=== PATIENT | female | born 1955 | race Caucasian/White ===

== ENCOUNTER 2017-11-10 03:15 | Inpatient (IN) ==
[2017-11-10] MEDS ORDERED: *HR* Dextrose 50 % in Water (Syg) 50 ML SYRINGE IVP PRN (12:26)
[2017-11-10] MEDS ORDERED: Dextrose Gel 15 GM/37.5 ML TUBE PO PRN ×2 (12:26)
[2017-11-10] MEDS ORDERED: D5% in Water 1,000 ML IVC PRN (12:26)
[2017-11-10 12:50] LABS: Hematocrit 29.9 % (35.3-44.9); Hemoglobin 10.1 g/dL (11.5-15.4); Mean Corpuscular HGB Conc 33.8 g/dL (31.6-35.5); Mean Corpuscular Hemoglobin 29.2 pg (28.0-33.3); Mean Corpuscular Volume 86.4 fL (83.0-100.0); Mean Platelet Volume 10.1 fL (9.4-12.4); Platelet Count 290 K/mcL (140-400); Red Blood Count 3.46 M/mcL (3.82-4.97); Red Cell Distribution Width 13.4 % (11.5-14.5)
[2017-11-10 12:58] LABS: INR 0.9; Prothrombin Time 10.4 Seconds (9.4-12.1)
--- NOTE | 2017-11-10 13:07 | Cardiology Consult Note ---
Date of Encounter: 11/10/17 Time of Encounter: 12:30 Assessment and Plan (1) Chest pain Current Visit: Yes Status: Acute Chest pain concerning for unstable angina. H/o multiple PCI and was not taking GDMT. Troponin negative x2 and 0.08. Mild elevation also in the setting of HTN urgency b/p 210/117. Re-peat EKG ordered, record from other facility is not available to me. Ongoing chest pain and symptoms concerning for unstable angina. LHC is recommended and discussed with patient. She agrees to proceed. R/B/A reviewed. Check TTE Qualifiers: Ischemic chest pain type: unstable angina pectoris Qualified Code(s): I20.0 - Unstable angina (2) Elevated troponin Current Visit: Yes Status: Acute (3) CAD (coronary artery disease), [place] coronary artery Current Visit: No Status: Chronic H/o CAD and multiple PCI most recent PCI 09/2016 at [facility]. Records requested. Continue asa, statin, and bb. Unfortunately she was not on DAPT after her most recent PCI. She states she was never prescribed anything. Qualifiers: [place] vs. transplanted heart: [place] heart Associated angina: without angina Qualified Code(s): I25.10 - Atherosclerotic heart disease of [place] coronary artery without angina pectoris (4) Hypertension Current Visit: No Status: Chronic B/p improved on NTG gtt. Recommend restarting zestril and increase as needed. Qualifiers: Hypertension type: essential hypertension Qualified Code(s): I10 - Essential (primary) hypertension Discussion w patient/family: The assessment and plan as outlined above was discussed with the patient and/or family members who expressed understanding and agreement. All questions were answered. Thank you for involving us in the care of your patient. Please call with any questions. History of Present Illness Consult date: 11/10/17 Requesting physician: José Ramesh Consult reason: Unstable angina, hypertensive urgency Chief complaint: Chest pain, difficulty breathing, hypoxia History of present illness: Ms. Seaman is a 62 year old female with past medical history of CAD and multiple PCI, CHF, HTN, COPD, uncontrolled DM type II, and fibromyalgia. She presented to out side hospital with the c/o worsening left sided chest discomfort, elevated b/p at 210/117, and difficulty breathing. C/o intermittent left sided chest pain over the past two months that increased to every other day over the last month and increased in severity over the last 48 hours. Her pain is described as an ache through to her back and shoulder. Pain increases with activity. Her pain also improves with IV NTG. When her NTG was turned off she reported severe chest pain. She reports having similar symptoms one year ago. At that time she underwent stress test that was found to be abnormal. Patient underwent C at [facility] and received multi-vessel PCI. She states she was not started on plavix after her PCI. She also did not follow with cardiology after her PCI. Past Med Surg Social Fam HX - Past Medical History Attestation: Yes The following information was validated with the patient. Medical history: coronary artery disease, diabetes, hypertension, thyroid disease Additional medical history: MS fibromyalgia, Psychiatric history: depression - Past Surgical History Surgical History: cholecystectomy Additional surgical history: L ankle ORIF. coronary stents x3. tubial - Social History Smoking Status: Never smoker Smokeless Tobacco Status: No Alcohol use: none Drug use: none Medications and Allergies Aspirin Enteric Coated [Aspirin EC] 81 mg PO DAILY #30 tablet. 12/23/15 [Rx] Atorvastatin Calcium [Lipitor] 80 mg PO HS 11/10/17 [History] Escitalopram [Lexapro] 20 mg PO DAILY 11/10/17 [History] Furosemide [Lasix] 40 mg PO DAILY 11/10/17 [History] Insulin NPH/REG 70/30 (HUMAN) [Humulin 70/30 Vial] 75 unit SQ BID 11/10/17 [ History] Levothyroxine [Synthroid] 75 mcg PO QAM 11/10/17 [History] Lisinopril [Zestril] 20 mg PO DAILY 11/10/17 [History] 3 Allergy/AdvReac Type Severity Reaction Status Date / Time Penicillins Allergy Anaphylaxis Verified 12/20/15 23:33 Sulfa (Sulfonamide Allergy Anaphylaxis Verified 02/06/16 14:23 Antibiotics) All Systems Review: The remainder of the systems were reviewed and are negative Physical Examination Vital Signs, Last 4 Hours Temp Pulse Resp BP Pulse Ox 11/10/17 10:20 98.1 F 85 16 135/88 93 General: Conversant, No Apparent Distress HEENT: Atraumatic, Normocephaly, Mucus Membranes Moist Neck: No JVD, Normal carotid pulses Cardiac: Reg Rate and Rhythm, Normal S1 and S2, No Murmur Lungs: Normal Breath Sounds, No Wheeze, Rales, Rhonchi Neuro: Alert and responsive, No focal deficits noted Abdomen: Soft, Non-Tender Skin: No rashes noted on visualized skin Musculoskeletal: Other (reproducible chest wall pain. ) Extremities: No Clubbing, No Cyanosis, No Edema, Normal Pulses Results 11/10/17 12:40 11/10/17 12:40 Lab Results 11/10/17 12:40 WBC 8.9 Hgb 10.1 L Hct 29.9 L Plt Count 290 - Imaging and Cardiology Echo: report reviewed Consult Discharge Plan - Plan Referrals: Saw Flores DO [Primary Care Provider] -
[2017-11-10] MEDS ORDERED: *HR* Heparin 5,000 UNIT/ML VIAL IVP ONE (13:11)
[2017-11-10] MEDS ORDERED: *HR* Heparin 5,000 UNIT/ML VIAL IVP PRN ×2 (13:11)
[2017-11-10 13:15] LABS: Troponin I 0.08 ng/mL (< 0.04)
[2017-11-10] MEDS ORDERED: Heparin 25,000 UNIT/500 ML D5W 25,000 UNIT/500 ML BAG IVC SCH (13:15)
[2017-11-10 13:16] LABS: Estimated Average Glucose 346 mg/dl; Hemoglobin A1C 13.7 %; Potassium 4.3 mEq/L (3.5-5.1)
[2017-11-10 13:19] LABS: Magnesium 1.7 mg/dL (1.6-2.6)
[2017-11-10] MEDS: Aspirin Enteric Coated 81 MG Tablet PO SCH (13:42)
[2017-11-10] MEDS: Insulin LISPRO 300 UNITS/3 ML VIAL SQ SCH ×3 (13:43→17:59)
[2017-11-10 14:00] LABS: Hematocrit 30.3 % (35.3-44.9); Hemoglobin 10.2 g/dL (11.5-15.4); Mean Corpuscular HGB Conc 33.7 g/dL (31.6-35.5); Mean Corpuscular Hemoglobin 28.8 pg (28.0-33.3); Mean Corpuscular Volume 85.6 fL (83.0-100.0); Mean Platelet Volume 10.2 fL (9.4-12.4); Platelet Count 291 K/mcL (140-400); Red Blood Count 3.54 M/mcL (3.82-4.97); Red Cell Distribution Width 13.4 % (11.5-14.5)
[2017-11-10 14:04] LABS: Heparin anti-factor XA UFH 0.05 IU/mL (0.30-0.70)
[2017-11-10 14:05] LABS: INR 0.9; Prothrombin Time 10.4 Seconds (9.4-12.1)
[2017-11-10] MEDS ORDERED: 0.9 % Sodium Chloride 1,000 ML ONE ×2 (14:24→15:08)
[2017-11-10] MEDS ORDERED: Heparin 1,000 UNITS/500 mL 500 ML ONE (14:24)
[2017-11-10] MEDS ORDERED: ISOVUE-370 200 ML INFUS..BTL IV ONE ×2 (14:24→15:31)
[2017-11-10] MEDS ORDERED: Nitroglycerin 1,000 MCG/10 ML VIAL IV ONE (14:24)
[2017-11-10] MEDS ORDERED: *HR* Heparin 10,000 UNIT/10 ML VIAL ONE (14:24)
[2017-11-10] MEDS ORDERED: *HR* FentaNYL (PF) 100 MCG/2 ML VIAL ONE (15:08)
[2017-11-10] MEDS ORDERED: *HR* Midazolam HCl 2 MG/2 ML VIAL ONE (15:08)
[2017-11-10] MEDS ORDERED: Tirofiban 12.5 MG/250ML 12.5 MG/250 ML BAG ONE (15:31)
[2017-11-10] MEDS ORDERED: *HR* Ticagrelor 90 MG TABLET ONE (16:08)
--- NOTE | 2017-11-10 16:14 | Pre-Sedation Evaluation ---
Pre-sedation evaluation - Pre-sedation checklist Date of procedure: 11/10/17 Procedure: Cath Recent Vitals: Last Vital Signs Temp 98.1 F 11/10/17 13:38 Pulse 85 11/10/17 13:38 Resp 18 11/10/17 13:38 BP 164/91 11/10/17 13:38 Pulse Ox 97 11/10/17 13:38 H&P (including ROS) documented in medical record: Yes Previous reaction to sedatives/anesthetics: No Dietary Status: NPO after Midnight Dentition: No loose teeth or bridges, full dentition ASA Classification *see protocol: CLASS II-Mild systemic disease Cardiac Registry (Cardio Only) - Functional Capacity Functional Capacity: < 4 METS - Clincal Frailty Scale Clinical Frailty Scale: Mildly Frail
[2017-11-10] MEDS ORDERED: Tirofiban 12.5 MG/250ML 12.5 MG/250 ML BAG IVC SCH (16:15)
--- NOTE | 2017-11-10 16:37 | Invasive Diagnostic Lab Proc ---
Name: Francheska Seaman Date of Study: 11/10/2017 Date: 1955 Ht: 59.1in Medical Record#: [id number] Age: 62 Wt: 189.60lb Gender: Female BSA: 1.8 Order #: [id number] BMI: 38.22 Physicians Procedure Physician: Elsa West MD Referring MD: Referring MD: Staff Name Position Time In [facility] Cassidy RN Ehs Engineer 03:09 PM Yoko Gonzalez RT (R) Scrub 03:14 PM Ruba, Yoko RT (R) Monitor 03:14 PM Indications Indication Non-Stemi Procedures Performed Procedure L HRT ARTERY/VENTRICLE ANGIO PRQ CARDIAC ANGIOPLAST 1 ART Pre-Procedure Checklist Informed consent is complete signed and on chart. H&P is on chart. ID band is on and ID verified with patient. Patient NPO for procedure The procedure was described for the patient and questions were answered. Blood Pressure: 148/84 ECG is on chart. Rhythm: NSR Plan of Care Patient will tolerate the procedure without complications. Adequate level of comfort will be maintained. Hemodynamics will remain stable Patient will recover from procedure without complications. Respiratory function will be maintained. Cardiac rhythm will remain stable. Patient temperature will be maintained. Patient and/or family have verbalized understanding of the procedure. Patient Education Chief Complaint/Reason for Test: Cardiac Cath Developmental Category: Geriatric (65+ years) Developmentally Appropriate for Age: Yes Learning Barriers: None Education Needs: Procedure Education Method: Verbal Information Taught: Cardiac Cath Educational Evaluation: Able to repeat information Intravenous Access Time IV Size Location DC'd Fluid/Drip Rate Units RN 20g 1 04/15" Patent On Arrival 0.9NaCl ml/hr Allergies PCN (penicillin) SULFA (sulfonamide) LANEY Inhibitor Morphine Penicillins Sulfa (Sulfonamide Antibiotics) Vital Signs Time BP (mmHg) HR (bpm) O2 Sat. RR (bpm) LOC 03:15 PM 166 / 95 75 93 % 10 03:19 PM 148 / 84 72 91 % 15 03:24 PM 120 / 78 66 93 % 17 03:29 PM 140 / 69 75 95 % 14 03:34 PM 136 / 70 69 96 % 14 03:39 PM 108 / 62 62 96 % 17 03:43 PM 124 / 72 69 96 % 16 03:49 PM 121 / 65 76 92 % 19 03:53 PM 138 / 84 68 95 % 20 03:59 PM 140 / 93 73 94 % 19 Procedural Medications Time Medication Dose Units Method Given By 03:15 PM Oxygen 2 L/min nasal cannula Cassidy Mendoza RN 03:16 PM Versed 1 mg Intravenous Cassidy Mendoza RN 03:16 PM Fentanyl 50 mcg Intravenous Cassidy Mendoza RN 03:19 PM Versed 1 mg Intravenous Cassidy Mendoza RN 03:19 PM Fentanyl 50 mcg Intravenous Cassidy Mendoza RN 03:21 PM Oxygen 6 L/min nasal cannula Cassidy Mendoza RN 03:23 PM Oxygen 10 L/min Oxy Mask Csasidy Mendoza RN 03:24 PM Lidocaine 2% 10 ml Subcutaneous Elsa West MD 03:33 PM Aggrastat Bolus: 42 ml Intravenous Cassidy Mendoza RN 03:33 PM Aggrastat 12.5mg/250ml 7.5 ml Intravenous Cassidy Mendoza RN 03:34 PM Heparin 4000 units Intravenous Cassidy Mendoza RN 03:45 PM Nitroglycerin 150 mcg Intracoronary Ramos West MD 03:57 PM Nitroglycerin 200 mcg Intracoronary Ramos West MD ASA Classification: CLASS II- Mild systemic disease (i.e. well-controlled diabetes, hypertension, asthma, cigarette smoking) Lyndsey Score Preprocedure Postprocedure Activity 2- Moves 4 extremities sustained head lift Activity 2- Moves 4 extremities sustained head lift Circulation 2- SBP +/= 20 points of pre-anesthetic level Circulation 2- SBP +/= 20 points of pre-anesthetic level Consciousness 2- Awake and alert oriented x 3 Consciousness 2- Awake and alert oriented x 3 O2 Saturation 2- Able to maintain O2 satruation of 92% on room air O2 Saturation 2- Able to maintain O2 satruation of 92% on room air Respiratory 2- Able to deep breathe and cough well Respiratory 2- Able to deep breathe and cough well Total Score 10 Total Score 10 Contrast Agent: Isovue Diagnostic Contrast: 171 ml Total Contrast: 171 ml Fluoro Dose: 26629 mGy Activated Clotting Time Time Seconds to Clot 03:35 PM 151 Procedure Log Time Note Enter By 03:09 PM Pt arrived to electronic lab technician 1 at 15:09 cheyanne 03:09 PM Patient charges- Angio tray pack, Navilyst 3mm J, Pulse Oximetry and ACIST tubing and transducer 03:09 PM Physician arrived 15: 03:09 PM Meet and greet completed 03:09 PM Sign in performed according to hospital policy. 03:09 PM Procedure start 15: 03:10 PM Cassidy Mendoza RN Position: Ehs Engineer Time in: 15: 03:13 PM Vitals capture started with the following parameters, Patient=Adult, Interval=5 min, Initial Pcqvuiti=376 mmHg, Deflation Rate=3 mmHg, Cuff placed on Right Arm 03:14 PM Yoko Gonzalez RT (R) Position: Scrub Time in: 15:14 ts 03:14 PM Yoko Yeh RT (R) Position: Monitor Time in: 15:14 03:15 PM HR=75 bpm, WCQU=953/95 mmhg, SpO2=93.0 %, Resp=10 B/min 03:15 PM Hair removed from procedure site in holding area using clippers. Bilateral groin prepped with Chloraprep by Tiffanie Lebron RT (R), then patient was draped. Skin intact. tsites 03:15 PM Case Delayed No tsites 03:16 PM Time: 15:15 Oxygen on at 2 L/min per nasal cannula by Cassidy Mendoza RN ites 03:16 PM Time: 15:16 Versed 1 mg Intravenous Given by Cassidy Mendoza RN tsites 03:17 PM Time: 15:16 Fentanyl 50 mcg Intravenous Given by Cassidy Mendoza RN tsites 03:17 PM Recorded ECG: HR=73 Condition=Condition 1 03:19 PM HR=72 bpm, QHME=096/84 mmhg, SpO2=91.0 %, Resp=15 B/min 03:19 PM Time: 15:19 Versed 1 mg Intravenous Given by Cassidy Mendoza RN tsites 03:19 PM Time: 15:19 Fentanyl 50 mcg Intravenous Given by Cassidy Mendoza RN tsites 03:20 PM Pressure channel 1 zeroed. 03:22 PM Time: 15:21 Oxygen on at 6 L/min per nasal cannula by Cassidy Mendoza RN tsites 03:23 PM Time: 15:23 Oxygen on at 10 L/min per Oxy Mask by Cassidy Mendoza RN tsites 03:24 PM HR=66 bpm, MFMR=985/78 mmhg, SpO2=93 %, Resp=17 B/min 03:24 PM Time out performed according to hospital policy tsites 03:24 PM Time: 15:24 10 ml Lidocaine 2% to right groin Subcutaneous Given by Elsa West MD tsites 03:24 PM Access obtained by percutaneous puncture. 4Fr 10cm Micro sheath placed in right Femoral artery. [id number] tsites 03:24 PM 4cc of contrast injected tsites 03:25 PM Sheath exchanged for a 6 Fr 11 cm Terumo [place] sheath [id number] tsites 03:25 PM 5Fr FL 4 catheter inserted over the wire DN tsites 03:25 PM 0.035 145cm Navilyst 3mmJ wire [id number] tsites 03:26 PM LCA angiography performed in multiple views. tsites 03:26 PM Recorded Pressure: Ao, HR=71, Condition=Condition 1 (Aorta) Ao 128/38/77 03:28 PM wire reinserted catheter removed tsites 03:28 PM 5Fr FR 4 catheter inserted over the wire DN tsites 03:28 PM RCA angiography performed in multiple views. tsites 03:29 PM Recorded Pressure: Ao, HR=72, Condition=Condition 1 (Aorta) Ao 16/-66/-47 03:29 PM HR=75 bpm, EOAX=772/69 mmhg, SpO2=95 %, Resp=14 B/min 03:31 PM wire reinserted catheter removed tsites 03:31 PM 5Fr Pigtail catheter inserted over the wire DN tsites 03:31 PM Catheter selectively placed in left ventricle tsites 03:31 PM Recorded Pressure: LV, HR=72, Condition=Condition 1 (Left Ventricle) LV 112/16/20 03:31 PM Bolus angiogram of left Ventricle complete: 10 ml/sec for a total of 20 mls tsites 03:33 PM Recorded Pressure: LV, Ao, HR=68, Condition=Condition 1 (Left Ventricle) LV 115/-2/18, (Aorta) Ao 104/38/73 03:33 PM wire reinserted catheter removed tsites 03:33 PM Time: 15:33 Aggrastat Bolus: 42 ml Intravenous Given by Cassidy Mendoza RN Black pump tsites 03:34 PM HR=69 bpm, EKKX=746/70 mmhg, SpO2=96.0 %, Resp=14 B/min 03:34 PM Time: 15:33 Aggrastat 12.5mg/250ml 7.5 ml Intravenous Given by Cassidy Mendoza RN Black pump tsites 03:34 PM Time: 15:34 Heparin 4000 units Intravenous Given by Cassidy Mendoza RN tsites 03:35 PM At 15:35 the ACT was 151 seconds. tsites 03:36 PM Lesion found in Mid LAD. Pre Stenosis: 100 Pre HARRY Flow: 2: Partial Flow/Perfusion (> 1 but < 3) tsites 03:36 PM PCI Status Urgent tsites 03:36 PM 6Fr XB LAD 3.5 [place] Bright-Tip guide catheter was used to cannulate the PCI vessel successfully. reused? No tsites 03:36 PM Inflation device was opened. tsites 03:37 PM .014 [employer] [place] 190cm guide wire across target lesion- successful. reused? No tsites 03:37 PM 2.0 mm x 20 mm Emerge Monorail balloon across target lesion- successful. reused? No tsites 03:38 PM Balloon inflated @ 6 edilia for 9 seconds tsites 03:39 PM HR=62 bpm, TGKY=357/62 mmhg, SpO2=96.0 %, Resp=17 B/min 03:39 PM Balloon inflated @ 9 edilia for 7 seconds tsites 03:40 PM Balloon inflated @ 9 edilia for 7 seconds tsites 03:40 PM Balloon catheter removed intact. tsites 03:41 PM 2.5 mm x 12mm NC Emerge balloon across target lesion- successful. reused? No tsites 03:41 PM Balloon inflated @ 14 edilia for 4 seconds tsites 03:42 PM Balloon inflated @ 16 edilia for 8 seconds tsites 03:43 PM Balloon inflated @ 16 edilia for 7 seconds tsites 03:43 PM Balloon inflated @ 18 edilia for 8 seconds tsites 03:43 PM HR=69 bpm, IKLQ=324/72 mmhg, SpO2=96.0 %, Resp=16 B/min 03:43 PM Balloon inflated @ 18 edilia for 4 seconds tsites 03:44 PM Balloon inflated @ 18 edilia for 9 seconds tsites 03:44 PM Recorded Pressure: Ao, HR=73, Condition=Condition 1 (Aorta) Ao 114/62/86 03:45 PM Time: 15:45 Nitroglycerin 150 mcg Intracoronary Given by Ramos West MD tsites 03:48 PM 2.0x 20 reinserted tsites 03:49 PM HR=76 bpm, VWWJ=262/65 mmhg, SpO2=92.0 %, Resp=19 B/min 03:50 PM 10 @ 20 edilia for seconds tsites 03:51 PM Balloon inflated @ 10 edilia for 16 seconds tsites 03:52 PM Balloon inflated @ 10 edilia for 18 seconds tsites 03:53 PM Balloon inflated @ 12 edilia for 20 seconds tsites 03:53 PM Cutting balloon catheter removed intact. tsites 03:53 PM 3.0 mm x 20mm NC Emerge balloon across target lesion- successful. reused? No tsites 03:53 PM HR=68 bpm, NTYR=855/84 mmhg, SpO2=95 %, Resp=20 B/min 03:54 PM Balloon inflated @ 18 edilia for 10 seconds tsites 03:55 PM Balloon inflated @ 20 edilia for 13 seconds tsites 03:56 PM Balloon inflated @ 18 edilia for 14 seconds tsites 03:57 PM Time: 15:57 Nitroglycerin 200 mcg Intracoronary Given by Ramos West MD tsites 03:59 PM HR=73 bpm, GYID=599/93 mmhg, SpO2=94.0 %, Resp=19 B/min 03:59 PM Guide wire removed intact. tsites 03:59 PM Guide catheter removed intact. tsites 04:00 PM Bolus angiogram of right Femoral complete: 2 ml/sec for a total of 4 mls tsites 04:01 PM Coronary Dominance: right tsites 04:01 PM Mid/Distal Left Anterior Descending Coronary Artery and diagonal branches with 99% stenosis. If graft is supplying this area, 0 % stenosis tsites 04:09 PM Lesion found in Mid RCA. Pre Stenosis: 40 Pre HARRY Flow: tsites 04:09 PM Lesion found in Proximal LAD. Pre Stenosis: 70 Pre HARRY Flow: 2: Partial Flow/Perfusion (> 1 but < 3) tsites 04:10 PM Lesion found in Proximal Circumflex. Pre Stenosis: 25 Pre HARRY Flow: tsites 04:10 PM Lesion found in Mid Circumflex. Pre Stenosis: 60 Pre HARRY Flow: tsites 04:10 PM Lesion found in Ramus. Pre Stenosis: 60 Pre HARRY Flow: tsites 04:10 PM Proximal Left Anterior Descending Coronary Artery with 70% stenosis. If graft is supplying this territory, 0 % stenosis. tsites 04:10 PM Circumflex, Obtuse Marginal, Left Posterior Descending, and Left Posterolateral Coronary Arteries with 60 % stenosis. If graft is supplying this area, 0 % stenosis tsites 04:11 PM Right Coronary, Right Posterior Descending Arteries with Right Posterolateral and Acute Marginal branches with 40 % stenosis. If graft is supplying this area, 0 % stenosis tsites 04:11 PM Ramus with 60% stenosis. If graft is supplying this area, 0 % stenosis tsites 04:11 PM Procedure completed at 16:11 11/10/2017 tsites 04:14 PM Sign out completed: Radiation Dose 2256.52 mGy, 82832.27 cGy/cm2 Fluoro Time: 9.8 Isovue 370 - 200ml contrast 171 ml given by Elsa West MD. Complications: NoneCardiac Rehab Consult needed: YesConfirmed administered medications: Yes tsites 04:14 PM Isovue 370 - 200ml,2 Bottle(s) used. tsites 04:14 PM Arterial sheath pulled, Angio-seal closure device used and was Successful S/N. tsites 04:14 PM Estimated Blood Loss: less than 20cc tsites 04:14 PM Post ECG NSR tsites 04:15 PM Post Blood Pressure 152/97 tsites 04:16 PM 16:16 Post Pulses Bilateral DP & PT 1+ tsites 04:16 PM Information taught Cardiac Cath, PCI, and Angioseal tsites 04:16 PM Education needs Procedure, Plan of Care, and Responsibilities of Patient in Care tsites 04:17 PM Learning barriers :None tsites 04:17 PM Education Methods Verbal tsites 04:17 PM Education evaluation Able to repeat information tsites 04:17 PM Site status No bleeding/hematoma - Rt Groin as reported by Yoko Gonzalez RT (R) at 16:17 tsites 04:17 PM Opsite applied tsites 04:18 PM Report given to jolie JUAREZ Pt taken to 2NE Room #24. 16:17 tsites 04:18 PM Plavix, Effient or Brilinta given Yes tsites 04:18 PM Delay to floor No tsites 04:18 PM Patient out of room: 16:18 tsites 04:18 PM Family placed in consult room. tsites Complications Complication None Hemodynamics Pressures Site Systolic/A Wave Diastolic/V Wave Mean AO 128 38 77 AO 16 -66 -47 LV 112 16 20 LV 115 -2 18 AO 104 38 73 AO 114 62 86 Post Procedure Information Blood Pressure: 152/97 mmHg Rhythm: NSR Post procedural instructions were given Closure Device Time Device Success/Fail 11/10/2017 4:18:00 PM Angio-Seal VIP Successful Site Checks Time Location Status Staff Sheath In? Note 04:17 PM Rt Groin No bleeding/hematoma Yoko Gonzalez RT (R) Pulses Time Site Pre-Procedure Post-Procedure Note Bilateral DP & PT 1+ Bilateral radial 2+ 2+ 4:16:00 PM Bilateral DP & PT 1+ Updated by Yoko Yeh RT (R) on 11/10/2017 4:30:16 PM Yoko Yeh RT electronically signed on 11/10/2017 4:31:46 PM with status of Final
[2017-11-10] MEDS: *HR* Ticagrelor 90 MG TABLET PO SCH (21:01)
[2017-11-10] MEDS: Insulin DETEMIR 100 UNIT/ML X5UNITS SQ SCH (21:01)
--- NOTE | 2017-11-10 23:19 | Internal Med History&Physical ---
Date of Encounter: 11/10/17 Time of Encounter: 21:00 Internal Medicine - H&P: HPI Chief complaint: Chest pain Admitted From: Home Plans for Post Hospital Care: Home History of present illness: Ms. Seaman is a 62 year old female. We got this patient from the emergency room of [facility] the morning. The patient has had long-standing history of coronary artery disease. She carries multiple coronary stents. The last time she had cardiac catheterization/stenting was at [facility] in [place], [place] in September 2016. She has not had any cardiac testing after that hospitalization. She has been suffering from "indigestion" for the last 2 days. It is a feeling of pressure located below her left clavicle, radiating to her left lateral neck and left arm. It is constant in nature but fluctuating in intensity. Last night it was associated with some difficulty breathing. She took nitroglycerin sublingually. Then, she was started on IV nitroglycerin drip in the emergency room. Her blood pressure checked by EMS at her home was 209/128. The patient continues to have IV nitroglycerin drip. Her blood pressure has normalized. Her pain is 3 points on 10 point scale. She will be evaluated by cardiology. Her medical problems include coronary artery disease, hypertension, type 2 diabetes mellitus with peripheral neuropathy, hypothyroidism and fibromyalgia. I am not sure about her diagnosis of multiple sclerosis; she is not taking any medications for that problem. She carries multiple coronary stents. She had cholecystectomy and tubal ligation in the past. Review of systems: All 14 organ systems were reviewed by me with the patient. Positive and pertinent negative findings are listed above. The rest of organ systems is negative. Past Med Surg Social Fam HX - Past Medical History Medical history: coronary artery disease, diabetes, hypertension, thyroid disease Additional medical history: MS fibromyalgia, Psychiatric history: depression - Past Surgical History Surgical History: cholecystectomy Additional surgical history: L ankle ORIF. coronary stents x3. tubial - Social History Smoking Status: Never smoker Smokeless Tobacco Status: No Alcohol use: none Drug use: none Internal Medicine - H&P: Meds Atorvastatin Calcium [Lipitor] 80 mg PO HS 11/10/17 [History] Escitalopram [Lexapro] 20 mg PO DAILY 11/10/17 [History] Furosemide [Lasix] 40 mg PO DAILY 11/10/17 [History] Insulin NPH/REG 70/30 (HUMAN) [Humulin 70/30 Vial] 75 unit SQ BID 11/10/17 [ History] Levothyroxine [Synthroid] 75 mcg PO QAM 11/10/17 [History] Lisinopril [Zestril] 20 mg PO DAILY 11/10/17 [History] Naproxen Sodium [Aleve] 220 mg PO Q8-12H PRN 11/10/17 [History] 3 Allergy/AdvReac Type Severity Reaction Status Date / Time Penicillins Allergy Anaphylaxis Verified 11/10/17 13:56 Sulfa (Sulfonamide Allergy Anaphylaxis Verified 11/10/17 13:56 Antibiotics) All Systems PM: A 10-system review of systems was performed and is negative for pertinent findings except as documented above in the HPI. - Constitutional Vitals: Temp Pulse Resp BP Pulse Ox 98.1 F 84 20 159/83 96 11/10/17 21:00 11/10/17 21:00 11/10/17 21:00 11/10/17 21:00 11/10/17 21:00 General appearance: Present: A&O X 3, no acute distress, answers questions appropriately - Other Additional findings: Skin: Free of rash and discoloration. Eyes: Sclera is white. There is no discharge from eyes. ENMT: Oral/pharyngeal mucosa is normal in appearance. There is no discharge from nose or ears. Respiratory: Normal breath sounds with no crackles and wheezes bilaterally. CV: Heart is regular with no gallop or murmur. GI: Abdomen is flat and soft with no palpable mass or visceromegaly. : There is no tenderness in patient's flanks bilaterally. Neuro exam: He has good strength in upper and lower extremities. He has normal eye movements. Psychiatric: He has normal affect. His thought process is appropriate to the situation. Internal Med - H&P Results - Labs CBC & Chem 7: 11/10/17 13:39 11/10/17 12:40 Labs: Short CBC 11/10/17 11/10/17 Range/Units 12:40 13:39 WBC 8.9 9.5 (4.3-11.1) K/mcL Hgb 10.1 L 10.2 L (11.5-15.4) g/dL Hct 29.9 L 30.3 L (35.3-44.9) % Plt Count 290 291 (140-400) K/mcL BMP 11/10/17 12:40 Sodium 137 Potassium 4.3 Chloride 106 Carbon Dioxide 22 L BUN 29 H Creatinine 1.28 H Glucose 344 H Calcium 9.0 Cardiac Enzymes 11/10/17 Range/Units 12:40 Troponin I 0.08 H* (< 0.04) ng/mL - Assessment and plan (1) Unstable angina Current Visit: Yes Status: Acute Assessment and plan: She likely suffers from unstable angina. Will continue IV nitroglycerin drip. We will start her on IV heparin drip. She will be on low-dose Lopressor, Zocor and enteric-coated aspirin. We will consult cardiology. Will get a BMP, magnesium and troponin stat. The patient had CK-MB checked in the emergency room before transferring her to our hospital. It was normal. They did EKG. It showed normal sinus rhythm. (2) Type 2 diabetes mellitus Current Visit: Yes Status: Acute Assessment and plan: We will keep her on diabetic diet. She will be on Levemir and when necessary Humalog. Qualifiers: Diabetes mellitus extermination supervisor insulin use: with extermination supervisor use Diabetes mellitus complication detail: with nephropathy Qualified Code(s): E11.21 - Type 2 diabetes mellitus with diabetic nephropathy; Z79.4 - terminal system operator (current) use of insulin (3) Type 2 diabetes mellitus Current Visit: Yes Status: Acute Assessment and plan: As above. Qualifiers: Diabetes mellitus extermination supervisor insulin use: with extermination supervisor use Diabetes mellitus complication detail: with polyneuropathy Qualified Code(s): E11.42 - Type 2 diabetes mellitus with diabetic polyneuropathy; Z79.4 - correction ( current) use of insulin (4) Hypertensive renal disease with renal failure Current Visit: Yes Status: Acute Assessment and plan: We will keep her lisinopril on hold, as we expect her to have cardiac catheterization. We will keep her on twice a day Lopressor. She continues IV nitroglycerin drip. - Time Spent With Patient Total time spent is greater than 50% in coordination of care (as documented) at patient's floor/unit and/or counseling patient: Greater than 35 minutes (40 minute)
[2017-11-11 00:14] LABS: Bilirubin,Urine Negative (Negative); Blood,Urine Negative (Negative); Clarity,Urine Clear (Clear); Color,Urine Yellow (Yellow); Glucose,Urine (UA) 500 mg/dL (Normal); Ketones,Urine Negative (Negative); Leukocyte Esterase,Urine Negative (Negative); Nitrite,Urine Negative (Negative); Protein,Urine 30 mg/dL (Neg-Trace); Specific Gravity,Urine > 1.030 (1.010-1.025); Urobilinogen,Urine Normal (Normal)
[2017-11-11 00:17] LABS: Bacteria,Urine None Seen per hpf (None-Few); Hyaline Casts,Urine None Seen per lpf (None-Few); RBC,Urine 0-3 per hpf (0-3); Squamous Epithelial Cell,Urine Many per lpf (None-Few); WBC,Urine 0-3 per hpf (0-3)
[2017-11-11] MEDS ORDERED: Furosemide 40 MG/4 ML VIAL IVP ONE (02:13)
[2017-11-11 04:16] LABS: Chol/HDL Ratio 4.6 (0-4.9)
[2017-11-11] MEDS ORDERED: Aspirin 81 MG TAB.CHEW PO SCH (09:00)
--- NOTE | 2017-11-11 10:09 | Cardiology Progress Note ---
Date of Encounter: 11/11/17 Time of Encounter: 09:00 Assessment and Plan (1) Unstable angina Current Visit: Yes Status: Acute Chest pain concerning for unstable angina. H/o multiple PCI and was not taking GDMT. Troponin negative x2 and 0.08. Mild elevation also in the setting of HTN urgency b/p 210/117. EKG showed SR with T wave inversion in the V leads that was increased from prior EKG. No ST changes. Ongoing chest pain and symptoms concerning for unstable angina. [facility] Completed and she received PTCA to the proximal and mid LAD reviewed. Moderate non-obstructive disease remaining. EF 55%. TTE pending. No complications from right femoral access site. Importance of DAPT with asa and brilinta uninterrupted for minimum of one year discussed and she voiced understanding. Continue BB. Change statin to high intensity statin for CAD. Activity restrictions reviewed as stated above.Cardiac rehab ordered. (2) Elevated troponin Current Visit: Yes Status: Acute See above. (3) CAD (coronary artery disease), three [place] coronary artery Current Visit: No Status: Ruled-out H/o CAD and multiple PCI most recent PCI 09/2016 at [place] [facility]. S/p PTCA to the LAD yesterday. . Continue asa, statin, and bb. Qualifiers: [place] vs. transplanted heart: three affiliated heart Associated angina: without angina Qualified Code(s): I25.10 - Atherosclerotic heart disease of [place] coronary artery without angina pectoris (4) Hypertension Current Visit: No Status: Chronic B/p improved. Qualifiers: Hypertension type: essential hypertension Qualified Code(s): I10 - Essential (primary) hypertension (5) CHF (congestive heart failure) Current Visit: Yes Status: Acute Acute on chronic diastolic CHF. CXR showed pulmonary edema. EF 55% on C. TTE pending. Will repeat lasix. She continues to have SOB and abdominal bloating. Low sodium diet reviewed. Daily weights. Qualifiers: Heart failure type: diastolic Heart failure chronicity: acute on chronic Qualified Code(s): I50.33 - Acute on chronic diastolic (congestive) heart failure Discussion w patient/family: The assessment and plan as outlined above was discussed with the patient and/or family members who expressed understanding and agreement. All questions were answered. Thank you for involving us in the care of your patient. Please call with any questions. Subjective Principal diagnosis: Unstable angina Interval history: Ms. Seaman continues to have intermittent SOB. Reports one brief episode of chest pain yesterday evening. Objective Vital Signs, Last 4 Hours Temp Pulse Resp BP Pulse Ox 11/11/17 06:46 98.2 F 79 16 117/69 99 General: Conversant, No Apparent Distress HEENT: Atraumatic, Normocephaly, Mucus Membranes Moist Neck: No JVD, Normal carotid pulses Cardiac: Reg Rate and Rhythm, Normal S1 and S2, No Murmur Lungs: Normal Breath Sounds, No Wheeze, Rales, Rhonchi Neuro: Alert and responsive, No focal deficits noted Abdomen: Soft, Non-Tender Skin: No rashes noted on visualized skin Musculoskeletal: Other (Reproducible chest wall tenderness and abdominal tenderness) Extremities: No Clubbing, No Cyanosis, No Edema, Normal Pulses Results 11/10/17 13:39 11/10/17 12:40 Lab Results 11/10/17 11/10/17 11/10/17 12:40 12:40 12:40 WBC 8.9 Hgb 10.1 L Hct 29.9 L Plt Count 290 INR 0.9 Sodium Potassium Chloride Carbon Dioxide BUN Creatinine Glucose Calcium Magnesium 1.7 Troponin I 0.08 H* 11/10/17 11/10/17 11/10/17 12:40 13:39 13:39 WBC 9.5 Hgb 10.2 L Hct 30.3 L Plt Count 291 INR 0.9 Sodium 137 Potassium 4.3 Chloride 106 Carbon Dioxide 22 L BUN 29 H Creatinine 1.28 H Glucose 344 H Calcium 9.0 Magnesium Troponin I - Imaging and Cardiology Echo: report reviewed Cardiac cath: report reviewed - EKG Interpretation EKG results cardiology: personally reviewed - VTE Documentation of Mechanical Device: Intermittent pneumatic compression device Consult Discharge Plan - Plan Referrals: Saw Flores DO [Primary Care Provider] -
[2017-11-11] MEDS: Isosorbide MONOnitrate (24 HR) 30 MG TAB.ER.24H PO SCH (10:20)
[2017-11-11] MEDS: Aspirin Enteric Coated 81 MG Tablet PO SCH (10:20)
[2017-11-11] MEDS: *HR* Ticagrelor 90 MG TABLET PO SCH ×2 (10:21→20:15)
[2017-11-11] MEDS: Insulin LISPRO 300 UNITS/3 ML VIAL SQ SCH ×6 (10:21→16:48)
[2017-11-11] MEDS: Furosemide 20 MG/2 ML VIAL IVP SCH ×2 (10:21→16:47)
--- NOTE | 2017-11-11 17:13 | Internal Med Progress Note ---
<Becky Mckinley - Last Filed: 11/11/17 18:15> Hospitalist Progress Note - Encounter Date of Encounter: 11/11/17 Time of Encounter: 10:30 - Subjective Interval History: Today, she states that she tolerated the LH cath well and had no issues overnight. She states that shortness of breath has been improving and denies chest pain, palpitations, dizziness, nausea, vomiting, fever, chills, abdominal pain, diarrhea, constipation, dysuria or frequency. She had a bowel movement today and has a good appetite. All questions and concerns were addressed at bedside. - Exam Vitals: Temp Pulse Resp BP Pulse Ox 98.2 F 70 15 101/59 98 11/11/17 15:00 11/11/17 15:00 11/11/17 15:00 11/11/17 15:00 11/11/17 15:00 Exam: General: AAOx3, in mild distress, on nasal cannula 3L/min. HEENT: EOMI, PERRL, no scleral icterus, mucus membranes moist, no cervical lymphadenopathy, trachea midline Cardio: RRR, no murmurs, rubs or gallops. Normal S1, S2, no carotid bruits Pulmonary: clear to auscultation bilaterally, no wheezes, rales or rhonchi. No accessory muscle use. Abdomen: soft, non tender, non distended, normal bowel sounds, no rebound, guarding or rigidity. Intact bandage on right groin, no drainage, erythema or edema. Extremities: No peripheral edema, radial and dorsal pedis pulses symmetrical and 2+. no calf tenderness. Neuro: CN 2-12 grossly intact, no focal deficits. Psych: pleasant, answers questions appropriately, normal mood and affect. - Assessment and Plan (2) Unstable angina Current Visit: Yes Status: Acute Assessment and Plan: Status post LH cath with angioplasty in proximal and mid LAD. History of CAD and multiple PCI and not takng antiplatlet therapy since last PCI in 2016. Chest pain resolved, shortness of breath improving. Continue metoprolol, nitroglycerin po, atorvastatin, aspirin, heparin, brilinta Cardiac diet referred to cardiac rehabilitation. (3) CAD (coronary artery disease), [place] coronary artery Current Visit: No Status: Chronic Assessment and Plan: History of CAD with multiple PCI and stents Was not taking antiplatelet therapy since last LH cath in 2016 See above for plan (4) Heart failure Current Visit: No Status: Chronic Assessment and Plan: ECHO on 11/10/17: LVEF 50%, mild left ventricular diastolic dysfunction, mild aortic and tricuspid regurgitation, mild-moderate mitral regurgitation. CXR on 11/11/17 showed pulmonary edema Shortness of breath improving after restarting home dose of lasix. Will continue home dose lasix Attempt to wean off supplemental O2 3L/min (5) Hypertension Current Visit: No Status: Chronic Assessment and Plan: Currently stable On home dose of lasix, metoprolol and nitroglycerin PO. (6) Type 2 diabetes mellitus Current Visit: Yes Status: Acute Assessment and Plan: Stable on cardiac diet continue levemir and humalog if necessary - Time Spent with Patient Total time spent is greater than 50% in coordination of care (as documented) at patient's floor/unit and/or counseling patient: Internal Medicine: Result - Labs CBC & Chem 7: 11/10/17 13:39 11/10/17 12:40 Labs: Urine 11/11/17 Range/Units 00:00 Urine Color Yellow (Yellow) Urine Clarity Clear (Clear) Urine pH 6.0 (5.0-8.0) pH Units Ur Specific [place] > 1.030 H (1.010-1.025) Urine Protein 30 H (Neg-Trace) mg/dL Urine Glucose (UA) 500 H (Normal) mg/dL - ABG Interpretation ABG results: PT/INR, D-dimer PT 10.4 Seconds (9.4-12.1) 11/10/17 13:39 - Impressions Impressions Echocardiogram 11/10/17 16:11 Impressions: LVEF 50%. Not all LV wall segments were optimally visualized. Mild left ventricular diastolic dysfunction. Normal right ventricular structure and function. Mild aortic regurgitation. Mild-moderate mitral regurgitation. Mild tricuspid regurgitation. No pulmonary hypertension by TR gradient, 28 mmHg. IVC is not well visualized. Left Ventricular Wall Motion: Rest Echo Findings The apex, apical septal and apical lateral zaragoza were not visualized. All other wall segments showed normal motion. Findings: Study Quality * Technically adequate exam. ECG Findings * Normal sinus rhythm. Left Ventricle * LVEF 50%. * Normal LV chamber size, wall thickness and function. * Mild left ventricular diastolic dysfunction. Right Ventricle * Normal right ventricular structure and function. Left Atrium * Mildly dilated left atrium. Right Atrium * Normal right atrial size. Aortic Valve * Mild aortic regurgitation. * Aortic valve not well visualized. * No aortic stenosis. Mitral Valve * Normal mitral valve structure. * No mitral stenosis. * Mild-moderate mitral regurgitation. Tricuspid Valve * Tricuspid valve not well visualized. * Mild tricuspid regurgitation. Pulmonic Valve * Pulmonic valve is not well visualized. * No pulmonic stenosis. * No pulmonic regurgitation. Pulmonary Artery * Pulmonary artery not well visualized. Aorta * Normally sized aortic root. Pericardium * There is no pericardial effusion present. Interatrial Septum * Interatrial septum not well evaluated. IVC * The IVC is not well evaluated. Chest X-Ray 11/11/17 00:28 IMPRESSION: Findings compatible with pulmonary edema. D/ / Hair Elliott MD / Hair Elliott MD Interpreting Provider: Hair Elliott MD - VTE Documentation of Mechanical Device: Intermittent pneumatic compression device Consult Discharge Plan - Plan Referrals: Saw Flores DO [Primary Care Provider] - <Verona Gurrola - Last Filed: 11/12/17 18:49> Hospitalist Progress Note - Encounter Date of Encounter: 11/12/17 - Exam Vitals: Temp Pulse Resp BP Pulse Ox 98.0 F 87 15 102/58 93 11/12/17 11:00 11/12/17 11:00 11/12/17 11:00 11/12/17 11:00 11/12/17 11:00 - Summary of Assessment and Plan Summary of Assessment and Plan: I examined this patient and my medical decision-making was reviewed with the Resident Physician. I agree with the documented findings, disposition and treatment plan as described except to the extent set forth below. - Time Spent with Patient Total time spent is greater than 50% in coordination of care (as documented) at patient's floor/unit and/or counseling patient: Internal Medicine: Result - Labs CBC & Chem 7: 11/10/17 13:39 11/12/17 10:40 Labs: BMP 11/12/17 10:40 Sodium 132 L Potassium 4.4 Chloride 100 Carbon Dioxide 24 BUN 37 H Creatinine 1.72 H Glucose 558 H* Calcium 8.6 - ABG Interpretation ABG results: PT/INR, D-dimer PT 10.4 Seconds (9.4-12.1) 11/10/17 13:39 - Impressions Impressions Pulmonary Perfusion Imaging 11/12/17 14:38 IMPRESSION: Low probability for pulmonary embolus. D/ / Marito Bo MD / Marito Bo MD Interpreting Provider: Marito Bo MD Chest X-Ray 11/12/17 14:49 IMPRESSION: Improving interstitial pulmonary edema and mild pulmonary vascular congestion over the past 24 hours. No evident pneumonia. D/ / Simone Casarez MD / Simone Casarez MD Interpreting Provider: Simone Casarez MD <Becky Mckinley - Last Filed: 11/11/17 18:15> (3) CAD (coronary artery disease), [place] coronary artery Qualifiers: [place] vs. transplanted heart: [place] heart Associated angina: without angina Qualified Code(s): I25.10 - Atherosclerotic heart disease of [place] coronary artery without angina pectoris (4) Heart failure Qualifiers: Heart failure type: diastolic Heart failure chronicity: chronic Qualified Code(s): I50.32 - Chronic diastolic (congestive) heart failure (5) Hypertension Qualifiers: Hypertension type: essential hypertension Qualified Code(s): I10 - Essential (primary) hypertension (6) Type 2 diabetes mellitus Qualifiers: Diabetes mellitus senior living insulin use: with keno terminal operator use Diabetes mellitus complication detail: with polyneuropathy
[2017-11-11] MEDS: *HR* Heparin 5,000 UNIT/ML VIAL SQ SCH (18:52)
[2017-11-11] MEDS: Acetaminophen 325 MG TABLET PO PRN (20:15)
[2017-11-11] MEDS: Insulin DETEMIR 100 UNIT/ML X5UNITS SQ SCH (22:11)
--- NOTE | 2017-11-12 02:13 | Electrocardiograph Report ---
[address] [place] [address] Test Date: 2017-11-11 Pat Name: Francheska Seaman Department: 111 Room: 2NE24 Gender: F Eclectic Doctor: [facility] : 1955 Requested By: Driss Pereira Order Number: [id number] Reading MD: Debbie Baeza Measurements Intervals [place] Rate: 82 P: 47 DC: 167 QRS: 32 QRSD: 81 T: 148 QT: 378 QTc: 416 Interpretive Statements SINUS RHYTHM LOW QRS VOLTAGE IN PRECORDIAL LEADS ANTEROSEPTAL MYOCARDIAL INFARCTION, OF INDETERMINATE AGE Electronically Signed On 11-11-2017 16:06:18 EDT by Debbie Baeza
--- NOTE | 2017-11-12 02:21 | Electrocardiograph Report ---
[address] [place] [address] Test Date: 2017-11-10 Pat Name: Francheska Seaman Department: 111 Room: 2NE24 Gender: Platform Material Handling Supervisor: : 1955 Requested By: José Ramesh Order Number: [id number] Reading MD: Debbie Baeza Measurements Intervals [place] Rate: 72 P: 41 [place]: 171 QRS: 10 QRSD: 89 T: 141 QT: 437 QTc: 460 Interpretive Statements SINUS RHYTHM WITH SINUS ARRHYTHMIA LOW QRS VOLTAGE IN EXTREMITY LEADS MODERATE T-WAVE ABNORMALITY, CONSIDER ANTEROLATERAL ISCHEMIA Electronically Signed On 11-11-2017 16:21:44 EDT by Debbie Baeza
[2017-11-12] MEDS: *HR* Heparin 5,000 UNIT/ML VIAL SQ SCH ×2 (05:16→16:59)
[2017-11-12] MEDS: Furosemide 20 MG/2 ML VIAL IVP SCH (09:41)
[2017-11-12] MEDS: Aspirin Enteric Coated 81 MG Tablet PO SCH (09:42)
[2017-11-12] MEDS: Insulin LISPRO 300 UNITS/3 ML VIAL SQ SCH ×6 (09:42→21:24)
[2017-11-12] MEDS: Isosorbide MONOnitrate (24 HR) 30 MG TAB.ER.24H PO SCH (09:42)
[2017-11-12] MEDS: *HR* Ticagrelor 90 MG TABLET PO SCH ×2 (09:42→20:37)
[2017-11-12] MEDS ORDERED: Isosorbide MONOnitrate (24 HR) 60 MG TAB.ER.24H PO SCH (10:30)
--- NOTE | 2017-11-12 10:31 | Cardiology Progress Note ---
Date of Encounter: 11/12/17 Time of Encounter: 10:28 Assessment and Plan (1) Unstable angina Current Visit: Yes Status: Acute Chest pain concerning for unstable angina. H/o multiple PCI and was not taking GDMT. Troponin negative x2 and 0.08. Mild elevation also in the setting of HTN urgency b/p 210/117. EKG showed SR with T wave inversion in the V leads that was increased from prior EKG. No ST changes. Ongoing chest pain and symptoms concerning for unstable angina. LHC Completed and she received PTCA to the proximal and mid LAD reviewed. Moderate non-obstructive disease remaining. EF 55%. TTE completed shows low normal EF. LVEF 50%. Not all LV wall segments were optimally visualized. Mild left ventricular diastolic dysfunction. Normal right ventricular structure and function. Mild aortic regurgitation. Mild-moderate mitral regurgitation. Mild tricuspid regurgitation. No pulmonary hypertension by TR gradient, 28 mmHg. IVC is not well visualized. Imdur added for moderate disease and continued chest pain. WIll increase imdur today. Patient also has reproducible chest pain that was unchanged from PCI. Reports having fibromyalgia and chronic pain. Re-peat EKG unchanged. Dr. Yeager reviewed [facility] films. No indication to re-peat LHC. Continue to titrate medical therapy and trial tordol. Check BMP. No complications from right femoral access site. Importance of DAPT with asa and brilinta uninterrupted for minimum of one year discussed and she voiced understanding. Continue BB. Change statin to high intensity statin for CAD. Activity restrictions reviewed as stated above.Cardiac rehab ordered. (2) Elevated troponin Current Visit: Yes Status: Acute See above. (3) CAD (coronary artery disease), [place] coronary artery Current Visit: No Status: Chronic H/o CAD and multiple PCI most recent PCI 09/2016 at [facility]. S/p PTCA to the LAD yesterday. . Continue asa, statin, brilinta, and bb. Qualifiers: [place] vs. transplanted heart: [place] heart Associated angina: without angina Qualified Code(s): I25.10 - Atherosclerotic heart disease of [place] coronary artery without angina pectoris (4) Hypertension Current Visit: No Status: Chronic B/p improved. Qualifiers: Hypertension type: essential hypertension Qualified Code(s): I10 - Essential (primary) hypertension (5) CHF (congestive heart failure) Current Visit: Yes Status: Acute Acute on chronic diastolic CHF. CXR showed pulmonary edema. EF 55% on LHC. TTE shows EF low normal at 50%. On IV lasix. Net negative 3065 ml. No significant fluid overload seen on exam. Change to low dose oral lasix. Low sodium diet reviewed. Daily weights. Qualifiers: Heart failure type: diastolic Heart failure chronicity: acute on chronic Qualified Code(s): I50.33 - Acute on chronic diastolic (congestive) heart failure Discussion w patient/family: The assessment and plan as outlined above was discussed with the patient and/or family members who expressed understanding and agreement. All questions were answered. Thank you for involving us in the care of your patient. Please call with any questions. Subjective Principal diagnosis: Unstable angina Interval history: Ms. Seaman continues to have intermittent chest pain. Chest pain is reproducible. Objective Vital Signs, Last 4 Hours Temp Pulse BP Pulse Ox 11/12/17 07:42 98.0 F 67 132/62 88 General: Conversant, No Apparent Distress HEENT: Atraumatic, Normocephaly, Mucus Membranes Moist Neck: No JVD, Normal carotid pulses Cardiac: Reg Rate and Rhythm, Normal S1 and S2, No Murmur Lungs: Normal Breath Sounds, No Wheeze, Rales, Rhonchi Neuro: Alert and responsive, No focal deficits noted Abdomen: Soft, Non-Tender Skin: No rashes noted on visualized skin Musculoskeletal: Other (Chest wall very tender to palpation) Extremities: No Clubbing, No Cyanosis, No Edema, Normal Pulses Results 11/10/17 13:39 11/10/17 12:40 - Imaging and Cardiology Echo: report reviewed - EKG Interpretation EKG results cardiology: personally reviewed - VTE Documentation of Mechanical Device: Intermittent pneumatic compression device Consult Discharge Plan - Plan Referrals: Saw Flores DO [Primary Care Provider] -
[2017-11-12] MEDS ORDERED: Furosemide 20 MG TABLET PO SCH (10:45)
[2017-11-12 11:24] LABS: Calcium 8.6 mg/dL (8.6-10.3); Potassium 4.4 mEq/L (3.5-5.1)
[2017-11-12] MEDS ORDERED: Isosorbide MONOnitrate (24 HR) 30 MG TAB.ER.24H PO ONE (11:32)
[2017-11-12] MEDS ORDERED: Insulin Human Regular 10 UNIT in 0.9 % Sodium Chloride 10 ML IV ONE ×2 (11:38→21:46)
[2017-11-12] MEDS ORDERED: traMADol 50 MG TABLET PO ONE (11:46)
[2017-11-12] MEDS ORDERED: Ketorolac 30 MG/ML VIAL IVP ONE (11:46)
[2017-11-12] MEDS ORDERED: Isovue-370 500 ML INFUS..BTL IV ONE (14:15)
--- NOTE | 2017-11-12 15:38 | Internal Med Progress Note ---
<Becky Mckinley - Last Filed: 11/12/17 16:54> Hospitalist Progress Note - Encounter Date of Encounter: 11/12/17 Time of Encounter: 10:30 - Subjective Interval History: Today, she was weaned off of 2L/min O2 nasal cannula earlier this morning and she is complaining that shortness of breath has been worsening since this morning. She stated that the shortness of breath was relieved after the LH cath for a while but has steadily increased since then. She also complains of a fluttering sensation in left chest, and reproducible pain on left sided chest wall, ribs 6-10 that wraps around towards her scapula. She states that the chest pain is on the chest wall and described as aching sensation. She admits to headache as well, which is behind both eyes and is band like sensation. She denies increase in intensity or difference in headache from usual. She denies change in vision, dizziness, abdominal pain, frequency or dysuria. - Exam Vitals: Temp Pulse Resp BP Pulse Ox 98.0 F 67 16 132/62 88 11/12/17 07:42 11/12/17 07:42 11/12/17 03:17 11/12/17 07:42 11/12/17 07:42 Exam: General: Resting comfortably, in no acute distress, AAOx3, pleasant HEENT: Normocephalic, atraumatic, EOMI, PERRL, mucus membranes moist. Neck soft , supple, trachea midline, no cervical lymphadenopathy. Cardio: RRR, no murmurs, rubs or gallops. Normal S1, S2. No carotid bruits. Tenderness to palpation on left chest wall that extends to scapula. Pulmonary: Clear to auscultation bilaterally, no wheezes, rales or rhonchi. No accessory respiratory muscle use. Abdomen: Soft, non tender, non distended, normal bowel sounds, no guarding, rebound or rigidity. No CVA or suprapubic tenderness. Extremities: Radial and dorsal pedis pulses 2+ and symmetrical, normal capillary refill, no clubbing. No peripheral edema or calf tenderness. Bandage from cath dry, intact, no edema, erythema or discharge Neuro: CN 2-12 intact, no focal deficits. Psych: Normal mood and affect, answers questions appropriately - Assessment and Plan (1) Increasing shortness of breath Current Visit: Yes Status: Acute Assessment and Plan: Shortness of breath increasing since this morning, reproducible left chest wall tenderness. Was weaned off of supplemental O2 2L/min this morning and it is available at bedside. One SpO2 measurement of 88%, during bedside encounter was saturating on room air around 96-98%. Concerning for possible PE vs angina. Cardio increased dose of imdur and pain has decreased somewhat. Ordered VQ scan to rule out PE- awaiting results. (2) Unstable angina Current Visit: Yes Status: Acute Assessment and Plan: Status post C day 2. She is complaining of reproducible chest wall tenderness on left side. Tenderness is reproducible to palpation. Cardio increased dose of Imdur to better control chest pain. Continue metoprolol, atorvastatin, aspirin, heparin SQ, brilinta. Cardiac diet. referred to cardiac rehabilitation. (3) CAD (coronary artery disease), [place] coronary artery Current Visit: No Status: Chronic Assessment and Plan: History of CAD with multiple PCI and stents. Was not taking antiplatelet therapy since last LH cath in 2016. Continue aspirin, statin, beta natasha. (4) Heart failure Current Visit: No Status: Chronic Assessment and Plan: ECHO on 11/10/17: LVEF 50%, mild left ventricular diastolic dysfunction, mild aortic and tricuspid regurgitation, mild-moderate mitral regurgitation. CXR on 11/11/17 showed pulmonary edema Shortness of breath worsening despite Lasix therapy. Will continue home dose Lasix. (5) Hypertension Current Visit: No Status: Chronic Assessment and Plan: Stable, continue home meds. (6) Type 2 diabetes mellitus Current Visit: Yes Status: Acute Assessment and Plan: Chronically uncontrolled, HgA1C 13.7 on diabetic diet. Increased Insulin protocol sliding scale Continue to monitor glucose DVT Prophylaxis: SQ heparin - Time Spent with Patient Total time spent is greater than 50% in coordination of care (as documented) at patient's floor/unit and/or counseling patient: Internal Medicine: Result - Labs CBC & Chem 7: 11/10/17 13:39 11/12/17 10:40 Labs: BMP 11/12/17 10:40 Sodium 132 L Potassium 4.4 Chloride 100 Carbon Dioxide 24 BUN 37 H Creatinine 1.72 H Glucose 558 H* Calcium 8.6 - ABG Interpretation ABG results: PT/INR, D-dimer PT 10.4 Seconds (9.4-12.1) 11/10/17 13:39 - VTE Documentation of Mechanical Device: Intermittent pneumatic compression device Consult Discharge Plan - Plan Referrals: Saw Flores DO [Primary Care Provider] - <Verona Gurrola - Last Filed: 11/12/17 18:50> Hospitalist Progress Note - Encounter Date of Encounter: 11/12/17 - Exam Vitals: Temp Pulse Resp BP Pulse Ox 98.0 F 87 15 102/58 93 11/12/17 11:00 11/12/17 11:00 11/12/17 11:00 11/12/17 11:00 11/12/17 11:00 - Summary of Assessment and Plan Summary of Assessment and Plan: I examined this patient and my medical decision-making was reviewed with the Resident Physician. I agree with the documented findings, disposition and treatment plan as described except to the extent set forth below. - Time Spent with Patient Total time spent is greater than 50% in coordination of care (as documented) at patient's floor/unit and/or counseling patient: Internal Medicine: Result - Labs CBC & Chem 7: 11/10/17 13:39 11/12/17 10:40 Labs: BMP 11/12/17 10:40 Sodium 132 L Potassium 4.4 Chloride 100 Carbon Dioxide 24 BUN 37 H Creatinine 1.72 H Glucose 558 H* Calcium 8.6 - ABG Interpretation ABG results: PT/INR, D-dimer PT 10.4 Seconds (9.4-12.1) 11/10/17 13:39 - Impressions Impressions Pulmonary Perfusion Imaging 11/12/17 14:38 IMPRESSION: Low probability for pulmonary embolus. D/ / Marito Bo MD / Marito Bo MD Interpreting Provider: Marito Bo MD Chest X-Ray 11/12/17 14:49 IMPRESSION: Improving interstitial pulmonary edema and mild pulmonary vascular congestion over the past 24 hours. No evident pneumonia. D/ / Simone Casarez MD / Simone Casarez MD Interpreting Provider: Simone Casraez MD <Becky Mckinley - Last Filed: 11/12/17 16:54> (3) CAD (coronary artery disease), [place] coronary artery Qualifiers: [place] vs. transplanted heart: [place] heart Associated angina: without angina Qualified Code(s): I25.10 - Atherosclerotic heart disease of [place] coronary artery without angina pectoris (4) Heart failure Qualifiers: Heart failure type: diastolic Heart failure chronicity: chronic Qualified Code(s): I50.32 - Chronic diastolic (congestive) heart failure (5) Hypertension Qualifiers: Hypertension type: essential hypertension Qualified Code(s): I10 - Essential (primary) hypertension (6) Type 2 diabetes mellitus Qualifiers: Diabetes mellitus adjunct faculty for medical terminology insulin use: with adjunct faculty for medical terminology use Diabetes mellitus complication detail: with polyneuropathy
[2017-11-12] MEDS: Acetaminophen 325 MG TABLET PO PRN (16:58)
[2017-11-12] MEDS ORDERED: Ketorolac 30 MG/ML VIAL IVP PRN (17:06)
[2017-11-12] MEDS ORDERED: Insulin DETEMIR 100 UNIT/ML X5UNITS SQ SCH (21:00)
[2017-11-13 02:15] LABS: Calcium 8.4 mg/dL (8.6-10.3); Potassium 4.7 mEq/L (3.5-5.1)
[2017-11-13 02:16] LABS: Basophils % 0.3 %; Eosinophils # 0.2 K/mcL (0.0-0.6); Eosinophils % 1.8 %; Hematocrit 26.1 % (35.3-44.9); Immature Granulocytes % 1.3 % (0-4); Lymphocytes # 2.8 K/mcL (0.6-4.6); Lymphocytes % 31.7 %; Mean Platelet Volume 10.4 fL (9.4-12.4); Monocytes # 0.9 K/mcL (0.0-1.3); Monocytes % 10.8 %; Neutrophils # 4.7 K/mcL (1.6-8.9); Platelet Count 323 K/mcL (140-400); Red Blood Count 3.07 M/mcL (3.82-4.97); Red Cell Distribution Width 13.4 % (11.5-14.5); Segmented Neutrophils % 54.1 %
[2017-11-13 02:19] LABS: Hemoglobin 8.6 g/dL (11.5-15.4)
[2017-11-13] MEDS: *HR* Heparin 5,000 UNIT/ML VIAL SQ SCH ×2 (05:55→16:37)
[2017-11-13] MEDS: Aspirin Enteric Coated 81 MG Tablet PO SCH (08:22)
[2017-11-13] MEDS: *HR* Ticagrelor 90 MG TABLET PO SCH ×2 (08:22→22:38)
[2017-11-13] MEDS: Isosorbide MONOnitrate (24 HR) 60 MG TAB.ER.24H PO SCH (08:22)
[2017-11-13] MEDS: Insulin LISPRO 300 UNITS/3 ML VIAL SQ SCH ×4 (08:28→22:38)
[2017-11-13] MEDS: Insulin NPH/REG 70/30 100 UNIT/ML (x5UNIT) SQ SCH ×2 (08:34→16:38)
[2017-11-13] MEDS ORDERED: Furosemide 20 MG TABLET PO SCH (09:00)
--- NOTE | 2017-11-13 12:12 | Cardiology Progress Note ---
Date of Encounter: 11/13/17 Time of Encounter: 12:05 Assessment and Plan (1) Unstable angina Current Visit: Yes Status: Acute Chest pain concerning for unstable angina on admission. H/o multiple PCI and was not taking GDMT. Troponin negative x2 and 0.08. Mild elevation also in the setting of HTN urgency b/p 210/117. EKG showed SR with T wave inversion in the V leads that was increased from prior EKG. No ST changes. Ongoing chest pain and symptoms concerning for unstable angina so LHC recommended. LHC Completed and she received PTCA to the proximal and mid LAD . Moderate non- obstructive disease remaining. EF 55%. TTE completed shows low normal EF. LVEF 50%. Not all LV wall segments were optimally visualized. Mild left ventricular diastolic dysfunction. Normal right ventricular structure and function. Mild aortic regurgitation. Mild-moderate mitral regurgitation. Mild tricuspid regurgitation. No pulmonary hypertension by TR gradient, 28 mmHg. IVC is not well visualized. Imdur added for moderate disease and continued chest pain. Chest pain improved. Patient reports chronic pain with fibromyalgia. Pain is reproducible, likely muscle skeletal. Dyspnea likely due to pulmonary edema, improving per CXR. VQ scan was negative. LHC was reviewed with set up mechanic automatic line. No indication for repeat LHC. Continue medical management. No complications from right femoral access site. Importance of DAPT with asa and brilinta uninterrupted for minimum of one year discussed and she voiced understanding. Continue BB. Change statin to high intensity statin for CAD. Activity restrictions reviewed as stated above.Cardiac rehab ordered. She has baseline CKD. Creatinine noted to be above baseline. Hold nephrotoxins. Consider nephrology consult if it continues to worsen. Out-pt follow-up will be made. Please call with questions. (2) Elevated troponin Current Visit: Yes Status: Acute See above. (3) CAD (coronary artery disease), [place] coronary artery Current Visit: No Status: Chronic H/o CAD and multiple PCI most recent PCI 09/2016 at [facility]. S/p PTCA to the LAD. Continue asa, statin, brilinta, and bb. Importance of medication compliance reviewed. Qualifiers: [place] vs. transplanted heart: [place] heart Associated angina: without angina Qualified Code(s): I25.10 - Atherosclerotic heart disease of [place] coronary artery without angina pectoris (4) Hypertension Current Visit: No Status: Chronic B/p improved. Qualifiers: Hypertension type: essential hypertension Qualified Code(s): I10 - Essential (primary) hypertension (5) CHF (congestive heart failure) Current Visit: Yes Status: Acute Acute on chronic diastolic CHF. CXR showed pulmonary edema. EF 55% on LHC. TTE shows EF low normal at 50%. On IV lasix. Net negative 3065 ml. No significant fluid overload seen on exam. Change to low dose oral lasix. Low sodium diet reviewed. Daily weights. Qualifiers: Heart failure type: diastolic Heart failure chronicity: acute on chronic Qualified Code(s): I50.33 - Acute on chronic diastolic (congestive) heart failure Discussion w patient/family: The assessment and plan as outlined above was discussed with the patient and/or family members who expressed understanding and agreement. All questions were answered. Thank you for involving us in the care of your patient. Please call with any questions. Subjective Principal diagnosis: Unstable angina Interval history: Ms. Seaman states that chest pain has improved. She states she is still sore to touch. Continues to have dyspnea but improving. CXR showed improved mild pulmonary edema. Objective General: Conversant, No Apparent Distress HEENT: Atraumatic, Normocephaly, Mucus Membranes Moist Neck: No JVD, Normal carotid pulses Cardiac: Reg Rate and Rhythm, Normal S1 and S2, No Murmur Lungs: Normal Breath Sounds, No Wheeze, Rales, Rhonchi Neuro: Alert and responsive, No focal deficits noted Abdomen: Soft, Non-Tender Skin: No rashes noted on visualized skin Musculoskeletal: No Chest Wall Tenderness Extremities: No Clubbing, No Cyanosis, No Edema, Normal Pulses Results 11/13/17 01:22 11/13/17 01:22 Lab Results 11/13/17 11/13/17 01:22 01:22 WBC 8.7 Hgb 8.6 L D Hct 26.1 L Plt Count 323 Sodium 132 L Potassium 4.7 Chloride 102 Carbon Dioxide 20 L BUN 53 H Creatinine 2.17 H Glucose 324 H Calcium 8.4 L - Imaging and Cardiology Echo: report reviewed - EKG Interpretation EKG results cardiology: personally reviewed - VTE Documentation of Mechanical Device: Intermittent pneumatic compression device Consult Discharge Plan - Plan Referrals: Saw Flores, [Primary Care Provider] -
[2017-11-13] MEDS ORDERED: Insulin Human Regular 10 UNIT in 0.9 % Sodium Chloride 10 ML IV ONE (13:03)
[2017-11-13] MEDS: Acetaminophen 325 MG TABLET PO PRN (13:50)
--- NOTE | 2017-11-13 14:53 | Internal Med Progress Note ---
Hospitalist Progress Note - Encounter Date of Encounter: 11/13/17 Time of Encounter: 14:51 - Exam Vitals: Temp Pulse Resp BP Pulse Ox 97.7 F 74 16 145/95 95 11/13/17 07:32 11/13/17 07:32 11/13/17 07:32 11/13/17 07:32 11/13/17 07:32 Exam: Gen: NAD CVS: RRR Lungs: CTAB Ext: no edema - Assessment and Plan (1) Unstable angina Current Visit: Yes Status: Acute Assessment and Plan: known history of CAD with stents. Non-compliant with home medications. Troponin on admission negative and then increased to 0.08. EKG showed T wave inversions with no ST changes LHC was done during this admission with moderate non-obstructive disease. Echo showed EF 50%. Imdur has been added for cheset pain. This improved but she does complain of headache. - Continue aspirin, Brilinta, statin - Imdur, titrated. Patient is complaining of ongoing headache. Must avoid NSAIDs because of SANAZ. (2) Acute on chronic renal failure Current Visit: Yes Status: Acute Assessment and Plan: Possibly due to contrast, Toradol, hypertensive urgency on admission. BP now under control DC NSAIDs Continue supportive care Hold Lasix Recheck BMP in AM. If function worsens, will consult Nephrology. (3) Elevated troponin Current Visit: Yes Status: Acute (4) Type 2 diabetes mellitus Current Visit: Yes Status: Acute Assessment and Plan: Resume home NPH Insulin sliding scale Diabetic/Cardiac diet At home glucose is 300-400s, occasionally hypoglycemic (5) CAD (coronary artery disease), [place] coronary artery Current Visit: No Status: Chronic (6) Heart failure Current Visit: No Status: Chronic (7) Hypertension Current Visit: No Status: Chronic Assessment and Plan: EMS checked BP and was 209/128 at home. During this admission it is controlled. Continue current medications. - Time Spent with Patient Total time spent is greater than 50% in coordination of care (as documented) at patient's floor/unit and/or counseling patient: Internal Medicine: Result - Labs CBC & Chem 7: 11/13/17 01:22 11/13/17 01:22 Labs: Short CBC 11/13/17 Range/Units 01:22 WBC 8.7 (4.3-11.1) K/mcL Hgb 8.6 L D (11.5-15.4) g/dL Hct 26.1 L (35.3-44.9) % Plt Count 323 (140-400) K/mcL Neutrophils # 4.7 (1.6-8.9) K/mcL BMP 11/13/17 01:22 Sodium 132 L Potassium 4.7 Chloride 102 Carbon Dioxide 20 L BUN 53 H Creatinine 2.17 H Glucose 324 H Calcium 8.4 L - ABG Interpretation ABG results: PT/INR, D-dimer PT 10.4 Seconds (9.4-12.1) 11/10/17 13:39 - Impressions Impressions Pulmonary Perfusion Imaging 11/12/17 14:38 IMPRESSION: Low probability for pulmonary embolus. D/ / Marito Bo MD / Marito Bo MD Interpreting Provider: Marito Bo MD Chest X-Ray 11/12/17 14:49 IMPRESSION: Improving interstitial pulmonary edema and mild pulmonary vascular congestion over the past 24 hours. No evident pneumonia. D/ / Simone Casarez MD / Simone Casarez MD Interpreting Provider: Simone Casarez MD - VTE Documentation of Mechanical Device: Intermittent pneumatic compression device Consult Discharge Plan - Plan Referrals: Saw Flores, DO [Primary Care Provider] - (2) Acute on chronic renal failure Qualifiers: Chronic kidney disease stage: stage 3 (moderate) (4) Type 2 diabetes mellitus Qualifiers: Diabetes mellitus nursing home insulin use: with meterman use Diabetes mellitus complication detail: with nephropathy Qualified Code(s): E11.21 - Type 2 diabetes mellitus with diabetic nephropathy; Z79.4 - USP (current) use of insulin (5) CAD (coronary artery disease), [place] coronary artery Qualifiers: [place] vs. transplanted heart: [place] heart Associated angina: without angina Qualified Code(s): I25.10 - Atherosclerotic heart disease of [place] coronary artery without angina pectoris (6) Heart failure Qualifiers: Heart failure type: diastolic Heart failure chronicity: chronic Qualified Code(s): I50.32 - Chronic diastolic (congestive) heart failure (7) Hypertension Qualifiers: Hypertension type: essential hypertension Qualified Code(s): I10 - Essential (primary) hypertension
[2017-11-13] MEDS: Benzonatate 100 MG CAPSULE PO PRN (22:37)
[2017-11-14 04:03] LABS: Basophils % 0.4 %; Eosinophils # 0.2 K/mcL (0.0-0.6); Eosinophils % 1.9 %; Hematocrit 27.1 % (35.3-44.9); Hemoglobin 8.8 g/dL (11.5-15.4); Immature Granulocytes % 1.3 % (0-4); Lymphocytes # 2.7 K/mcL (0.6-4.6); Lymphocytes % 27.8 %; Mean Corpuscular HGB Conc 32.5 g/dL (31.6-35.5); Mean Corpuscular Hemoglobin 28.6 pg (28.0-33.3); Mean Platelet Volume 10.1 fL (9.4-12.4); Monocytes # 0.9 K/mcL (0.0-1.3); Monocytes % 9.6 %; Neutrophils # 5.7 K/mcL (1.6-8.9); Platelet Count 349 K/mcL (140-400); Red Blood Count 3.08 M/mcL (3.82-4.97); Red Cell Distribution Width 13.7 % (11.5-14.5)
[2017-11-14 04:19] LABS: Calcium 8.7 mg/dL (8.6-10.3); Potassium 4.9 mEq/L (3.5-5.1)
[2017-11-14] MEDS: Benzonatate 100 MG CAPSULE PO PRN ×2 (06:31→22:28)
[2017-11-14] MEDS: *HR* Heparin 5,000 UNIT/ML VIAL SQ SCH ×2 (06:31→17:22)
[2017-11-14] MEDS: Insulin LISPRO 300 UNITS/3 ML VIAL SQ SCH ×4 (08:14→22:29)
[2017-11-14] MEDS: Aspirin Enteric Coated 81 MG Tablet PO SCH (08:27)
[2017-11-14] MEDS: Insulin NPH/REG 70/30 100 UNIT/ML (x5UNIT) SQ SCH ×2 (08:27→17:22)
[2017-11-14] MEDS: *HR* Ticagrelor 90 MG TABLET PO SCH ×2 (08:27→22:29)
[2017-11-14] MEDS: Isosorbide MONOnitrate (24 HR) 60 MG TAB.ER.24H PO SCH (08:27)
[2017-11-14] MEDS ORDERED: Furosemide 40 MG/4 ML VIAL IVP ONE (12:48)
--- NOTE | 2017-11-14 12:53 | Internal Med Progress Note ---
Hospitalist Progress Note - Encounter Date of Encounter: 11/14/17 Time of Encounter: 12:51 - Subjective Interval History: Patient complains of SOB today. Renal function improved. Lasix had to be held yesterday. - Exam Vitals: Temp Pulse Resp BP Pulse Ox 97.6 F 72 16 110/62 95 11/14/17 08:00 11/14/17 08:00 11/14/17 08:00 11/14/17 08:00 11/14/17 08:00 - Assessment and Plan (1) Unstable angina Current Visit: Yes Status: Acute Assessment and Plan: known history of CAD with stents. Non-compliant with home medications. Troponin on admission negative and then increased to 0.08. EKG showed T wave inversions with no ST changes LHC was done during this admission with moderate non-obstructive disease. Echo showed EF 50%. Imdur has been added for cheset pain. - Continue aspirin, Brilinta, statin - Imdur, titrated. (2) Heart failure Current Visit: No Status: Chronic Assessment and Plan: Diastolic HF. She is developing signs of fluid overload after Lasix held for SANAZ. Will need to give Lasix IV 40 mg today and closely monitor respiratory status and renal function. (3) Acute on chronic renal failure Current Visit: Yes Status: Acute Assessment and Plan: Possibly due to contrast, Toradol, hypertensive urgency on admission. BP now under control DC NSAIDs Continue supportive care Recheck BMP in AM. If function worsens, will consult Nephrology. Lasix held on 11/13 due to renal failure, now patient appears fluid overloaded. Renal function improved, cr was 2.17 now is 1.73. Since she is complaining of shortness of breath, will give a dose of 40 mg IV Lasix and closely monitor. (4) Elevated troponin Current Visit: Yes Status: Acute (5) Type 2 diabetes mellitus Current Visit: Yes Status: Acute Assessment and Plan: Resume home NPH Insulin sliding scale Diabetic/Cardiac diet At home glucose is 300-400s, occasionally hypoglycemic (6) CAD (coronary artery disease), [place] coronary artery Current Visit: No Status: Chronic (7) Hypertension Current Visit: No Status: Chronic Assessment and Plan: EMS checked BP and was 209/128 at home. During this admission it is controlled. Continue current medications. - Time Spent with Patient Total time spent is greater than 50% in coordination of care (as documented) at patient's floor/unit and/or counseling patient: Internal Medicine: Result - Labs CBC & Chem 7: 11/14/17 03:34 11/14/17 03:34 Labs: Short CBC 11/14/17 Range/Units 03:34 WBC 9.6 (4.3-11.1) K/mcL Hgb 8.8 L (11.5-15.4) g/dL Hct 27.1 L (35.3-44.9) % Plt Count 349 (140-400) K/mcL Neutrophils # 5.7 (1.6-8.9) K/mcL BMP 11/14/17 03:34 Sodium 137 Potassium 4.9 Chloride 108 H Carbon Dioxide 22 L BUN 63 H Creatinine 1.73 H Glucose 88 Calcium 8.7 - ABG Interpretation ABG results: PT/INR, D-dimer PT 10.4 Seconds (9.4-12.1) 11/10/17 13:39 - VTE Documentation of Mechanical Device: Intermittent pneumatic compression device Consult Discharge Plan - Plan Referrals: Saw Flores, DO [Primary Care Provider] - (2) Heart failure Qualifiers: Heart failure type: diastolic Heart failure chronicity: chronic Qualified Code(s): I50.32 - Chronic diastolic (congestive) heart failure (3) Acute on chronic renal failure Qualifiers: Chronic kidney disease stage: stage 3 (moderate) (5) Type 2 diabetes mellitus Qualifiers: Diabetes mellitus half-way insulin use: with moth exterminator use Diabetes mellitus complication detail: with nephropathy Qualified Code(s): E11.21 - Type 2 diabetes mellitus with diabetic nephropathy; Z79.4 - exterminator termite (current) use of insulin (6) CAD (coronary artery disease), [place] coronary artery Qualifiers: [place] vs. transplanted heart: [place] heart Associated angina: without angina Qualified Code(s): I25.10 - Atherosclerotic heart disease of [place] coronary artery without angina pectoris (7) Hypertension Qualifiers: Hypertension type: essential hypertension Qualified Code(s): I10 - Essential (primary) hypertension
[2017-11-15 05:52] LABS: Calcium 9.1 mg/dL (8.6-10.3); Potassium 4.8 mEq/L (3.5-5.1)
[2017-11-15] MEDS: *HR* Heparin 5,000 UNIT/ML VIAL SQ SCH ×2 (06:40→17:14)
[2017-11-15] MEDS: Benzonatate 100 MG CAPSULE PO PRN (06:40)
[2017-11-15] MEDS: *HR* Ticagrelor 90 MG TABLET PO SCH ×2 (09:07→22:03)
[2017-11-15] MEDS: Aspirin Enteric Coated 81 MG Tablet PO SCH (09:07)
[2017-11-15] MEDS: Isosorbide MONOnitrate (24 HR) 60 MG TAB.ER.24H PO SCH (09:07)
[2017-11-15] MEDS: Insulin LISPRO 300 UNITS/3 ML VIAL SQ SCH ×4 (09:08→22:03)
[2017-11-15] MEDS: Insulin NPH/REG 70/30 100 UNIT/ML (x5UNIT) SQ SCH ×2 (09:12→17:57)
--- NOTE | 2017-11-15 10:37 | Event Note ---
Date of Encounter: 11/15/17 Time of Encounter: 09:30 I examined this patient and my medical decision-making was reviewed with the Resident Physician. I agree with the documented findings, disposition and treatment plan as described with any changes as documented below. Patient continues to have significant shortness of breath with minimal exertion. She responded well to Lasix yesterday. Denies persistent chest pain but she occasionally gets chest pressure. No fever or chills reported overnight. No dysuria. No abdominal pain nausea or vomiting. General appearance: Present: cooperative, A&O X 3, in mild distress , answers questions appropriately - Neck Neck exam general surgery: Present: supple, trachea midline. Absent: lymphadenopathy - Respiratory Respiratory exam: Present: Bilateral crackles. Absent: accessory muscle use, rales, rhonchi - Cardiovascular Cardiovascular exam: Present: RRR, +S1, +S2. Absent: diastolic murmur, gallop, rubs, systolic murmur - GI/Abdominal GI/Abdominal exam: Present: normal bowel sounds, soft, no peritoneal signs. Absent: distended, tenderness - Extremities Exam Extremities exam: Present: Bilateral Pedal edema, warm, radial pulses palpable and symmetrical. Absent: calf tenderness, cyanotic, - Neurological Exam Neurological exam: Present: alert, oriented X3, no focal deficits. Absent: facial droop, speech deficit Acute on chronic diastolic congestive heart failure: Place patient on IV Lasix scheduled. Monitor input and output. Chest x-ray done yesterday showed interstitial edema. Renal function is improving. We will continue to monitor. Moderate risk for complications. Unstable angina: Status post left heart catheterization with PTCA without any stent placement. On aspirin and Brillinta. Acute kidney injury on chronic kidney disease stage III: Improving renal function. We will continue to monitor closely as patient is receiving IV Lasix. Diabetes mellitus type 2: Blood sugars remain elevated. We will increase insulin regimen. Diabetic diet. Essential hypertension: Blood pressure is well controlled
[2017-11-15] MEDS: Furosemide 40 MG/4 ML VIAL IVP SCH (13:24)
--- NOTE | 2017-11-15 17:43 | Internal Med Progress Note ---
<JavadcoleBecky - Last Filed: 11/15/17 18:00> Hospitalist Progress Note - Encounter Date of Encounter: 11/15/17 Time of Encounter: 10:00 - Subjective Interval History: Today, hospital day 5, Ms. Seaman states that the shortness is not improved. The cough has somewhat improved and continues to be productive of thin white mucus. The reproducible to palpation chest wall pain is still present and unchanged. It is present symmetrically and occurs in the left and right ribs 7- 10, and is described as dull and aching. She states that the headaches are still present and unchanged, described as pressure behind bilateral eyes and band like across the forehead. The tylenol has helped decrease intensity of headache. She denies nausea, vomiting, fever, chills, abdominal pain, diarrhea, constipation, frequency, dysuria, or calf pain. She admits to peripheral neuropathy pain which is unchanged from baseline. - Exam Vitals: Temp Pulse Resp BP Pulse Ox 98.0 F 68 17 118/52 97 11/15/17 07:49 11/15/17 07:49 11/15/17 07:49 11/15/17 07:49 11/15/17 07:49 Exam: General: Resting comfortably, in mild acute distress, AAOx3, pleasant HEENT: Normocephalic, atraumatic, EOMI, PERRL, mucus membranes moist. Neck soft , supple, trachea midline, no cervical lymphadenopathy. Cardio: RRR, no murmurs, rubs or gallops. Normal S1, S2. No carotid bruits. Pulmonary: No wheezes, rales or rhonchi. No accessory respiratory muscle use. Chest wall tenderness to palpation bilaterally along ribs 7-10. Abdomen: Soft, non tender, non distended, normal bowel sounds, no guarding, rebound or rigidity. No CVA or suprapubic tenderness. Extremities: Radial and dorsal pedis pulses 2+ and symmetrical, normal capillary refill, no clubbing. No peripheral edema or calf tenderness. Neuro: CN 2-12 intact, no focal deficits. Psych: Normal mood and affect, answers questions appropriately - Assessment and Plan (1) Unstable angina Current Visit: Yes Status: Acute Assessment and Plan: LHC with angioplasty and no stent, status post day 5. History of CAD with multiple LHC and stents. Was not on dual antiplatelet therapy since last stent in summer 2016. Troponin on admission negative and then increased to 0.08. EKG showed T wave inversions with no ST changes continue current dose of imdur continue aspirin, brilinta and atorvastatin. discussed importance of dual antiplatelet therapy (2) CAD (coronary artery disease), [place] coronary artery Current Visit: No Status: Chronic Assessment and Plan: History of CAD, see above for plan (3) Heart failure Current Visit: No Status: Chronic Assessment and Plan: Diastolic heart failure. Continues to have shortness of breath Output of -130 today. Continue IV lasix 40 mg to resolve pulmonary edema. (4) Acute on chronic renal failure Current Visit: Yes Status: Acute Assessment and Plan: Most likely secondary to contrast during LHC, toradol and HTN urgency on admission. History of chronic renal failure, stage 3 Creatinine has decreased, was 1.73 yesterday, is now 1.60 continue to follow kidney function (5) Hypertension Current Visit: No Status: Chronic Assessment and Plan: Chronic, improving Was 209/128 on admission. Is now controlled at 118/52. Continue to control on home meds, have restarted home med of lisinopril at 10 mg qd. (6) Type 2 diabetes mellitus Current Visit: Yes Status: Acute Assessment and Plan: Increased NPH to 80 mg BID for better glycemic control continue insulin sliding scale high dose diabetic diet continue to monitor glucose DVT Prophylaxis: SQ heparin - Time Spent with Patient Total time spent is greater than 50% in coordination of care (as documented) at patient's floor/unit and/or counseling patient: Greater than 35 minutes Plan of Care Discussed with: patient Internal Medicine: Result - Labs CBC & Chem 7: 11/14/17 03:34 11/15/17 04:16 Labs: BMP 11/15/17 04:16 Sodium 135 L Potassium 4.8 Chloride 104 Carbon Dioxide 22 L BUN 62 H Creatinine 1.60 H Glucose 281 H Calcium 9.1 - ABG Interpretation ABG results: PT/INR, D-dimer PT 10.4 Seconds (9.4-12.1) 11/10/17 13:39 - Impressions Impressions Chest X-Ray 11/14/17 12:55 IMPRESSION: Increased interstitial markings with increased perihilar markings. Findings may be seen in setting of pulmonary interstitial edema. D/ /14/2017 17:58:52 Jorge A Garber MD / fabio Interpreting Provider: Jorge A Garber MD - VTE Documentation of Mechanical Device: Intermittent pneumatic compression device Consult Discharge Plan - Plan Referrals: Елена Engel WAREHOUSE HELPER [Advanced Practice Nurse] - 11/23/17 10:45 am <Penelope Connolly - Last Filed: 11/15/17 18:59> Hospitalist Progress Note - Encounter Date of Encounter: 11/15/17 Time of Encounter: 09:30 - Exam Vitals: Temp Pulse Resp BP Pulse Ox 98.0 F 68 17 118/52 97 11/15/17 07:49 11/15/17 07:49 11/15/17 07:49 11/15/17 07:49 11/15/17 07:49 - Assessment and Plan (1) Heart failure Current Visit: No Status: Chronic (2) CAD (coronary artery disease), [place] coronary artery Current Visit: No Status: Chronic (3) Hypertension Current Visit: No Status: Chronic (4) Elevated troponin Current Visit: Yes Status: Acute (5) Unstable angina Current Visit: Yes Status: Acute (6) Type 2 diabetes mellitus Current Visit: Yes Status: Acute (7) Acute on chronic renal failure Current Visit: Yes Status: Acute - Time Spent with Patient Total time spent is greater than 50% in coordination of care (as documented) at patient's floor/unit and/or counseling patient: Internal Medicine: Result - Labs CBC & Chem 7: 11/14/17 03:34 11/15/17 04:16 Labs: BMP 11/15/17 04:16 Sodium 135 L Potassium 4.8 Chloride 104 Carbon Dioxide 22 L BUN 62 H Creatinine 1.60 H Glucose 281 H Calcium 9.1 - ABG Interpretation ABG results: PT/INR, D-dimer PT 10.4 Seconds (9.4-12.1) 11/10/17 13:39 - Impressions Impressions Chest X-Ray 11/14/17 12:55 IMPRESSION: Increased interstitial markings with increased perihilar markings. Findings may be seen in setting of pulmonary interstitial edema. D/ 11/14/2017 17:58:52 Jorge A Garber MD / fabio Interpreting Provider: Jorge A Garber MD - Attending Attestation I examined this patient and my medical decision-making was reviewed with the Resident Physician. I agree with the documented findings, disposition and treatment plan as described with any changes as documented below. Patient continues to have significant shortness of breath with minimal exertion. She responded well to Lasix yesterday. Denies persistent chest pain but she occasionally gets chest pressure. No fever or chills reported overnight. No dysuria. No abdominal pain nausea or vomiting. General appearance: Present: cooperative, A&O X 3, in mild distress , answers questions appropriately - Neck Neck exam general surgery: Present: supple, trachea midline. Absent: lymphadenopathy - Respiratory Respiratory exam: Present: Bilateral crackles. Absent: accessory muscle use, rales, rhonchi - Cardiovascular Cardiovascular exam: Present: RRR, +S1, +S2. Absent: diastolic murmur, gallop, rubs, systolic murmur - GI/Abdominal GI/Abdominal exam: Present: normal bowel sounds, soft, no peritoneal signs. Absent: distended, tenderness - Extremities Exam Extremities exam: Present: Bilateral Pedal edema, warm, radial pulses palpable and symmetrical. Absent: calf tenderness, cyanotic, - Neurological Exam Neurological exam: Present: alert, oriented X3, no focal deficits. Absent: facial droop, speech deficit Acute on chronic diastolic congestive heart failure: Place patient on IV Lasix scheduled. Monitor input and output. Chest x-ray done yesterday showed interstitial edema. Renal function is improving. We will continue to monitor. Moderate risk for complications. Unstable angina: Status post left heart catheterization with PTCA without any stent placement. On aspirin and Brillinta. Acute kidney injury on chronic kidney disease stage III: Improving renal function. We will continue to monitor closely as patient is receiving IV Lasix. Diabetes mellitus type 2: Blood sugars remain elevated. We will increase insulin regimen. Diabetic diet. Essential hypertension: Blood pressure is well controlled <Becky Mckinley - Last Filed: 11/15/17 18:00> (2) CAD (coronary artery disease), [place] coronary artery Qualifiers: [place] vs. transplanted heart: [place] heart Associated angina: without angina Qualified Code(s): I25.10 - Atherosclerotic heart disease of [place] coronary artery without angina pectoris (3) Heart failure Qualifiers: Heart failure type: diastolic Heart failure chronicity: chronic Qualified Code(s): I50.32 - Chronic diastolic (congestive) heart failure (4) Acute on chronic renal failure Qualifiers: Chronic kidney disease stage: stage 3 (moderate) (5) Hypertension Qualifiers: Hypertension type: essential hypertension Qualified Code(s): I10 - Essential (primary) hypertension (6) Type 2 diabetes mellitus Qualifiers: Diabetes mellitus half-way insulin use: with rodent exterminator use Diabetes mellitus complication detail: with polyneuropathy <Penelope Connolly - Last Filed: 11/15/17 18:59> (1) Heart failure Qualifiers: Heart failure type: diastolic Heart failure chronicity: chronic Qualified Code(s): I50.32 - Chronic diastolic (congestive) heart failure (2) CAD (coronary artery disease), [place] coronary artery Qualifiers: [place] vs. transplanted heart: [place] heart Associated angina: without angina Qualified Code(s): I25.10 - Atherosclerotic heart disease of [place] coronary artery without angina pectoris (3) Hypertension Qualifiers: Hypertension type: essential hypertension Qualified Code(s): I10 - Essential (primary) hypertension (6) Type 2 diabetes mellitus Qualifiers: Diabetes mellitus half-way insulin use: with half-way use Diabetes mellitus complication detail: with nephropathy Qualified Code(s): E11.21 - Type 2 diabetes mellitus with diabetic nephropathy; Z79.4 - nursing home (current) use of insulin (7) Acute on chronic renal failure Qualifiers: Chronic kidney disease stage: stage 3 (moderate)
[2017-11-16 05:06] LABS: Calcium 9.6 mg/dL (8.6-10.3); Potassium 4.6 mEq/L (3.5-5.1)
[2017-11-16] MEDS: *HR* Heparin 5,000 UNIT/ML VIAL SQ SCH ×2 (07:13→17:40)
[2017-11-16] MEDS: *HR* Ticagrelor 90 MG TABLET PO SCH ×2 (09:03→22:47)
[2017-11-16] MEDS: Isosorbide MONOnitrate (24 HR) 60 MG TAB.ER.24H PO SCH (09:03)
[2017-11-16] MEDS: Aspirin Enteric Coated 81 MG Tablet PO SCH (09:04)
[2017-11-16] MEDS: Insulin LISPRO 300 UNITS/3 ML VIAL SQ SCH ×4 (09:05→22:48)
[2017-11-16] MEDS: Furosemide 40 MG/4 ML VIAL IVP SCH (09:06)
[2017-11-16] MEDS: Insulin NPH/REG 70/30 100 UNIT/ML (x5UNIT) SQ SCH ×2 (09:07→17:47)
[2017-11-16] MEDS ORDERED: Isosorbide MONOnitrate (24 HR) 30 MG TAB.ER.24H PO ONE (16:00)
--- NOTE | 2017-11-16 16:07 | Cardiology Progress Note ---
Date of Encounter: 11/16/17 Time of Encounter: 16:03 Assessment and Plan (1) Unstable angina Current Visit: Yes Status: Acute Chest pain concerning for unstable angina on admission. H/o multiple PCI and was not taking GDMT. Troponin negative x2 and 0.08. Mild elevation also in the setting of HTN urgency b/p 210/117. EKG showed SR with T wave inversion in the V leads that was increased from prior EKG. No ST changes. LHC Completed 11/10/17 and she received PTCA to the proximal and mid LAD . Moderate non-obstructive disease remaining. EF 55%. TTE completed shows low normal EF. LVEF 50%. Not all LV wall segments were optimally visualized. Mild left ventricular diastolic dysfunction. Normal right ventricular structure and function. Mild aortic regurgitation. Mild-moderate mitral regurgitation. Mild tricuspid regurgitation. No pulmonary hypertension by TR gradient, 28 mmHg. IVC is not well visualized. Imdur added for moderate disease and continued chest pain 11/11/17. Chest pain improved but she continues to have a constant band like pressure around her upper abdomen associated with her abdominal bloating. She continues to have bloating despite diuresis. LHC was reviewed with hook and eye machine operator for continued chest pain on 11/12/17 . No indication for repeat LHC seen. Continue medical management was recommended. Will re-evaluate if symptoms continue despite optimal medical therapy. Kidney function is at baseline. Re-peat CXR showed pulmonary interstitial edema. Will repeat lasix today. Appears to have some continued fluid overload and that may be reflected in her kidney function. May need nephrology consult if kidney function declines. Abdominal discomfort is reproducible. Consider other causes. Discussed with Dr. Baeza we will order KUB. Add prilosec. Increase imdur to 90 mg daily. Trial SL NTG. Re-peat EKG ordered. (2) CHF (congestive heart failure) Current Visit: Yes Status: Acute Acute on chronic diastolic CHF. CXR showed pulmonary edema. EF 55% on LHC. TTE shows EF low normal at 50%. Net negative 3605 ml for stay. No significant change in out-put from last review. Lasix interrupted due to kidney function decline. Continues to describe continued fluid overload with bloating in abdomen and dyspnea Low sodium diet reviewed. 1.5 ml fluid restriction. Daily weights. Give IV lasix 40 mg now. Continue to monitor kidney function. Qualifiers: Heart failure type: diastolic Heart failure chronicity: acute on chronic Qualified Code(s): I50.33 - Acute on chronic diastolic (congestive) heart failure (3) Elevated troponin Current Visit: Yes Status: Acute See above only one troponin drawn prior to LHC and found to be elevated at 0.08 in the setting of HTN urgency and CKD. (4) CAD (coronary artery disease), [place] coronary artery Current Visit: No Status: Chronic H/o CAD and multiple PCI. S/p PTCA to the LAD 11/10/17. 70% stenosis in the Proximal LAD s/p PTCA. 100% stenosis in the Mid LAD s/p PTCA to 25% . There was a 25% stenosis in the Proximal Circumflex, 60% stenosis in the Mid Circumflex, 60% stenosis in the Ramus. 40% stenosis in the Mid RCA. Continue asa, statin, brilinta, and bb. Importance of medication compliance reviewed including DAPT uninterrupted for minimum of one year. Qualifiers: [place] vs. transplanted heart: [place] heart Associated angina: without angina Qualified Code(s): I25.10 - Atherosclerotic heart disease of [place] coronary artery without angina pectoris (5) Hypertension Current Visit: No Status: Chronic B/p improved. Qualifiers: Hypertension type: essential hypertension Qualified Code(s): I10 - Essential (primary) hypertension Discussion w patient/family: The assessment and plan as outlined above was discussed with the patient and/or family members who expressed understanding and agreement. All questions were answered. Thank you for involving us in the care of your patient. Please call with any questions. Subjective Principal diagnosis: Unstable angina Interval history: Cardiology consulted for continued symptoms. On admission she c/o midsternal burning going to her left chest and dyspnea on exertion. SHe underwent LHC for unstable angina and received PCI to her LAD with PTCA x 2. Moderate CAd remaining. Her chest pain resolved. Intermittently she has noticed a bandlike pressure around her abdomen. Today the pressure is constant and intermittent palpitations.. C/o abdominal bloating. She also reports significant dyspnea on exertion. Objective Vital Signs, Last 4 Hours Temp Pulse Resp BP Pulse Ox 11/16/17 15:44 98.1 F 84 16 111/56 96 General: Conversant, No Apparent Distress HEENT: Atraumatic, Normocephaly, Mucus Membranes Moist Neck: No JVD, Normal carotid pulses Cardiac: Reg Rate and Rhythm, Normal S1 and S2, No Murmur Lungs: Normal Breath Sounds, No Wheeze, Rales, Rhonchi Neuro: Alert and responsive, No focal deficits noted Abdomen: Soft, Non-Tender Skin: No rashes noted on visualized skin Musculoskeletal: No Chest Wall Tenderness Extremities: No Clubbing, No Cyanosis, No Edema, Normal Pulses Results 11/14/17 03:34 11/16/17 04:16 Lab Results 11/16/17 04:16 Sodium 139 Potassium 4.6 Chloride 106 Carbon Dioxide 24 BUN 64 H Creatinine 1.72 H Glucose 75 Calcium 9.6 - Imaging and Cardiology Echo: report reviewed Cardiac cath: report reviewed - EKG Interpretation EKG results cardiology: personally reviewed - VTE Documentation of Mechanical Device: Intermittent pneumatic compression device Consult Discharge Plan - Plan Referrals: Елена Engel CNP [Advanced Practice Nurse] - 11/23/17 10:45 am
[2017-11-16] MEDS: Nitroglycerin 0.4 MG TAB.SUBL SL PRN ×3 (16:31→16:42)
[2017-11-16] MEDS ORDERED: Furosemide 40 MG/4 ML VIAL IVP ONE (16:39)
[2017-11-16] MEDS ORDERED: Furosemide 20 MG/2 ML VIAL IVP ONE (17:00)
--- NOTE | 2017-11-16 17:37 | Internal Med Progress Note ---
<JavadcoleBecky - Last Filed: 11/16/17 17:55> Hospitalist Progress Note - Encounter Date of Encounter: 11/16/17 Time of Encounter: 09:00 - Subjective Interval History: Today, hospital day 6, Ms. Seaman states that the shortness of breath has improved, but is still present and worsen with exertion. She is unable to take a deep breath due to pain and tightness in chest wall. The chest tightness and palpitations continue unchanged. She states that her headache is still present and unchanged from previously. She admits to cold intolerance and diffuse abdominal pain that she relates to her fibromyalgia, she admits to chronic diarrhea. She denies nausea, vomiting, fever, weakness, dysuria. - Exam Vitals: Temp Pulse Resp BP Pulse Ox 98.1 F 84 16 111/56 96 11/16/17 15:44 11/16/17 15:44 11/16/17 15:44 11/16/17 15:44 11/16/17 15:44 Exam: General: Resting comfortably, in no acute distress, AAOx3, pleasant HEENT: Normocephalic, atraumatic, EOMI, PERRL, mucus membranes moist. Neck soft , supple, trachea midline, no cervical lymphadenopathy. Cardio: RRR, no murmurs, rubs or gallops. Normal S1, S2. No carotid bruits. Chest wall tenderness to palpation bilaterally, that wraps around to her back. All ribs and sternum involved. Pulmonary: No wheezes, rales or rhonchi. No accessory respiratory muscle use. Abdomen: Soft, tenderness to palpation on left lower quadrant, mildly distended , normal bowel sounds, no guarding, rebound or rigidity. No CVA or suprapubic tenderness. Extremities: Radial and dorsal pedis pulses 2+ and symmetrical, normal capillary refill, no clubbing. No peripheral edema or calf tenderness. Neuro: CN 2-12 intact, no focal deficits. Psych: Normal mood and affect, answers questions appropriately - Assessment and Plan (1) Unstable angina Current Visit: Yes Status: Acute Assessment and Plan: Continues to have shortness of breath and atypical chest pain. The chest pain is reproducible to palpation. She also describes "fluttering and thumping" sensation left sided, that she states is similar to her chest pain when she presented with NSTEMI. Cardio consulted, recommend continued medical management with no indication for repeat LHC at this time. Considering stress test. Increased Imdur to 90 mg. (2) Increasing shortness of breath Current Visit: Yes Status: Acute Assessment and Plan: Shortness of breath still present despite medical management Has scheduled biopsy outpatient for atypical cells on pelvic exam, as well as chronic diarrhea. Will order CT abdomen/pelvis without contrast to explore other causes of shortness of breath. (3) CAD (coronary artery disease), [place] coronary artery Current Visit: No Status: Chronic Assessment and Plan: Hx of CAD with multiple LHC and stents. See above for plan (4) Heart failure Current Visit: No Status: Chronic Assessment and Plan: Continued shortness of breath Continue IV lasix for fluid overload. Monitor kidney function as acute on chronic kidney disease (5) Acute on chronic renal failure Current Visit: Yes Status: Acute Assessment and Plan: Secondary to contrast during LHC, toradol and HTN urgency on admission Continue to monitor renal function Today, GFR 30, Cr 1.72, BUN 64. GFR and creatinine at baseline, BUN has increased above baseline. Lasix was restarted due to fluid overload (6) Hypertension Current Visit: No Status: Chronic Assessment and Plan: Currently controlled, continue home meds. (7) Type 2 diabetes mellitus Current Visit: Yes Status: Acute - Time Spent with Patient Total time spent is greater than 50% in coordination of care (as documented) at patient's floor/unit and/or counseling patient: Internal Medicine: Result - Labs CBC & Chem 7: 11/14/17 03:34 11/16/17 04:16 Labs: BMP 11/16/17 04:16 Sodium 139 Potassium 4.6 Chloride 106 Carbon Dioxide 24 BUN 64 H Creatinine 1.72 H Glucose 75 Calcium 9.6 - ABG Interpretation ABG results: PT/INR, D-dimer PT 10.4 Seconds (9.4-12.1) 11/10/17 13:39 - VTE Documentation of Mechanical Device: Intermittent pneumatic compression device Consult Discharge Plan - Plan Referrals: Елена Engel, JACK [Advanced Practice Nurse] - 11/23/17 10:45 am <Marcello Juarez - Last Filed: 11/16/17 18:37> Hospitalist Progress Note - Encounter Date of Encounter: 11/16/17 - Exam Vitals: Temp Pulse Resp BP Pulse Ox 98.1 F 84 16 111/56 96 11/16/17 15:44 11/16/17 15:44 11/16/17 15:44 11/16/17 15:44 11/16/17 15:44 - Assessment and Plan (1) Heart failure Current Visit: No Status: Chronic (2) CAD (coronary artery disease), [place] coronary artery Current Visit: No Status: Chronic (3) Hypertension Current Visit: No Status: Chronic (4) Elevated troponin Current Visit: Yes Status: Resolved (5) Unstable angina Current Visit: Yes Status: Resolved (6) Type 2 diabetes mellitus Current Visit: Yes Status: Acute (7) Acute on chronic renal failure Current Visit: Yes Status: Suspected - Time Spent with Patient Total time spent is greater than 50% in coordination of care (as documented) at patient's floor/unit and/or counseling patient: Plan of Care Discussed with: family Internal Medicine: Result - Labs CBC & Chem 7: 11/14/17 03:34 11/16/17 04:16 Labs: BMP 11/16/17 04:16 Sodium 139 Potassium 4.6 Chloride 106 Carbon Dioxide 24 BUN 64 H Creatinine 1.72 H Glucose 75 Calcium 9.6 - ABG Interpretation ABG results: PT/INR, D-dimer PT 10.4 Seconds (9.4-12.1) 11/10/17 13:39 - Attending Attestation I examined this patient and my medical decision-making was reviewed with the Resident Physician on 11/16/17. I agree with the documented findings, disposition and treatment plan as described except to the extent set forth below. Ms Seaman is currently admitted for acute unstable angina, SANAZ and exac CHF. She remains moderate to high risk due to potential for worsening clinical status. Ms Seaman is still having a lot of dyspnea. Worse with exertion. Has some discomfort in chest and palpitations. No GI issues. No cough. Exam Alert Comfortable at rest Mucus membranes dry Heart reg with no murmur Lungs clear at this time Abd soft No edema I/P 1. Acute exac CHF 2. USA Check CT abd per cardiology. Will add CT chest to evaluate pulmonary status as well. Further diagnoses and plan as above. <ElíasBecky L - Last Filed: 11/16/17 17:55> (3) CAD (coronary artery disease), [place] coronary artery Qualifiers: [place] vs. transplanted heart: [place] heart Associated angina: without angina Qualified Code(s): I25.10 - Atherosclerotic heart disease of [place] coronary artery without angina pectoris (4) Heart failure Qualifiers: Heart failure type: diastolic Heart failure chronicity: chronic Qualified Code(s): I50.32 - Chronic diastolic (congestive) heart failure (5) Acute on chronic renal failure Qualifiers: Chronic kidney disease stage: stage 3 (moderate) (6) Hypertension Qualifiers: Hypertension type: essential hypertension Qualified Code(s): I10 - Essential (primary) hypertension (7) Type 2 diabetes mellitus Qualifiers: Diabetes mellitus termite helper insulin use: with termite helper use Diabetes mellitus complication detail: with polyneuropathy <Marcello Juraez - Last Filed: 11/16/17 18:37> (1) Heart failure Qualifiers: Heart failure type: diastolic Heart failure chronicity: acute on chronic Qualified Code(s): I50.33 - Acute on chronic diastolic (congestive) heart failure (2) CAD (coronary artery disease), [place] coronary artery Qualifiers: [place] vs. transplanted heart: [place] heart Associated angina: without angina Qualified Code(s): I25.10 - Atherosclerotic heart disease of [place] coronary artery without angina pectoris (3) Hypertension Qualifiers: Hypertension type: essential hypertension Qualified Code(s): I10 - Essential (primary) hypertension (6) Type 2 diabetes mellitus Qualifiers: Diabetes mellitus senior care insulin use: with senior care use Diabetes mellitus complication status: with kidney complications Diabetes mellitus complication detail: with nephropathy Qualified Code(s): E11.21 - Type 2 diabetes mellitus with diabetic nephropathy; Z79.4 - residential (current) use of insulin (7) Acute on chronic renal failure Qualifiers: Acute renal failure type: with acute tubular necrosis Chronic kidney disease stage: stage 3 (moderate) Qualified Code(s): N17.0 - Acute kidney failure with tubular necrosis; N18.3 - Chronic kidney disease, stage 3 (moderate)
[2017-11-16] MEDS: Benzonatate 100 MG CAPSULE PO PRN (22:47)
[2017-11-17] MEDS: *HR* Heparin 5,000 UNIT/ML VIAL SQ SCH ×2 (06:46→16:38)
[2017-11-17] MEDS: Aspirin Enteric Coated 81 MG Tablet PO SCH (08:28)
[2017-11-17] MEDS: *HR* Ticagrelor 90 MG TABLET PO SCH (08:28)
[2017-11-17] MEDS: Insulin LISPRO 300 UNITS/3 ML VIAL SQ SCH ×4 (08:29→22:17)
[2017-11-17] MEDS: Isosorbide MONOnitrate (24 HR) 30 MG TAB.ER.24H PO SCH (08:29)
[2017-11-17] MEDS: Insulin NPH/REG 70/30 100 UNIT/ML (x5UNIT) SQ SCH ×2 (08:32→17:52)
[2017-11-17 09:34] LABS: Basophils # 0.1 K/mcL (0.0-0.2); Basophils % 0.6 %; Eosinophils # 0.2 K/mcL (0.0-0.6); Hematocrit 28.7 % (35.3-44.9); Hemoglobin 9.2 g/dL (11.5-15.4); Immature Granulocytes % 2.4 % (0-4); Lymphocytes # 3.1 K/mcL (0.6-4.6); Lymphocytes % 27.2 %; Mean Corpuscular HGB Conc 32.1 g/dL (31.6-35.5); Mean Corpuscular Hemoglobin 27.9 pg (28.0-33.3); Mean Platelet Volume 10.1 fL (9.4-12.4); Monocytes # 0.9 K/mcL (0.0-1.3); Monocytes % 8.1 %; Neutrophils # 6.8 K/mcL (1.6-8.9); Platelet Count 423 K/mcL (140-400); Red Cell Distribution Width 14.1 % (11.5-14.5); Segmented Neutrophils % 59.7 %
[2017-11-17 09:52] LABS: Calcium 8.9 mg/dL (8.6-10.3); Potassium 4.6 mEq/L (3.5-5.1)
--- NOTE | 2017-11-17 10:05 | Cardiology Progress Note ---
Date of Encounter: 11/17/17 Time of Encounter: 09:30 Assessment and Plan (1) Unstable angina Current Visit: Yes Status: Resolved Chest pain concerning for unstable angina on admission. H/o multiple PCI and was not taking GDMT. Troponin negative x2 (OSH) and 0.08. Mild elevation also in the setting of HTN urgency b/p 210/117. EKG showed SR with T wave inversion in the V leads that was increased from prior EKG. No ST changes. LHC Completed 11/10/17 and she received PTCA to the proximal and mid LAD . Moderate non-obstructive disease remaining. EF 55%. TTE completed shows low normal EF. LVEF 50%. Not all LV wall segments were optimally visualized. Mild left ventricular diastolic dysfunction. Normal right ventricular structure and function. Mild aortic regurgitation. Mild-moderate mitral regurgitation. Mild tricuspid regurgitation. No pulmonary hypertension by TR gradient, 28 mmHg. IVC is not well visualized. Imdur added for continued chest pain 11/11/17. Imdur increased yesterday. C/o multiple atypical symptoms. C/o band like pressure around her upper abdomen associated with her abdominal bloating and diarrhea ongoing over past two months. C/o dyspnea despite diuresis. No distress noted. Kidney function is at baseline. Re-peat CXR showed pulmonary interstitial edema. CT chest showed no acute finding. CT abdomen shows no acute finding. Reports history of IBS with no treatment. Re-peat EKG reviewed and shows no change from previous EKG. LHC was reviewed again by interventionalist. Re-peat LHC is not recommended. Symptoms appear to be chronic. We will change brilinta to plavix with 300 mg plavix load for first dose. Brilinta can cause dyspnea. Out-pt f/u in 2 weeks. Cardiology will sign off. Thank you for allowing us to participate in her care. (2) CHF (congestive heart failure) Current Visit: Yes Status: Acute Acute on chronic diastolic CHF. Initial CXR showed pulmonary edema. EF 55% on LHC. TTE shows EF low normal at 50%. Mild diastolic dysfunction. No pulmonary HTN. CT chest completed yesterday showed no acute finding. Hold lasix due to SCr increase. Consider low dose oral lasix at discharge. Low sodium diet reviewed. Daily weights. Qualifiers: Heart failure type: diastolic Heart failure chronicity: acute on chronic Qualified Code(s): I50.33 - Acute on chronic diastolic (congestive) heart failure (3) Elevated troponin Current Visit: Yes Status: Resolved Mild troponin elevation in the setting of HTN urgency and CKD. Demand ischemia. (4) CAD (coronary artery disease), [place] coronary artery Current Visit: No Status: Chronic H/o CAD and multiple PCI. S/p PTCA to the LAD 11/10/17. 70% stenosis in the Proximal LAD s/p PTCA. 100% stenosis in the Mid LAD s/p PTCA to 25% . There was a 25% stenosis in the Proximal Circumflex, 60% stenosis in the Mid Circumflex, 60% stenosis in the Ramus. 40% stenosis in the Mid RCA. Continue asa, statin, plavix, and bb. Importance of medication compliance reviewed including DAPT uninterrupted for minimum of one year. Qualifiers: [place] vs. transplanted heart: [place] heart Associated angina: without angina Qualified Code(s): I25.10 - Atherosclerotic heart disease of [place] coronary artery without angina pectoris (5) Hypertension Current Visit: No Status: Chronic B/p improved. Qualifiers: Hypertension type: essential hypertension Qualified Code(s): I10 - Essential (primary) hypertension Discussion w patient/family: The assessment and plan as outlined above was discussed with the patient and/or family members who expressed understanding and agreement. All questions were answered. Thank you for involving us in the care of your patient. Please call with any questions. Subjective Principal diagnosis: Unstable angina Interval history: Patient sleeping soundly laying flat on my exam. No distress noted. Objective Vital Signs, Last 4 Hours Pulse Resp BP Pulse Ox 11/17/17 07:18 72 17 105/45 96 Results 11/17/17 09:03 11/17/17 09:03 Lab Results 11/17/17 11/17/17 09:03 09:03 WBC 11.4 H Hgb 9.2 L Hct 28.7 L Plt Count 423 H Sodium 131 L Potassium 4.6 Chloride 100 Carbon Dioxide 21 L BUN 77 H Creatinine 1.93 H Glucose 231 H Calcium 8.9 - Imaging and Cardiology Echo: report reviewed Cardiac cath: report reviewed - EKG Interpretation EKG results cardiology: personally reviewed - VTE Documentation of Mechanical Device: Intermittent pneumatic compression device Consult Discharge Plan - Plan Instructions: Heart Failure (DC), Chest Pain (DC), Diabetes Mellitus Type 2 in Adults (DC), Chronic Hypertension (DC) Referrals: Елена Engel CNP [Advanced Practice Nurse] - 11/23/17 10:45 am
--- NOTE | 2017-11-17 14:22 | Internal Med Progress Note ---
Hospitalist Progress Note - Encounter Date of Encounter: 11/17/17 Time of Encounter: 11:00 - Subjective Interval History: Ms Seaman is currently admitted for NSTEMI and persistent dyspnea. She remains moderate to high risk due to potential for worsening clinical status. Ms Seaman is still dyspneic with movement. No fever or chills. CTs of chest, abd and pelvis are non acute. Had some discomfort last night but none now. No GI issues at this time. Discussed with cardiology and Brlinta changed to Plavix to see if it is causing her current symptoms. - Exam Vitals: Temp Pulse Resp BP Pulse Ox 98.2 F 72 17 105/45 96 11/17/17 04:00 11/17/17 07:18 11/17/17 07:18 11/17/17 07:18 11/17/17 07:18 Exam: General: Alert and oriented. Resting comfortably in bed at this time. Skin: Normal color, no rash, no lesions. Head: NC, atraumatic EENT: EOM, pupils equal, round and reactive. Cardiovascular: Normal S1 & S2, no rubs, murmurs or gallops. No JVD. Pulse regular. Lungs: Normal breath sounds, no wheezes or crackles. Good inspiratory effort Abdomen: Soft, non-tender, no rigidity. Normal bowel sounds Extremities: No deformity, no edema or tenderness, no joint swelling or clubbing. Neurological: Normal cognition and motor skills. No focal deficit noted. Pulses: Carotid and radial pulses normal +2. - Assessment and Plan (1) Other forms of dyspnea Current Visit: Yes Status: Acute Assessment and Plan: Possibly related to Brlinta. Changed to Plavix. Reassess tomorrow. (2) Heart failure Current Visit: No Status: Resolved Assessment and Plan: Appears to be euvolemic at this time. CT of chest did not show signs of volume overload. (3) CAD (coronary artery disease), [place] coronary artery Current Visit: No Status: Chronic Assessment and Plan: S/P PTCA. Brlinta to be changed to Plavix to see if causing dyspnea. (4) Hypertension Current Visit: No Status: Chronic Assessment and Plan: Controlled at this time on current regimen. (5) Unstable angina Current Visit: Yes Status: Resolved (6) Type 2 diabetes mellitus Current Visit: Yes Status: Acute Assessment and Plan: Better controlled on current regimen. Continue insulin and coverage as currently ordered. (7) Acute on chronic renal failure Current Visit: Yes Status: Suspected Assessment and Plan: Possibly due to contrast, Toradol, hypertensive urgency on admission. BP now under control Continue supportive care Recheck BMP in AM. If function worsens, will consult Nephrology. Currently euvolemic. - Time Spent with Patient Total time spent is greater than 50% in coordination of care (as documented) at patient's floor/unit and/or counseling patient: Internal Medicine: Result - Labs CBC & Chem 7: 11/17/17 09:03 11/17/17 09:03 Labs: Short CBC 11/17/17 Range/Units 09:03 WBC 11.4 H (4.3-11.1) K/mcL Hgb 9.2 L (11.5-15.4) g/dL Hct 28.7 L (35.3-44.9) % Plt Count 423 H (140-400) K/mcL Neutrophils # 6.8 (1.6-8.9) K/mcL BMP 11/17/17 09:03 Sodium 131 L Potassium 4.6 Chloride 100 Carbon Dioxide 21 L BUN 77 H Creatinine 1.93 H Glucose 231 H Calcium 8.9 - ABG Interpretation ABG results: PT/INR, D-dimer PT 10.4 Seconds (9.4-12.1) 11/10/17 13:39 - Impressions Impressions Abdomen/Pelvis CT 11/16/17 20:00 IMPRESSION: No acute findings in the chest, abdomen or pelvis. Pancolonic diverticulosis. D/ / Stone Evans MD / Stone Evans MD Interpreting Provider: Stone Evans MD Chest CT 11/16/17 20:00 IMPRESSION: No acute findings in the chest, abdomen or pelvis. Pancolonic diverticulosis. D/ / Stone Evans MD / Stone Evans MD Interpreting Provider: Stone Evans MD - VTE Documentation of Mechanical Device: Intermittent pneumatic compression device Consult Discharge Plan - Plan Instructions: Heart Failure (DC), Chest Pain (DC), Diabetes Mellitus Type 2 in Adults (DC), Chronic Hypertension (DC) Referrals: Елена Engel CNP [Advanced Practice Nurse] - 11/23/17 10:45 am (2) Heart failure Qualifiers: Heart failure type: diastolic Heart failure chronicity: acute on chronic Qualified Code(s): I50.33 - Acute on chronic diastolic (congestive) heart failure (3) CAD (coronary artery disease), [place] coronary artery Qualifiers: [place] vs. transplanted heart: [place] heart Associated angina: without angina Qualified Code(s): I25.10 - Atherosclerotic heart disease of [place] coronary artery without angina pectoris (4) Hypertension Qualifiers: Hypertension type: essential hypertension Qualified Code(s): I10 - Essential (primary) hypertension (6) Type 2 diabetes mellitus Qualifiers: Diabetes mellitus penitentiary insulin use: with long term care social worker use Diabetes mellitus complication status: with kidney complications Diabetes mellitus complication detail: with nephropathy Qualified Code(s): E11.21 - Type 2 diabetes mellitus with diabetic nephropathy; Z79.4 - snf (current) use of insulin (7) Acute on chronic renal failure Qualifiers: Acute renal failure type: with acute tubular necrosis Chronic kidney disease stage: stage 3 (moderate) Qualified Code(s): N17.0 - Acute kidney failure with tubular necrosis; N18.3 - Chronic kidney disease, stage 3 (moderate)
--- NOTE | 2017-11-17 16:57 | Electrocardiograph Report ---
[address] [place], [place] [address] Test Date: 2017-11-16 Pat Name: Francheska Seaman Department: 111 Room: 2NE24 Gender: F Private Client Advisor: : [id number] Requested By: Driss Pereira Order Number: [id number] Reading MD: Armando Khan Measurements Intervals [place] Rate: 66 P: 45 MA: 172 QRS: 23 QRSD: 86 T: 121 QT: 441 QTc: 455 Interpretive Statements SINUS RHYTHM WITH MARKED SINUS ARRHYTHMIA LOW QRS VOLTAGE IN EXTREMITY LEADS MODERATE T-WAVE ABNORMALITY, CONSIDER ANTEROLATERAL ISCHEMIA Electronically Signed On 11-17-2017 16:56:17 EDT by Armando Khan
[2017-11-18 04:22] LABS: Hematocrit 28.3 % (35.3-44.9); Mean Corpuscular HGB Conc 31.8 g/dL (31.6-35.5); Mean Corpuscular Hemoglobin 28.2 pg (28.0-33.3); Mean Corpuscular Volume 88.7 fL (83.0-100.0); Mean Platelet Volume 10.1 fL (9.4-12.4); Platelet Count 407 K/mcL (140-400); Red Blood Count 3.19 M/mcL (3.82-4.97)
[2017-11-18 04:38] LABS: Calcium 8.4 mg/dL (8.6-10.3); Potassium 4.8 mEq/L (3.5-5.1)
[2017-11-18] MEDS: *HR* Heparin 5,000 UNIT/ML VIAL SQ SCH ×2 (06:09→18:33)
[2017-11-18] MEDS: Isosorbide MONOnitrate (24 HR) 30 MG TAB.ER.24H PO SCH (08:06)
[2017-11-18] MEDS: Insulin LISPRO 300 UNITS/3 ML VIAL SQ SCH ×2 (08:07→11:59)
[2017-11-18] MEDS: Aspirin Enteric Coated 81 MG Tablet PO SCH (08:07)
[2017-11-18] MEDS: Insulin NPH/REG 70/30 100 UNIT/ML (x5UNIT) SQ SCH (08:17)
[2017-11-18] MEDS ORDERED: 0.9 % Sodium Chloride 500 ML IVC PRN (14:52)
[2017-11-18] MEDS ORDERED: 0.9 % Sodium Chloride 500 ML IVC ONE (15:24)
--- NOTE | 2017-11-18 17:23 | Internal Med Progress Note ---
<ElíasBecky Guillermo - Last Filed: 11/18/17 17:42> Hospitalist Progress Note - Encounter Date of Encounter: 11/18/17 Time of Encounter: 10:30 - Subjective Interval History: Today, hospital day 8, Ms. Seaman states that the headache has resolved after switching from Brilinta to Plavix. She also states that shortness of breath has improved and that chest wall pain is also improving. She states that shortness of breath while improved, is still present on exertion. She denies any palpitations, abdominal pain, fever, chills, nausea or vomiting. She does state that she has woken up the past few nights due to hypoglycemia. - Exam Vitals: Temp Pulse Resp BP Pulse Ox 98.6 F 71 19 104/56 95 11/18/17 15:30 11/18/17 15:30 11/18/17 15:30 11/18/17 15:30 11/18/17 15:30 Exam: General: Resting comfortably, in no acute distress, AAOx3, pleasant. HEENT: Normocephalic, atraumatic, EOMI, PERRL, mucus membranes moist. Neck soft , supple, trachea midline, no cervical lymphadenopathy. Cardio: RRR, no murmurs, rubs or gallops. Normal S1, S2. No carotid bruits, Tenderness to palpation present on bilateral anterior chest wall.. Pulmonary: No wheezes, rales or rhonchi. No accessory respiratory muscle use. Abdomen: Tenderness to palpation in LLQ, soft, mildly distended, normal bowel sounds, no guarding, rebound or rigidity. No CVA or suprapubic tenderness. Extremities: Radial and dorsal pedis pulses 2+ and symmetrical, normal capillary refill, no clubbing. No peripheral edema or calf tenderness. Neuro: CN 2-12 intact, no focal deficits. Psych: Normal mood and affect, answers questions appropriately - Assessment and Plan (1) Type 2 diabetes mellitus Current Visit: Yes Status: Acute Assessment and Plan: Hyperglycemia better controlled, however hypoglycemic episodes have awakened her from sleep for past 2 nights Discontinued sliding scale Changed dose of NPH 30/70 to 80 in morning and 70 at night. Diabetic diet (2) Unstable angina Current Visit: Yes Status: Resolved Assessment and Plan: Improvement in shortness of breath, palpitations and chest wall tenderness to palpation after stopping brilinta and starting plavix instead. Continue aspirin, statin, imdur and plavix. (3) CAD (coronary artery disease), [place] coronary artery Current Visit: No Status: Chronic Assessment and Plan: Hx of CAD with multiple LHC and stents. See above for plan (4) Acute on chronic renal failure Current Visit: Yes Status: Suspected Assessment and Plan: Secondary to contrast during LHC, toradol, HTN urgency Renal function today shows Cr 2.18, GFR 23, BUN 86 Given 500 mL IV normal saline Will continue to monitor (5) Other forms of dyspnea Current Visit: Yes Status: Acute Assessment and Plan: Improving after changing brilinta to plavix Continue supplemental 02 as needed. (6) Hypertension Current Visit: No Status: Chronic Assessment and Plan: controlled, continue home medications (7) CHF (congestive heart failure) Current Visit: Yes Status: Acute Assessment and Plan: Stable, no fluid overload on exam DVT Prophylaxis: SQ heparin - Time Spent with Patient Total time spent is greater than 50% in coordination of care (as documented) at patient's floor/unit and/or counseling patient: Internal Medicine: Result - Labs CBC & Chem 7: 11/18/17 03:48 11/18/17 03:48 Labs: Short CBC 11/18/17 Range/Units 03:48 WBC 11.7 H (4.3-11.1) K/mcL Hgb 9.0 L (11.5-15.4) g/dL Hct 28.3 L (35.3-44.9) % Plt Count 407 H (140-400) K/mcL BMP 11/18/17 03:48 Sodium 135 L Potassium 4.8 Chloride 103 Carbon Dioxide 22 L BUN 86 H Creatinine 2.18 H Glucose 164 H Calcium 8.4 L - ABG Interpretation ABG results: PT/INR, D-dimer PT 10.4 Seconds (9.4-12.1) 11/10/17 13:39 - VTE Documentation of Mechanical Device: Intermittent pneumatic compression device Consult Discharge Plan - Plan Instructions: Heart Failure (DC), Chest Pain (DC), Diabetes Mellitus Type 2 in Adults (DC), Chronic Hypertension (DC) Referrals: Елена Engel CNP [Advanced Practice Nurse] - 11/23/17 10:45 am <Marcello Juarez - Last Filed: 11/18/17 18:12> Hospitalist Progress Note - Encounter Date of Encounter: 11/18/17 - Exam Vitals: Temp Pulse Resp BP Pulse Ox 98.6 F 71 19 104/56 95 11/18/17 15:30 11/18/17 15:30 11/18/17 15:30 11/18/17 15:30 11/18/17 15:30 - Assessment and Plan (1) Hypoglycemia Current Visit: Yes Status: Acute (2) Acute on chronic renal failure Current Visit: Yes Status: Suspected (3) Other forms of dyspnea Current Visit: Yes Status: Acute (4) CAD (coronary artery disease), [place] coronary artery Current Visit: No Status: Chronic (5) Hypertension Current Visit: No Status: Chronic (6) Unstable angina Current Visit: Yes Status: Resolved (7) Type 2 diabetes mellitus Current Visit: Yes Status: Chronic - Time Spent with Patient Total time spent is greater than 50% in coordination of care (as documented) at patient's floor/unit and/or counseling patient: Internal Medicine: Result - Labs CBC & Chem 7: 11/18/17 03:48 11/18/17 03:48 Labs: Short CBC 11/18/17 Range/Units 03:48 WBC 11.7 H (4.3-11.1) K/mcL Hgb 9.0 L (11.5-15.4) g/dL Hct 28.3 L (35.3-44.9) % Plt Count 407 H (140-400) K/mcL BMP 11/18/17 03:48 Sodium 135 L Potassium 4.8 Chloride 103 Carbon Dioxide 22 L BUN 86 H Creatinine 2.18 H Glucose 164 H Calcium 8.4 L - ABG Interpretation ABG results: PT/INR, D-dimer PT 10.4 Seconds (9.4-12.1) 11/10/17 13:39 - Attending Attestation I examined this patient and my medical decision-making was reviewed with the Resident Physician on 11/18/17. I agree with the documented findings, disposition and treatment plan as described except to the extent set forth below. Ms Seaman is currently admitted for acute [facility] s/p LHC. She remains moderate to high risk due to potential for worsening clinical status. Ms Seaman is less dyspneic with change to Plavix. Her blood sugar has been dropping in the middle of the night. Her creatinine is worse today as well. No fever or chills. No headache today. Exam alert Comfortable Mucus membranes dry Heart reg No wheeze or rales today Abd soft No edema I/P 1. Dyspnea improved 2. SANAZ - most likely ATN from diuretic 3. hypoglycemia - decrease evening insulin Will keep her tonight due to the SANAZ and hypoglycemia. Hopefully will improve and she can be discharged tomorrow. Further diagnoses and plan as above. <Becky Mckinley - Last Filed: 11/18/17 17:42> (1) Type 2 diabetes mellitus Qualifiers: Diabetes mellitus long term acute care registered nurse insulin use: with residential use Diabetes mellitus complication detail: with polyneuropathy (3) CAD (coronary artery disease), [place] coronary artery Qualifiers: [place] vs. transplanted heart: [place] heart Associated angina: without angina Qualified Code(s): I25.10 - Atherosclerotic heart disease of [place] coronary artery without angina pectoris (4) Acute on chronic renal failure Qualifiers: Acute renal failure type: with acute tubular necrosis Chronic kidney disease stage: stage 3 (moderate) Qualified Code(s): N17.0 - Acute kidney failure with tubular necrosis; N18.3 - Chronic kidney disease, stage 3 (moderate) (6) Hypertension Qualifiers: Hypertension type: essential hypertension Qualified Code(s): I10 - Essential (primary) hypertension (7) CHF (congestive heart failure) Qualifiers: Heart failure type: diastolic Heart failure chronicity: acute on chronic Qualified Code(s): I50.33 - Acute on chronic diastolic (congestive) heart failure <Marcello Juarez - Last Filed: 11/18/17 18:12> (2) Acute on chronic renal failure Qualifiers: Acute renal failure type: with acute tubular necrosis Chronic kidney disease stage: stage 3 (moderate) Qualified Code(s): N17.0 - Acute kidney failure with tubular necrosis; N18.3 - Chronic kidney disease, stage 3 (moderate) (4) CAD (coronary artery disease), [place] coronary artery Qualifiers: [place] vs. transplanted heart: [place] heart Associated angina: without angina Qualified Code(s): I25.10 - Atherosclerotic heart disease of [place] coronary artery without angina pectoris (5) Hypertension Qualifiers: Hypertension type: essential hypertension Qualified Code(s): I10 - Essential (primary) hypertension (7) Type 2 diabetes mellitus Qualifiers: Diabetes mellitus long term acute care registered nurse insulin use: with residential use Diabetes mellitus complication status: with kidney complications Diabetes mellitus complication detail: with nephropathy Qualified Code(s): E11.21 - Type 2 diabetes mellitus with diabetic nephropathy; Z79.4 - residential (current) use of insulin
[2017-11-18] MEDS ORDERED: Insulin NPH/REG 70/30 100 UNIT/ML (x5UNIT) SQ SCH ×2 (18:14→21:00)
[2017-11-19 05:01] LABS: Basophils # 0.1 K/mcL (0.0-0.2); Basophils % 0.5 %; Eosinophils # 0.2 K/mcL (0.0-0.6); Eosinophils % 1.9 %; Hematocrit 28.7 % (35.3-44.9); Hemoglobin 9.2 g/dL (11.5-15.4); Immature Granulocytes % 2.5 % (0-4); Lymphocytes % 28.3 %; Mean Corpuscular HGB Conc 32.1 g/dL (31.6-35.5); Mean Corpuscular Hemoglobin 28.9 pg (28.0-33.3); Mean Corpuscular Volume 90.3 fL (83.0-100.0); Mean Platelet Volume 10.3 fL (9.4-12.4); Monocytes # 0.9 K/mcL (0.0-1.3); Monocytes % 8.7 %; Neutrophils # 6.1 K/mcL (1.6-8.9); Platelet Count 427 K/mcL (140-400); Red Blood Count 3.18 M/mcL (3.82-4.97); Red Cell Distribution Width 13.8 % (11.5-14.5); Segmented Neutrophils % 58.1 %
[2017-11-19 05:18] LABS: Calcium 8.5 mg/dL (8.6-10.3); Potassium 4.6 mEq/L (3.5-5.1)
[2017-11-19] MEDS: *HR* Heparin 5,000 UNIT/ML VIAL SQ SCH (06:25)
[2017-11-19] MEDS ORDERED: Insulin NPH/REG 70/30 100 UNIT/ML (x5UNIT) SQ SCH (09:00)
[2017-11-19] MEDS: Aspirin Enteric Coated 81 MG Tablet PO SCH (09:46)
[2017-11-19] MEDS: Isosorbide MONOnitrate (24 HR) 30 MG TAB.ER.24H PO SCH (09:46)
[2017-11-19 12:01] VITALS: BP 97/60
--- NOTE | 2017-11-19 14:06 | Discharge Summary ---
- NOTES TO OUTPATIENT PROVIDER Notes to Outpatient Provider: Pt admitted with unstable angina. She had LHC with PTCA. Her sugars fluctated and insulin adjusted. She had issues with dyspnea and thought to have CHF. Brlinta changed to Plavix with improvement. Orders not resulted at time of discharge: Pending orders 11/10/17 13:31 CL Cardiac Catheterization [CL] Routine 11/10/17 16:11 ECG 12 lead ECG [ECG] Stat Date of Encounter: 11/19/17 Time of Encounter: 14:00 - Discharge Diagnosis (1) Hypoglycemia Priority: Secondary Status: Resolved (2) Acute on chronic renal failure Priority: Secondary Status: Resolved Qualifiers: Acute renal failure type: with acute tubular necrosis Chronic kidney disease stage: stage 3 (moderate) Qualified Code(s): N17.0 - Acute kidney failure with tubular necrosis; N18.3 - Chronic kidney disease, stage 3 (moderate ) (3) Other forms of dyspnea Priority: Secondary Status: Resolved (4) CAD (coronary artery disease), [place] coronary artery Priority: Secondary Status: Chronic Qualifiers: [place] vs. transplanted heart: [place] heart Associated angina: without angina Qualified Code(s): I25.10 - Atherosclerotic heart disease of [place] coronary artery without angina pectoris (5) Hypertension Priority: Secondary Status: Chronic Qualifiers: Hypertension type: essential hypertension Qualified Code(s): I10 - Essential (primary) hypertension (6) Unstable angina Priority: Primary Status: Resolved (7) Type 2 diabetes mellitus Priority: Secondary Status: Chronic Qualifiers: Diabetes mellitus receivable manager insulin use: with receivable manager use Diabetes mellitus complication status: with kidney complications Diabetes mellitus complication detail: with nephropathy Qualified Code(s): E11.21 - Type 2 diabetes mellitus with diabetic nephropathy; Z79.4 - [place] (current) use of insulin Hospital course: Ms. Seaman is a 62 year old female with hx of CAD and DM presented to ED with substernal chest discomfort. Initial troponin elevated and she was subsequently admitted. Ms Seaman was admitted to [facility] [place]. She was seen by cardiology and had LHC and PTCA. She was placed on Brlinta. She developed significant dyspnea post cath and was treated for CHF. Despite this she remained dyspneic. Brlinta changed to Plavix with improvement. Her blood sugars fluctuated and her insulin was adjusted. Today she is afebrile. She is ready for discharge home. Discharge discussed with: patient, family - Time Spent with Patient Total time spent providing and/or coordinating discharge services: - Discharge Medications Prescriptions: Clopidogrel [Plavix] 75 mg PO DAILY #30 tablet Insulin ASPART [Novolog Flexpen] See Protocol SQ ACHS #20 insuln.pen Isosorbide MONOnitrate (24 HR) [Imdur] 90 mg PO DAILY #90 tab.er.24h Metoprolol [Lopressor] 25 mg PO BID #60 tablet Home Medications: Atorvastatin Calcium [Lipitor] 80 mg PO HS 11/10/17 [History] Escitalopram [Lexapro] 20 mg PO DAILY 11/10/17 [History] Furosemide [Lasix] 40 mg PO DAILY 11/10/17 [History] Levothyroxine [Synthroid] 75 mcg PO QAM 11/10/17 [History] Acetaminophen [Tylenol] 1,000 mg PO Q6HR PRN tablet 11/19/17 [Rx] Aspirin Enteric Coated [Aspirin EC] 81 mg PO DAILY tablet. 11/19/17 [Rx] Clopidogrel [Plavix] 75 mg PO DAILY #30 tablet 11/19/17 [Rx] Insulin ASPART [Novolog Flexpen] See Protocol SQ ACHS #20 insuln.pen 11/19/17 [ Rx] Insulin NPH/REG 70/30 (HUMAN) [Humulin 70/30 Vial] 65 unit SQ PMHY [id number] 01/27 [Rx] Insulin NPH/REG 70/30 (HUMAN) [Humulin 70/30 Vial] 80 unit SQ QAM [id number] 11/19 [Rx] Isosorbide MONOnitrate (24 HR) [Imdur] 90 mg PO DAILY #90 tab.er.24h 11/19/17 [ Rx] Lisinopril [Zestril] 10 mg PO DAILY tablet 11/19/17 [Rx] Metoprolol [Lopressor] 25 mg PO BID #60 tablet 11/19/17 [Rx] Allergies/Adverse Reactions: 3 Allergy/AdvReac Type Severity Reaction Status Date / Time Penicillins Allergy Anaphylaxis Verified 11/10/17 13:56 Sulfa (Sulfonamide Allergy Anaphylaxis Verified 11/10/17 13:56 Antibiotics) Date of admission: 11/10/17 11:58 Primary care physician: Saw Flores DO Consults: 11/10/17 12:15 Consult to Cardiology [CONS] Routine Comment: Consulting Provider: Olga Jon Reason for Consult: UNSTABLE ANGINA Time Notified: 12:05 Call Completed: Yes 11/10/17 16:11 Consult to Cardiac Rehabilitation-Phase1 [CONS] Routine Comment: Reason for Consult: AMI Call Completed: Yes Consult to Nurse Navigator [CONS] Routine Comment: 11/16/17 14:48 Consult to Cardiology [CONS] Routine Comment: Consulting Provider: Olga Jon Reason for Consult: Continuing chest pain, shortness of breath and palpitations. status post [facility] with angioplasty day 6. Call Completed: Yes 11/18/17 10:54 Consult to Occupational Therapy [CONS] Routine Comment: Evaluate, develop and implement POC Reason for Consult: possible home health need. has had broken hip x 1 year which has never been repaired Does patient have active BEDREST order?: No Is patient medically & hemodynamically stable?: Yes Discharging clinician: Marcello Juarez Anticipated date of discharge: 11/19/17 - Constitutional Vitals: Temp Pulse Resp BP Pulse Ox 97.8 F 56 15 97/60 95 11/19/17 11:55 11/19/17 11:55 11/19/17 11:55 11/19/17 11:55 11/19/17 11:55 General appearance: Present: A&O X 3, answers questions appropriately - Head Head exam: Present: normocephalic - Eye Eye exam: Present: EOMI, conjuntiva pink - ENT ENT exam: Present: mucous membranes moist - Respiratory Respiratory exam: Present: CTAB. Absent: rales, rhonchi, wheezes - Cardiovascular Cardiovascular exam: Present: RRR. Absent: tachycardia - GI/Abdominal GI/Abdominal exam: Present: soft. Absent: tenderness - Extremities Exam Extremities exam: Present: warm. Absent: tenderness - Neurological Exam Neurological exam: Present: alert, oriented X3 - Skin Skin exam: Present: dry, warm - Patient Status Disposition: Home Health Service Condition: Good Functional capacity at discharge: independent ambulation Overall status at discharge: patient is progressing back to baseline - Discharge Instructions Instructions: Clopidogrel (By mouth), Heart Failure (DC), Chest Pain (DC), Diabetes Mellitus Type 2 in Adults (DC), Chronic Hypertension (DC) Follow Up With: Елена Engel COMPOSITION TILE LAYER [Advanced Practice Nurse] - 11/23/17 10:45 am - Diet and Activity Activity: increase activity as tolerated Diet: advance to your usual diet - VTE Documentation of Mechanical Device: Intermittent pneumatic compression device
== END 2017-11-19 14:34 | disposition home health service (06) | DRG 250 ==
LOC: 2NENU → SUATTDRO 11:58
PROVIDERS: ADMIT Internal Medicine; ATTEND Internal Medicine

== ENCOUNTER 2017-12-21 23:10 | Observation (INO) ==
[2017-12-22] MEDS ORDERED: Naloxone 0.4 MG/ML INJ IVP PRN (03:53)
[2017-12-22] MEDS ORDERED: D5% in Water 1,000 ML IVC PRN (03:58)
[2017-12-22] MEDS ORDERED: *HR* Dextrose 50 % in Water (Syg) 50 ML SYRINGE IVP PRN (03:58)
[2017-12-22] MEDS ORDERED: Dextrose Gel 15 GM/37.5 ML TUBE PO PRN ×2 (03:58)
--- NOTE | 2017-12-22 05:41 | Internal Med History&Physical ---
Date of Encounter: 12/22/17 Time of Encounter: 03:40 Internal Medicine - H&P: HPI Chief complaint: Chest pain, shortness of breath Admitted From: Hospital to Hospital Transfer Plans for Post Hospital Care: Home History of present illness: Ms. Seaman is a 62 year old female Patient presented to the [place] ER for shortness of breath with chest pain. She states that she woke up around 3am the day before going to the ER and could not catch her breath. This is similar to how her previous episodes of chest pain presented in the past. She has also had a cough for the last several days as well. She feels like there is a belt around her chest. She was recently discharged from the hospital on 12/16/17 after having a C with PCI to [facility]. She states that after being discharged she still had the shortness of breath, with pain worse with deep inspiration and cough. She has a known history of CHF as well. In the ER at [place] her potassium was elevated at 6.4, blood sugar was 334. Troponin was <0.03. BNP was 288, elevated from previous. Chest x-ray was stable compared to previous. She was transferred to [place] for further management of her hyperkalemia, chest pain and glucose. Upon my assessment patient denies chest pain, shortness of breath. She states that she had some nausea but that has resolved. No diarrhea or constipation. Past Med Surg Social Fam HX - Past Medical History Medical history: coronary artery disease, diabetes, hyperlipidemia, hypertension , renal disease, thyroid disease Additional medical history: MS fibromyalgia,. Numerous heart caths, total of 6 stents by 12/13/2017 Psychiatric history: depression - Past Surgical History Surgical History: angioplasty/stent, cholecystectomy Additional surgical history: L ankle ORIF. coronary stents x6. tubial - Social History Smoking Status: Never smoker Smokeless Tobacco Status: No Alcohol use: none Drug use: none Internal Medicine - H&P: Meds Atorvastatin Calcium [Lipitor] 80 mg PO HS 11/10/17 [History] Escitalopram [Lexapro] 20 mg PO DAILY 11/10/17 [History] Furosemide [Lasix] 40 mg PO DAILY 11/10/17 [History] Levothyroxine [Synthroid] 75 mcg PO QAM 11/10/17 [History] Acetaminophen [Tylenol] 1,000 mg PO Q6HR PRN tablet 11/19/17 [Rx] Clopidogrel [Plavix] 75 mg PO DAILY #30 tablet 11/19/17 [Rx] Gabapentin [Neurontin] 300 mg PO TID 12/14/17 [History] Insulin Aspart Prot/Insuln Asp [Novolog Mix 70-30 Flexpen Syrn] 70 unit SQ BID 12/14/17 [History] Nitroglycerin [Nitrostat] 0.4 mg SL DAILY PRN 12/14/17 [History] Aspirin 81 mg PO DAILY #30 tab.chew 12/16/17 [Rx] Lisinopril-HCTZ 10-12.5 [Prinzide 10-12.5] 1 each PO DAILY #30 tablet 12/16/17 [ Rx] Metoprolol [Lopressor] 50 mg PO BID #60 tablet 12/16/17 [Rx] Ranolazine [Ranexa] 500 mg PO BID #60 tab.er.12h 12/16/17 [Rx] 3 Allergy/AdvReac Type Severity Reaction Status Date / Time Penicillins Allergy Anaphylaxis Verified 12/21/17 23:53 Sulfa (Sulfonamide Allergy Anaphylaxis Verified 12/21/17 23:53 Antibiotics) All Systems PM: A 10-system review of systems was performed and is negative for pertinent findings except as documented above in the HPI. - Constitutional Vitals: Temp Pulse Resp BP Pulse Ox 99.0 F 70 17 119/61 98 12/22/17 01:05 12/22/17 01:05 12/22/17 01:05 12/22/17 01:05 12/22/17 01:24 General appearance: Present: cooperative, A&O X 3, pleasant, no acute distress, answers questions appropriately Exam: as above - Head Head exam: Present: normal inspection - Eye Eye exam: Present: EOMI, normal appearance - Respiratory Respiratory exam: Present: rales. Absent: chest wall tenderness, decreased breath sounds Additional comments: Slight crackles on the right, worse than left - Cardiovascular Cardiovascular exam: Present: RRR. Absent: diastolic murmur, systolic murmur - GI/Abdominal GI/Abdominal exam: Present: normal bowel sounds, soft. Absent: tenderness - Extremities Exam Extremities exam: Present: warm, radial pulses palpable and symmetrical. Absent : calf tenderness, pedal edema, tenderness - Neurological Exam Neurological exam: Present: no focal deficits, strengths equal and symetr throughout. Absent: motor sensory deficit, facial droop, speech deficit - Skin Skin exam: Present: dry, normal color, warm Internal Med - H&P Results - Labs CBC & Chem 7: 12/22/17 05:29 12/22/17 05:29 - Assessment and plan (1) Chest pain Current Visit: No Status: Acute Assessment and plan: Improved from previous, Troponins negative thus far Continue to trend troponins. Cardiac monitoring. Qualifiers: Ischemic chest pain type: unstable angina pectoris Qualified Code(s): I20.0 - Unstable angina (2) Shortness of breath Current Visit: Yes Status: Acute Assessment and plan: Lung exam showed some crackles on the right, worse than left. No wheeze. Patient takes furosemide at home, but has a slight SANAZ on lab work, baseline GFR is around 31. Continue to monitor Recheck labs in the AM Lasix in AM if kidney function ok, monitor renal function closely. Strict I&Os Daily weights (3) Hyperkalemia Current Visit: No Status: Acute Assessment and plan: 6.4 at [place]. Kayexalate, insulin, albuterol and sodium bicarb given. No EKG changes. Recheck labs in the morning. (4) CKD stage 3 secondary to diabetes Current Visit: No Status: Chronic Assessment and plan: Slightly worsened renal function. Repeat labs in AM Monitor fluid intake and output (5) Heart failure Current Visit: No Status: Resolved Assessment and plan: History of diastolic heart failure, EF 50%, recent heart cath last week. Continue to monitor. Lasix 40mg at home Continue home dose if kidneys allow. Qualifiers: Heart failure type: diastolic Heart failure chronicity: acute on chronic Qualified Code(s): I50.33 - Acute on chronic diastolic (congestive) heart failure (6) Diabetes mellitus Current Visit: No Status: Acute Assessment and plan: Takes 70-30 flexpen at home, no mealtime insulin NPO for now Basal insulin BID Sliding scale insulin Q6H Check sugars Q6H. Qualifiers: Diabetes mellitus type: type 2 Diabetes mellitus jail insulin use: with equipment operator intermodal yard use Diabetes mellitus complication status: with neurologic complications Diabetes mellitus complication detail: with unspecified neuropathy Qualified Code(s): E11.40 - Type 2 diabetes mellitus with diabetic neuropathy, unspecified; Z79.4 - [facility] (current) use of insulin - Time Spent With Patient Total time spent is greater than 50% in coordination of care (as documented) at patient's floor/unit and/or counseling patient: Greater than 35 minutes
[2017-12-22] MEDS: Insulin LISPRO 300 UNITS/3 ML VIAL SQ SCH ×4 (05:46→20:54)
[2017-12-22 06:01] LABS: Hematocrit 28.7 % (35.3-44.9); Hemoglobin 9.3 g/dL (11.5-15.4); Mean Corpuscular HGB Conc 32.4 g/dL (31.6-35.5); Mean Corpuscular Hemoglobin 28.7 pg (28.0-33.3); Mean Corpuscular Volume 88.6 fL (83.0-100.0); Platelet Count 347 K/mcL (140-400); Red Blood Count 3.24 M/mcL (3.82-4.97); Red Cell Distribution Width 13.4 % (11.5-14.5)
[2017-12-22 06:18] LABS: Potassium 5.1 mEq/L (3.5-5.1)
[2017-12-22] MEDS ORDERED: Nitroglycerin 0.4 MG TAB.SUBL SL PRN (08:28)
[2017-12-22] MEDS: Ranolazine 500 MG TAB.ER.12H PO SCH ×2 (09:08→20:53)
[2017-12-22] MEDS: Gabapentin 300 MG CAPSULE PO SCH ×3 (09:08→20:53)
[2017-12-22] MEDS: Aspirin 81 MG TAB.CHEW PO SCH (09:08)
[2017-12-22] MEDS: Furosemide 40 MG TABLET PO SCH (09:08)
[2017-12-22] MEDS ORDERED: *HR* HYDROcodone/Acet 5/325 mg TABLET PO PRN (09:29)
[2017-12-22] MEDS: Insulin DETEMIR 100 UNIT/ML X5UNITS SQ SCH ×2 (09:37→20:53)
--- NOTE | 2017-12-22 14:17 | Cardiology Consult Note ---
Date of Encounter: 12/22/17 Time of Encounter: 14:44 Assessment and Plan (1) Atypical chest pain Current Visit: Yes Status: Resolved Patient with hx of CAD with recent stent to the Ramus Intermedius. Symptoms of chest pain reproducible on palpation consistent with musculoskeletal etiology. Recommend analgesia. Troponin negative [address]-T changes on the EKG argue against acute coronary syndrome at this time. No evidence of pericarditis on EKG. Continue aspirin, plavix, statin, metoprolol, lisinopril, Ranexa for CAD. Control hypertension and diabetes. (2) Chronic diastolic heart failure Current Visit: Yes Status: Acute Patients with known history of chronic diastolic heart failure with shortness of breath and dry cough. Chest x-ray shows possible interstitial edema. Recommend intravenous Lasix 40 mg once and evaluate fluid status as well as renal function afterwards. Of note, VQ scan of the lungs negative for PE. (3) Chronic kidney disease (CKD) Current Visit: Yes Status: Acute Baseline Cr of 1.5-1.8. Cautious use of diuretics. Recommend nephrology f/up Qualifiers: Chronic kidney disease stage: stage 3 (moderate) Qualified Code(s): N18.3 - Chronic kidney disease, stage 3 (moderate) Discussion w patient/family: The assessment and plan as outlined above was discussed with the patient and/or family members who expressed understanding and agreement. All questions were answered. Thank you for involving us in the care of your patient. Please call with any questions. History of Present Illness Consult date: 12/22/17 Requesting physician: Verona Gurrola Consult reason: Chest pain History of present illness: Ms. Seaman is a 62 year old female with history of coronary artery disease, diabetes hypertension, hyperlipidemia chronic kidney disease, obesity who presented to the emergency room on account of pleuritic chest pain located on the left side was seen by deep inspiration as well as movement. There is associated cough over the past 2 days productive of scanty whitish and slightly frothy sputum. No hemoptysis. She denies orthopnea, PND. However she reports shortness of breath when she talks for a while. She denies fever or malaise or palpitations. She is on Lasix 40 mg daily at home and she reports adherence. She had coronary angiogram on 12/14/17 where she was found to have a 70% stenosis in the Ramus which was stented with a drug eluting stent. Additionally she had non-obstructive lesions as follows: a 40% stenosis in the Distal LMCA; a 30% stenosis in the Proximal LAD and a 50% instent restenosis in the Mid LAD ; 30% stenosis in the Proximal Circumflex and 50% stenosis in the Mid Circumflex. Of note she had received an angiogramon 11/10/17 and she received with PTCA of the proximal and mid LAD. Optimal medical therapy of patient's disease and aggressive risk factor modification was prescribed, patient was also offered cardiac rehab. Her most recent echo was on 11/10/17 which showed LVEF 50% with mild left ventricular diastolic dysfunction. Normal right ventricular structure and function. Mild aortic regurgitation. Mild-moderate mitral regurgitation. Mild tricuspid regurgitation. Past Med Surg Social Fam HX - Past Medical History Medical history: coronary artery disease, diabetes, hyperlipidemia, hypertension , renal disease, thyroid disease Additional medical history: MS fibromyalgia,. Numerous heart caths, total of 6 stents by 12/13/2017 Psychiatric history: depression - Past Surgical History Surgical History: angioplasty/stent, cholecystectomy Additional surgical history: L ankle ORIF. coronary stents x6. tubial - Social History Smoking Status: Never smoker Smokeless Tobacco Status: No Alcohol use: none Drug use: none Medications and Allergies Atorvastatin Calcium [Lipitor] 80 mg PO HS 11/10/17 [History] Escitalopram [Lexapro] 20 mg PO DAILY 11/10/17 [History] Furosemide [Lasix] 40 mg PO DAILY 11/10/17 [History] Levothyroxine [Synthroid] 75 mcg PO QAM 11/10/17 [History] Acetaminophen [Tylenol] 1,000 mg PO Q6HR PRN tablet 11/19/17 [Rx] Clopidogrel [Plavix] 75 mg PO DAILY #30 tablet 11/19/17 [Rx] Gabapentin [Neurontin] 300 mg PO TID 12/14/17 [History] Insulin Aspart Prot/Insuln Asp [Novolog Mix 70-30 Flexpen Syrn] 70 unit SQ BID 12/14/17 [History] Nitroglycerin [Nitrostat] 0.4 mg SL DAILY PRN 12/14/17 [History] Aspirin 81 mg PO DAILY #30 tab.chew 12/16/17 [Rx] Lisinopril-HCTZ 10-12.5 [Prinzide 10-12.5] 1 each PO DAILY #30 tablet 12/16/17 [ Rx] Metoprolol [Lopressor] 50 mg PO BID #60 tablet 12/16/17 [Rx] Ranolazine [Ranexa] 500 mg PO BID #60 tab.er.12h 12/16/17 [Rx] 3 Allergy/AdvReac Type Severity Reaction Status Date / Time Penicillins Allergy Anaphylaxis Verified 12/21/17 23:53 Sulfa (Sulfonamide Allergy Anaphylaxis Verified 12/21/17 23:53 Antibiotics) All Systems Review: The remainder of the systems were reviewed and are negative - Constitutional Constitutional: no anorexia, no chills, no fever(s), no malaise - EENT Eyes: no blurred vision Nose, mouth and throat: no bleeding gums, no epistaxis, no odynophagia - Cardiovascular Cardiovascular: as per HPI, no diaphoresis, no leg edema, no palpitations, no paroxysmal nocturnal dyspnea - Respiratory Respiratory: cough, no hemoptysis, no wheezing - Gastrointestinal Gastrointestinal: no abdominal pain, no constipation, no diarrhea - Genitourinary Genitourinary: dysuria - Musculoskeletal Musculoskeletal: no abnormal gait - Integumentary Integumentary: no unusual bruising - Neurological Neurological: no abnormal speech, no loss of vision - Psychiatric Psychiatric: no anxiety - Hematological/Lymphatic Hematologic/Lymphatic: no easy bleeding Physical Examination General: Conversant HEENT: Atraumatic Neck: No JVD Cardiac: Reg Rate and Rhythm, Normal S1 and S2 Lungs: No Wheeze, Rales, Rhonchi, Other (Diminished breath sounds bilaterally; minimal rales ) Neuro: Alert and responsive, No focal deficits noted Abdomen: Soft Musculoskeletal: Other (Reproducible chest pain on the L side) Extremities: No Edema Results 12/22/17 05:29 12/22/17 05:29 Lab Results 12/22/17 12/22/17 12/22/17 05:29 05:29 05:29 WBC 8.6 Hgb 9.3 L Hct 28.7 L Plt Count 347 Sodium 137 Potassium 5.1 Chloride 109 H Carbon Dioxide 22 L BUN 56 H Creatinine 1.66 H Glucose 195 H Calcium 9.0 Troponin I < 0.03 12/22/17 11:54 WBC Hgb Hct Plt Count Sodium Potassium Chloride Carbon Dioxide BUN Creatinine Glucose Calcium Troponin I < 0.03 Consult Discharge Plan - Plan Referrals: Saw Flores, [Primary Care Provider] -
[2017-12-22] MEDS ORDERED: Furosemide 40 MG/4 ML VIAL IVP ONE (15:33)
--- NOTE | 2017-12-22 16:05 | Internal Med Progress Note ---
<Sarthak Duran - Last Filed: 12/22/17 16:49> Hospitalist Progress Note - Encounter Date of Encounter: 12/22/17 Time of Encounter: 16:04 - Subjective Interval History: Patient seen and examined this morning, no acute events overnight Her hyperkalemia has resolved, she does still complain of chest pain She denies shortness of breath, abdominal pain, nausea, vomiting, lightheadedness - Exam Vitals: Temp Pulse Resp BP Pulse Ox 98.1 F 73 16 108/58 93 12/22/17 07:54 12/22/17 07:54 12/22/17 07:54 12/22/17 07:54 12/22/17 07:54 Exam: Patient in no acute distress, alert and oriented 3 Heart in regular rate and rhythm without murmur or gallop Lungs exhibited sparse lower lobe rales, no wheeze or rhonchi Abdomen soft and nontender and obese, bowel sounds normal Bilateral lower extremities are nonedematous Skin warm and dry - Assessment and Plan (1) Chest pain Current Visit: Yes Status: Acute Assessment and Plan: Patient presented with an was admitted for chest pain Patient had catheterization with PCI on 12/26/17 Troponins cycled were negative EKG showed no acute process VQ scan showed no acute process Differentials include angina, costochondritis, heart failure exacerbation Plan Cardiology consult, rule out angina Creatinine at baseline, home dose of Lasix 40 mg by mouth daily started We will continue to monitor and defer to cardiology recommendation (2) Heart failure Current Visit: Yes Status: Chronic Assessment and Plan: Patient is history of heart failure with preserved ejection fraction, EF 50% at last echo, within last 6 months Patient is receiving home dose of Lasix 40 mg by mouth daily Plan (3) Diabetes mellitus Current Visit: Yes Status: Acute Assessment and Plan: Patient had elevated glucose at admission, glucose stable now Home medications held, sliding scale insulin protocol initiated We will continue to monitor (4) Hyperkalemia Current Visit: Yes Status: Resolved Assessment and Plan: Patient was hyperkalemic on admission at 6.4 Kayexalate, insulin, albuterol and sodium bicarb given. No EKG changes Potassium within normal limits now at 5.1 We will continue to monitor (5) CKD stage 3 secondary to diabetes Current Visit: Yes Status: Chronic Assessment and Plan: Patient with history of chronic kidney disease Creatinine was elevated at admission however is down to 1.6 now which appears to be her baseline based on previous admissions We will continue to avoid nephrotoxins and renally dose medications and monitor renal function (6) Shortness of breath Current Visit: Yes Status: Resolved Assessment and Plan: Shortness of breath resolved, patient decided chest pain May have been due to heart failure exacerbation We will continue to monitor DVT Prophylaxis: Plavix 75mg by mouth daily - Time Spent with Patient Total time spent is greater than 50% in coordination of care (as documented) at patient's floor/unit and/or counseling patient: Internal Medicine: Result - Labs CBC & Chem 7: 12/22/17 05:29 12/22/17 05:29 Labs: Short CBC 12/22/17 Range/Units 05:29 WBC 8.6 (4.3-11.1) K/mcL Hgb 9.3 L (11.5-15.4) g/dL Hct 28.7 L (35.3-44.9) % Plt Count 347 (140-400) K/mcL BMP 12/22/17 05:29 Sodium 137 Potassium 5.1 Chloride 109 H Carbon Dioxide 22 L BUN 56 H Creatinine 1.66 H Glucose 195 H Calcium 9.0 Cardiac Enzymes 12/22/17 12/22/17 Range/Units 05:29 11:54 Troponin I < 0.03 < 0.03 (< 0.04) ng/mL - Impressions Impressions Pulmonary Perfusion Imaging 12/22/17 10:47 IMPRESSION: Low probability for pulmonary embolus. D/ / Jason Hawk MD / Jason Hawk MD Interpreting Provider: Jason Hawk MD Consult Discharge Plan - Plan Referrals: Saw Flores DO [Primary Care Provider] - <Verona Gurrola - Last Filed: 12/22/17 17:43> Hospitalist Progress Note - Encounter Date of Encounter: 12/22/17 - Exam Vitals: Temp Pulse Resp BP Pulse Ox 98.9 F 69 17 118/56 94 12/22/17 16:09 12/22/17 16:12/22/17 16:09 12/22/17 16:09 12/22/17 16:09 - Assessment and Plan (1) Hyperkalemia Current Visit: Yes Status: Resolved (2) CKD stage 3 secondary to diabetes Current Visit: Yes Status: Chronic (3) Heart failure Current Visit: Yes Status: Chronic (4) Diabetes mellitus Current Visit: Yes Status: Acute (5) Chest pain Current Visit: Yes Status: Acute (6) Shortness of breath Current Visit: Yes Status: Resolved - Time Spent with Patient Total time spent is greater than 50% in coordination of care (as documented) at patient's floor/unit and/or counseling patient: Internal Medicine: Result - Labs CBC & Chem 7: 12/22/17 05:29 12/22/17 05:29 Labs: Short CBC 12/22/17 Range/Units 05:29 WBC 8.6 (4.3-11.1) K/mcL Hgb 9.3 L (11.5-15.4) g/dL Hct 28.7 L (35.3-44.9) % Plt Count 347 (140-400) K/mcL BMP 12/22/17 05:29 Sodium 137 Potassium 5.1 Chloride 109 H Carbon Dioxide 22 L BUN 56 H Creatinine 1.66 H Glucose 195 H Calcium 9.0 Cardiac Enzymes 12/22/17 12/22/17 Range/Units 05:29 11:54 Troponin I < 0.03 < 0.03 (< 0.04) ng/mL - Impressions Impressions Pulmonary Perfusion Imaging 12/22/17 10:47 IMPRESSION: Low probability for pulmonary embolus. D/ / Jason Hawk MD / Jason Hawk MD Interpreting Provider: Jason Hawk MD - Attending Attestation I examined this patient and my medical decision-making was reviewed with the Resident Physician. I agree with the documented findings, disposition and treatment plan as described except to the extent set forth below. Patient having some pleuritic chest pain, some pain with cough, and abdominal fullness. On physical exam there are course breath sounds and reproducible chest pain. A V/Q scan was ordered to rule out PE. Continue Cycle troponin. Cardiology consulted given patient recent history. Suspect costochondritis is high on differentials. Possibly lower respiratory tract infection, and she may benefit from emperic treatment as she is having worsening cough with pleuritic pain. <Sarthak Duran - Last Filed: 12/22/17 16:49> (1) Chest pain Qualifiers: Chest pain type: unspecified Qualified Code(s): R07.9 - Chest pain, unspecified (2) Heart failure Qualifiers: Heart failure type: diastolic Heart failure chronicity: acute on chronic Qualified Code(s): I50.33 - Acute on chronic diastolic (congestive) heart failure (3) Diabetes mellitus Qualifiers: Diabetes mellitus type: type 2 Diabetes mellitus fci insulin use: with fci use Diabetes mellitus complication status: with neurologic complications Diabetes mellitus complication detail: with unspecified neuropathy Qualified Code(s): E11.40 - Type 2 diabetes mellitus with diabetic neuropathy, unspecified; Z79.4 - correction (current) use of insulin <Verona Gurrola - Last Filed: 12/22/17 17:43> (3) Heart failure Qualifiers: Heart failure type: diastolic Heart failure chronicity: acute on chronic Qualified Code(s): I50.33 - Acute on chronic diastolic (congestive) heart failure (4) Diabetes mellitus Qualifiers: Diabetes mellitus type: type 2 Diabetes mellitus terminal computer operator insulin use: with terminal computer operator use Diabetes mellitus complication status: with neurologic complications Diabetes mellitus complication detail: with unspecified neuropathy Qualified Code(s): E11.40 - Type 2 diabetes mellitus with diabetic neuropathy, unspecified; Z79.4 - terminal computer operator (current) use of insulin (5) Chest pain Qualifiers: Chest pain type: unspecified Qualified Code(s): R07.9 - Chest pain, unspecified
[2017-12-22] MEDS: Doxycycline 100 MG CAPSULE PO SCH (20:53)
[2017-12-23 04:21] LABS: Basophils % 0.3 %; Eosinophils # 0.2 K/mcL (0.0-0.6); Hematocrit 30.3 % (35.3-44.9); Hemoglobin 9.9 g/dL (11.5-15.4); Immature Granulocytes % 0.5 % (0-4); Lymphocytes # 1.9 K/mcL (0.6-4.6); Mean Corpuscular HGB Conc 32.7 g/dL (31.6-35.5); Mean Corpuscular Hemoglobin 27.9 pg (28.0-33.3); Mean Corpuscular Volume 85.4 fL (83.0-100.0); Mean Platelet Volume 9.7 fL (9.4-12.4); Monocytes # 0.8 K/mcL (0.0-1.3); Neutrophils # 5.9 K/mcL (1.6-8.9); Platelet Count 351 K/mcL (140-400); Red Blood Count 3.55 M/mcL (3.82-4.97); Red Cell Distribution Width 13.2 % (11.5-14.5); Segmented Neutrophils % 67.2 %
[2017-12-23 04:37] LABS: Calcium 9.2 mg/dL (8.6-10.3); Potassium 5.2 mEq/L (3.5-5.1)
[2017-12-23] MEDS: Gabapentin 300 MG CAPSULE PO SCH ×3 (09:42→21:36)
[2017-12-23] MEDS: Aspirin 81 MG TAB.CHEW PO SCH (09:42)
[2017-12-23] MEDS: Ranolazine 500 MG TAB.ER.12H PO SCH ×2 (09:42→21:36)
[2017-12-23] MEDS: Doxycycline 100 MG CAPSULE PO SCH ×2 (09:42→21:36)
[2017-12-23] MEDS: Furosemide 40 MG TABLET PO SCH (09:42)
--- NOTE | 2017-12-23 10:00 | Internal Med Progress Note ---
<Sarthak Duran - Last Filed: 12/23/17 14:20> Hospitalist Progress Note - Encounter Date of Encounter: 12/23/17 Time of Encounter: 09:54 - Subjective Interval History: Patient seen and examined this morning, no acute events overnight Patient complains of rib pain when breathing and coughing She denies shortness of breath, abdominal pain, nausea, vomiting, lightheadedness - Exam Vitals: Temp Pulse Resp BP Pulse Ox 99.0 F 71 18 116/65 93 12/23/17 07:19 12/23/17 07:19 12/23/17 07:19 12/23/17 07:19 12/23/17 07:19 Exam: Patient in no acute distress, alert and oriented 3 Heart in regular rate and rhythm without murmur or gallop Bilateral third and fourth ribs tender to palpation Lungs exhibited sparse lower lobe rales, no wheeze or rhonchi Abdomen soft and nontender and obese, bowel sounds normal Bilateral lower extremities are nonedematous Skin warm and dry - Assessment and Plan (1) Chest pain Current Visit: Yes Status: Acute Assessment and Plan: Patient presented with and was admitted for chest pain Patient had catheterization with PCI on 12/26/17 Troponins cycled were negative EKG showed no acute process VQ scan showed no acute process Differentials include angina, costochondritis, lower respiratory infection, heart failure exacerbation Patient had reproducible rib pain on exam, costochondritis or somatic dysfunction more likely Plan Cardiology consult, rule out angina Rib pain reduced after osteopathic manipulation We will continue to monitor and defer to cardiology recommendation (2) Heart failure Current Visit: Yes Status: Chronic Assessment and Plan: Patient is history of heart failure with preserved ejection fraction, EF 50% at last echo, within last 6 months Patient is receiving home dose of Lasix 40 mg by mouth daily Plan Continue lasix for fluid retention Strict Is and Os (3) Diabetes mellitus Current Visit: Yes Status: Acute Assessment and Plan: Patient had elevated glucose at admission, glucose stable now Home Novolog 70 units BID re-initiated, sliding scale maintained We will continue to monitor (4) Hyperkalemia Current Visit: Yes Status: Resolved Assessment and Plan: Patient was hyperkalemic on admission at 6.4 Kayexalate, insulin, albuterol and sodium bicarb given. No EKG changes Potassium increased again, we will hold lisinopril We will continue to monitor (5) CKD stage 3 secondary to diabetes Current Visit: Yes Status: Chronic Assessment and Plan: Patient with history of chronic kidney disease Creatinine elevated to 1.8 which still appears to be around baseline We will continue to avoid nephrotoxins and renally dose medications and monitor renal function (6) Shortness of breath Current Visit: Yes Status: Acute Assessment and Plan: Patient with continued cough Suspicion for lower respiratory tract infection 5-7 day course of Doxycycline initiated, currently day 2 Patient does not meet sepsis criteria We will continue to monitor DVT Prophylaxis: Plavix 75mg by mouth daily - Time Spent with Patient Total time spent is greater than 50% in coordination of care (as documented) at patient's floor/unit and/or counseling patient: Internal Medicine: Result - Labs CBC & Chem 7: 12/23/17 03:56 12/23/17 03:56 Labs: Short CBC 12/23/17 Range/Units 03:56 WBC 8.8 (4.3-11.1) K/mcL Hgb 9.9 L (11.5-15.4) g/dL Hct 30.3 L (35.3-44.9) % Plt Count 351 (140-400) K/mcL Neutrophils # 5.9 (1.6-8.9) K/mcL BMP 12/23/17 03:56 Sodium 133 L Potassium 5.2 H Chloride 102 Carbon Dioxide 23 BUN 50 H Creatinine 1.80 H Glucose 322 H Calcium 9.2 Cardiac Enzymes 12/22/17 Range/Units 11:54 Troponin I < 0.03 (< 0.04) ng/mL - Impressions Impressions Pulmonary Perfusion Imaging 12/22/17 10:47 IMPRESSION: Low probability for pulmonary embolus. D/ / Jason Hawk MD / Jason Hawk MD Interpreting Provider: Jason Hawk MD Consult Discharge Plan - Plan Referrals: Saw Flores DO [Primary Care Provider] - <Verona Gurrola - Last Filed: 12/23/17 17:29> Hospitalist Progress Note - Encounter Date of Encounter: 12/23/17 - Exam Vitals: Temp Pulse Resp BP Pulse Ox 98.4 F 66 15 110/70 94 12/23/17 17:18 12/23/17 17:18 12/23/17 17:18 12/23/17 17:18 12/23/17 17:18 - Assessment and Plan (1) Hyperkalemia Current Visit: Yes Status: Resolved (2) CKD stage 3 secondary to diabetes Current Visit: Yes Status: Chronic (3) Heart failure Current Visit: Yes Status: Chronic (4) Diabetes mellitus Current Visit: Yes Status: Acute (5) Chest pain Current Visit: Yes Status: Acute (6) Shortness of breath Current Visit: Yes Status: Acute - Time Spent with Patient Total time spent is greater than 50% in coordination of care (as documented) at patient's floor/unit and/or counseling patient: Internal Medicine: Result - Labs CBC & Chem 7: 12/23/17 03:56 12/23/17 03:56 Labs: Short CBC 12/23/17 Range/Units 03:56 WBC 8.8 (4.3-11.1) K/mcL Hgb 9.9 L (11.5-15.4) g/dL Hct 30.3 L (35.3-44.9) % Plt Count 351 (140-400) K/mcL Neutrophils # 5.9 (1.6-8.9) K/mcL BMP 12/23/17 03:56 Sodium 133 L Potassium 5.2 H Chloride 102 Carbon Dioxide 23 BUN 50 H Creatinine 1.80 H Glucose 322 H Calcium 9.2 - Attending Attestation I examined this patient and my medical decision-making was reviewed with the Resident Physician. I agree with the documented findings, disposition and treatment plan as described except to the extent set forth below. Chest pain improving. Negative cardiac workup. V/Q is low probability for PE. Still having cough and respiratory infection type symptoms. Continue doxycycline and diuresis as needed. Repeat electrolytes and if continues to do well, likely discharge early tomorrow. <Sarthak Duran - Last Filed: 12/23/17 14:20> (1) Chest pain Qualifiers: Chest pain type: unspecified Qualified Code(s): R07.9 - Chest pain, unspecified (2) Heart failure Qualifiers: Heart failure type: diastolic Heart failure chronicity: acute on chronic Qualified Code(s): I50.33 - Acute on chronic diastolic (congestive) heart failure (3) Diabetes mellitus Qualifiers: Diabetes mellitus type: type 2 Diabetes mellitus long-term insulin use: with superintendent container terminal use Diabetes mellitus complication status: with neurologic complications Diabetes mellitus complication detail: with unspecified neuropathy Qualified Code(s): E11.40 - Type 2 diabetes mellitus with diabetic neuropathy, unspecified; Z79.4 - halfway (current) use of insulin <Vernoa Gurrola - Last Filed: 12/23/17 17:29> (3) Heart failure Qualifiers: Heart failure type: diastolic Heart failure chronicity: acute on chronic Qualified Code(s): I50.33 - Acute on chronic diastolic (congestive) heart failure (4) Diabetes mellitus Qualifiers: Diabetes mellitus type: type 2 Diabetes mellitus superintendent container terminal insulin use: with long-term use Diabetes mellitus complication status: with neurologic complications Diabetes mellitus complication detail: with unspecified neuropathy Qualified Code(s): E11.40 - Type 2 diabetes mellitus with diabetic neuropathy, unspecified; Z79.4 - intermediate frame tender (current) use of insulin (5) Chest pain Qualifiers: Chest pain type: unspecified Qualified Code(s): R07.9 - Chest pain, unspecified
[2017-12-23] MEDS: Insulin LISPRO 300 UNITS/3 ML VIAL SQ SCH ×4 (10:15→22:04)
[2017-12-23] MEDS: Insulin DETEMIR 100 UNIT/ML X5UNITS SQ SCH (10:22)
[2017-12-23] MEDS: Insulin NPH/REG 70/30 100 UNIT/ML (x5UNIT) SQ SCH (17:09)
[2017-12-24 05:43] LABS: Basophils % 0.4 %; Eosinophils # 0.2 K/mcL (0.0-0.6); Eosinophils % 2.1 %; Hematocrit 32.8 % (35.3-44.9); Hemoglobin 10.8 g/dL (11.5-15.4); Immature Granulocytes % 0.6 % (0-4); Lymphocytes # 2.6 K/mcL (0.6-4.6); Lymphocytes % 25.6 %; Mean Corpuscular HGB Conc 32.9 g/dL (31.6-35.5); Mean Corpuscular Hemoglobin 28.6 pg (28.0-33.3); Mean Corpuscular Volume 86.8 fL (83.0-100.0); Mean Platelet Volume 9.9 fL (9.4-12.4); Monocytes % 9.4 %; Neutrophils # 6.3 K/mcL (1.6-8.9); Platelet Count 395 K/mcL (140-400); Red Blood Count 3.78 M/mcL (3.82-4.97); Red Cell Distribution Width 13.2 % (11.5-14.5); Segmented Neutrophils % 61.9 %
[2017-12-24 05:50] LABS: Calcium 9.4 mg/dL (8.6-10.3); Potassium 4.5 mEq/L (3.5-5.1)
[2017-12-24] MEDS: Insulin NPH/REG 70/30 100 UNIT/ML (x5UNIT) SQ SCH (08:54)
[2017-12-24] MEDS: Doxycycline 100 MG CAPSULE PO SCH (08:54)
[2017-12-24] MEDS: Ranolazine 500 MG TAB.ER.12H PO SCH (08:54)
[2017-12-24] MEDS: Aspirin 81 MG TAB.CHEW PO SCH (08:54)
[2017-12-24] MEDS: Insulin LISPRO 300 UNITS/3 ML VIAL SQ SCH ×2 (08:54→11:54)
[2017-12-24] MEDS: Gabapentin 300 MG CAPSULE PO SCH (08:54)
[2017-12-24] MEDS: Furosemide 40 MG TABLET PO SCH (08:54)
[2017-12-24 10:33] VITALS: BP 103/56
--- NOTE | 2017-12-24 10:42 | Discharge Summary ---
<Sarthak Duran Jenny - Last Filed: 12/24/17 13:51> - NOTES TO OUTPATIENT PROVIDER Notes to Outpatient Provider: Patient was admitted for chest pain and hyperglycemia and hyperkalemia. Chest pain workup was negative, hyperglycemia and hyperkalemia were corrected. Patient likely with lower respiratory tract infection. Stable for discharge with 2 days doxycycline. We will hold lisinopril/hctz at discharge secondary to hyperkalemia, which can be continued at discretion of PCP. We will order repeat BMP in 3 days. Patient was requesting Osteopathic Manipulative Therapy. Date of Encounter: 12/24/17 Time of Encounter: 10:26 - Discharge Diagnosis (1) Chest pain Priority: Primary Status: Resolved Assessment and Plan: Patient presented with and was admitted for chest pain Patient had catheterization with PCI on 12/26/17 Troponins cycled were negative EKG showed no acute process VQ scan showed no acute process Differentials include angina, costochondritis, lower respiratory infection, heart failure exacerbation Patient had reproducible rib pain on exam, costochondritis or somatic dysfunction more likely Plan Cardiology consulted, cardiac workup negative Rib pain reduced after osteopathic manipulation Patient no longer having chest pain, stable for discharge and outpatient workup Qualifiers: Chest pain type: unspecified Qualified Code(s): R07.9 - Chest pain, unspecified (2) Heart failure Priority: Secondary Status: Chronic Assessment and Plan: Patient has history of heart failure with preserved ejection fraction, EF 50% at last echo, within last 6 months Patient is receiving home dose of Lasix 40 mg by mouth daily Plan Continue Lasix for fluid retention at discharge Qualifiers: Heart failure type: diastolic Heart failure chronicity: acute on chronic Qualified Code(s): I50.33 - Acute on chronic diastolic (congestive) heart failure (3) Diabetes mellitus Priority: Secondary Status: Chronic Assessment and Plan: Patient had elevated glucose at admission, glucose stable now Home Novolog 70 units BID re-initiated, sliding scale maintained Discharge on home medications Qualifiers: Diabetes mellitus type: type 2 Diabetes mellitus buttermaker insulin use: with [facility] use Diabetes mellitus complication status: with neurologic complications Diabetes mellitus complication detail: with unspecified neuropathy Qualified Code(s): E11.40 - Type 2 diabetes mellitus with diabetic neuropathy, unspecified; Z79.4 - prison (current) use of insulin (4) Hyperkalemia Priority: Secondary Status: Resolved Assessment and Plan: Patient was hyperkalemic on admission at 6.4 Kayexalate, insulin, albuterol and sodium bicarb given. No EKG changes Potassium increased again, lisinopril was held, hyperkalemia corrected We will discharge without lisinopril, repeat BMP in 3 days, lisinopril can be continued at discretion of PCP (5) CKD stage 3 secondary to diabetes Priority: Secondary Status: Chronic Assessment and Plan: Patient with history of chronic kidney disease Creatinine elevated to 1.9 which appears to be slightly higher than baseline We will discharge in stable condition with repeat BMP in 3 days (6) Shortness of breath Priority: Secondary Status: Resolved Assessment and Plan: Patient with continued cough Suspicion for lower respiratory tract infection 5 day course of Doxycycline initiated, currently day 3 Patient does not meet sepsis criteria Discharge with 2 more days doxycycline Hospital course: Ms. Seaman is a 62 year old female who presented to the [facility] for shortness of breath with chest pain. She stated that she woke up around 3am the day before going to the ER and could not catch her breath. This is similar to how her previous episodes of chest pain presented in the past. She also had a cough for the previous several days as well. She feels like there is a belt around her chest. She was recently discharged from the hospital on 12/16/17 after having a C with PCI to [facility]. She stated that after being discharged she still had the shortness of breath, with pain worse with deep inspiration and cough. She has a known history of CHF as well. In the ER at [facility] her potassium was elevated at 6.4, blood sugar was 334. Troponin was <0.03. BNP was 288, elevated from previous. Chest x-ray was stable compared to previous. She was transferred to [place] for further management of her hyperkalemia, chest pain and glucose. Troponins cycled were negative, EKG showed no acute process, VQ scan showed no acute process. Cardiology was consulted and recommended medical management. Shortness of breath was attributed to heart failure or costochondritis. Rib somatic dysfunction was alleviated with osteopathic manipulation. Patient diuresed with lasix, lung function improved. Patient developed lower respiratory infection symptoms, subtle infiltrates on CXR. Treated with Doxycycline. Patient will be discharged in stable condition with 2 additional days Doxycycline. Discharge discussed with: patient - Time Spent with Patient Total time spent providing and/or coordinating discharge services: - Discharge Medications Prescriptions: Doxycycline 100 mg PO BID 2 Days #4 capsule GuaiFENesin ER [Mucinex] 600 mg PO BID 30 Days #60 tbbp.12hr Home Medications: Atorvastatin Calcium [Lipitor] 80 mg PO HS 11/10/17 [History] Escitalopram [Lexapro] 20 mg PO DAILY 11/10/17 [History] Furosemide [Lasix] 40 mg PO DAILY 11/10/17 [History] Levothyroxine [Synthroid] 75 mcg PO QAM 11/10/17 [History] Acetaminophen [Tylenol] 1,000 mg PO Q6HR PRN tablet 11/19/17 [Rx] Clopidogrel [Plavix] 75 mg PO DAILY #30 tablet 11/19/17 [Rx] Gabapentin [Neurontin] 300 mg PO TID 12/14/17 [History] Insulin Aspart Prot/Insuln Asp [Novolog Mix 70-30 Flexpen Syrn] 70 unit SQ BID 12/14/17 [History] Nitroglycerin [Nitrostat] 0.4 mg SL DAILY PRN 12/14/17 [History] Aspirin 81 mg PO DAILY #30 tab.chew 12/16/17 [Rx] Metoprolol [Lopressor] 50 mg PO BID #60 tablet 12/16/17 [Rx] Ranolazine [Ranexa] 500 mg PO BID #60 tab.er.12h 12/16/17 [Rx] Doxycycline 100 mg PO BID 2 Days #4 capsule 12/24/17 [Rx] GuaiFENesin ER [Mucinex] 600 mg PO BID 30 Days #60 tbbp.12hr 12/24/17 [Rx] Allergies/Adverse Reactions: 3 Allergy/AdvReac Type Severity Reaction Status Date / Time Penicillins Allergy Anaphylaxis Verified 12/21/17 23:53 Sulfa (Sulfonamide Allergy Anaphylaxis Verified 12/21/17 23:53 Antibiotics) Date of admission: 12/22/17 00:26 Primary care physician: Saw Flores DO Consults: 12/22/17 13:17 Consult to Cardiology [CONS] Routine Comment: Consulting Provider: Cardiology Danay Reason for Consult: exertional chest pain and shortness of breath in the setting of recent PCI Call Completed: Yes Discharging clinician: Sarthak C Duran - Constitutional Vitals: Temp Pulse Resp BP Pulse Ox 98.2 F 70 16 112/66 92 12/24/17 07:04 12/24/17 07:04 12/24/17 07:04 12/24/17 07:04 12/24/17 07:04 General appearance: Present: cooperative, A&O X 3, pleasant, no acute distress, answers questions appropriately Exam: Patient in no acute distress, alert and oriented 3 Heart in regular rate and rhythm without murmur or gallop Bilateral third and fourth ribs tender to palpation Lungs exhibited sparse lower lobe rales, no wheeze or rhonchi Abdomen soft and nontender and obese, bowel sounds normal Bilateral lower extremities are nonedematous Skin warm and dry - Patient Status Disposition: Home, Self-Care Condition: Good Functional capacity at discharge: independent ambulation Overall status at discharge: patient is progressing back to baseline - Discharge Instructions Follow Up With: Saw Flores DO [Primary Care Provider] - 01/05/18 10:00 am - Diet and Activity Activity: increase activity as tolerated Diet: diabetic diet, low salt diet <Ghanem,Miguelito Rheem - Last Filed: 12/24/17 14:23> Date of Encounter: 12/24/17 - Discharge Diagnosis (1) Hyperkalemia Status: Resolved (2) CKD stage 3 secondary to diabetes Status: Chronic (3) Heart failure Status: Chronic Qualifiers: Heart failure type: diastolic Heart failure chronicity: acute on chronic Qualified Code(s): I50.33 - Acute on chronic diastolic (congestive) heart failure (4) Diabetes mellitus Status: Chronic Qualifiers: Diabetes mellitus type: type 2 Diabetes mellitus buttermaker insulin use: with buttermaker use Diabetes mellitus complication status: with neurologic complications Diabetes mellitus complication detail: with unspecified neuropathy Qualified Code(s): E11.40 - Type 2 diabetes mellitus with diabetic neuropathy, unspecified; Z79.4 - long term (current) use of insulin (5) Chest pain Status: Resolved Qualifiers: Chest pain type: unspecified Qualified Code(s): R07.9 - Chest pain, unspecified (6) Shortness of breath Status: Resolved Hospital course: Ms. Seaman is a 62 year old female - Time Spent with Patient Total time spent providing and/or coordinating discharge services: Date of admission: 12/22/17 00:26 Primary care physician: Saw Flores DO Consults: 12/22/17 13:17 Consult to Cardiology [CONS] Routine Comment: Consulting Provider: Cardiology Danay Reason for Consult: exertional chest pain and shortness of breath in the setting of recent PCI Call Completed: Yes - Constitutional Vitals: Temp Pulse Resp BP Pulse Ox 98.3 F 75 18 103/56 92 12/24/17 10:12/24/17 10:12/24/17 10:12/24/17 10:12/24/17 10:26 - Attending Attestation I examined this patient and my medical decision-making was reviewed with the Resident Physician. I agree with the documented findings, disposition and treatment plan as described except to the extent set forth below. She presented with chest pain. Has known history of CAD with recent LHC with stent placed. She had Cardiology evaluated and this was less likely cardiac in nature. Troponin were negative. A V/Q scan done ruled out pulmonary embolism. Pain was reproducible, likely musculoskeletal. She has respiratory tract infection as well, likely cause of symptoms with slight fluid overload. She had increased potassium and decreased sodium that corrected after holding Zestoretic for one day. Her BP was normal/lower limit. She will be discharged with doxycycline, and holding Zestoretic until PCP follow-up .
--- NOTE | 2017-12-25 09:07 | Electrocardiograph Report ---
[place] [id number] Test Date: 2017-12-23 Pat Name: Francheska Seaman Department: 109 Room: 2A23 Gender: F Business Office Director: KAEL : 1955 Requested By: [id number] Order Number: [id number] Reading MD: Armando Khan Measurements Intervals [place] Rate: 73 P: 43 IA: 184 QRS: 25 QRSD: 101 T: 110 QT: 398 QTc: 423 Interpretive Statements SINUS RHYTHM WITH SINUS ARRHYTHMIA LOW QRS VOLTAGE IN EXTREMITY LEADS NONSPECIFIC ST-T CHANGES Electronically Signed On 12-25-2017 9:06:05 EDT by Armando Khan
== END 2017-12-24 13:33 | disposition home or self-care (01) ==
LOC: 2ANU → SUATTDRO 12-22 00:26
PROVIDERS: ADMIT Family Medicine; ATTEND Student in an Organized Health Care Education/Training Program

== ENCOUNTER 2018-03-18 20:29 | Inpatient (IN) ==
[2018-03-18] MEDS: Heparin 25,000 UNIT/500 ML D5W 25,000 UNIT/500 ML BAG IVC SCH (23:20)
[2018-03-18] MEDS ORDERED: *HR* Dextrose 50 % in Water (Syg) 50 ML SYRINGE IVP PRN (23:24)
[2018-03-18] MEDS ORDERED: Insulin Regular, Human 100 UNIT/ML IV PRN (23:24)
[2018-03-18] MEDS ORDERED: Insulin Human Regular 100 UNIT in 0.9 % Sodium Chloride 100 ML IVC SCH (23:30)
[2018-03-18] MEDS ORDERED: *HR* Morphine 2 MG/ML SYRINGE IVP PRN (23:31)
[2018-03-19] MEDS ORDERED: 0.9 % Sodium Chloride 500 ML ONE (00:08)
--- NOTE | 2018-03-19 00:08 | Internal Med History&Physical ---
Date of Encounter: 03/19/18 Time of Encounter: 23:54 Internal Medicine - H&P: HPI Chief complaint: Chest Pain/Hyperglycemia Plans for Post Hospital Care: Transfer Inp Rehab Fac History of present illness: Ms. Seaman is a 62 year old female with past medical history of hypertension, fibromyalgia, hypothyroidism, multiple sclerosis, diabetes, hyperlipidemia, CKD, and CAD s/p PCI (12/14/17) who initially presented to [facility] complaining of chest pain. Patient states that around 5 PM this afternoon she started having left- sided chest pain while in the car. She states that she took 2 and acid at the time. Shortly thereafter as she was walking into [facility] her chest pain returned associated with nausea and shortness of breath. Her chest pain she stated was left-sided about 10 out of 10 in intensity, which she described as being stabbed by a emma into her chest and through to her back. She notes her left arm also went numb. She had one episode of nonbloody non-bilious emesis. Chest pain persisted until after arriving at the hospital at which time she was placed on a nitro drip. Denies any other aggravating factors. Patient reports that she has been having intermittent chest pain since November. Also endorses that this episode of chest pain was similar to previous episode for which she was hospitalized. She has had 2 cardiac stents placed last of which was in December of this year. Patient has been out of her Lexapro and lisinopril for the past 3 weeks because she is in the process of changing from one PCP to another as well as insurance companies. On arrival patient at [facility] was found to be hypertensive with a blood pressure of 191/123; tachycardia at 113 saturating at 97% on room air. Laboratory workup was notable for a blood glucose level of 672 and troponin of 0.06. EKG performed at [facility] shows nonspecific changes compared with previous EKG. Patient was given a loading dose of aspirin and started on a heparin and nitro drip. Past Med Surg Social Fam HX - Past Medical History Medical history: coronary artery disease, diabetes, hyperlipidemia, hypertension, renal disease, thyroid disease Additional medical history: MS fibromyalgia,. Numerous heart caths, total of 6 stents by 12/13/2017 Psychiatric history: depression - Past Surgical History Surgical History: angioplasty/stent, cholecystectomy Additional surgical history: L ankle ORIF. coronary stents x6. tubial - Social History Smoking Status: Never smoker Smokeless Tobacco Status: No Alcohol use: none Drug use: none Internal Medicine - H&P: Meds Atorvastatin Calcium [Lipitor] 80 mg PO HS 11/10/17 [History] Escitalopram [Lexapro] 20 mg PO DAILY 11/10/17 [History] Furosemide [Lasix] 40 mg PO DAILY 11/10/17 [History] Levothyroxine [Synthroid] 75 mcg PO QAM 11/10/17 [History] Acetaminophen [Tylenol] 1,000 mg PO Q6HR PRN tablet 11/19/17 [Rx] Insulin Aspart Prot/Insuln Asp [Novolog Mix 70-30 Flexpen Syrn] 70 unit SQ BID 12/14/17 [History] Nitroglycerin [Nitrostat] 0.4 mg SL DAILY PRN 12/14/17 [History] Clopidogrel [Plavix] 75 mg PO DAILY 03/19/18 [History] Lisinopril/Hydrochlorothiazide [Zestoretic 10-12.5 mg Tablet] 1 tab PO DAILY 03/19/18 [History] Allergy/AdvReac Type Severity Reaction Status Date / Time Penicillins Allergy Anaphylaxis Verified 03/19/18 14:04 Sulfa (Sulfonamide Allergy Anaphylaxis Verified 03/19/18 14:04 Antibiotics) All Systems PM: A 10-system review of systems was performed and is negative for pertinent findings except as documented above in the HPI. - Constitutional Constitutional: no chills, no fever(s), no night sweats - EENT Eyes: no change in vision, no discharge, no pain, no photophobia Ears: no ear discharge, no ear pain, no tinnitus Nose, mouth and throat: no dysphagia, no nasal discharge, no neck pain, no sore throat - Cardiovascular Cardiovascular ROS IM: no chest pain, no diaphoresis, no dyspnea, no lighthead edness, no palpitations, no syncope - Respiratory Respiratory: no cough, no dyspnea, no wheezing, no excessive phlegm production - Gastrointestinal Gastrointestinal: no abdominal pain, no diarrhea, no hematemesis, no hemat ochezia, no melena, no nausea, no vomiting - Genitourinary Genitourinary: no change in urinary stream, no dysuria, no flank pain, no hematuria - Musculoskeletal Musculoskeletal ROS IM: no numbness, no tingling - Integumentary Integumentary IM: no rash, no unusual bruising - Neurological Neurological ROS: no confusion, no convulsions, no focal weakness, no numbness, no tingling, no tremor(s) - Hematologic/Lymphatic Hematologic/Lymphatic: no easy bruising - Constitutional Vitals: Temp Pulse Resp BP Pulse Ox 98.6 F 94 14 119/69 97 03/18/18 23:25 03/18/18 23:25 03/18/18 23:25 03/18/18 23:25 03/18/18 23:25 Exam: General: Alert and oriented Skin:Normal color, no rash, no lesions. HEENT:EOM, pupils equal, round and reactive. Cardiovascular:Normal S1 & S2, no rubs, murmurs or gallops. No JVD. Pulse regular. Lungs:Normal breath sounds, no wheezes or crackles. Abdomen:Soft, non-tender, no rigidity. Extremities:No deformity, no edema or tenderness, no joint swelling or clubbing. Neurological:Normal cognition and motor skills. Pulses:Carotid and radial pulses normal +2. Rest of the physical exam is non contributory Internal Med - H&P Results - Labs CBC & Chem 7: 03/19/18 08:17 03/19/18 06:04 - Assessment and plan (1) Chest pain Current Visit: No Status: Resolved Assessment and plan: Patient is a 62-year-old female with a history of coronary artery disease status post PCI 2 presents with atypical left-sided stabbing chest pain associated with nausea/vomiting/shortness of breath and numbness and tingling in her left arm. Initial troponin of 0.06. Patient transferred to [place] from [facility] due to concern for NSTEMI. Repeat troponin after arrival to [facility] was 0.32. No significant EKG changes noted. Patient arrived on heparin and nitro drip for chest pain. Currently chest pain as a 3 out of 10. [facility] (12/14/17) There is severe two vessel coronary artery disease. Patient had successful Drug-Eluting Stent placement in the [place]. -We will continue patient on telemetry -Trend troponin -Continue patient on heparin and nitro drip -Cardiology consult in the morning Qualifiers: Chest pain type: unspecified Qualified Code(s): R07.9 - Chest pain, unspecified (2) Hyperglycemia without ketosis Current Visit: Yes Status: Acute Assessment and plan: Patient reported to have a blood sugar of 672 at [place] the absence of ketosis. Patient states that shes taking her insulin. Suspect stress induced though dietary noncompliance may be a factor. Patient treated with insulin coverage. Upon arrival here repeat Accu-Chek showed a blood glucose of 375. Patient mentating at baseline. Patient appears euvolemic. Started on insulin drip. -We will continue with insulin drip with Accu-Checks every hour and overlap with long-acting insulin once blood glucose less than 200. (3) Hypertension Current Visit: No Status: Chronic Assessment and plan: Blood pressure currently stable now on nitro drip. We will titrate maintain normotensive blood pressure and chest pain-free. Qualifiers: Hypertension type: essential hypertension Qualified Code(s): I10 - Essential (primary) hypertension (4) Lactic acid acidosis Current Visit: Yes Status: Acute Assessment and plan: Elevated lactic acid of 3.3. Possibly secondary to dehydration. Patient received fluids at [place]. -We will repeat lactic acid. (5) CHF (congestive heart failure) Current Visit: No Status: Acute Assessment and plan: No evidence of acute exacerbation. Resume medical management after evaluation by cardiology. Qualifiers: Heart failure type: diastolic Heart failure chronicity: acute on chronic Qualified Code(s): I50.33 - Acute on chronic diastolic (congestive) heart failure (6) Chronic kidney disease (CKD) Current Visit: No Status: Acute Assessment and plan: Patient appears near baseline. We will monitor kidney function. Qualifiers: Chronic kidney disease stage: stage 3 (moderate) Qualified Code(s): N18.3 - Chronic kidney disease, stage 3 (moderate) (7) Type 2 diabetes mellitus Current Visit: No Status: Acute Assessment and plan: Resume sliding scale insulin with blood glucose checks once hyperglycemia and etiology of chest pain resolved. Qualifiers: Diabetes mellitus intermediate card tender insulin use: unspecified intermediate card tender insulin use status Diabetes mellitus complication detail: with nephropathy Qualified Code(s): E11.21 - Type 2 diabetes mellitus with diabetic nephropathy - Time Spent With Patient Total time spent is greater than 50% in coordination of care (as documented) at patient's floor/unit and/or counseling patient:
[2018-03-19 00:21] LABS: Basophils % 0.4 %; Eosinophils # 0.1 K/mcL (0.0-0.6); Eosinophils % 1.2 %; Hematocrit 31.9 % (35.3-44.9); Hemoglobin 10.5 g/dL (11.5-15.4); Immature Granulocytes % 0.6 % (0-4); Lymphocytes # 2.5 K/mcL (0.6-4.6); Lymphocytes % 24.1 %; Mean Corpuscular HGB Conc 32.9 g/dL (31.6-35.5); Mean Corpuscular Hemoglobin 28.3 pg (28.0-33.3); Mean Platelet Volume 10.3 fL (9.4-12.4); Monocytes # 0.6 K/mcL (0.0-1.3); Monocytes % 5.6 %; Neutrophils # 7.1 K/mcL (1.6-8.9); Platelet Count 370 K/mcL (140-400); Red Blood Count 3.71 M/mcL (3.82-4.97); Red Cell Distribution Width 13.4 % (11.5-14.5); Segmented Neutrophils % 68.1 %
[2018-03-19 00:26] LABS: Heparin anti-factor XA UFH 0.78 IU/mL (0.30-0.70)
[2018-03-19 00:27] LABS: INR 0.9; Prothrombin Time 10.1 Seconds (9.4-12.1)
[2018-03-19 00:38] LABS: Magnesium 2.2 mg/dL (1.6-2.6); Phosphorous 3.5 mg/dL (2.7-4.5)
[2018-03-19 00:39] LABS: Albumin 3.9 g/dL (3.5-5.7); Albumin/Globulin Ratio 1.3 (1.1-2.2); Bilirubin,Total 0.3 mg/dL (0.3-1.0); Potassium 4.6 mEq/L (3.5-5.1); Total Protein 6.9 g/dL (6.4-8.9)
[2018-03-19] MEDS ORDERED: *HR* Heparin 5,000 UNIT/ML VIAL IVP PRN ×3 (00:46→01:45)
[2018-03-19] MEDS ORDERED: Naloxone 0.4 MG/ML INJ IVP PRN (01:01)
[2018-03-19] MEDS ORDERED: Insulin DETEMIR 100 UNIT/ML X5UNITS SQ ONE (03:29)
[2018-03-19 06:44] LABS: Albumin 3.5 g/dL (3.5-5.7); Albumin/Globulin Ratio 1.2 (1.1-2.2); Bilirubin,Total 0.3 mg/dL (0.3-1.0); Calcium 9.7 mg/dL (8.6-10.3); Globulin 2.9 g/dL (2.4-3.5); Potassium 4.6 mEq/L (3.5-5.1); Total Protein 6.4 g/dL (6.4-8.9); Troponin I 0.47 ng/mL (< 0.04)
[2018-03-19 07:47] LABS: Estimated Average Glucose 315 mg/dl; Hemoglobin A1C 12.6 %
[2018-03-19] MEDS: Furosemide 20 MG TABLET PO SCH (08:28)
[2018-03-19] MEDS: Insulin LISPRO 300 UNITS/3 ML VIAL SQ SCH ×4 (08:28→20:13)
[2018-03-19] MEDS: Gabapentin 300 MG CAPSULE PO SCH ×3 (08:28→22:00)
[2018-03-19 08:46] LABS: Basophils % 0.4 %; Eosinophils # 0.2 K/mcL (0.0-0.6); Eosinophils % 2.1 %; Hematocrit 31.5 % (35.3-44.9); Immature Granulocytes % 0.8 % (0-4); Lymphocytes # 3.1 K/mcL (0.6-4.6); Lymphocytes % 32.6 %; Mean Corpuscular HGB Conc 31.7 g/dL (31.6-35.5); Mean Corpuscular Hemoglobin 27.6 pg (28.0-33.3); Mean Platelet Volume 10.3 fL (9.4-12.4); Monocytes # 0.8 K/mcL (0.0-1.3); Monocytes % 8.4 %; Neutrophils # 5.3 K/mcL (1.6-8.9); Platelet Count 353 K/mcL (140-400); Red Blood Count 3.62 M/mcL (3.82-4.97); Red Cell Distribution Width 13.5 % (11.5-14.5); Segmented Neutrophils % 55.7 %
[2018-03-19] MEDS: Heparin 25,000 UNIT/500 ML D5W 25,000 UNIT/500 ML BAG IVC SCH (11:25)
--- NOTE | 2018-03-19 12:33 | Cardiology Consult Note ---
Addendum entered and electronically signed by Armando Khan DO 03/19/18 13:58: I have personally performed a face to face evaluation on this patient. I have reviewed and agree with the care plan. History and Exam by me shows: History of CAD, prior PTCA, PCI as described below. Given symptoms and elevated troponin, agree with recommendations below. Continue ACS therapy for now. Further recommendations to follow. Thanks, Armando Khan DO, [facility] Original Note: Date of Encounter: 03/19/18 Time of Encounter: 12:30 Assessment and Plan (1) NSTEMI (non-ST elevated myocardial infarction) Current Visit: Yes Status: Acute Troponin 0.06 at [facility], 0.32, 0.47 at [facility]. Presented with chest pain radiating to left arm/neck/jaw. BP at [facility] 191/123. Pain relieved with nitro gtt. Nitro gtt turned off this AM. Remains CP free. No ECG available for review. Order ECG. Known CAD hx--[facility] 11/2017 with PTCA to prox and mid LAD. [facility] 12/2017 severe 2 vessel CAD s/p JULEE to Ramus. Moderate disease remaining. Pt reports pain similar to prior anginal equivalent. Has ran out of some meds, but reports compliance with DAPT (ASA and Plavix). Continu heparin gtt. Continue ASA, Statin, Plavix, BB. Obtain TTE. TTE 11/2017 EF 50%. Discussed LH. R/B/A discussed. Anticipate [facility] Wednesday. Will discuss and review with Dr. Khan. (2) CAD (coronary artery disease), [place] coronary artery Current Visit: Yes Status: Chronic Known CAD s/p PCI. ASA, Plavix, Statin, BB. Qualifiers: [place] vs. transplanted heart: [place] heart Associated angina: without angina Qualified Code(s): I25.10 - Atherosclerotic heart disease of [place] coronary artery without angina pectoris Discussion w patient/family: The assessment and plan as outlined above was discussed with the patient and/or family members who expressed understanding and agreement. All questions were answered. Thank you for involving us in the care of your patient. Please call with any questions. I will discuss and review with Dr. Khan and make changes as necessary. History of Present Illness Consult date: 03/19/18 Consult reason: NSTEMI Chief complaint: chest pain History of present illness: Ms. Seaman is a 62 year old female with PMH of CAD s/p PCI (most recent 12/2017), diabetes, HTN, HLD, CKD, obesity who presented to [facility] complaining of chest pain that started at 5 PM yesterday while walking into [employer], associated with nausea/vomiting and shortness of breath. CP described as left-sided with radiation to left arm/neck/jaw. Pain persisted until after arriving at the hospital and was started on a nitro drip. Reports intermittent chest pain since November. Reports similar to previous anginal equivalent. Reports compliance with ASA and Plavix. On arrival patient at [facility] was found to be hypertensive with a blood pressure of 191/123; troponin of 0.06. Troponins at [facility] 0.32, 0.47. Cardiology consulted for further recs. Pt currently chest pain free. Prior CV testing: [facility] 12/14/17 Severe 2 vessel CAD--JULEE to Ramus FFR 0.61, FFR mLCx 0.98. 40% stenosis in the Distal LMCA; 30% stenosis in the Proximal LAD and 50% instent restenosis in the Mid LAD; 30% stenosis in the Proximal Circumflex and 50% stenosis in the Mid Circumflex. [facility] 11/10/17 PTCA of the proximal and mid LAD. TTE 11/10/17 LVEF 50%, mild LVDD. Normal right ventricular structure and function. Mild AR. Mild-moderate MR. Mild TR. Past Med Surg Social Fam HX - Past Medical History Medical history: coronary artery disease, diabetes, hyperlipidemia, hypertension, renal disease, thyroid disease Additional medical history: fibromyalgia,. Numerous heart caths, total of 6 stents by 12/13/2017 Psychiatric history: depression - Past Surgical History Surgical History: angioplasty/stent, cholecystectomy Additional surgical history: L ankle ORIF. coronary stents x6. tubial - Social History Smoking Status: Never smoker Smokeless Tobacco Status: No Alcohol use: none Drug use: none Medications and Allergies Atorvastatin Calcium [Lipitor] 80 mg PO HS 11/10/17 [History] Escitalopram [Lexapro] 20 mg PO DAILY 11/10/17 [History] Furosemide [Lasix] 40 mg PO DAILY 11/10/17 [History] Levothyroxine [Synthroid] 75 mcg PO QAM 11/10/17 [History] Acetaminophen [Tylenol] 1,000 mg PO Q6HR PRN tablet 11/19/17 [Rx] Gabapentin [Neurontin] 300 mg PO TID 12/14/17 [History] Insulin Aspart Prot/Insuln Asp [Novolog Mix 70-30 Flexpen Syrn] 70 unit SQ BID 12/14/17 [History] Nitroglycerin [Nitrostat] 0.4 mg SL DAILY PRN 12/14/17 [History] GuaiFENesin ER [Mucinex] 600 mg PO BID 30 Days #60 tbbp.12hr 12/24/17 [Rx] Clopidogrel [Plavix] 75 mg PO DAILY 03/19/18 [History] Allergy/AdvReac Type Severity Reaction Status Date / Time Penicillins Allergy Anaphylaxis Verified 12/21/17 23:53 Sulfa (Sulfonamide Allergy Anaphylaxis Verified 12/21/17 23:53 Antibiotics) All Systems Review: The remainder of the systems were reviewed and are negative - Cardiovascular Cardiovascular: as per HPI, chest pain at rest, chest pain with exertion, dyspnea at rest, dyspnea on exertion, radiating jaw, neck or arm pain - Respiratory Respiratory: dyspnea - Gastrointestinal Gastrointestinal: nausea Physical Examination Vital Signs, Last 4 Hours Temp Pulse Resp BP Pulse Ox 03/19/18 11:48 97.9 F 79 16 107/53 95 Vital Signs Temp Pulse Resp BP Pulse Ox 03/19/18 11:48 97.9 F 79 16 107/53 95 03/19/18 08:00 78 03/19/18 07:08 97.7 F 85 16 100/67 96 03/19/18 03:03 98.0 F 91 18 100/69 97 03/19/18 03:00 93 100/69 03/19/18 02:00 98 78/52 03/19/18 01:30 99 94/64 03/19/18 01:15 97 114/61 03/19/18 01:00 99 110/63 03/19/18 00:45 100 95/64 03/19/18 00:30 100 109/69 03/19/18 00:15 98 98/66 03/19/18 00:00 101 84/55 Intake and Output 03/18/18 03/19/18 03/19/18 23:59 07:59 15:59 Intake Total 66.6 / 66.6 Output Total 600 / 600 Balance -533.4 / -533.4 Intake: IV Fluids 66.6 / 66.6 Heparin 25,000 UNIT/500 ML D5W 40 / 40 25,000 unit In 500 ml @ 10.5 UNIT/KG/HR 19.278 mls/hr IVC . Q24H MICHAEL Rx#:[id number] HumuLIN R 100 UNIT In 0.9 % 26.6 / 26.6 Sodium Chloride 100 ML @ 0.1 UNIT/KG/HR 9.27 mls/hr IVC CONT MICHAEL Rx#:[id number] Oral 0 / 0 Output: Urine 600 / 600 Other: Weight 91.8 kg 89.9 kg Blood Glucose* 418 151 249 Patient Weight 03/19/18 23:59 Weight 89.9 kg General: Conversant, No Apparent Distress HEENT: Atraumatic, Normocephaly, Mucus Membranes Moist Neck: No JVD, Normal carotid pulses Cardiac: Reg Rate and Rhythm, Normal S1 and S2, No Murmur Lungs: Normal Breath Sounds, No Wheeze, Rales, Rhonchi Neuro: Alert and responsive, No focal deficits noted Abdomen: Soft, Non-Tender Skin: No rashes noted on visualized skin Musculoskeletal: No Chest Wall Tenderness Extremities: No Clubbing, No Cyanosis, No Edema, Normal Pulses Results 03/19/18 08:17 03/19/18 06:04 Lab Results 03/19/18 03/19/18 03/19/18 00:03 00:03 00:03 WBC 10.4 Hgb 10.5 L Hct 31.9 L Plt Count 370 INR Sodium 133 L Potassium 4.6 Chloride 101 Carbon Dioxide 21 L BUN 57 H Creatinine 1.77 H Glucose 375 H Calcium 10.0 Magnesium 2.2 Total Bilirubin 0.3 AST 17 ALT 16 Alkaline Phosphatase 96 Troponin I B-Natriuretic Peptide 03/19/18 03/19/18 03/19/18 00:03 00:03 06:04 WBC Hgb Hct Plt Count INR 0.9 Sodium 142 D Potassium 4.6 Chloride 109 H Carbon Dioxide 22 L BUN 56 H Creatinine 1.65 H Glucose 120 H Calcium 9.7 Magnesium Total Bilirubin 0.3 AST 17 ALT 15 Alkaline Phosphatase 79 Troponin I 0.32 H* 0.47 H* B-Natriuretic Peptide 03/19/18 03/19/18 08:17 08:17 WBC 9.4 Hgb 10.0 L Hct 31.5 L Plt Count 353 INR Sodium Potassium Chloride Carbon Dioxide BUN Creatinine Glucose Calcium Magnesium Total Bilirubin AST ALT Alkaline Phosphatase Troponin I B-Natriuretic Peptide 215 H Short CBC 03/19/18 03/19/18 Range/Units 08:17 00:03 WBC 9.4 10.4 (4.3-11.1) K/mcL Hgb 10.0 L 10.5 L (11.5-15.4) g/dL Hct 31.5 L 31.9 L (35.3-44.9) % Plt Count 353 370 (140-400) K/mcL Neutrophils # 5.3 7.1 (1.6-8.9) K/mcL BMP 03/19/18 03/19/18 Range/Units 06:04 00:03 Sodium 142 D 133 L (136-145) mEq/L Potassium 4.6 4.6 (3.5-5.1) mEq/L Chloride 109 H 101 (98-107) mEq/L Carbon Dioxide 22 L 21 L (23-29) mEq/L BUN 56 H 57 H (8-23) mg/dL Creatinine 1.65 H 1.77 H (0.60-1.20) mg/dL Glucose 120 H 375 H (70-105) mg/dL Calcium 9.7 10.0 (8.6-10.3) mg/dL Cardiac Enzymes 03/19/18 03/19/18 Range/Units 06:04 00:03 Troponin I 0.47 H* 0.32 H* (< 0.04) ng/mL Liver Function 03/19/18 03/19/18 Range/Units 06:04 00:03 Total Bilirubin 0.3 0.3 (0.3-1.0) mg/dL AST 17 17 (13-39) Units/L ALT 15 16 (7-52) Units/L Alkaline Phosphatase 79 96 (34-104) Units/L Albumin 3.5 3.9 (3.5-5.7) g/dL Active Medications Acetaminophen (Tylenol) 1,000 mg PO Q6HR PRN PRN Reason: Headache Stop: 09/18/18 00:54 Last Admin: 03/19/18 08:51 Dose: 1,000 mg Atorvastatin Calcium (Lipitor) 80 mg PO HS MICHAEL Stop: 09/18/18 21:01 Clopidogrel Bisulfate (Plavix) 75 mg PO DAILY MICHAEL Stop: 09/18/18 09:01 Last Admin: 03/19/18 08:27 Dose: 75 mg Dextrose/Water (Dextrose 50% (Syg)) 25 ml IVP Q15MIN PRN PRN Reason: Hypoglycemia Stop: 09/17/18 23:25 Escitalopram Oxalate (Lexapro) 20 mg PO DAILY MICHAEL Stop: 09/18/18 01:01 Last Admin: 03/19/18 08:28 Dose: 20 mg Furosemide (Lasix) 40 mg PO DAILY MICHAEL Stop: 09/18/18 09:01 Last Admin: 03/19/18 08:28 Dose: 40 mg Gabapentin (Neurontin) 300 mg PO TID [facility] Stop: 09/18/18 09:01 Last Admin: 03/19/18 08:28 Dose: 300 mg Guaifenesin (Mucinex) 600 mg PO BID [facility] Stop: 09/18/18 09:01 Last Admin: 03/19/18 08:27 Dose: 600 mg Heparin Sodium (Porcine) (Heparin) 4,000 unit 70 unit/kg (6400 unit) IVP Q6HR PRN PRN Reason: SEE COMMENTS Stop: 09/18/18 00:47 Heparin Sodium (Porcine) (Heparin) 2,000 unit 35 unit/kg (3200 unit) IVP Q6H PRN PRN Reason: SEE COMMENTS Stop: 09/18/18 00:47 Heparin Sodium/Dextrose (Heparin 25,000 Unit/500 Ml D5w) 25,000 unit in 500 mls @ 19.278 mls/hr IVC .Q24H [facility]; Protocol Stop: 09/18/18 01:01 Last Admin: 03/19/18 11:25 Dose: 9.26 unit/kg/hr, 17 mls/hr Insulin Human Lispro (Humalog) 0 units SQ HS [facility]; Protocol Stop: 09/18/18 21:01 Insulin Human Lispro (Humalog) 0 units SQ TIDAC [facility]; Protocol Stop: 09/18/18 07:31 Last Admin: 03/19/18 11:59 Dose: 6 units Levothyroxine Sodium (Synthroid) 75 mcg PO 0630 [facility] Stop: 09/18/18 06:31 Last Admin: 12/08/18 06:04 Dose: Not Given Morphine Sulfate (Morphine Sulfate) 2 mg IVP Q3H PRN; Protocol PRN Reason: Chest Pain Stop: 09/17/18 23:32 Last Admin: 03/19/18 00:58 Dose: 2 mg Naloxone HCl (Narcan) 0.4 mg IVP Q2MIN PRN PRN Reason: SEE COMMENTS Stop: 09/18/18 01:02 - Imaging and Cardiology Echo: report reviewed Cardiac cath: report reviewed - EKG Interpretation EKG results cardiology: other (12 hr tele AVG HR 85, SR, no significant pauses or arrhythmias.) Consult Discharge Plan - Plan Referrals: NONE,PCP [Primary Care Provider] -
[2018-03-19] MEDS: Aspirin 81 MG TAB.CHEW PO SCH (15:24)
[2018-03-19] MEDS ORDERED: D5% in Water 1,000 ML IVC PRN (20:23)
[2018-03-19] MEDS ORDERED: Dextrose Gel 15 GM/37.5 ML TUBE PO PRN ×2 (20:23)
[2018-03-19] MEDS ORDERED: *HR* Dextrose 50 % in Water (Syg) 50 ML SYRINGE IVP PRN (20:23)
[2018-03-19] MEDS: Insulin DETEMIR 100 UNIT/ML X5UNITS SQ SCH (22:00)
[2018-03-20] MEDS: Menthol 9.1 MG LOZENGE PO PRN ×2 (00:31→07:38)
[2018-03-20 00:35] LABS: Basophils % 0.4 %; Eosinophils # 0.2 K/mcL (0.0-0.6); Eosinophils % 3.1 %; Immature Granulocytes % 0.6 % (0-4); Lymphocytes # 2.3 K/mcL (0.6-4.6); Lymphocytes % 28.8 %; Mean Corpuscular HGB Conc 32.3 g/dL (31.6-35.5); Mean Corpuscular Hemoglobin 28.1 pg (28.0-33.3); Mean Corpuscular Volume 87.1 fL (83.0-100.0); Mean Platelet Volume 10.1 fL (9.4-12.4); Monocytes # 0.7 K/mcL (0.0-1.3); Neutrophils # 4.5 K/mcL (1.6-8.9); Platelet Count 325 K/mcL (140-400); Red Blood Count 3.56 M/mcL (3.82-4.97); Red Cell Distribution Width 13.5 % (11.5-14.5); Segmented Neutrophils % 58.1 %
[2018-03-20] MEDS: *HR* Heparin 5,000 UNIT/ML VIAL IVP PRN ×2 (00:45→13:59)
[2018-03-20 01:05] LABS: Calcium 8.7 mg/dL (8.6-10.3); Potassium 4.6 mEq/L (3.5-5.1)
[2018-03-20] MEDS: Furosemide 20 MG TABLET PO SCH (07:36)
[2018-03-20] MEDS: Aspirin 81 MG TAB.CHEW PO SCH (07:37)
[2018-03-20] MEDS: Gabapentin 300 MG CAPSULE PO SCH ×3 (07:37→20:35)
[2018-03-20] MEDS: Insulin LISPRO 300 UNITS/3 ML VIAL SQ SCH ×4 (07:48→20:36)
[2018-03-20] MEDS: Nitroglycerin 0.4 MG TAB.SUBL SL PRN ×4 (08:38→22:02)
--- NOTE | 2018-03-20 08:44 | Cardiology Progress Note ---
Addendum entered and electronically signed by Armando Khan DO 03/20/18 10:54: I have personally performed a face to face evaluation on this patient. I have reviewed and agree with the care plan. History and Exam by me shows: Patient reports a few brief episodes of chest discomfort overnight. She was given sublingual nitroglycerin this morning, which helped her symptoms. Otherwise, mild troponin elevation is decreasing. Given significant history of CAD, mild troponin elevation, and ongoing chest discomfort, cardiac catheterization was recommended. We discussed the risks, benefits, and alternatives to the procedure. She is agreeable to proceed. We will plan for tomorrow. Thanks, Armando Khan DO, [facility] Addendum entered and electronically signed by Alvaro Ferrari CNP 03/20/18 08:48: Stage 3 CKD. Creatinine 1.69 today--in baseline range. Original Note: Date of Encounter: 03/20/18 Time of Encounter: 08:42 Assessment and Plan (1) NSTEMI (non-ST elevated myocardial infarction) Current Visit: Yes Status: Acute Troponin 0.06 at [facility], 0.32, 0.47, 0.42 at [facility]--now downtrending. Presented with chest pain radiating to left arm/neck/jaw. BP at [facility] 191/123. Recurrence of chest pain last night relieved with tylenol and CP that started 1 hour ago, 5/10 worse with inspiration. Discussed with RN to give tylenol and SL nitro. Obtain ECG. Known CAD hx--[facility] 11/2017 with PTCA to prox and mid LAD. [facility] 12/2017 severe 2 vessel CAD s/p JULEE to Ramus. Moderate disease remaining. Pt reports pain similar to prior anginal equivalent. Has ran out of some meds, but reports compliance with DAPT (ASA and Plavix). Continu heparin gtt. Continue ASA, Statin, Plavix, BB. Obtain TTE. TTE 11/2017 EF 50%. Discussed LH. R/B/A discussed. Plan for [facility] tomorrow. NPO after midnight. (2) CAD (coronary artery disease), [place] coronary artery Current Visit: Yes Status: Chronic Known CAD s/p PCI. ASA, Plavix, Statin, BB. Qualifiers: [place] vs. transplanted heart: [place] heart Associated angina: without angina Qualified Code(s): I25.10 - Atherosclerotic heart disease of [place] coronary artery without angina pectoris Discussion w patient/family: The assessment and plan as outlined above was discussed with the patient and/or family members who expressed understanding and agreement. All questions were answered. Thank you for involving us in the care of your patient. Please call with any questions. I will discuss and review with Dr. Khan and make changes as necessary. Subjective Principal diagnosis: NSTEMI Interval history: Pt reports episode of chest pain overnight relieved with tylenol and chest pain that started approximately 1 hour ago, currently rated 5/10, worse with in spiration. Objective Vital Signs, Last 4 Hours Temp Pulse Resp BP Pulse Ox 03/20/18 07:39 98.2 F 68 18 106/55 95 Vital Signs Temp Pulse Resp BP Pulse Ox 03/20/18 07:39 98.2 F 68 18 106/55 95 03/20/18 03:42 97.8 F 75 18 112/59 98 03/20/18 00:33 98.3 F 82 18 104/69 95 03/19/18 19:13 98.2 F 71 18 93/58 96 03/19/18 16:21 98.1 F 87 18 129/69 96 03/19/18 11:48 97.9 F 79 16 107/53 95 Intake and Output 03/19/18 03/20/18 03/20/18 23:59 07:59 15:59 Intake Total 91.1 / 91.1 92.8 / 92.8 Output Total 750 / 750 Balance -658.9 / -658.9 92.8 / 92.8 Intake: IV Fluids 91.1 / 91.1 92.8 / 92.8 Heparin 25,000 UNIT/500 ML D5W 91.1 / 91.1 92.8 / 92.8 25,000 unit In 500 ml @ 10.5 UNIT/KG/HR 19.278 mls/hr IVC . Q24H MICHAEL Rx#:[id number] Oral 0 / 0 Output: Urine 750 / 750 Other: Stool Size Large Stool Consistency loose Stool Color Brown # Bowel Movements 1 Weight 89.2 kg Blood Glucose* 381 278 Patient Weight 03/20/18 23:59 Weight 89.2 kg General: Conversant, No Apparent Distress HEENT: Atraumatic, Normocephaly, Mucus Membranes Moist Neck: No JVD, Normal carotid pulses Cardiac: Reg Rate and Rhythm Lungs: Normal Breath Sounds, No Wheeze, Rales, Rhonchi Neuro: Alert and responsive, No focal deficits noted Abdomen: Soft, Non-Tender Skin: No rashes noted on visualized skin Musculoskeletal: No Chest Wall Tenderness Extremities: No Clubbing, No Cyanosis, No Edema, Normal Pulses Results 03/20/18 00:09 03/20/18 00:09 Lab Results 03/19/18 03/19/18 03/19/18 08:17 08:17 11:50 WBC 9.4 Hgb 10.0 L Hct 31.5 L Plt Count 353 Sodium Potassium Chloride Carbon Dioxide BUN Creatinine Glucose Calcium Troponin I 0.42 H* B-Natriuretic Peptide 215 H 03/20/18 03/20/18 00:09 00:09 WBC 7.8 Hgb 10.0 L Hct 31.0 L Plt Count 325 Sodium 133 L D Potassium 4.6 Chloride 103 Carbon Dioxide 22 L BUN 60 H Creatinine 1.69 H Glucose 278 H Calcium 8.7 Troponin I B-Natriuretic Peptide - EKG Interpretation EKG results cardiology: other (12 hr tele AVG HR 74, SR) Consult Discharge Plan - Plan Referrals: NONE,PCP [Primary Care Provider] -
[2018-03-20] MEDS ORDERED: Insulin Human Regular 10 UNIT in 0.9 % Sodium Chloride 10 ML IV ONE ×2 (14:31→21:13)
[2018-03-20] MEDS ORDERED: Insulin LISPRO 300 UNITS/3 ML VIAL SQ ONE (16:14)
[2018-03-20] MEDS: Heparin 25,000 UNIT/500 ML D5W 25,000 UNIT/500 ML BAG IVC SCH (19:38)
[2018-03-20] MEDS: Insulin DETEMIR 100 UNIT/ML X5UNITS SQ SCH (20:36)
--- NOTE | 2018-03-20 22:09 | Internal Med Progress Note ---
Hospitalist Progress Note - Encounter Date of Encounter: 03/20/18 Time of Encounter: 19:00 - Subjective Interval History: SUBJECTIVE: The patient has some chest pain last night and today morning. I checked her in the afternoon; she is pain-free. Denies difficulty breathing, coughing and wheezing. Denies abdominal pain, nausea and vomiting. She has normal urination. OBJECTIVE: Skin: Free of rash and discoloration. ENMT: Oral/pharyngeal mucosa is normal in appearance. Eyes: Sclera is white. There is no discharge from eyes. Respiratory: Normal breath sounds; no crackles or wheezes. CV: Heart is regular; no gallop or murmur. GI: Abdomen is soft and not tender. There is no palpable mass or visceromegaly. Neuro: There is no focal deficits. ADDITIONAL DATA: Her telemetry shows normal sinus rhythm. She has elevated troponins. Hemoglobin is 10.0 with normal WBC/platelet count. She has normal electrolytes. Creatinine is 1.69 with a GFR at 37. Those two numbers are basically baseline for her. She has elevated fingersticks for glucosesomewhere between three hundred and four hundred. She does not have ketosis. ASSESSMENT AND PLAN: NSTEMI. See notes from cardiology. The patient is scheduled for cardiac capitalization tomorrow. Continue IV heparin with Lopressor, Lipitor, aspirin and Plavix. She is on Lasix. She developed a little bit of diastolic dysfunction due to cardiac ischemia. Hyperglycemia due to type 2 diabetes mellitus. I decided to give her 2 doses of IV regular insulin. She gets Levemir and when necessary Humalog. The patient has developed CKD stage III (low 30s) due to long-standing type 2 diabetes mellitus and hypertension. Her hypertension is under controlon Lopressor. - Exam Vitals: Temp Pulse Resp BP Pulse Ox 98.4 F 87 18 139/61 96 03/20/18 18:56 03/20/18 18:56 03/20/18 18:56 03/20/18 18:56 03/20/18 18:56 Exam: xx - Assessment and Plan (1) NSTEMI (non-ST elevated myocardial infarction) Current Visit: Yes Status: Acute (2) Hyperglycemia due to type 2 diabetes mellitus Current Visit: Yes Status: Acute (3) Type 2 diabetes mellitus Current Visit: No Status: Acute (4) Hypertensive renal disease with renal failure Current Visit: Yes Status: Chronic (5) CKD (chronic kidney disease) stage 3, GFR 30-59 ml/min Current Visit: Yes Status: Chronic - Time Spent with Patient Total time spent is greater than 50% in coordination of care (as documented) at patient's floor/unit and/or counseling patient: 25 - 35 minutes Plan of Care Discussed with: patient Internal Medicine: Result - Labs CBC & Chem 7: 03/20/18 00:09 03/20/18 00:09 Labs: Short CBC 03/20/18 Range/Units 00:09 WBC 7.8 (4.3-11.1) K/mcL Hgb 10.0 L (11.5-15.4) g/dL Hct 31.0 L (35.3-44.9) % Plt Count 325 (140-400) K/mcL Neutrophils # 4.5 (1.6-8.9) K/mcL BMP 03/20/18 00:09 Sodium 133 L D Potassium 4.6 Chloride 103 Carbon Dioxide 22 L BUN 60 H Creatinine 1.69 H Glucose 278 H Calcium 8.7 - ABG Interpretation ABG results: PT/INR, D-dimer PT 10.1 Seconds (9.4-12.1) 03/19/18 00:03 Consult Discharge Plan - Plan Referrals: NONE,PCP [Primary Care Provider] - (2) Hyperglycemia due to type 2 diabetes mellitus Qualifiers: Diabetes mellitus termination clerk insulin use: unspecified longterm insulin use status Qualified Code(s): E11.65 - Type 2 diabetes mellitus with hyperglycemia (3) Type 2 diabetes mellitus Qualifiers: Diabetes mellitus termination clerk insulin use: unspecified longterm insulin use status Diabetes mellitus complication detail: with nephropathy Qualified Code(s): E11.21 - Type 2 diabetes mellitus with diabetic nephropathy
[2018-03-21] MEDS: Nitroglycerin 0.4 MG TAB.SUBL SL PRN ×3 (03:46→23:32)
[2018-03-21] MEDS: Aspirin 81 MG TAB.CHEW PO SCH (07:39)
[2018-03-21] MEDS: Furosemide 20 MG TABLET PO SCH (07:39)
[2018-03-21] MEDS: Gabapentin 300 MG CAPSULE PO SCH ×3 (07:39→20:59)
[2018-03-21] MEDS: Insulin LISPRO 300 UNITS/3 ML VIAL SQ SCH ×4 (07:52→20:59)
[2018-03-21] MEDS ORDERED: 0.9 % Sodium Chloride 1,000 ML ONE ×2 (08:02→09:00)
--- NOTE | 2018-03-21 08:26 | Pre-Sedation Evaluation ---
Pre-sedation evaluation - Pre-sedation checklist Date of procedure: 03/21/18 Procedure: heart cath Recent Vitals: Last Vital Signs Temp 98.4 F 03/21/18 07:00 Pulse 84 03/21/18 07:00 Resp 17 03/21/18 07:00 BP 109/67 03/21/18 07:00 Pulse Ox 98 03/21/18 07:00 H&P (including ROS) documented in medical record: Yes Previous reaction to sedatives/anesthetics: No Dietary Status: NPO after Midnight Dentition: No loose teeth or bridges ASA Classification *see protocol: CLASS II-Mild systemic disease Cardiac Registry (Cardio Only) - Functional Capacity Functional Capacity: >=4 METS with symptoms
[2018-03-21] MEDS ORDERED: *HR* FentaNYL (PF) 100 MCG/2 ML VIAL ONE (08:27)
[2018-03-21] MEDS ORDERED: *HR* Midazolam HCl 2 MG/2 ML VIAL ONE (08:27)
[2018-03-21 08:36] LABS: Basophils # 0.1 K/mcL (0.0-0.2); Basophils % 0.6 %; Eosinophils # 0.3 K/mcL (0.0-0.6); Eosinophils % 2.7 %; Hematocrit 31.1 % (35.3-44.9); Hemoglobin 10.3 g/dL (11.5-15.4); Immature Granulocytes % 1.8 % (0-4); Lymphocytes # 3.2 K/mcL (0.6-4.6); Lymphocytes % 33.2 %; Mean Corpuscular HGB Conc 33.1 g/dL (31.6-35.5); Mean Corpuscular Hemoglobin 28.1 pg (28.0-33.3); Mean Corpuscular Volume 84.7 fL (83.0-100.0); Mean Platelet Volume 10.4 fL (9.4-12.4); Monocytes # 0.7 K/mcL (0.0-1.3); Monocytes % 6.9 %; Neutrophils # 5.4 K/mcL (1.6-8.9); Platelet Count 341 K/mcL (140-400); Red Blood Count 3.67 M/mcL (3.82-4.97); Red Cell Distribution Width 13.2 % (11.5-14.5); Segmented Neutrophils % 54.8 %
[2018-03-21 08:44] LABS: Calcium 8.8 mg/dL (8.6-10.3); Potassium 4.8 mEq/L (3.5-5.1)
[2018-03-21] MEDS ORDERED: Heparin 1,000 UNITS/500 mL 500 ML ONE (09:00)
[2018-03-21] MEDS ORDERED: *HR* Heparin 10,000 UNIT/10 ML VIAL ONE (09:01)
[2018-03-21] MEDS ORDERED: Nitroglycerin 1,000 MCG/10 ML VIAL IV ONE (09:01)
[2018-03-21] MEDS ORDERED: ISOVUE-370 200 ML INFUS..BTL ONE (09:01)
--- NOTE | 2018-03-21 09:08 | Invasive Diagnostic Lab Proc ---
Name: Francheska Seaman Date of Study: 03/21/2018 Date: 1955 Ht: 61.0in Medical Record#: [id number] Age: 62 Wt: 198.42lb Gender: Female BSA: 1.88 Order #: [id number] BMI: 37.51 Physicians Procedure Physician: Elsa West MD Referring MD: Referring MD: Staff Name Position Time In Sites, Yoko RT (R) Monitor 08:25 AM Eric Gonzalez RT (R) Scrub 08:25 AM Dat Mendez FX ARTIST 08:25 AM Magen Nieves RN Radio Time Buyer 08:25 AM Indications Indication Non-Stemi Procedures Performed Procedure L HRT ARTERY/VENTRICLE ANGIO Pre-Procedure Checklist Informed consent is complete signed and on chart. H&P is on chart. ID band is on and ID verified with patient. Patient NPO for procedure The procedure was described for the patient and questions were answered. Blood Pressure: 146/64 ECG is on chart. Rhythm: NSR Plan of Care Patient will tolerate the procedure without complications. Adequate level of comfort will be maintained. Hemodynamics will remain stable Patient will recover from procedure without complications. Respiratory function will be maintained. Cardiac rhythm will remain stable. Patient temperature will be maintained. Patient and/or family have verbalized understanding of the procedure. Patient Education Intravenous Access Time IV Size Location DC'd Fluid/Drip Rate Units RN 07:55 AM 20g 1 1/4" Patent On Arrival Rt Hand 0.9NaCl 50 ml/hr Magen Nieves RN Allergies PCN (penicillin) SULFA (sulfonamide) LANEY Inhibitor Morphine Penicillins Sulfa (Sulfonamide Antibiotics) Vital Signs Time BP (mmHg) HR (bpm) O2 Sat. RR (bpm) LOC 07:56 AM 146 / 64 76 94 % 18 5 = Fully awake and oriented or at pre-proc level 08:26 AM / % 5 = Fully awake and oriented or at pre-proc level 08:29 AM 152 / 88 66 99 % 22 08:34 AM 116 / 77 66 95 % 16 08:39 AM 125 / 74 67 100 % 17 08:44 AM 107 / 70 68 96 % 14 08:50 AM 125 / 73 64 99 % 15 Procedural Medications Time Medication Dose Units Method Given By 08:26 AM Oxygen 2 L/min nasal cannula Magen Nieves RN 08:31 AM Versed 1 mg Intravenous Magen Nieves RN 08:31 AM Fentanyl 50 mcg Intravenous Magen Nieves RN 08:40 AM Lidocaine 2% 10 ml Subcutaneous Elsa West MD 08:42 AM Nitroglycerin 100 mcg Intraarterial Ramos West MD ASA Classification: CLASS II- Mild systemic disease (i.e. well-controlled diabetes, hypertension, asthma, cigarette smoking) Lyndsey Score Preprocedure Postprocedure Activity 2- Moves 4 extremities sustained head lift Activity 2- Moves 4 extremities sustained head lift Circulation 2- SBP +/= 20 points of pre-anesthetic level Circulation 2- SBP +/= 20 points of pre-anesthetic level Consciousness 2- Awake and alert oriented x 3 Consciousness 2- Awake and alert oriented x 3 O2 Saturation 2- Able to maintain O2 satruation of 92% on room air O2 Saturation 2- Able to maintain O2 satruation of 92% on room air Respiratory 2- Able to deep breathe and cough well Respiratory 2- Able to deep breathe and cough well Total Score 10 Total Score 10 Contrast Agent: Isovue Diagnostic Contrast: 29 ml Total Contrast: 29 ml Fluoro Dose: 4997 mGy Procedure Log Time Note Enter By 07:59 AM CathStat 08:25 AM Pt arrived to yard laborer 2 at 08:25 tsites 08:25 AM Yoko Yeh RT (R) Position: Monitor Time in: 08:25 tsites 08:25 AM Eric Gonzalez RT (R) Position: Scrub Time in: 08:25 tsites 08:25 AM Dat Mendez FX ARTIST Position: Time in: 08:25 tsites 08:25 AM Magen Nieves RN Position: Radio Time Buyer Time in: 08:25 tsites 08:25 AM Patient charges- Angio tray pack, Navilyst 3mm J, Pulse Oximetry and ACIST tubing and transducer tsites 08:25 AM Physician arrived 08:25 tsites 08:25 AM Que and mark completed tsites 08:25 AM Sign in performed according to hospital policy. Informed consent was obtained. tsites 08:25 AM Procedure start 08:25 tsites 08:25 AM Case Delayed No tsites 08:25 AM Hair removed from procedure site in holding area using clippers. Bilateral groin prepped with Chloraprep by Yoko Yeh (R), then patient was draped. Skin intact. tsites 08: AM Time: 08: Oxygen on at 2 L/min per nasal cannula by Magen Nieves RN [facility] 08: AM Time: 08: Patient comfortable and pain free: Yes tsites 08: AM Time: 08:LOC: 5 = Fully awake and oriented or at pre-proc level tsites 08: AM Clinical Presentation: Non-STEMI tsites 08:27 AM Recorded ECG: HR=72 Condition=Condition 1 08:29 AM Vitals capture started with the following parameters, Patient=Adult, Interval=5 min, Initial Vopmtbzq=027 mmHg, Deflation Rate=5 mmHg, Cuff placed on Right Arm 08:29 AM HR=66 bpm, IDKW=474/88 mmhg, SpO2=99.0 %, Resp=22 B/min 08:30 AM Recorded ECG: HR=66 Condition=Condition 1 08:31 AM Time: 08:31 Versed 1 mg Intravenous Given by Magen Nieves RN [facility] 08:31 AM Time: 08:31 Fentanyl 50 mcg Intravenous Given by Magen Nieves RN [facility] 08:34 AM HR=66 bpm, XQWD=987/77 mmhg, SpO2=95.0 %, Resp=16 B/min 08:39 AM HR=67 bpm, OPBK=509/74 mmhg, TzN0=279.0 %, Resp=17 B/min 08:40 AM Time: 08:40 10 ml Lidocaine 2% to 10 Subcutaneous Given by Elsa West MD tsites 08:40 AM Micro-Introducer Kit utilized for sheath placement tsites 08:41 AM Access obtained by percutaneous puncture. 4Fr 10cm Micro kit sheath placed in right Femoral artery. [id number] tsites 08:41 AM 3 cc of contrast injected tsites 08:41 AM Sheath exchanged for a 6 Fr 11 cm [place] sheath [id number] tsites 08:42 AM 5Fr FL 4 catheter inserted over the wire [facility] tsites 08:42 AM 0.035 145cm Navilyst 3mmJ wire [id number] tsites 08:42 AM LCA angiography performed in multiple views. tsites 08:42 AM Time: 08:42 Nitroglycerin 100 mcg Intraarterial Given by Ramos West MD tsites 08:43 AM Recorded Pressure: Ao, HR=69, Condition=Condition 1 (Aorta) Ao 90/55/71 08:43 AM wire reinserted catheter removed tsites 08:44 AM 5Fr FR 4 catheter inserted over the wire DN tsites 08:44 AM HR=68 bpm, WKLG=579/70 mmhg, SpO2=96.0 %, Resp=14 B/min 08:45 AM Cardiothoracic surgeon consulted by physician tsites 08:45 AM RCA angiography performed in multiple views. tsites 08:46 AM Recorded Pressure: Ao, HR=66, Condition=Condition 1 (Aorta) Ao 90/60/75 08:46 AM wire reinserted catheter removed tsites 08:46 AM 5Fr Pigtail catheter inserted over the wire DN tsites 08:47 AM Mara Rees informed of consult tsites 08:47 AM Catheter crossed the aortic valve and was selectively placed in the left ventricle. Pressures recorded on pullback for left heart catheterization. tsites 08:47 AM Recorded Pressure: LV, HR=63, Condition=Condition 1 (Left Ventricle) LV 110/6/11 08:48 AM Recorded Pressure: LV, Ao, HR=63, Condition=Condition 1 (Left Ventricle) LV 112/15/16, (Aorta) Ao 105/60/81 08:48 AM Coronary Dominance: right tsites 08:49 AM ACT drawn tsites 08:49 AM Catheter removed tsites 08:50 AM Procedure completed at 08:49 03/21/2018 tsites 08:50 AM HR=64 bpm, UVBH=793/73 mmhg, SpO2=99.0 %, Resp=15 B/min 08:50 AM Sign out completed: Radiation Dose 484 mGy, 4997 cGy/cm2 Fluoro Time: 2.2 Isovue 370 - 200ml contrast 29 ml given by Elsa West MD. Complications: None. The patient was discharged out of the laborer plumbing in stable condition. Cardiac Rehab Consult needed: YesConfirmed administered medications: Yes tsites 08:50 AM Isovue 370 - 200ml,1 Bottle(s) used. tsites 08:50 AM Sheath left in place to be pulled on floor/holding areaV+Pad tsites 08:50 AM Estimated Blood Loss: minimal tsites 08:52 AM Post ECG NSR tsites 08:52 AM Post Blood Pressure 125/73 tsites 08:52 AM 08:52 Post Pulses Bilateral DP & PT 2+ tsites 08:52 AM Information taught Cardiac Cath tsites 08:53 AM Education needs Procedure, Plan of Care, and Responsibilities of Patient in Care tsites 08:53 AM Learning barriers :None tsites 08:53 AM Education Methods Verbal tsites 08:53 AM Education evaluation Able to repeat information tsites 08:53 AM Site status No bleeding/hematoma - Rt Groin as reported by Eric Gonzalez RT (R) at 08:53 tsites 08:53 AM Opsite applied tsites 08:53 AM Patient out of room: 08:53 tsites 08:53 AM no family at this time tsites 08:55 AM Report given to sabi JUAREZ Pt taken to Room #14. 08:54 tsites 08:55 AM Lesion found in Mid LAD. Pre Stenosis: 99 Pre HARRY Flow: tsites 08:55 AM Lesion found in 1st Marginal. Pre Stenosis: 65 Pre HARRY Flow: tsites 08:56 AM Lesion found in Right PDA. Pre Stenosis: 80 Pre HARRY Flow: tsites 08:56 AM Lesion found in Ramus. Pre Stenosis: 50 Pre HARRY Flow: tsites 08:56 AM Mid/Distal Left Anterior Descending Coronary Artery and diagonal branches with 99% stenosis. If graft is supplying this area, 0 % stenosis tsites 08:56 AM Circumflex, Obtuse Marginal, Left Posterior Descending, and Left Posterolateral Coronary Arteries with 65 % stenosis. If graft is supplying this area, 0 % stenosis tsites 08:56 AM Right Coronary, Right Posterior Descending Arteries with Right Posterolateral and Acute Marginal branches with 80 % stenosis. If graft is supplying this area, 0 % stenosis tsites 08:56 AM Ramus with 50% stenosis. If graft is supplying this area, 0 % stenosis tsites Complications Complication None Hemodynamics Pressures Site Systolic/A Wave Diastolic/V Wave Mean AO 90 55 71 AO 90 60 75 LV 110 6 11 LV 112 15 16 AO 105 60 81 Post Procedure Information Blood Pressure: 125/73 mmHg Rhythm: NSR Post procedural instructions were given Surgery consult for CABG Closure Device Time Device Success/Fail 03/21/2018 8:56:00 AM Manual Compression Site Checks Time Location Status Staff Sheath In? Note 08:53 AM Rt Groin No bleeding/hematoma Eric Gonzalez RT (R) Pulses Time Site Pre-Procedure Post-Procedure Note 03/21/2018 7:55:00 AM Bilateral DP & PT 2+ 03/21/2018 7:55:00 AM Bilateral radial 2+ 8:52:00 AM Bilateral DP & PT 2+ Updated by Yoko Yeh RT (R) on 03/21/2018 9:00:28 AM Yoko Yeh RT electronically signed on 03/21/2018 9:01:04 AM with status of Final
[2018-03-21] MEDS ORDERED: *HR* Atropine Sulfate 1 MG/10 ML SYRINGE ONE (09:16)
--- NOTE | 2018-03-21 15:12 | Cardiothoracic Consult Note ---
Date of Encounter: 03/21/18 Time of Encounter: 15:02 Assessment and Plan (1) NSTEMI (non-ST elevated myocardial infarction) Current Visit: Yes Status: Acute The patient is a 62-year-old type II diabetic, hypertensive, moderately obese lady with known CAD and CKD, Stage IIIB. She was admitted to [facility] on March 18, 2018 with severe unrelenting substernal chest pain, shortness of breath, and dyspnea on exertion. She was found to have elevated troponin I levels and was diagnosed with an acute NSTEMI. She was admitted for further cardiac workup, given her presenting symptoms, cardiac risk profile, and previous history of coronary stents. She underwent cardiac catheterization today was found to have severe 3 vessel CAD and an LVEF 60% (by transthoracic echocardiogram). She has been recommended for CABG. She has been on Plavix long-term because of her stents; however, I believe that the 99% mid LAD lesion necessitates early operation rather than waiting 5-7 days for the antiplatelet effect to dissipate. The STS risk calculator reveals an operative mortality risk 6.8%, renal failure risk 13.06%, stroke risk 2.45%, deep sternal wound infection risk 0.92%, and reoperation risk 4.11%. I concur with this recommendation. The patient understands the procedure, benefits, alternatives, and risks as outlined above. The patient will undergo CABG in the morning. The assessment and plan as outlined above was discussed with the patient and/or family members who expressed understanding and agreement. All questions were answered. - History of Present Illness Consult date: 03/21/18 Requesting physician: Elsa West Consult reason: CABG evaluation Chief complaint: NSTEMI History of present illness: Ms. Seaman is a 62 year old type II diabetic, hypertensive, moderately obese lady with known CAD and CKD, Stage IIIB. Her cardiac history dates back to 2002 at which time she underwent PCI with stent placement. She had recurrent anginal symptoms and underwent stent placement in 2005 and 2008. She did well until November, when she redeveloped nonradiating, exertional substernal chest pain and shortness of breath. She underwent cardiac catheterization with LAD PTCA on November 10, 2017. She rapidly redeveloped anginal symptoms and underwent repeat cardiac catheterization on 12/14/2017. This time she underwent stent placement in the mid ramus intermediate branch. Since that time the patient has had nonradiating substernal chest pain, shortness of breath, and dyspnea on exertion. While shopping on Monday, March 19, 2018, she developed severe unrelenting substernal chest pain and shortness of breath. She was evaluated at [facility] emergency department and found to have elevated troponin I levels consistent with an acute NSTEMI. She was admitted for further cardiac workup. She underwent a transthoracic echocardiogram which revealed an LVEF 65- 70% with normal left ventricular chamber size, wall thickness, and function. Mild aortic regurgitation and mild mitral regurgitation were noted. Subsequent cardiac catheterization performed this morning revealed severe 3 vessel CAD. In particular, the patient has a 99% mid LAD lesion, a 60-70% proximal OM1 lesion, a 50% in-stent ramus intermediate branch restenosis, and a diffusely diseased PDA with multiple 80% lesions. She has been recommended for CABG. Past Med Surg Social Fam HX - Past Medical History Medical history: coronary artery disease, diabetes, hyperlipidemia, hypertension, myocardial infarction, renal disease, thyroid disease, other (Fibromyalgia, diabetic neuropathy and lower extremities) Psychiatric history: depression - Past Surgical History Surgical History: angioplasty/stent, cholecystectomy, orthopedic, other (Left ankle ligament repair), other (Tubal ligation) Additional surgical history: L ankle ORIF. coronary stents x6. tubial - Social History Smoking Status: Never smoker Smokeless Tobacco Status: No Alcohol use: none Drug use: none Occupational status: retired Current living situation: Home - Independent Activity Level: Independent ambulation Recent Out of Country Travel Within the Last 8 Weeks: No Exposure or Possible Exposure to Illness During Travel: No Medications and Allergies Atorvastatin Calcium [Lipitor] 80 mg PO HS 11/10/17 [History] Escitalopram [Lexapro] 20 mg PO DAILY 11/10/17 [History] Furosemide [Lasix] 40 mg PO DAILY 11/10/17 [History] Levothyroxine [Synthroid] 75 mcg PO QAM 11/10/17 [History] Acetaminophen [Tylenol] 1,000 mg PO Q6HR PRN tablet 11/19/17 [Rx] Insulin Aspart Prot/Insuln Asp [Novolog Mix 70-30 Flexpen Syrn] 70 unit SQ BID 12/14/17 [History] Nitroglycerin [Nitrostat] 0.4 mg SL DAILY PRN 12/14/17 [History] Clopidogrel [Plavix] 75 mg PO DAILY 03/19/18 [History] Lisinopril/Hydrochlorothiazide [Zestoretic 10-12.5 mg Tablet] 1 tab PO DAILY 03/19/18 [History] Allergy/AdvReac Type Severity Reaction Status Date / Time Penicillins Allergy Anaphylaxis Verified 03/19/18 14:04 Sulfa (Sulfonamide Allergy Anaphylaxis Verified 03/19/18 14:04 Antibiotics) All Systems Review: The remainder of the systems were reviewed and are negative Physical Examination Vital Signs, Last 4 Hours Temp Pulse Resp BP Pulse Ox 03/21/18 13:00 98.6 F 62 17 111/63 96 03/21/18 11:30 98.4 F 67 17 119/77 96 03/21/18 11:15 98.6 F 76 18 112/69 96 General: Conversant, No Apparent Distress HEENT: Atraumatic, Normocephaly, Trachea midline Neck: No JVD, Normal carotid pulses Cardiac: Reg Rate and Rhythm, Normal S1 and S2, No Murmur Lungs: Normal Breath Sounds, No Wheeze, Rales, Rhonchi Neuro: Alert and responsive, No focal deficits noted, Motor nerves intact, Sensory nerves intact Vascular: Normal capillary refill Abdomen: Soft, Non-tender, Other (Moderately obese) Skin: No rashes noted on visualized skin Extremities: No Clubbing, No Cyanosis, No Edema, Normal Pulses Results 03/21/18 08:12 03/21/18 08:12 Lab Results, Last 24 hours 03/21/18 03/21/18 08:12 08:12 WBC 9.8 Hgb 10.3 L Hct 31.1 L Plt Count 341 Sodium 135 L Potassium 4.8 Chloride 105 Carbon Dioxide 20 L BUN 53 H Creatinine 1.58 H Glucose 294 H Calcium 8.8 - Imaging Chest Xray: image reviewed (Normal cardiac size. Left basilar atelectasis.) Consult Discharge Plan - Plan Referrals: Saw Flores DO [Non-Partnered Physician] - (left message with office to call me back on 03-21-18 @ [phone]/faxed over request on 03-21-18 @ [phone] Patient is possibly having open heart surgery ) Elsa West [Partnered Physician] - (office will call patient at home with follow up appointment)
[2018-03-21] MEDS ORDERED: Clindamycin 900 MG/50 ML 900 MG/50 ML IV.SOLN IVPB ONE (15:21)
[2018-03-21] MEDS: Heparin 25,000 UNIT/500 ML D5W 25,000 UNIT/500 ML BAG IVC SCH (19:12)
[2018-03-21] MEDS: Chlorhexidine Rinse 15 ML MOUTHWASH MM SCH (20:58)
[2018-03-21] MEDS: Insulin DETEMIR 100 UNIT/ML X5UNITS SQ SCH (20:59)
[2018-03-21] MEDS: Menthol 9.1 MG LOZENGE PO PRN (23:40)
--- NOTE | 2018-03-22 00:28 | Internal Med Progress Note ---
Hospitalist Progress Note - Encounter Date of Encounter: 03/21/18 Time of Encounter: 19:00 - Subjective Interval History: SUBJECTIVE: I saw this patient after cardiac catheterization. She does have three-vessel coronary artery disease. She could benefit from CABG surgery. She has not had any chest pain since returning from cardiac [place] hospitalization. Denies abdominal pain, nausea and vomiting. OBJECTIVE: Skin: Free of rash and discoloration. ENMT: Oral/pharyngeal mucosa is normal in appearance. Eyes: Sclera is white. There is no discharge from eyes. Respiratory: Normal breath sounds; no crackles or wheezes. CV: Heart is regular; no gallop or murmur. GI: Abdomen is soft and not tender. There is no palpable mass or visceromegaly. Neuro: There is no focal deficits. ADDITIONAL DATA: Her telemetry shows normal sinus rhythm. The patient does have elevated glucose fingersticks. ASSESSMENT AND PLAN: NSTEMI. Severe coronary artery disease (three-vessel disease). Cardiothoracic surgery was consulted. To continue IV heparin with Lopressor, Lipitor, aspirin and Plavix. She is on Lasix. She developed a little bit of diastolic dysfunction due to cardiac ischemia. Hyperglycemia due to type 2 diabetes mellitus. Uncontrolled. I am going to increase clear his urine Levemir. The patient has developed CKD stage III (low 30s) due to long-standing type 2 diabetes mellitus and hypertension. She is on Lopressorfor blood pressure control. - Exam Vitals: Temp Pulse Resp BP Pulse Ox 98.8 F 78 20 127/77 95 03/21/18 23:43 03/21/18 23:43 03/21/18 23:43 03/21/18 23:43 03/21/18 23:43 Exam: xx - Assessment and Plan (1) NSTEMI (non-ST elevated myocardial infarction) Current Visit: Yes Status: Acute (2) Hyperglycemia due to type 2 diabetes mellitus Current Visit: Yes Status: Acute (3) Type 2 diabetes mellitus Current Visit: No Status: Acute (4) Hypertensive renal disease with renal failure Current Visit: Yes Status: Chronic (5) CKD (chronic kidney disease) stage 3, GFR 30-59 ml/min Current Visit: Yes Status: Chronic - Time Spent with Patient Total time spent is greater than 50% in coordination of care (as documented) at patient's floor/unit and/or counseling patient: Internal Medicine: Result - Labs CBC & Chem 7: 03/21/18 08:12 03/21/18 08:12 Labs: Short CBC 03/21/18 Range/Units 08:12 WBC 9.8 (4.3-11.1) K/mcL Hgb 10.3 L (11.5-15.4) g/dL Hct 31.1 L (35.3-44.9) % Plt Count 341 (140-400) K/mcL Neutrophils # 5.4 (1.6-8.9) K/mcL BMP 03/21/18 08:12 Sodium 135 L Potassium 4.8 Chloride 105 Carbon Dioxide 20 L BUN 53 H Creatinine 1.58 H Glucose 294 H Calcium 8.8 - ABG Interpretation ABG results: PT/INR, D-dimer PT 10.1 Seconds (9.4-12.1) 03/19/18 00:03 - Impressions Impressions Echocardiogram 03/20/18 12:49 Impressions: LVEF 65-70%. Normal LV chamber size, wall thickness and function. Normal right ventricular structure and function. Mild aortic regurgitation. Mild mitral regurgitation. No pulmonary hypertension. Left Ventricular Wall Motion: Rest Echo Findings All wall segments showed normal motion. Findings: Study Quality * Technically adequate exam. ECG Findings * Sinus bradycardia. Left Ventricle * LVEF 65-70%. * Normal LV chamber size, wall thickness and function. * Normal left ventricular diastolic function. Right Ventricle * Normal right ventricular structure and function. Left Atrium * Normal left atrial size. Right Atrium * Normal right atrial size. Interatrial Septum * Interatrial septum not well evaluated. * No evidence of PFO by color Doppler. Aortic Valve * Trileaflet aortic valve. * No aortic stenosis. * No aortic regurgitation. * Mild aortic regurgitation. Mitral Valve * Normal mitral valve structure. * No mitral stenosis. * Mild mitral regurgitation. Tricuspid Valve * Normal tricuspid valve structure. * No tricuspid stenosis. * Trace tricuspid regurgitation. * Estimated RVSP is 21 mmHg. * Estimated RA pressure is 3 mmHg. * No pulmonary hypertension. Pulmonic Valve * Pulmonic valve is not well visualized. * No pulmonic stenosis. * No pulmonic regurgitation. Aorta * Normally sized aortic root. Pericardium * The pericardium appears normal. IVC * Normal IVC dimensions and inspiratory collapse. Consult Discharge Plan - Plan Referrals: Saw Flores, DO [Non-Partnered Physician] - (left message with office to call me back on 03-21-18 @ [phone]/faxed over request on 03-21-18 @ [phone] Patient is possibly having open heart surgery ) Elsa West [Partnered Physician] - (office will call patient at home with follow up appointment) (2) Hyperglycemia due to type 2 diabetes mellitus Qualifiers: Diabetes mellitus long-term insulin use: unspecified adjunct faculty for medical terminology insulin use status Qualified Code(s): E11.65 - Type 2 diabetes mellitus with hyperglycemia (3) Type 2 diabetes mellitus Qualifiers: Diabetes mellitus adjunct faculty for medical terminology insulin use: unspecified long-term insulin use status Diabetes mellitus complication detail: with nephropathy Qualified Code(s): E11.21 - Type 2 diabetes mellitus with diabetic nephropathy
[2018-03-22] MEDS ORDERED: Insulin LISPRO 300 UNITS/3 ML VIAL SQ SCH ×2 (00:30)
[2018-03-22 01:07] LABS: Calcium 8.7 mg/dL (8.6-10.3); Potassium 5.4 mEq/L (3.5-5.1)
[2018-03-22] MEDS: Insulin LISPRO 300 UNITS/3 ML VIAL SQ SCH ×3 (01:47→06:10)
[2018-03-22] MEDS: *HR* Heparin 5,000 UNIT/ML VIAL IVP PRN (01:51)
[2018-03-22] MEDS: Aspirin 81 MG TAB.CHEW PO SCH (06:08)
[2018-03-22] MEDS: Chlorhexidine Rinse 15 ML MOUTHWASH MM SCH ×2 (06:08→20:42)
[2018-03-22] MEDS ORDERED: Nitroglycerin 25 MG/250 ML INFUS..BTL IVC ONE (07:01)
[2018-03-22] MEDS ORDERED: *HR* FentaNYL (PF) 1,000 MCG/20 ML VIAL ONE (07:05)
[2018-03-22] MEDS ORDERED: *HR* PHENYLEPHRINE 1,000 MCG/10 ML SYRINGE IVP ONE ×3 (07:05→11:22)
[2018-03-22] MEDS ORDERED: *HR* Rocuronium Bromide 50 MG/5 ML VIAL ONE ×2 (07:05→09:28)
[2018-03-22] MEDS ORDERED: Dexamethasone 4 MG/ML VIAL ONE (07:05)
[2018-03-22] MEDS ORDERED: *HR* Propofol 200 MG/20 ML VIAL IVP ONE (07:05)
[2018-03-22] MEDS ORDERED: *HR* Midazolam HCl 5 MG/5 ML VIAL IVP ONE (07:05)
[2018-03-22] MEDS ORDERED: Lidocaine 2% Syringe 100 MG/5 ML ONE (07:07)
[2018-03-22] MEDS ORDERED: Tranexamic Acid 1,000 MG/10 ML VIAL ONE (07:07)
[2018-03-22] MEDS ORDERED: *HR* Magnesium Sulfate 1 GM/2 ML VIAL ONE (07:11)
[2018-03-22] MEDS ORDERED: Famotidine 20 MG/2 ML VIAL ONE (07:11)
[2018-03-22] MEDS ORDERED: *HR* EPINEPHrine 1 MG/ML AMPUL ONE (07:18)
--- NOTE | 2018-03-22 07:34 | Anesthesia Evaluation PreOp ---
Date of Encounter: 03/22/18 Time of Encounter: 07:31 - Past History Planned Operation: CABG Cardiac History: OK, HTN, Hyperlipidemia, Cardiac Stent (stents multiple and has continued on dual antiplatelet therapy) Pulmonary History: Denies Any Significant HX CASING PULLER History: Other (diabetic neuropathy lower extremities) Other Medical History: Renal (CKD), Diabetes Type II, GERD, Other (obesity BMI 3 6, fibromyalgia) Anesthesia History: No Prior Anesthetic Complications, Past Anesthesia (doyle, left ankle, tubal) : No Alcohol Use: none Drug use: none Medications and Allergies RX: Atorvastatin Calcium [Lipitor] 80 mg PO HS 11/10/17 [History] RX: Escitalopram [Lexapro] 20 mg PO DAILY 11/10/17 [History] RX: Furosemide [Lasix] 40 mg PO DAILY 11/10/17 [History] RX: Levothyroxine [Synthroid] 75 mcg PO QAM 11/10/17 [History] RX: Acetaminophen [Tylenol] 1,000 mg PO Q6HR PRN tablet 11/19/17 [Rx] RX: Insulin Aspart Prot/Insuln Asp [Novolog Mix 70-30 Flexpen Syrn] 70 unit SQ BID 12/14/17 [History] RX: Nitroglycerin [Nitrostat] 0.4 mg SL DAILY PRN 12/14/17 [History] Clopidogrel [Plavix] 75 mg PO DAILY 03/19/18 [History] Lisinopril/Hydrochlorothiazide [Zestoretic 10-12.5 mg Tablet] 1 tab PO DAILY 03/19/18 [History] Allergy/AdvReac Type Severity Reaction Status Date / Time Penicillins Allergy Anaphylaxis Verified 03/19/18 14:04 Sulfa (Sulfonamide Allergy Anaphylaxis Verified 03/19/18 14:04 Antibiotics) - Meds/Allergy Pre-op Review Medications Reviewed: Yes Allergies Reviewed: Yes Beta Blockers on Current Med List: Yes (metoprolol) If Beta Blockers taken, Date/Time (Last Dose taken): 0600 Anesthesia Results - Labs 03/21/18 08:12 03/22/18 00:17 Laboratory Tests 03/19/18 03/19/18 03/22/18 00:03 00:03 00:17 PT 10.1 INR 0.9 Heparin Anti-Xa, Unfract 0.28 L Hemoglobin A1c 12.6 H - Imaging EKG: report reviewed Additional studies: LEFT HEART CATH 03/2018 Indications: Non-Stemi Impressions: There is severe three vessel coronary artery disease. Severe restenosis of the mid LAD stents placed in 2017at an outside hospital, PTCA 4 months ago but now with severe restenosis PCI of the RAMUS with moderate restenosis Recommendations: Optimal medical therapy of patient's disease. Aggressive risk factor modification. Suggest patient have Elective coronary artery bypass surgery. Coronary Dominance: right Lesion Findings/Interventions * Left Main Coronary Artery The LMCA is angiographically free of disease. * Left Anterior Descending There is a 99% stenosis in the Mid LAD. * Circumflex There is a 65% stenosis in the 1st Marginal. * Ramus There is a 50% in stent restenosis in the Ramus. * Right Coronary Artery The Right PDA has diffuse disease. There is a 80% stenosis in the Right PDA. Impressions: LVEF 65-70%. Normal LV chamber size, wall thickness and function. Normal right ventricular structure and function. Mild aortic regurgitation. Mild mitral regurgitation. No pulmonary hypertension. Left Ventricular Wall Motion: Rest Echo Findings All wall segments showed normal motion. Findings: Study Quality * Technically adequate exam. ECG Findings * Sinus bradycardia. Left Ventricle * LVEF 65-70%. * Normal LV chamber size, wall thickness and function. * Normal left ventricular diastolic function. Right Ventricle * Normal right ventricular structure and function. Left Atrium * Normal left atrial size. Right Atrium * Normal right atrial size. Interatrial Septum * Interatrial septum not well evaluated. * No evidence of PFO by color Doppler. Aortic Valve * Trileaflet aortic valve. * No aortic stenosis. * No aortic regurgitation. * Mild aortic regurgitation. Mitral Valve * Normal mitral valve structure. * No mitral stenosis. * Mild mitral regurgitation. Tricuspid Valve * Normal tricuspid valve structure. * No tricuspid stenosis. * Trace tricuspid regurgitation. * Estimated RVSP is 21 mmHg. * Estimated RA pressure is 3 mmHg. * No pulmonary hypertension. Pulmonic Valve * Pulmonic valve is not well visualized. * No pulmonic stenosis. * No pulmonic regurgitation. Aorta * Normally sized aortic root. Pericardium * The pericardium appears normal. IVC * Normal IVC dimensions and inspiratory collapse. Anesthesia Exam Vital Signs/O2 Sat/Glucose, Most Recent Temp Pulse Resp BP Pulse Ox 98.3 F 79 16 126/63 94 03/22/18 04:08 03/22/18 04:08 03/22/18 04:08 03/22/18 04:08 03/22/18 04:08 Blood Glucose* 169 NPO (# of Hours): > 8 hr - HEENT Pupil (Motor): Pupils equal Mallampati: III Teeth: Poor dentition Oral Opening: Greater than 3 - CASING PULLER LOC: Oriented CASING PULLER Motor: Normal RUE, Normal LUE, Normal RLE, Normal LLE, Normal Face CASING PULLER Sensory: Normal: RUE, LUE, RLE, LLE, Face - Cardiac Rhythm: Regular Murmur: None - Pulmonary Breath Sounds: bilateral Clear Respiratory Effort: Symmetrical Anesthesia Assess/Plan ASA Score: 4 Level of consciousness: Cooperative, Oriented Anesthetic Plan: General Monitoring Plan: Standard Monitors, A-Line, PAC, SWAPNA Recovery Plan: ICU
[2018-03-22] MEDS ORDERED: Heparin 1,000 UNITS/500 mL IV.SOLN IVC ONE (07:53)
[2018-03-22] MEDS ORDERED: Sodium Bicarbonate 50 MEQ/50 ML VIAL IVC ONE (07:53)
[2018-03-22] MEDS ORDERED: *HR* Heparin 10,000 UNIT/10 ML VIAL IV ONE (07:53)
[2018-03-22] MEDS ORDERED: *HR* Phenylephrine 10 MG/ML VIAL IVC ONE (07:53)
[2018-03-22] MEDS ORDERED: Lidocaine 2% Syringe 100 MG/5 ML IV ONE (07:53)
[2018-03-22] MEDS ORDERED: Tranexamic Acid 1,000 MG/10 ML VIAL IVPB ONE (07:53)
[2018-03-22] MEDS ORDERED: *HR* Magnesium Sulfate 2 GM/50 ML PIGGYBACK IVPB ONE (07:53)
[2018-03-22] MEDS ORDERED: Albumin Human 25% 25 GM/100 ML IV.SOLN IV ONE (07:53)
[2018-03-22] MEDS ORDERED: Mannitol 25% vial 12.5 GM/50 ML VIAL IVP ONE (07:53)
[2018-03-22] MEDS ORDERED: Clindamycin 900 MG/50 ML 900 MG/50 ML IV.SOLN IVPB ONE ×2 (07:55→09:30)
[2018-03-22] MEDS ORDERED: Dextrose 50 % in Water (Vial) 30 ML, Sodium Bicarbonate 20 MEQ, Potassium Chloride 15 M... TH ONE (08:15)
[2018-03-22] MEDS ORDERED: Norepinephrine 4 MG in D5% in Water 250 ML IVC PRN (08:15)
[2018-03-22] MEDS ORDERED: Dextrose 50 % in Water (Vial) 30 ML, Sodium Bicarbonate 20 MEQ, Lidocaine 1% 5 ML, Insu... TH ONE ×3 (08:15)
[2018-03-22] MEDS ORDERED: Insulin Human Regular 100 UNIT in 0.9 % Sodium Chloride 100 ML IV PRN (08:15)
[2018-03-22] MEDS ORDERED: Heparin 15,000 UNIT in 0.9 % Sodium Chloride 500 ML IV ONE (08:15)
[2018-03-22 08:28] LABS: ABG Base Excess -6 mEq/L (-2 to 3); ABG Chloride 109 mEq/L (98-107); ABG Glucose 93 mg/dL (60-95); ABG HCO3 23 mEq/L (21-27); ABG Ionized Calcium 1.34 mmol/L (1.15-1.35); ABG Oxygen Saturation 99 % (95-98); ABG PCO2 60 mmHg (35-45); ABG PH 7.19 pH Units (7.32-7.45); ABG PO2 192 mmHg (85-104); ABG TCO2 25 mEq/L (20-26)
[2018-03-22] MEDS ORDERED: WATER IVPB ONE (08:55)
[2018-03-22] MEDS ORDERED: CLINDAMYCIN IVPB ONE (08:55)
[2018-03-22] MEDS ORDERED: D5 IVPB ONE (08:55)
--- NOTE | 2018-03-22 09:36 | Anesthesia Procedures ---
Date of Encounter: 03/22/18 Time of Encounter: 08:10 Procedures: Anesthesia - Arterial Line Consent obtained: written consent Time out performed: Yes Sedation: Versed (mg): 3 Sedation: Fentanyl (mcg): 50 Local Anesthetic: Lidocaine 1% Size (Gauge): 20 Length (inches): 1 3/4 Technique Used: sterile prep, direct puncture technique Post-Procedure: line taped into place, dry sterile dressing placed Patient tolerated procedure: well, no complications Complications: none Site: Radial L - Central Line Placement Right IJ Consent obtained: written consent Time out performed: Yes Patient placed on monitor/pulse ox: Yes prep: mask, gown, gloves Central line prep: Chlorhexidine scrub Ultrasound used for placement: Yes Technique: Seldinger Lumen Inserted: single Size / Length: 9 Fr / 10 cm Post procedure: sutured in place, good blood return, all ports aspirated, flushed, capped, sterile dressing applied Patient tolerated procedure: well, no complications Complications: none Vitals: see anesthesia sheet Comments: PAC inserted with pressure waveform analysis. Secured at 44 cm
[2018-03-22 10:16] LABS: ABG Base Excess -5 mEq/L (-2 to 3); ABG Chloride 111 mEq/L (98-107); ABG Glucose 128 mg/dL (60-95); ABG HCO3 20 mEq/L (21-27); ABG Ionized Calcium 1.23 mmol/L (1.15-1.35); ABG Oxygen Saturation 100 % (95-98); ABG PCO2 37 mmHg (35-45); ABG PH 7.34 pH Units (7.32-7.45); ABG PO2 334 mmHg (85-104); ABG TCO2 21 mEq/L (20-26)
[2018-03-22] MEDS ORDERED: Albumin Human 5% 50.0 GM/1,000 ML VIAL ONE (10:34)
[2018-03-22 10:40] LABS: ABG Base Excess -1 mEq/L (-2 to 3); ABG Chloride 104 mEq/L (98-107); ABG Glucose 204 mg/dL (60-95); ABG HCO3 23 mEq/L (21-27); ABG Ionized Calcium 1.01 mmol/L (1.15-1.35); ABG PCO2 33 mmHg (35-45); ABG PH 7.46 pH Units (7.32-7.45); ABG PO2 > 630 mmHg (85-104); ABG TCO2 24 mEq/L (20-26)
[2018-03-22 11:00] LABS: ABG Base Excess -1 mEq/L (-2 to 3); ABG Chloride 105 mEq/L (98-107); ABG Glucose 185 mg/dL (60-95); ABG HCO3 24 mEq/L (21-27); ABG Ionized Calcium 1.08 mmol/L (1.15-1.35); ABG Oxygen Saturation 100 % (95-98); ABG PCO2 42 mmHg (35-45); ABG PH 7.37 pH Units (7.32-7.45); ABG PO2 253 mmHg (85-104); ABG TCO2 26 mEq/L (20-26)
[2018-03-22] MEDS ORDERED: Protamine Sulfate 250 MG/25 ML VIAL IVP ONE (11:16)
[2018-03-22 11:22] LABS: ABG Base Excess -2 mEq/L (-2 to 3); ABG Chloride 104 mEq/L (98-107); ABG Glucose 174 mg/dL (60-95); ABG HCO3 24 mEq/L (21-27); ABG Ionized Calcium 1.08 mmol/L (1.15-1.35); ABG Oxygen Saturation 100 % (95-98); ABG PCO2 45 mmHg (35-45); ABG PH 7.33 pH Units (7.32-7.45); ABG PO2 287 mmHg (85-104); ABG TCO2 25 mEq/L (20-26)
[2018-03-22 11:46] LABS: ABG Base Excess -6 mEq/L (-2 to 3); ABG Chloride 108 mEq/L (98-107); ABG Glucose 166 mg/dL (60-95); ABG HCO3 20 mEq/L (21-27); ABG Ionized Calcium 1.27 mmol/L (1.15-1.35); ABG Oxygen Saturation 100 % (95-98); ABG PCO2 41 mmHg (35-45); ABG PH 7.31 pH Units (7.32-7.45); ABG PO2 213 mmHg (85-104); ABG TCO2 22 mEq/L (20-26)
[2018-03-22] MEDS ORDERED: *HR* FentaNYL (PF) 250 MCG/5 ML VIAL ONE (11:52)
[2018-03-22 11:54] LABS: ABG Base Excess -6 mEq/L (-2 to 3); ABG Chloride 109 mEq/L (98-107); ABG Glucose 168 mg/dL (60-95); ABG HCO3 20 mEq/L (21-27); ABG Ionized Calcium 1.26 mmol/L (1.15-1.35); ABG Oxygen Saturation 100 % (95-98); ABG PCO2 41 mmHg (35-45); ABG PO2 210 mmHg (85-104); ABG TCO2 21 mEq/L (20-26)
[2018-03-22] MEDS ORDERED: Potassium Chloride 40 MEQ/200 ML BAG IVPB PRN (12:29)
[2018-03-22] MEDS ORDERED: *HR* Dextrose 50 % in Water (Syg) 50 ML SYRINGE IVP PRN (12:29)
[2018-03-22] MEDS ORDERED: Insulin Regular, Human 100 UNIT/ML IV PRN (12:29)
--- NOTE | 2018-03-22 12:29 | Operative Note ---
Date of procedure: 03/22/18 Pre-op diagnosis: NSTEMI Post-op diagnosis: same Procedure: 1. CABG 3 (PICHARDO to LAD, gradual SVG to RI then OM1). 2. Endoscopic vein harvesting, greater saphenous vein from right lower extremity. Implants: None. Complications: None. Anesthesia: GETA Surgeon: Goran Hollis Was there an delinquent tax collector assistant present: Yes Research Quality Assurance Analyst: Julio Chau Estimated blood loss (cc): 500 Specimen: None. Condition: stable Disposition: ICU Procedure in Detail: INDICATIONS FOR OPERATION: The patient is a 62 year old type II diabetic, hypertensive, moderately obese lady with known CAD and CKD, Stage IIIB. Her cardiac history dates back to 2002 at which time she underwent PCI with stent placement. She had recurrent anginal symptoms and underwent stent placement in 2005 and 2008. She did well until November, when she redeveloped nonradiating, exertional substernal chest pain and shortness of breath. She underwent cardiac catheterization with LAD PTCA on November 10, 2017. She rapidly redeveloped anginal symptoms and underwent repeat cardiac catheterization on 12/14/2017. This time she underwent stent placement in the mid ramus intermediate branch. Since that time the patient has had nonradiating substernal chest pain, shortness of breath, and dyspnea on exertion. While shopping on Monday, March 19, 2018, she developed severe unrelenting substernal chest pain and shortness of breath. She was evaluated at [facility] emergency department and found to have elevated troponin I levels consistent with an acute NSTEMI. She was admitted for further cardiac workup. She underwent a transthoracic echocardiogram which revealed an LVEF 65- 70% with normal left ventricular chamber size, wall thickness, and function. Mild aortic regurgitation and mild mitral regurgitation were noted. Subsequent cardiac catheterization performed this morning revealed severe 3 vessel CAD. In particular, the patient has a 99% mid LAD lesion, a 60-70% proximal OM1 lesion, a 50% in-stent ramus intermediate branch restenosis, and a diffusely diseased PDA with multiple 80% lesions. She has been recommended for CABG. FINDINGS AT OPERATION: The aorta was of normal caliber without calcification. The coronary arteries measure approximately 1.5-2 mm in diameter and had mild distal disease. The greater saphenous vein was harvested endoscopically from the right lower extremity from the knee to the mid thigh. The total bypass time was 60 minutes, cross-clamp time 30 minutes, intentional hypothermia of 34.4 degrees centigrade. DESCRIPTION OF OPERATION: After obtaining informed operative consent from the patient, she was taken to the operating room where a satisfactory general endotracheal anesthetic was induced. Appropriate monitoring lines were placed, and the patient's chest, abdomen, and lower extremities were prepped and draped in a sterile fashion. The greater saphenous vein was harvested endoscopically from the right lower extremity from the knee to the mid-thigh. The vein was removed, distended, and found to be of good quality. The subcutaneous tissue and skin edges were reapproximated running Vicryl sutures. Simultaneously a standard median sternotomy incision was made and the sternum divided. The PICHARDO was taken down from its bed and side branches divided between hemoclips. The sternum was and the pericardium opened and reflected laterally. The patient was prepared for cannulation by placing pursestring sutures the distal ascending aorta, mid-ascending aorta, and right atrial appendage. The patient was heparinized and when the ACT was greater than 200 seconds, the distal ascending aorta was cannulated and a dual stage venous cannula was placed through the right atrial appendage and into the inferior vena cava. A stab-in antegrade metabolic and is placed in the mid-ascending aorta. The patient was laced on bypass and the temperature allowed to drift to 34.4 degrees centigrade. The distal targets were identified and the aorta was crossclamped. The patient received 700 mL of cold antegrade crystalloid cardioplegia through the aortic root and the patient's heart obtained rapid diastolic arrest. The OM1 branch was opened the [place] blade and the vein was anastomosed in end-to-side fashion using running 7-0 Prolene suture. The anastomosis found to be hemostatic. The ramus intermediate (RI) branch was opened be blade and the vein was opened longitudinal fashion so the [id number] anastomosis could be completed using running 7-0 Prolene suture. The anastomosis found to be hemostatic and the patient received a final dose of cold antegrade crystalloid cardioplegia through the aortic root. The LAD was opened distal to the mid LAD stent with a [place] blade. The PICHARDO was anastomosed in an end-to-side fashion using running 7-0 Prolene suture. The anastomosis was found to be hemostatic and the mammary pedicle was tacked to the epicardium using interrupted 5-0 silk suture. Rewarming was begun during this anastomosis. The aortic cross-clamp was released and the heart distended. The vein was measured and cut at appropriate length. A partial occluding clamp was placed across the mid ascending aorta and the antegrade cardioplegia cannula was removed. The aortotomy site was enlarged with a 4 mm punch and the vein was anastomosed in an end-to-side fashion to the aorta using a running 7-0 Prolene suture. The vein graft was occluded with bulldog clamps and de-aired with a 25- gauge needle prior to removing the partial occluding clamp. The proximal and distal anastomoses were found to be hemostatic and the proximal anastomoss was marked with radiopaque loop. Two right ventricular temporary epicardial pacing lesion placed, and 3 chest tubes were placed, 2 in the mediastinum and one into the left pleural space. During rewarming the patient's heart regained normal sinus rhythm spontaneously. When the patient's systemic temperature reached 36 degrees centigrade, she was ventilated and received volume. She was weaned from bypass required no inotropic support. A single pack of platelets was given since she had been on Plavix long-term for her coronary stents. Protamine was administered and the aortic and venous cannulae were removed. The pursestring sutures were secured. The venous cannulation site was reinforced with a running 4-0 Prolene suture. The pericardium was loosely approximated over the aorta; however, could not be reapproximated over the right ventricle due to excessive tension. The sternum was reapproximated using doubled wires and the pectoralis major fascia, rectus abdominis fascia, subcutaneous tissue, and skin edges were reapproximated using running Vicryl suture. A negative pressure sterile dressing was applied to the sternotomy incision. The patient was transferred to the ICU in satisfactory postoperative condition. There were no intraoperative occasions, and instrument, needle, and sponge count were correct at end of operation. - Open Heart Detail BENIGNO (Internal Mammary Artery) Usage: Yes Cardiopulmonary Bypass Time (mins): 60 Aortic Cross Clamp Time (mins): 39 Intentional Hypothermia Temperature (C.): 34.4
[2018-03-22] MEDS ORDERED: Acetaminophen 650 MG RECTAL SUPP RC PRN (12:33)
[2018-03-22] MEDS ORDERED: Ondansetron 4 MG/2 ML VIAL IVP PRN (12:33)
[2018-03-22] MEDS: Norepinephrine 4 MG in D5% in Water 250 ML IVC SCH (12:35)
[2018-03-22] MEDS ORDERED: Calcium Chloride 1,000 MG in 0.9 % Sodium Chloride 100 ML IVPB PRN (12:36)
[2018-03-22] MEDS: Insulin Human Regular 100 UNIT in 0.9 % Sodium Chloride 100 ML IVC SCH (13:00)
[2018-03-22 13:01] LABS: Basophils # 0.1 K/mcL (0.0-0.2); Basophils % 0.5 %; Eosinophils # 0.2 K/mcL (0.0-0.6); Eosinophils % 0.8 %; Hematocrit 31.6 % (35.3-44.9); Hemoglobin 10.4 g/dL (11.5-15.4); Lymphocytes # 1.9 K/mcL (0.6-4.6); Lymphocytes % 9.3 %; Mean Corpuscular HGB Conc 32.9 g/dL (31.6-35.5); Mean Corpuscular Hemoglobin 28.8 pg (28.0-33.3); Mean Corpuscular Volume 87.5 fL (83.0-100.0); Mean Platelet Volume 9.8 fL (9.4-12.4); Monocytes # 1.1 K/mcL (0.0-1.3); Monocytes % 5.5 %; Nucleated Red Blood Cells 0.1 /100 WBC (0); Platelet Count 210 K/mcL (140-400); Red Blood Count 3.61 M/mcL (3.82-4.97); Red Cell Distribution Width 13.8 % (11.5-14.5); Segmented Neutrophils % 79.9 %
[2018-03-22 13:08] LABS: INR 1.1; Prothrombin Time 11.9 Seconds (9.4-12.1)
[2018-03-22 13:11] LABS: Activated Partial Thrombo Time 30.8 Seconds (26.0-36.0)
[2018-03-22 13:18] LABS: ABG Base Excess -5 mEq/L (-2 to 3); ABG HCO3 22 mEq/L (21-27); ABG Oxygen Saturation 95 % (95-98); ABG PCO2 48 mmHg (35-45); ABG PH 7.27 pH Units (7.32-7.45); ABG PO2 85 mmHg (85-104); ABG TCO2 23 mEq/L (20-26); Blood Gas PEEP 5 cm H2O; Blood Gas Respiration Rate 12; Blood Gas VT 460 cc
[2018-03-22 13:24] LABS: Calcium 8.3 mg/dL (8.6-10.3); Magnesium 3.2 mg/dL (1.6-2.6); Potassium 4.7 mEq/L (3.5-5.1)
--- NOTE | 2018-03-22 13:55 | Anesthesia Evaluation Post Op ---
Date of Encounter: 03/22/18 Time of Encounter: 13:53 - Vital Signs Vital Signs: Vital Signs/O2 Sat/Glucose, Most Recent Temp Pulse Resp BP Pulse Ox 98.3 F 79 12 126/63 98 03/22/18 04:08 03/22/18 04:08 03/22/18 12:55 03/22/18 04:08 03/22/18 12:55 Blood Glucose* 169 - Lungs Lungs: Clear Ascult./Percussion - Airway Airway: Intubated - Cardiovascular Baseline Rhythm - Mental Status Mental Status: Sedated - Pain Pain Scale used: Unable to assess - Nausea Vomiting Nausea Vomiting: Unable to assess - Hydration Hydration: NPO Anes Supervising Prov Stmt: patient remains in ICU intubated and sedated. vital signs stable.
[2018-03-22] MEDS: 0.9 % Sodium Chloride 1,000 ML IVC SCH (14:05)
[2018-03-22] MEDS: Nitroglycerin 25 MG/250 ML INFUS..BTL IVC SCH ×2 (14:06→20:39)
[2018-03-22] MEDS: Pantoprazole 40 MG VIAL IVP SCH (14:09)
[2018-03-22] MEDS: *HR* FentaNYL (PF) 100 MCG/2 ML VIAL IVP PRN ×2 (14:49→21:21)
[2018-03-22] MEDS: Gabapentin 300 MG CAPSULE PO SCH ×3 (14:56→20:39)
[2018-03-22] MEDS: Insulin DETEMIR 100 UNIT/ML X5UNITS SQ SCH (15:14)
[2018-03-22 16:22] LABS: ABG Base Excess -4 mEq/L (-2 to 3); ABG HCO3 23 mEq/L (21-27); ABG Oxygen Saturation 99 % (95-98); ABG PCO2 46 mmHg (35-45); ABG PO2 151 mmHg (85-104); ABG TCO2 24 mEq/L (20-26)
[2018-03-22] MEDS: *HR* OxyCODONE/APAP 5/325 TABLET PO PRN (16:27)
[2018-03-22] MEDS: Clindamycin 900 MG/50 ML 900 MG/50 ML IV.SOLN IVPB SCH ×2 (16:48→23:54)
[2018-03-22] MEDS: Metoclopramide 10 MG/2 ML VIAL IVP SCH ×2 (16:48→23:55)
--- NOTE | 2018-03-22 17:28 | Internal Med Progress Note ---
Hospitalist Progress Note - Encounter Date of Encounter: 03/22/18 Time of Encounter: 17:24 - Subjective Interval History: Ms. Seaman is a 62 year old female with past medical history of hypertension, fibromyalgia, hypothyroidism, multiple sclerosis, diabetes, hyperlipidemia, CKD, and CAD s/p PCI (12/14/17) who initially presented to [facility] complaining of chest pain. On arrival patient at [facility] was found to be hypertensive with a blood pressure of 191/123; tachycardia at 113 saturating at 97% on room air. Laboratory workup was notable for a blood glucose level of 672 and troponin of 0.06. EKG performed at [facility] shows nonspecific changes compared with previous EKG. Patient was given a loading dose of aspirin and started on a heparin and nitro drip. Patient was admitted for non-STEMI, had C on 03/21 showed have severe 3 vessel CAD and an LVEF 60% (by transthoracic echocardiogram). CTS sosa consulted for CABG. She went for CABG today, did well. patient was seen post-op in ICU, she is alert and able to follow up commands, ready to extubation. VS is stable. - Exam Vitals: Temp Pulse Resp BP Pulse Ox 98.3 F 79 12 126/63 97 03/22/18 04:08 03/22/18 04:08 03/22/18 15:54 03/22/18 04:08 03/22/18 15:54 Exam: CONSTITUTIONAL: patient appears as an age appropriate female in no acute distress. EYES Clear sclerae, bilateral pupils are equal, reactive to light. EMOI. RESPIRATORY: No accessory muscle use, bilateral clear to auscultation, no wheezing, no crackles/rales. CARDIOVASCULAR: Regular heart rate, normal S1 and S2, no murmurs GASTROINTESTINAL: bowel sounds present, soft, no tenderness. MUSCULOSKELETAL: Joints in normal range of motion, no clubbing, no edema, no cyanosis. Bilateral peripheral pulses 2+. NEUROLOGIC: CN II to XII are grossly intact, no focal neurological deficit. DVT Prophylaxis: SCDs - Summary of Assessment and Plan Summary of Assessment and Plan: MS. Seaman is a 62 year old female with past medical history of hypertension, fibromyalgia, hypothyroidism, multiple sclerosis, diabetes, hyperlipidemia, CKD, and CAD s/p PCI (12/14/17) who initially presented to [facility] complaining of chest pain. On arrival patient at [facility] was found to be hypertensive with a blood pressure of 191/123; tachycardia at 113 saturating at 97% on room air. Laboratory workup was notable for a blood glucose level of 672 and troponin of 0.06. EKG performed at [facility] shows nonspecific changes compared with previous EKG. Patient was given a loading dose of aspirin and started on a heparin and nitro drip. Patient was admitted for non-STEMI, had C on 03/21 showed have severe 3 vessel CAD and an LVEF 60% (by transthoracic echocardiogram). CTS waas consulted for C ABG. She went for CABG today, did well. patient was seen post-op in ICU, she is alert and able to follow up commands, ready to extubation. VS is stable. (1) NSTEMI (non-ST elevated myocardial infarction) Current Visit: Yes Status: Acute Troponin 0.06 at [facility], 0.32, 0.47, 0.42 at [facility]--now downtrending. Had LHC on 03/21 showed 3-vessel disease, CTS was consulted, had CABG done today (2) CAD (coronary artery disease), telida coronary artery Current Visit: Yes Status: Chronic Known CAD s/p PCI. ASA, Plavix, Statin, BB. Known CAD hx--[facility] 11/2017 with PTCA to prox and mid LAD. [facility] 12/2017 severe 2 vessel CAD s/p JULEE to Ramus. Moderate disease remaining. (3) Hypertension Current Visit: No Status: Chronic Assessment and plan: Qualifiers: Hypertension type: essential hypertension Qualified Code(s): I10 - Essential (primary) hypertension (4) Lactic acid acidosis Current Visit: Yes Status: Acute (5) chronic systolic CHF (congestive heart failure), EF improved Current Visit: No Status: Acute Assessment and plan: No evidence of acute exacerbation. Resume medical management after evaluation by cardiology. Qualifiers: Heart failure type: diastolic Heart failure chronicity: acute on chronic Qualified Code(s): I50.33 - Acute on chronic diastolic (congestive) heart failure (6) Chronic kidney disease (CKD stage III) Current Visit: No Status: Acute Assessment and plan: Patient appears near baseline. We will monitor kidney function. Qualifiers: Chronic kidney disease stage: stage 3 (moderate) Qualified Code(s): N18.3 - Chronic kidney disease, stage 3 (moderate) (7) Type 2 diabetes mellitus with prison insulin use, diabetic neuropathy Current Visit: No Status: Acute Assessment and plan: Resume sliding scale insulin with blood glucose checks once hyperglycemia and etiology of chest pain resolved. Qualifiers: Diabetes mellitus prison insulin use: unspecified intermediate card tender insulin use status Diabetes mellitus complication detail: with nephropathy Qualified Code(s): E11.21 - Type 2 diabetes - Time Spent with Patient Total time spent is greater than 50% in coordination of care (as documented) at patient's floor/unit and/or counseling patient: 25 - 35 minutes Internal Medicine: Result - Labs CBC & Chem 7: 03/22/18 12:55 03/22/18 12:55 Labs: Short CBC 03/22/18 Range/Units 12:55 WBC 20.0 H D (4.3-11.1) K/mcL Hgb 10.4 L (11.5-15.4) g/dL Hct 31.6 L (35.3-44.9) % Plt Count 210 (140-400) K/mcL Neutrophils # 16.0 H (1.6-8.9) K/mcL BMP 03/22/18 03/22/18 00:17 12:55 Sodium 131 L 136 Potassium 5.4 H 4.7 Chloride 103 106 Carbon Dioxide 19 L 23 BUN 54 H 41 H Creatinine 1.70 H 1.35 H Glucose 439 H 187 H Calcium 8.7 8.3 L - ABG Interpretation ABG results: ABG ABG pH 7.30 pH Units (7.32-7.45) L 03/22/18 16:05 ABG pCO2 46 mmHg (35-45) H 03/22/18 16:05 ABG pO2 151 mmHg (85-104) H D 03/22/18 16:05 ABG O2 Saturation 99 % (95-98) H 03/22/18 16:05 PT/INR, D-dimer PT 11.9 Seconds (9.4-12.1) 03/22/18 12:55 - Impressions Impressions Chest X-Ray 03/22/18 12:30 IMPRESSION: Endotracheal tube tip less than a cm above the janelle. Consider retraction by 1-2 cm. Chest tubes in place with no pneumothorax. Small left effusion and bilateral airspace disease which likely represents atelectasis. The findings were sent to the Radiology Results Communication Center at 1:13 pm on 03/22/2018to be communicated to a licensed caregiver. D/ / Larry Antunez MD / Larry Antunez MD Interpreting Provider: Larry Antunez MD - VTE Documentation of Mechanical Device: Graduated compression elastic hosiery Consult Discharge Plan - Plan Referrals: Saw Flores, [Non-Partnered Physician] - (left message with office to call me back on 03-21-18 @ [phone]/faxed over request on 03-21-18 @ [phone] Patient is possibly having open heart surgery ) Elsa West [Partnered Physician] - (office will call patient at home with follow up appointment)
[2018-03-22] MEDS: Heparin 25,000 UNIT/500 ML D5W 25,000 UNIT/500 ML BAG IVC SCH (19:30)
[2018-03-22] MEDS: niCARdipine 40 MG/200 ML MLS IVC SCH ×2 (19:34→20:38)
[2018-03-22 20:26] LABS: ABG Base Excess -3 mEq/L (-2 to 3); ABG HCO3 23 mEq/L (21-27); ABG Oxygen Saturation 97 % (95-98); ABG PCO2 39 mmHg (35-45); ABG PH 7.37 pH Units (7.32-7.45); ABG PO2 92 mmHg (85-104); ABG TCO2 24 mEq/L (20-26); Blood Gas Modality PRVC; Blood Gas PEEP 5 cm H2O; Blood Gas Respiration Rate 16; Blood Gas VT 460 cc
[2018-03-22 21:05] LABS: Amphetamines NEGATIVE ng/mL (Cutoff 30); Barbiturates NEGATIVE ng/mL (Cutoff 75); Benzodiazepines NEGATIVE ng/mL (Cutoff 75); Cocaine NEGATIVE ng/mL (Cutoff 30); Methadone NEGATIVE ng/mL (Cutoff 40); Methamphetamines NEGATIVE ng/mL (Cutoff 30); Opiates NEGATIVE ng/mL (Cutoff 30); Phencyclidine NEGATIVE ng/mL (Cutoff 15)
--- NOTE | 2018-03-22 21:15 | Electrocardiograph Report ---
[address] [place] [address] Test Date: 2018-03-20 Pat Name: Francheska Seaman Department: 110 Room: [facility] Gender: F Vice President Business & Corporate Development: ZULEYKA : 1955 Requested By: Jackson Lincoln Order Number: [id number] Reading MD: Yao Sims Measurements Intervals Munger Rate: 81 P: 48 MN: 166 QRS: 41 QRSD: 92 T: 105 QT: 402 QTc: 439 Interpretive Statements SINUS RHYTHM WITH SINUS ARRHYTHMIA POSSIBLE ANTERIOR MYOCARDIAL INFARCTION, OF INDETERMINATE AGE Electronically Signed On 03-22-2018 21:14:12 EST by Yao Sims
[2018-03-22 21:16] LABS: ABG Base Excess -3 mEq/L (-2 to 3); ABG HCO3 24 mEq/L (21-27); ABG Oxygen Saturation 92 % (95-98); ABG PCO2 50 mmHg (35-45); ABG PH 7.29 pH Units (7.32-7.45); ABG PO2 72 mmHg (85-104); ABG TCO2 25 mEq/L (20-26); Blood Gas Modality CPAP/PS; Blood Gas PEEP 5 cm H2O; Blood Gas Pressure Support 5 cm H2O
[2018-03-22 22:39] LABS: ABG Base Excess -3 mEq/L (-2 to 3); ABG HCO3 23 mEq/L (21-27); ABG Oxygen Saturation 94 % (95-98); ABG PCO2 46 mmHg (35-45); ABG PH 7.31 pH Units (7.32-7.45); ABG PO2 77 mmHg (85-104); ABG TCO2 25 mEq/L (20-26)
[2018-03-23] MEDS: *HR* OxyCODONE/APAP 5/325 TABLET PO PRN ×3 (00:05→15:46)
[2018-03-23 04:14] LABS: Basophils # 0.1 K/mcL (0.0-0.2); Basophils % 0.3 %; Hemoglobin 10.5 g/dL (11.5-15.4); Immature Granulocytes % 1.4 % (0-4); Lymphocytes # 1.5 K/mcL (0.6-4.6); Lymphocytes % 7.1 %; Mean Corpuscular HGB Conc 32.8 g/dL (31.6-35.5); Mean Corpuscular Hemoglobin 28.4 pg (28.0-33.3); Mean Corpuscular Volume 86.5 fL (83.0-100.0); Monocytes % 9.8 %; Neutrophils # 16.9 K/mcL (1.6-8.9); Platelet Count 244 K/mcL (140-400); Red Cell Distribution Width 14.5 % (11.5-14.5); Segmented Neutrophils % 81.4 %
[2018-03-23 04:23] LABS: INR 0.9; Prothrombin Time 10.5 Seconds (9.4-12.1)
[2018-03-23 04:25] LABS: Activated Partial Thrombo Time 27.6 Seconds (26.0-36.0)
[2018-03-23 04:33] LABS: Calcium 8.8 mg/dL (8.6-10.3); Magnesium 2.8 mg/dL (1.6-2.6); Potassium 4.9 mEq/L (3.5-5.1)
[2018-03-23] MEDS: niCARdipine 40 MG/200 ML MLS IVC SCH ×3 (04:49→20:13)
[2018-03-23] MEDS: Metoclopramide 10 MG/2 ML VIAL IVP SCH ×3 (05:11→17:57)
[2018-03-23] MEDS: Acetaminophen 325 MG TABLET PO PRN ×3 (05:11→20:16)
--- NOTE | 2018-03-23 07:06 | Cardiothoracic Progress Note ---
Date of Encounter: 03/23/18 Time of Encounter: 07:04 - Assessment and plan (1) NSTEMI (non-ST elevated myocardial infarction) Current Visit: Yes Status: Acute The patient remained hemodynamically stable overnight. She is currently extubated and breathing comfortably. The [place] catheter will be removed. The arterial line and Denise catheter will remain in place today for critical care monitoring. Aggressive pulmonary toilet will begin. The assessment and plan as outlined above was discussed with the patient and/or family members who expressed understanding and agreement. All questions were answered. - Subjective Procedure(s) Performed: POD#1 S/P CABG3 Interval history: The patient remained hemodynamically stable overnight. She is currently extubated and breathing comfortably. She has no complaints. Vital Signs, Last 4 Hours Temp Pulse Resp BP Pulse Ox 03/23/18 06:00 100.2 F H 89 28 90/55 95 03/23/18 05:00 99.5 F 101 14 108/60 94 03/23/18 04:00 99.5 F 96 23 120/60 94 03/23/18 03:43 16 94/66 95 Oxgyen Flow Rate Oxygen Flow Rate (LPM) 4 Clinical Data, last 8 Hours Output, Chest Tube Drainage 18 Amount [Mediastinal #1] Output, Chest Tube Drainage 30 Amount [Mediastinal #1] Output, Chest Tube Drainage 20 Amount [Mediastinal #1] Output, Chest Tube Drainage 10 Amount [Mediastinal #1] Output, Chest Tube Drainage 10 Amount [Mediastinal #1] Output, Chest Tube Drainage 10 Amount [Mediastinal #1] Output, Chest Tube Drainage 15 Amount [Mediastinal #1] Output, Chest Tube Drainage 20 Amount [Mediastinal #2] Output, Chest Tube Drainage 30 Amount [Mediastinal #2] Output, Chest Tube Drainage 10 Amount [Mediastinal #2] Output, Chest Tube Drainage 0 Amount [Mediastinal #2] Output, Chest Tube Drainage 0 Amount [Mediastinal #2] Output, Chest Tube Drainage 0 Amount [Mediastinal #2] Output, Chest Tube Drainage 10 Amount [Mediastinal #2] Weight 03/21/18 03/22/18 03/23/18 23:59 23:59 23:59 Weight 90.2 kg 89.4 kg - Physical Examination General: Conversant, No Apparent Distress Neck: No JVD, Normal carotid pulses Cardiac: Reg Rate and Rhythm, Normal S1 and S2, No Murmur Incision: No signs of infection, Dry/intact dressing Sternum: Stable Chest tubes: Minimal drainage, Other (No air leak) Pacing Wires: In place Lungs: Normal Breath Sounds, No Wheeze, Rales, Rhonchi Neuro: Alert and responsive, No focal deficits noted Vascular: Normal capillary refill Extremities: No Clubbing, No Cyanosis, No Edema - Labs 03/23/18 04:00 03/23/18 04:00 Lab Results, Last 24 hours 03/22/18 03/22/18 03/22/18 12:55 12:55 12:55 WBC 20.0 H D Hgb 10.4 L Hct 31.6 L Plt Count 210 INR 1.1 APTT 30.8 Sodium 136 Potassium 4.7 Chloride 106 Carbon Dioxide 23 BUN 41 H Creatinine 1.35 H Glucose 187 H Calcium 8.3 L Magnesium 3.2 H 03/23/18 03/23/18 03/23/18 04:00 04:00 04:00 WBC 20.7 H Hgb 10.5 L Hct 32.0 L Plt Count 244 INR 0.9 APTT 27.6 Sodium 138 Potassium 4.9 Chloride 110 H Carbon Dioxide 21 L BUN 38 H Creatinine 1.63 H Glucose 154 H Calcium 8.8 Magnesium 2.8 H - Imaging Chest Xray: image reviewed (No pneumothorax. Small left pleural effusion.) - VTE Documentation of Mechanical Device: Graduated compression elastic hosiery Consult Discharge Plan - Plan Referrals: Saw Flores DO [Non-Partnered Physician] - (left message with office to call me back on 03-21-18 @ [phone]/faxed over request on 03-21-18 @ [phone] Patient is possibly having open heart surgery ) Elsa West [Partnered Physician] - (office will call patient at home with follow up appointment)
[2018-03-23] MEDS: Nitroglycerin 25 MG/250 ML INFUS..BTL IVC SCH ×2 (07:45→16:02)
[2018-03-23] MEDS: Furosemide 20 MG TABLET PO SCH (07:50)
[2018-03-23] MEDS: Insulin LISPRO 300 UNITS/3 ML VIAL SQ SCH (07:50)
[2018-03-23] MEDS: Chlorhexidine Rinse 15 ML MOUTHWASH MM SCH ×2 (08:25→20:11)
[2018-03-23] MEDS: Gabapentin 300 MG CAPSULE PO SCH ×3 (08:25→20:12)
[2018-03-23] MEDS: Pantoprazole 40 MG VIAL IVP SCH (08:26)
[2018-03-23] MEDS: 0.9 % Sodium Chloride 1,000 ML IVC SCH (08:26)
[2018-03-23] MEDS: Furosemide 20 MG/2 ML VIAL IVP SCH ×2 (08:26→20:12)
[2018-03-23] MEDS ORDERED: Aspirin Enteric Coated 81 MG Tablet PO SCH (09:00)
[2018-03-23] MEDS ORDERED: *HR* Dextrose 50 % in Water (Syg) 50 ML SYRINGE IVP PRN (11:54)
[2018-03-23] MEDS ORDERED: Dextrose Gel 15 GM/37.5 ML TUBE PO PRN ×2 (11:54)
[2018-03-23] MEDS ORDERED: D5% in Water 1,000 ML IVC PRN (11:54)
[2018-03-23] MEDS ORDERED: Insulin DETEMIR 100 UNIT/ML X5UNITS SQ ONE (12:00)
--- NOTE | 2018-03-23 12:48 | Internal Med Progress Note ---
<Aj Torres - Last Filed: 03/23/18 16:07> Hospitalist Progress Note - Encounter Date of Encounter: 03/23/18 Time of Encounter: 15:24 - Subjective Interval History: Patient was seen and examined this morning. Patient is currently sitting propped up, in no acute distress. She currently has slight shortness of breath, which she says it feels similar to her COPD chronic shortness of breath symptoms. She denies any current chest pain. She denies any nausea, vomiting or abdominal pain. She does state she has a slight headache. She denies any difficult swallowing or painful swallowing. Patient states that overall she feels significant better than when she was initially admitted. Patient does not recall any fevers or chills overnight. - Exam Vitals: Temp Pulse Resp BP Pulse Ox 98.5 F 71 17 99/54 97 03/23/18 11:00 03/23/18 11:18 03/23/18 11:12 03/23/18 10:00 03/23/18 11:12 Exam: CONSTITUTIONAL: patient appears as an age appropriate female in no acute distress. EYES Clear sclerae, bilateral pupils are equal, reactive to light. EMOI. RESPIRATORY: No accessory muscle use, bilateral clear to auscultation, no wheezing, no crackles/rales. CARDIOVASCULAR: Regular heart rate, normal S1 and S2, no murmurs, bandage appli ed to the sternal region, edges appeared clean, nonerythematous, nontender to palpation, to just placed at the mid chest/thorax region with mild serosanguineous drainage GASTROINTESTINAL: no tenderness. MUSCULOSKELETAL: no edema, no cyanosis. Bilateral peripheral pulses 2+. NEUROLOGIC: CN II to XII are grossly intact, no focal neurological deficit. - Assessment and Plan (1) NSTEMI (non-ST elevated myocardial infarction) Current Visit: Yes Status: Acute Assessment and Plan: Patient is a transfer from [facility] with chief complaint of chest pain. On arrival patient was hypertensive with a blood pressure 191/123 and was tachycardic. Patient had a troponin that was elevated at 0.06, with an EKG which showed nonspecific changes compared with previous. Patient was given loading dose aspirins ulcer on heparin and nitro drip. Patient was transferred and admitted with concern for NSTEMI. Troponin on arrival was 0.32, 0.47, 0.42, continuing to down trend Per cardiology, patient had left heart catheter on 03/21 showing 3 vessel disease. Echocardiogram was performed which showed ejection fraction of 60% Cardiothoracic surgery was consulted for CABG. 03/22/2018 patient had CABG 3, patient was extubated on 03/23/2018 Patient is currently postop day 1, states that overall she feels significantly improved. Has no chest pain currently. States she has mild shortness of breath . Plan Patient currently on examination with arterial line in place, cardiothoracic tubing is currently in place, garcia, patient is currently on a norepinephrine drip, with a blood pressure of 92/47 Complete cardiothoracic care and above-mentioned interventions are being managed by cardiothoracic surgery Per CTS recommendation, patient will have the arterial line and Garcia catheter continue today for critical care monitoring (2) CAD (coronary artery disease), [place] coronary artery Current Visit: Yes Status: Chronic Assessment and Plan: Known CAD s/p PCI. Known CAD hx--[facility] 11/2017 with PTCA to prox and mid LAD. [facility] 12/2017 severe 2 vessel CAD s/p JULEE to Ramus. Plan Continue ASA, Plavix, Statin, BB per CTS recommendations and management (3) Type 2 diabetes mellitus Current Visit: No Status: Chronic Assessment and Plan: On arrival, patient had glucose of 672, no ketone or acidosis was present Patient was started on insulin drip, patient glucose has been trending down at this point. Patient has remained nothing by mouth to this point following postop. Insulin drip was stopped on 03/22/2018 and started on sliding scale with Levemir 20 units Plan Per CTS recommendations, insulin drip was restarted following the procedure yesterday, and was continued for a total of 24 hours. In further discussion with CTS, we will stop insulin drip at this point in time, and resume sliding scale. We will continue to monitor her glucose, adjusting sliding scale as necessary Glucose this a.m. was 154 Patient is to resume cardiac and diabetic diet at this time (4) CKD (chronic kidney disease) stage 3, GFR 30-59 ml/min Current Visit: Yes Status: Chronic Assessment and Plan: Appears to be at baseline, we will continue to follow Serum creatinine today was 1.63 (5) CHF (congestive heart failure) Current Visit: No Status: Acute Assessment and Plan: Appears to be stable, ejection fraction is currently preserved Plan Continue to monitor, does not appear to be an acute CHF exacerbation (6) Leukocytosis, unspecified Current Visit: Yes Status: Acute Assessment and Plan: On arrival, patient's WBC was within normal limits range Patient is currently postop day 1 status post CABG 3 WBC today is 20.7, most likely reactive following procedure, we will continue to trend. Overnight patient had a temperature of 100.2/repeat of 99.7 Plan We will continue to monitor, repeat CBC in the morning If patient has another febrile episode, we will get urine and blood cultures, urinalysis and chest x-ray to assess for or further signs of infection DVT Prophylaxis: SCDs - Time Spent with Patient Total time spent is greater than 50% in coordination of care (as documented) at patient's floor/unit and/or counseling patient: less than 15 minutes Plan of Care Discussed with: patient Internal Medicine: Result - Labs CBC & Chem 7: 03/23/18 04:00 03/23/18 04:00 Labs: Short CBC 03/22/18 03/23/18 Range/Units 12:55 04:00 WBC 20.0 H D 20.7 H (4.3-11.1) K/mcL Hgb 10.4 L 10.5 L (11.5-15.4) g/dL Hct 31.6 L 32.0 L (35.3-44.9) % Plt Count 210 244 (140-400) K/mcL Neutrophils # 16.0 H 16.9 H (1.6-8.9) K/mcL BMP 03/22/18 03/23/18 12:55 04:00 Sodium 136 138 Potassium 4.7 4.9 Chloride 106 110 H Carbon Dioxide 23 21 L BUN 41 H 38 H Creatinine 1.35 H 1.63 H Glucose 187 H 154 H Calcium 8.3 L 8.8 - ABG Interpretation ABG results: ABG ABG pH 7.31 pH Units (7.32-7.45) L 03/22/18 22:36 ABG pCO2 46 mmHg (35-45) H 03/22/18 22:36 ABG pO2 77 mmHg (85-104) L 03/22/18 22:36 ABG O2 Saturation 94 % (95-98) L 03/22/18 22:36 PT/INR, D-dimer PT 10.5 Seconds (9.4-12.1) 03/23/18 04:00 - Impressions Impressions Chest X-Ray 03/22/18 12:30 IMPRESSION: Endotracheal tube tip less than a cm above the janelle. Consider retraction by 1-2 cm. Chest tubes in place with no pneumothorax. Small left effusion and bilateral airspace disease which likely represents atelectasis. The findings were sent to the Radiology Results Communication Center at 1:13 pm on 03/22/2018to be communicated to a licensed caregiver. D/ / Larry Antunez MD / Larry Antunez MD Interpreting Provider: Larry Antunez MD Chest X-Ray 03/23/18 04:00 IMPRESSION: Life support devices as above. Persistent left greater than right basilar heterogeneous opacities. No new consolidation. D/ / Ruy Campoverde / Ruy Campoverde Interpreting Provider: Ruy Campoverde - VTE Documentation of Mechanical Device: Graduated compression elastic hosiery Consult Discharge Plan - Plan Referrals: Saw Flores DO [Non-Partnered Physician] - (left message with office to call me back on 03-21-18 @ [phone]/faxed over request on 03-21-18 @ [phone] Patient is possibly having open heart surgery ) Elsa West [Partnered Physician] - (office will call patient at home with follow up appointment) <Gertrudis Montiel - Last Filed: 03/23/18 17:35> Hospitalist Progress Note - Encounter Date of Encounter: 03/23/18 - Exam Vitals: Temp Pulse Resp BP Pulse Ox 98 F 77 16 108/56 97 03/23/18 16:00 03/23/18 17:00 03/23/18 17:00 03/23/18 17:00 03/23/18 17:00 - Assessment and Plan (1) Type 2 diabetes mellitus Current Visit: No Status: Acute (2) NSTEMI (non-ST elevated myocardial infarction) Current Visit: Yes Status: Acute (3) Hyperglycemia due to type 2 diabetes mellitus Current Visit: Yes Status: Acute (4) Hypertensive renal disease with renal failure Current Visit: Yes Status: Chronic (5) CKD (chronic kidney disease) stage 3, GFR 30-59 ml/min Current Visit: Yes Status: Chronic - Time Spent with Patient Total time spent is greater than 50% in coordination of care (as documented) at patient's floor/unit and/or counseling patient: Internal Medicine: Result - Labs CBC & Chem 7: 03/23/18 04:00 03/23/18 04:00 Labs: Short CBC 03/23/18 Range/Units 04:00 WBC 20.7 H (4.3-11.1) K/mcL Hgb 10.5 L (11.5-15.4) g/dL Hct 32.0 L (35.3-44.9) % Plt Count 244 (140-400) K/mcL Neutrophils # 16.9 H (1.6-8.9) K/mcL BMP 03/23/18 04:00 Sodium 138 Potassium 4.9 Chloride 110 H Carbon Dioxide 21 L BUN 38 H Creatinine 1.63 H Glucose 154 H Calcium 8.8 - ABG Interpretation ABG results: ABG ABG pH 7.31 pH Units (7.32-7.45) L 03/22/18 22:36 ABG pCO2 46 mmHg (35-45) H 03/22/18 22:36 ABG pO2 77 mmHg (85-104) L 03/22/18 22:36 ABG O2 Saturation 94 % (95-98) L 03/22/18 22:36 PT/INR, D-dimer PT 10.5 Seconds (9.4-12.1) 03/23/18 04:00 - Impressions Impressions Chest X-Ray 03/23/18 04:00 IMPRESSION: Life support devices as above. Persistent left greater than right basilar heterogeneous opacities. No new consolidation. D/ / Ruy Campoverde / Ruy Campoverde Interpreting Provider: Ruy Campoverde - Attending Attestation I examined this patient and my medical decision-making was reviewed with the Resident Physician Dr Torres. I agree with the documented findings, disposition and treatment plan as described except to the extent set forth below. Ms Seaman is admitted to ICU s/p NSTEMI and CABG. awake, sig other at bedside. no cp, palpitations, presyncope. she has sob at baseline. no cough, wheezing or sputum. denies fevers, chills, has garcia cath bt no spura pubic tenderness, no hx dysuria gen- alert, awake,appears stated age eyes- pupils equal round cv- reg rate and rhythm, normal s1,s2, no murmurs appreciated, no le edema, no jvd, dressing c/d/i, chest tubes in place lungs- ctabl, no wheezing, rhonchi or crackles, normal resp effort on o2 nc abd- soft, non tender, non distended, + bs neuro- AAOx3 NSTEMI Severe 3V Disease s/p CABG 03/22 -CT surg managing post op care, is on norepi, has chest tubes draining in place, garcia cath, art line, per CT surg swan kevin removed, IV lasix Leukocytosis suspect reactive as no s/s infection - monitor for fever, CXR, cxs all unremarkable for infection to date DM with hyperglycemia on admit- bs at goal, was on insulin gtt per post op protocol, as d/w CT surg may dc, diabetic /cardiac diet, home insulin + ssi and adjsut as needed further diagnoses and plan as noted by resident <Aj Torres - Last Filed: 03/23/18 16:07> (2) CAD (coronary artery disease), [place] coronary artery Qualifiers: [place] vs. transplanted heart: [place] heart Associated angina: without angina Qualified Code(s): I25.10 - Atherosclerotic heart disease of [place] coronary artery without angina pectoris (3) Type 2 diabetes mellitus Qualifiers: Diabetes mellitus half-way insulin use: with intermodal customer service use Diabetes mellitus complication status: with kidney complications Diabetes mellitus complication detail: with nephropathy Qualified Code(s): E11.21 - Type 2 diabetes mellitus with diabetic nephropathy; Z79.4 - senior care (current) use of insulin (5) CHF (congestive heart failure) Qualifiers: Heart failure type: diastolic Heart failure chronicity: acute on chronic Q ualified Code(s): I50.33 - Acute on chronic diastolic (congestive) heart failure <Gertrudis Montiel - Last Filed: 03/23/18 17:35> (1) Type 2 diabetes mellitus Qualifiers: Diabetes mellitus half-way insulin use: unspecified intermodal customer service insulin use status Diabetes mellitus complication detail: with nephropathy Qualified Code(s): E11.21 - Type 2 diabetes mellitus with diabetic nephropathy (3) Hyperglycemia due to type 2 diabetes mellitus Qualifiers: Diabetes mellitus half-way insulin use: unspecified intermodal customer service insulin use status Qualified Code(s): E11.65 - Type 2 diabetes mellitus with hyperglycemia
[2018-03-23] MEDS: Insulin Human Regular 100 UNIT in 0.9 % Sodium Chloride 100 ML IVC SCH (13:25)
[2018-03-23] MEDS: Budesonide/Formoterol 80/4.5 MDI IH SCH ×2 (15:21→20:44)
--- NOTE | 2018-03-23 15:40 | Electrocardiograph Report ---
[address] [address] Test Date: 2018-03-21 Pat Name: Francheska Seaman Department: 110 Room: [facility] Gender: F Casting Technician: : 1955 Requested By: Gertrudis Montiel Order Number: [id number] Reading MD: Becky Schneider Measurements Intervals [place] Rate: 84 P: 52 [place]: 163 QRS: 46 QRSD: 81 T: 97 QT: 380 QTc: 421 Interpretive Statements SINUS RHYTHM WITH SINUS ARRHYTHMIA LOW QRS VOLTAGE IN PRECORDIAL LEADS Electronically Signed On 03-23-2018 15:39:13 EST by Becky Schneider
[2018-03-23] MEDS: Norepinephrine 4 MG in D5% in Water 250 ML IVC SCH (15:46)
[2018-03-23] MEDS ORDERED: Insulin LISPRO 300 UNITS/3 ML VIAL SQ SCH ×2 (16:30→21:00)
[2018-03-23] MEDS: *HR* Heparin 5,000 UNIT/ML VIAL SQ SCH (17:56)
[2018-03-23] MEDS: Insulin DETEMIR 100 UNIT/ML X5UNITS SQ SCH (20:12)
[2018-03-24] MEDS: Metoclopramide 10 MG/2 ML VIAL IVP SCH ×5 (00:24→17:29)
[2018-03-24] MEDS: Nitroglycerin 25 MG/250 ML INFUS..BTL IVC SCH (00:24)
[2018-03-24] MEDS: niCARdipine 40 MG/200 ML MLS IVC SCH (00:24)
[2018-03-24 03:46] LABS: Calcium 8.2 mg/dL (8.6-10.3); Potassium 5.1 mEq/L (3.5-5.1)
[2018-03-24 03:51] LABS: Basophils % 0.3 %; Eosinophils % 0.2 %; Hematocrit 27.9 % (35.3-44.9); Immature Granulocytes % 1.1 % (0-4); Lymphocytes # 1.9 K/mcL (0.6-4.6); Lymphocytes % 13.3 %; Mean Corpuscular HGB Conc 31.5 g/dL (31.6-35.5); Mean Corpuscular Hemoglobin 28.5 pg (28.0-33.3); Mean Corpuscular Volume 90.3 fL (83.0-100.0); Mean Platelet Volume 10.3 fL (9.4-12.4); Monocytes # 1.7 K/mcL (0.0-1.3); Monocytes % 12.3 %; Neutrophils # 10.2 K/mcL (1.6-8.9); Nucleated Red Blood Cells 0.1 /100 WBC (0); Platelet Count 190 K/mcL (140-400); Red Blood Count 3.09 M/mcL (3.82-4.97); Red Cell Distribution Width 14.9 % (11.5-14.5); Segmented Neutrophils % 72.8 %
[2018-03-24 03:55] LABS: Hemoglobin 8.8 g/dL (11.5-15.4)
[2018-03-24] MEDS: *HR* OxyCODONE/APAP 5/325 TABLET PO PRN ×2 (04:52→20:28)
[2018-03-24] MEDS: 0.9 % Sodium Chloride 1,000 ML IVC SCH (04:53)
[2018-03-24] MEDS: *HR* Heparin 5,000 UNIT/ML VIAL SQ SCH ×3 (04:54→17:29)
--- NOTE | 2018-03-24 05:34 | Cardiothoracic Progress Note ---
Date of Encounter: 03/24/18 Time of Encounter: 05:32 - Assessment and plan (1) NSTEMI (non-ST elevated myocardial infarction) Current Visit: Yes Status: Acute The patient remained hemodynamically stable overnight. She is breathing comfortably. The arterial line and Denise catheter were removed. Aggressive pulmonary toilet will continue. The patient will be transferred to the stepdown unit when a bed is available. The assessment and plan as outlined above was discussed with the patient and/or family members who expressed understanding and agreement. All questions were answered. - Subjective Procedure(s) Performed: POD#2 S/P CABG3 Interval history: The patient remained hemodynamically stable overnight. She is breathing comfortably. She has no complaints. Vital Signs, Last 4 Hours Temp Pulse Resp BP Pulse Ox 03/24/18 05:00 92 20 111/74 96 03/24/18 04:35 18 107/90 97 03/24/18 04:00 98.2 F 89 20 115/59 94 03/24/18 03:54 81 03/24/18 03:00 76 19 107/55 98 03/24/18 02:00 81 22 97/49 97 Oxgyen Flow Rate Oxygen Flow Rate (LPM) 3 Clinical Data, last 8 Hours Output, Chest Tube Drainage 15 Amount [Mediastinal #1] Output, Chest Tube Drainage 25 Amount [Mediastinal #1] Output, Chest Tube Drainage 15 Amount [Mediastinal #2] Output, Chest Tube Drainage 15 Amount [Mediastinal #2] Weight 03/22/18 03/23/18 03/24/18 23:59 23:59 23:59 Weight 89.4 kg 90.2 kg - Physical Examination General: Conversant, No Apparent Distress Neck: No JVD, Normal carotid pulses Cardiac: Reg Rate and Rhythm, Normal S1 and S2, No Murmur Incision: No signs of infection, Dry/intact dressing Sternum: Stable Chest tubes: Minimal drainage, Other (No air leak) Pacing Wires: In place Lungs: Normal Breath Sounds, No Wheeze, Rales, Rhonchi Neuro: Alert and responsive, No focal deficits noted Vascular: Normal capillary refill Extremities: No Clubbing, No Cyanosis, No Edema - Labs 03/24/18 03:15 03/24/18 03:15 Lab Results, Last 24 hours 03/24/18 03/24/18 03:15 03:15 WBC 14.0 H Hgb 8.8 L D Hct 27.9 L Plt Count 190 Sodium 134 L Potassium 5.1 Chloride 107 Carbon Dioxide 19 L BUN 50 H Creatinine 2.11 H Glucose 270 H Calcium 8.2 L - Imaging Chest Xray: image reviewed (No pneumothorax. Minimal left basilar atelectasis/infiltrates.) - VTE Documentation of Mechanical Device: Graduated compression elastic hosiery Consult Discharge Plan - Plan Referrals: Saw Flores, [Non-Partnered Physician] - (left message with office to call me back on 03-21-18 @ [phone]/faxed over request on 03-21-18 @ [phone] Patient is possibly having open heart surgery ) Elsa West [Partnered Physician] - (office will call patient at home with follow up appointment)
[2018-03-24] MEDS ORDERED: Naloxone 0.4 MG/ML INJ IVP PRN (06:00)
[2018-03-24] MEDS ORDERED: *HR* Dextrose 50 % in Water (Syg) 50 ML SYRINGE IVP PRN ×3 (06:00)
[2018-03-24] MEDS ORDERED: Nitroglycerin 0.4 MG TAB.SUBL SL PRN (06:00)
[2018-03-24] MEDS ORDERED: D5% in Water 1,000 ML IVC PRN (06:00)
[2018-03-24] MEDS ORDERED: Ondansetron 4 MG/2 ML VIAL IVP PRN (06:00)
[2018-03-24] MEDS ORDERED: Dextrose Gel 15 GM/37.5 ML TUBE PO PRN ×2 (06:00)
[2018-03-24] MEDS: Budesonide/Formoterol 80/4.5 MDI IH SCH ×2 (07:43→20:40)
[2018-03-24] MEDS: Acetaminophen 325 MG TABLET PO PRN ×2 (08:36→14:08)
[2018-03-24] MEDS: Gabapentin 300 MG CAPSULE PO SCH ×2 (08:37→21:05)
[2018-03-24] MEDS: Furosemide 20 MG/2 ML VIAL IVP SCH ×2 (08:37→17:29)
[2018-03-24] MEDS: Aspirin Enteric Coated 81 MG Tablet PO SCH (08:37)
[2018-03-24] MEDS: Chlorhexidine Rinse 15 ML MOUTHWASH MM SCH ×2 (08:37→21:04)
[2018-03-24] MEDS: Pantoprazole 40 MG VIAL IVP SCH (08:37)
[2018-03-24] MEDS: Insulin LISPRO 300 UNITS/3 ML VIAL SQ SCH ×4 (08:38→21:34)
--- NOTE | 2018-03-24 09:17 | Nephrology Consult Note ---
Addendum entered and electronically signed by Nicolas Ruiz, 03/24/18 18:41: I examined this patient and my medical decision-making was reviewed with the Resident Physician. I agree with the documented findings, disposition and treatment plan as described except to the extent set forth below. 62 y/o WF with a pmh of CKD stage III with CAD s/p LHC and then CABG noted to have a rising SCr. Prior to admission, she admitted to taking NSAIDs routinely. I counseled her to avoid all NSAIDs going forward. Rec following a renal protective strategy to preserve residual renal function, a low K+ diet to avoid hyperkalemia, and a renal work up as described below. Family history: she affirmed having DM and some CKD in the family but no relatives on chronic dialysis. ROS: neg N/V/D, mild chest discomfort at surgical site but no CP, mild ShOB but improving, no dysuria was affirmed, and all other ROS were negative. Thank you for consulting the [facility]; will continue to follow with you. 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 - Patient is also s/p LHC (received IV contrast) and CABG operation - SANAZ is likely due to a combination of these factors - Patient has a known history of runny kidney disease stage III - Baseline creatinine per chart review appears to be between 1.2 and 1.8 - SCr today is 2.11, up from 1.63 Plan: - Will obtain urinalysis, Urine sodium, Urine Creatinine, Urine eosinophils, Urine uric acid - Renally dose medications, avoid nephrotoxins for possible - Strict Is and Os, daily weights - Due to patient's borderline-high potassium (5.1), will place on renal diet and repeat AM labs (2) NSTEMI (non-ST elevated myocardial infarction) Current Visit: Yes Status: Acute - Initially presented with the chief complint of chest pain - [facility] 03/21/18: Severe three-vessel disease - CT surgery consulted; underwent CABG - Garcia and pressures discontinued, chest tubes removed - Management per CT surgery (3) Anemia Current Visit: Yes Status: Acute - Patient presented with Hb of 10.0 - Per chart review, patients baseline appears to be between 9 and 10 - After patients CABG, subsequent Hb dropped to 8.8 - Closely monitor Hb and transfuse as necessary Qualifiers: Chronic kidney disease stage: unspecified stage Qualified Code(s): N18.9 - Chronic kidney disease, unspecified; D63.1 - Anemia in chronic kidney disease (4) Type 2 diabetes mellitus Current Visit: No Status: Acute - Patient has a known history of T2DM - Elevated glucose on arrival at 672 - Was initially started on insulin drip Qualifiers: Diabetes mellitus residential insulin use: unspecified residential insulin use status Diabetes mellitus complication detail: with nephropathy Qualified Code(s): E11.21 - Type 2 diabetes mellitus with diabetic nephropathy History of Present Illness - History of Present Illness Francheska Seaman is a 62-year-old female with a PMH of HTN, hypothyroidism, fibromyalgia, MS, DM, HLD, CKD, CAD status post PCI on 12/14/17 who presented to [facility] as a transfer from [facility] on 03/18 after she presented complaining of chest pain. On arrival to [facility], patient was found to have an elevated blood pressure of 191/23, and was tachycardic at 113. Glucose was 672, troponin 0.06. EKG was unremarkable. Patient was given a loading dose of aspirin and was started on a heparin and nitro drip. She was admitted to [facility] for an NSTEMI. Patient underwent left heart catheterization on 03/21. It demonstrated severe 3 vessel disease, LVEF 60%. Cardiothoracic surgery was consulted for CABG. Patient underwent CABG on 03/22. Patient was then transferred to the ICU for further monitoring. Nephrology was consult that for acute kidney injury on chronic kidney disease. Patients creatinine has increased to 2.11 from 1.63 yesterday. Initial creatinine on arrival was 1.77. Per chart review, patients baseline creatinine appears to be between 1.2 and 1.8. Patient has also had an acute drop in hemoglobin from 10.5-8.8. Patient seen and examined at bedside this morning; states that she had previously seen Dr. Lawrence in the outpatient setting, but lost insurance coverage approximately one year ago, and hasn't been able to see her since. She had her 3 chest tubes and garcia catheter removed this morning. She does not complain of any residual pain in the area. She has no complaints at this time. Past Med Surg Social Fam HX - Past Medical History Medical history: coronary artery disease, diabetes, hyperlipidemia, hypertension, myocardial infarction, renal disease, thyroid disease, other (Fibromyalgia, diabetic neuropathy and lower extremities) Additional medical history: MS fibromyalgia,. Numerous heart caths, total of 6 stents by 12/13/2017 Psychiatric history: depression - Past Surgical History Surgical History: angioplasty/stent, cholecystectomy, orthopedic, other (Left ankle ligament repair), other (Tubal ligation) Additional surgical history: L ankle ORIF. coronary stents x6. tubial - Social History Smoking Status: Never smoker Smokeless Tobacco Status: No Alcohol use: none Drug use: none Medications and Allergies Atorvastatin Calcium [Lipitor] 80 mg PO HS 11/10/17 [History] Escitalopram [Lexapro] 20 mg PO DAILY 11/10/17 [History] Furosemide [Lasix] 40 mg PO DAILY 11/10/17 [History] Levothyroxine [Synthroid] 75 mcg PO QAM 11/10/17 [History] Acetaminophen [Tylenol] 1,000 mg PO Q6HR PRN tablet 11/19/17 [Rx] Insulin Aspart Prot/Insuln Asp [Novolog Mix 70-30 Flexpen Syrn] 70 unit SQ BID 12/14/17 [History] Nitroglycerin [Nitrostat] 0.4 mg SL DAILY PRN 12/14/17 [History] Clopidogrel [Plavix] 75 mg PO DAILY 03/19/18 [History] Lisinopril/Hydrochlorothiazide [Zestoretic 10-12.5 mg Tablet] 1 tab PO DAILY 03/19/18 [History] Allergy/AdvReac Type Severity Reaction Status Date / Time Penicillins Allergy Anaphylaxis Verified 03/19/18 14:04 Sulfa (Sulfonamide Allergy Anaphylaxis Verified 03/19/18 14:04 Antibiotics) Exam - Vital Signs Vital signs: Initial Vital Signs Pulse BP 101 84/55 03/19/18 00:00 03/19/18 00:00 Vital Signs - Last 8 Hours Temp Pulse Resp BP Pulse Ox 03/24/18 07:43 16 91 03/24/18 07:25 98.9 F 03/24/18 06:00 83 29 110/56 96 03/24/18 05:00 92 20 111/74 96 03/24/18 04:35 18 107/90 97 03/24/18 04:00 98.2 F 89 20 115/59 94 03/24/18 03:54 81 03/24/18 03:00 76 19 107/55 98 03/24/18 02:00 81 22 97/49 97 Intake and Output 03/23/18 03/24/18 03/24/18 23:59 07:59 15:59 Intake Total 272 / 272 1000 / 1000 240 / 240 Output Total 710 / 710 445 / 445 Balance -438 / -438 555 / 555 240 / 240 Intake: IV Fluids 32 / 32 1000 / 1000 0.9 % Sodium Chloride 1,000 ML 1000 / 1000 @ 50 mls/hr IVC .Q20H MICHAEL Rx#: [id number] Levophed 4 MG In Dextrose 5% 32 / 32 250 ML @ 8 MCG/MIN 30.48 mls/hr IVC CONT MICHAEL Rx#:[id number] Oral 240 / 240 0 / 0 240 / 240 Output: Catheter 550 / 550 375 / 375 Chest Tube Drainage 160 / 160 70 / 70 Mediastinal #1 75 / 75 40 / 40 Mediastinal #2 85 / 85 30 / 30 Other: Meal Lunch Breakfast Percent of Meal Consumed 100% 100% Weight 90.2 kg Blood Glucose* 342 311 Patient Weight 03/24/18 23:59 Weight 90.2 kg - General Appearance Exam: General: No acute distress Head: atraumatic, normocephalic Eye: PERRL, EOMI, conjuntiva pink, sclera anicteric Neck: Supple, trachea midline; No lymphadenopathy Respiratory: Shortened inspiratory phase, no wheezes, rales, or rhonchi Cardiovascular: RRR, +S1, +S2; no murmurs, rubs, gallops. Bandage over sternal area is clean and dry Abdomen: Soft, non-tender Extremities: No clubbing or cyanosis Neurological: No focal deficits noted Psychiatric: Normal affect, normal mood Skin: Dry, intact Results - Lab Results 03/24/18 12:25 03/24/18 03:15 Most recent lab results ABG pH 7.31 pH Units (7.32-7.45) L 03/22/18 22:36 ABG pCO2 46 mmHg (35-45) H 03/22/18 22:36 ABG pO2 77 mmHg (85-104) L 03/22/18 22:36 ABG HCO3 23 mEq/L (21-27) 03/22/18 22:36 ABG O2 Saturation 94 % (95-98) L 03/22/18 22:36 Calcium 8.2 mg/dL (8.6-10.3) L 03/24/18 03:15 Phosphorus 3.5 mg/dL (2.7-4.5) 03/19/18 00:03 Magnesium 2.8 mg/dL (1.6-2.6) H 03/23/18 04:00 Consult Discharge Plan - Plan Referrals: Goran Hollis MD [Partnered Physician] - 04/14/18 2:00 pm Saw Flores DO [Non-Partnered Physician] - 04/11/18 11:15 am ( ) Elsa West [Partnered Physician] - (office will call patient at home with follow up appointment)
--- NOTE | 2018-03-24 10:59 | Electrocardiograph Report ---
[address] [place], [place] [address] Test Date: 2018-03-22 Pat Name: Francheska Seaman Department: 112 Room: [facility] Gender: F Cook Night: : 1955 Requested By: Pelon Hollis Order Number: [id number] Reading MD: Darlin Madsen Measurements Intervals [place] Rate: 68 P: 46 TX: 148 QRS: 19 QRSD: 101 T: 111 QT: 490 QTc: 508 Interpretive Statements SINUS RHYTHM WITH MARKED SINUS ARRHYTHMIA LOW QRS VOLTAGE IN EXTREMITY LEADS PATTERN CONSISTENT WITH PULMONARY DISEASE MODERATE T-WAVE ABNORMALITY, CONSIDER ANTERIOR ISCHEMIA Electronically Signed On 03-24-2018 10:57:48 EST by Darlin Madsen
[2018-03-24 12:34] LABS: Hematocrit 27.1 % (35.3-44.9); Hemoglobin 8.7 g/dL (11.5-15.4)
--- NOTE | 2018-03-24 13:19 | Internal Med Progress Note ---
<Aj Torres - Last Filed: 03/24/18 13:48> Hospitalist Progress Note - Encounter Date of Encounter: 03/24/18 Time of Encounter: 14:13 - Subjective Interval History: Patient was seen and examined this morning. Patient is currently sitting propped up, in no acute distress. Notes some mild chest and abdominal pain as the tubing had just been removed that were placed during her CABG. States that she feels much better since the removal, but is tender in that region. No current shortness of breath. Patient does not recall any fevers or chills overnight. She has been using her incentive spirometer. - Exam Vitals: Temp Pulse Resp BP Pulse Ox 99.1 F 86 18 109/55 95 03/24/18 11:42 03/24/18 12:00 03/24/18 12:00 03/24/18 12:00 03/24/18 12:00 Exam: CONSTITUTIONAL: patient appears as an age appropriate female in no acute distress. EYES Clear sclerae, bilateral pupils are equal, reactive to light. RESPIRATORY: No accessory muscle use, bilateral clear to auscultation, Slightly blunted due to pain CARDIOVASCULAR: Regular heart rate, normal S1 and S2, no murmurs, bandage applied to the sternal region, edges appeared clean, nonerythematous, nontender to palpation, bandage over the mid abdomen as bilateral tubes removed GASTROINTESTINAL: no tenderness. MUSCULOSKELETAL: no edema, no cyanosis. Bilateral peripheral pulses 2+. NEUROLOGIC: CN II to XII are grossly intact, no focal neurological deficit. - Assessment and Plan (1) NSTEMI (non-ST elevated myocardial infarction) Current Visit: Yes Status: Acute Assessment and Plan: Patient is a transfer from [facility] [place] with chief complaint of chest pain. On arrival patient was hypertensive with a blood pressure 191/123 and was tachycardic. Patient had a troponin that was elevated at 0.06, with an EKG which showed nonspecific changes compared with previous. Patient was given loading dose aspirins ulcer on heparin and nitro drip. Patient was transferred and admitted with concern for NSTEMI. Troponin on arrival was 0.32, 0.47, 0.42, continuing to down trend Per cardiology, patient had left heart catheter on 03/21 showing 3 vessel disease. Echocardiogram was performed which showed ejection fraction of 60% Cardiothoracic surgery was consulted for CABG. 03/22/2018 patient had CABG 3, patient was extubated on 03/23/2018 03/23/18: patients [place]ary[place] catheter removed without difficulty 03/24/18: patient was taken off of pressors, arterial line removed, garcia removed. Patient is currently postop day 1, states that overall she feels significantly improved. Has no chest pain currently. States she has mild shortness of breath. Plan Patient currently on examination with arterial line, garcia and pressors removed, per CTS recommendation Complete cardiothoracic care and above-mentioned interventions are being managed by cardiothoracic surgery Plan per CTS is to step patient down to 2N today Per CTS recommendation, nephrology was consulted given SCr of 2.11 today, change from 1.2- 1.8 baseline (2) CAD (coronary artery disease), [place] coronary artery Current Visit: Yes Status: Chronic Assessment and Plan: Known CAD s/p PCI. Known CAD hx--[facility] 11/2017 with PTCA to prox and mid LAD. [facility] 12/2017 severe 2 vessel CAD s/p JULEE to Ramus. Plan Continue ASA, Plavix, Statin, BB per CTS recommendations and management (3) Type 2 diabetes mellitus Current Visit: No Status: Chronic Assessment and Plan: On arrival, patient had glucose of 672, no ketone or acidosis was present Patient was started on insulin drip, patient glucose has been trending down at this point. Patient has remained nothing by mouth to this point following postop. Insulin drip was stopped on 03/22/2018 and started on sliding scale with Levemir 20 units Plan Per CTS recommendations, insulin drip was restarted following the procedure yesterday, and was continued for a total of 24 hours. CTS currently managing insulin regimen, patient currently on Levemir 30 units and SSI Once patient is cleared per CTS standpoint, will continue insulin regimen management (4) CKD (chronic kidney disease) stage 3, GFR 30-59 ml/min Current Visit: Yes Status: Chronic Assessment and Plan: Appears to have had decline, SCr 1.63--> 2.11 today Patient with baseline of 1.2 to 1.8 Plan Per CTS, nephrology was consulted (5) CHF (congestive heart failure) Current Visit: No Status: Acute Assessment and Plan: Appears to be stable, ejection fraction is currently preserved Plan Continue to monitor, does not appear to be an acute CHF exacerbation (6) Leukocytosis, unspecified Current Visit: Yes Status: Acute Assessment and Plan: On arrival, patient's WBC was within normal limits range Patient is currently postop day 1 status post CABG 3 WBC 03/23 was 20.7, most likely reactive following procedure, 100.2 F overnight WBC today 14, Overnight no fevers Plan We will continue to monitor, repeat CBC in the morning If patient has another febrile episode, we will get urine and blood cultures, urinalysis and chest x-ray to assess for or further signs of infection (7) Anemia Current Visit: Yes Status: Acute Assessment and Plan: Patient with Hgb of 10.0 on admission Follow procedure 10.5--> 8.8 this am with repeat 8.7 this afternoon No obvious signs of bleeding, pleural tubes just removed today, with some blood in tubing overnight. No hematochezia, hematuria, melena. Plan Will continue to monitor q6h If Hgb is below 8, will call Dr. Hollis immediately as patient will need transfusion Patient already has type and screen If continues to remain stable will investigate further DVT Prophylaxis: SCDs - Time Spent with Patient Total time spent is greater than 50% in coordination of care (as documented) at patient's floor/unit and/or counseling patient: Internal Medicine: Result - Labs CBC & Chem 7: 03/24/18 12:25 03/24/18 03:15 Labs: Short CBC 03/24/18 03/24/18 Range/Units 03:15 12:25 WBC 14.0 H (4.3-11.1) K/mcL Hgb 8.8 L D 8.7 L (11.5-15.4) g/dL Hct 27.9 L 27.1 L (35.3-44.9) % Plt Count 190 (140-400) K/mcL Neutrophils # 10.2 H (1.6-8.9) K/mcL BMP 03/24/18 03:15 Sodium 134 L Potassium 5.1 Chloride 107 Carbon Dioxide 19 L BUN 50 H Creatinine 2.11 H Glucose 270 H Calcium 8.2 L - ABG Interpretation ABG results: ABG ABG pH 7.31 pH Units (7.32-7.45) L 03/22/18 22:36 ABG pCO2 46 mmHg (35-45) H 03/22/18 22:36 ABG pO2 77 mmHg (85-104) L 03/22/18 22:36 ABG O2 Saturation 94 % (95-98) L 03/22/18 22:36 PT/INR, D-dimer PT 10.5 Seconds (9.4-12.1) 03/23/18 04:00 - Impressions Impressions Chest X-Ray 03/24/18 06:00 IMPRESSION: Interval removal of [place]-Marybeth catheter. Opacity in the left lung base which may related to atelectasis and/or pleural effusion. There is a probable tiny left apical pneumothorax. D/ / Donna Garber MD / Donna Garber MD Interpreting Provider: Donna Garber MD - VTE Documentation of Mechanical Device: Graduated compression elastic hosiery Consult Discharge Plan - Plan Referrals: Goran Hollis MD [Partnered Physician] - 04/14/18 2:00 pm Saw Flores DO [Non-Partnered Physician] - 04/11/18 11:15 am ( ) Elsa West [Partnered Physician] - (office will call patient at home with follow up appointment) <Gertrudis Montiel - Last Filed: 03/24/18 15:19> Hospitalist Progress Note - Encounter Date of Encounter: 03/24/18 - Exam Vitals: Temp Pulse Resp BP Pulse Ox 99.1 F 84 18 118/86 96 03/24/18 13:49 03/24/18 13:49 03/24/18 13:49 03/24/18 13:49 03/24/18 13:49 - Assessment and Plan (1) Type 2 diabetes mellitus Current Visit: No Status: Acute (2) NSTEMI (non-ST elevated myocardial infarction) Current Visit: Yes Status: Acute (3) Acute kidney injury superimposed on chronic kidney disease Current Visit: Yes Status: Acute (4) Anemia Current Visit: Yes Status: Acute - Time Spent with Patient Total time spent is greater than 50% in coordination of care (as documented) at patient's floor/unit and/or counseling patient: Internal Medicine: Result - Labs CBC & Chem 7: 03/24/18 12:25 03/24/18 03:15 Labs: Short CBC 03/24/18 03/24/18 Range/Units 03:15 12:25 WBC 14.0 H (4.3-11.1) K/mcL Hgb 8.8 L D 8.7 L (11.5-15.4) g/dL Hct 27.9 L 27.1 L (35.3-44.9) % Plt Count 190 (140-400) K/mcL Neutrophils # 10.2 H (1.6-8.9) K/mcL BMP 03/24/18 03:15 Sodium 134 L Potassium 5.1 Chloride 107 Carbon Dioxide 19 L BUN 50 H Creatinine 2.11 H Glucose 270 H Calcium 8.2 L - ABG Interpretation ABG results: ABG ABG pH 7.31 pH Units (7.32-7.45) L 03/22/18 22:36 ABG pCO2 46 mmHg (35-45) H 03/22/18 22:36 ABG pO2 77 mmHg (85-104) L 03/22/18 22:36 ABG O2 Saturation 94 % (95-98) L 03/22/18 22:36 PT/INR, D-dimer PT 10.5 Seconds (9.4-12.1) 03/23/18 04:00 - Impressions Impressions Chest X-Ray 03/24/18 06:00 IMPRESSION: Interval removal of [place]-Marybeth catheter. Opacity in the left lung base which may related to atelectasis and/or pleural effusion. There is a probable tiny left apical pneumothorax. D/ / Donna Garber MD / Donna Garber MD Interpreting Provider: oDnna Garber MD - Attending Attestation I examined this patient and my medical decision-making was reviewed with the Resident Physician Dr Torres. I agree with the documented findings, disposition and treatment plan as described except to the extent set forth below. Ms Seaman is admitted to ICU s/p NSTEMI and CABG. awake, in chair, doing well, no cp, pressure or sob on o2 nc. increasing activity. no presyncope gen- alert, awake,appears stated age eyes- pupils equal round, no conjunctivla pallor cv- reg rate and rhythm, normal s1,s2, no murmurs appreciated, no le edema, no jvd, dressing c/d/i, chest tubes now removed lungs- ctabl, no wheezing, rhonchi or crackles, normal resp effort on o2 nc neuro- AAOx3 NSTEMI Severe 3V Disease s/p CABG 03/22 -CT surg managing post op care, off pressor now with chest tubes out, , garcia cath, art line also removed, -diuresis as per CT surg and nephro consult for sanaz on CKD SANAZ on CKD stage III- nephro following, urine studies, renal diet, avoid nephro toxins to best of ability, requires 2d of IV diuresis as ordered by CT surg at this time for CXR with pleural effusion (left) Acute on chronic anemia, post operative, most likely related to chest tube output as not other ivon bleeding noted on chart review- serial h/hs, if hgb less than [address] surg regarding transfusion need Leukocytosis suspect reactive as no s/s infection , down trending- monitor for fever, CXR, cxs all unremarkable for infection to date DM with hyperglycemia on admit- CT surg is managing insulin at this time further diagnoses and plan as noted by resident __ <Aj Torres - Last Filed: 03/24/18 13:48> (2) CAD (coronary artery disease), [place] coronary artery Qualifiers: [place] vs. transplanted heart: [place] heart Associated angina: without angina Qualified Code(s): I25.10 - Atherosclerotic heart disease of [place] coronary artery without angina pectoris (3) Type 2 diabetes mellitus Qualifiers: Diabetes mellitus fdc insulin use: with fdc use Diabetes mellitus complication status: with kidney complications Diabetes mellitus complication detail: with nephropathy Qualified Code(s): E11.21 - Type 2 diabetes mellitus with diabetic nephropathy; Z79.4 - joint terminal attack controller (current) use of insulin (5) CHF (congestive heart failure) Qualifiers: Heart failure type: diastolic Heart failure chronicity: acute on chronic Qualified Code(s): I50.33 - Acute on chronic diastolic (congestive) heart failure (7) Anemia Qualifiers: Chronic kidney disease stage: unspecified stage <Gertrudis Montiel - Last Filed: 03/24/18 15:19> (1) Type 2 diabetes mellitus Qualifiers: Diabetes mellitus fdc insulin use: unspecified fdc insulin use status Diabetes mellitus complication detail: with nephropathy Qualified Code(s): E11.21 - Type 2 diabetes mellitus with diabetic nephropathy (4) Anemia Qualifiers: Chronic kidney disease stage: unspecified stage Qualified Code(s): N18.9 - Chronic kidney disease, unspecified; D63.1 - Anemia in chronic kidney disease
[2018-03-24] MEDS: Insulin DETEMIR 100 UNIT/ML X5UNITS SQ SCH ×2 (14:08→21:11)
[2018-03-24 16:35] LABS: Hematocrit 27.6 % (35.3-44.9); Hemoglobin 8.5 g/dL (11.5-15.4)
[2018-03-24 22:22] LABS: Hematocrit 28.3 % (35.3-44.9); Hemoglobin 8.6 g/dL (11.5-15.4)
[2018-03-25 03:25] LABS: Basophils % 0.3 %; Eosinophils # 0.2 K/mcL (0.0-0.6); Eosinophils % 1.5 %; Hemoglobin 7.9 g/dL (11.5-15.4); Immature Granulocytes % 1.4 % (0-4); Lymphocytes % 16.9 %; Mean Corpuscular HGB Conc 31.6 g/dL (31.6-35.5); Mean Corpuscular Hemoglobin 28.4 pg (28.0-33.3); Mean Corpuscular Volume 89.9 fL (83.0-100.0); Mean Platelet Volume 10.4 fL (9.4-12.4); Monocytes # 1.3 K/mcL (0.0-1.3); Monocytes % 11.2 %; Nucleated Red Blood Cells 0.2 /100 WBC (0); Platelet Count 199 K/mcL (140-400); Red Blood Count 2.78 M/mcL (3.82-4.97); Red Cell Distribution Width 14.6 % (11.5-14.5); Segmented Neutrophils % 68.7 %
[2018-03-25 03:36] LABS: Albumin 3.1 g/dL (3.5-5.7); Calcium 8.2 mg/dL (8.6-10.3); Phosphorous 4.5 mg/dL (2.7-4.5); Potassium 4.4 mEq/L (3.5-5.1)
[2018-03-25] MEDS: Metoclopramide 10 MG/2 ML VIAL IVP SCH ×4 (03:49→16:51)
[2018-03-25] MEDS: *HR* OxyCODONE/APAP 5/325 TABLET PO PRN ×2 (03:52→13:07)
[2018-03-25] MEDS: *HR* Heparin 5,000 UNIT/ML VIAL SQ SCH ×2 (03:53→16:52)
[2018-03-25] MEDS: Pantoprazole 40 MG VIAL IVP SCH (03:53)
--- NOTE | 2018-03-25 07:44 | Cardiothoracic Progress Note ---
Date of Encounter: 03/25/18 Time of Encounter: 07:42 - Assessment and plan (1) CAD (coronary artery disease), [place] coronary artery Current Visit: Yes Status: Chronic The assessment and plan as outlined above was discussed with the patient and/or family members who expressed understanding and agreement. All questions were answered. The patient's creatinine has increased slightly. We appreciate the consult by the renal service. Qualifiers: [place] vs. transplanted heart: [place] heart Associated angina: without angina Qualified Code(s): I25.10 - Atherosclerotic heart disease of [place] coronary artery without angina pectoris - Subjective Interval history: The patient was able to urinate without difficulty last night. She has no complaints. Vital Signs, Last 4 Hours Resp Pulse Ox 03/25/18 04:11 15 94 Oxgyen Flow Rate Oxygen Flow Rate (LPM) 3 Weight 03/23/18 03/24/18 03/25/18 23:59 23:59 23:59 Weight 90.2 kg 96.6 kg Lungs are clear to percussion and auscultation. Heart is in a normal sinus rhythm. All incisions are healing well without signs of infection and the sternum is stable. - Labs 03/25/18 02:49 03/25/18 02:49 Lab Results, Last 24 hours 03/24/18 03/24/18 03/24/18 12:25 16:14 21:44 WBC Hgb 8.7 L 8.5 L 8.6 L Hct 27.1 L 27.6 L 28.3 L Plt Count Sodium Potassium Chloride Carbon Dioxide BUN Creatinine Glucose Calcium 03/25/18 03/25/18 02:49 02:49 WBC 11.6 H Hgb 7.9 L Hct 25.0 L Plt Count 199 Sodium 133 L Potassium 4.4 Chloride 107 Carbon Dioxide 20 L BUN 58 H Creatinine 2.13 H Glucose 225 H Calcium 8.2 L - VTE Documentation of Mechanical Device: Graduated compression elastic hosiery Consult Discharge Plan - Plan Referrals: Goran Hollis MD [Partnered Physician] - 04/14/18 2:00 pm Saw Flores DO [Non-Partnered Physician] - 04/11/18 11:15 am ( ) Elsa West [Partnered Physician] - (office will call patient at home with follow up appointment)
[2018-03-25] MEDS: Budesonide/Formoterol 80/4.5 MDI IH SCH ×2 (08:02→20:37)
[2018-03-25] MEDS: Acetaminophen 325 MG TABLET PO PRN (08:43)
[2018-03-25] MEDS: Aspirin Enteric Coated 81 MG Tablet PO SCH (08:43)
[2018-03-25] MEDS: Gabapentin 300 MG CAPSULE PO SCH ×2 (08:44→20:47)
[2018-03-25] MEDS: Furosemide 20 MG/2 ML VIAL IVP SCH ×2 (08:44→16:51)
[2018-03-25] MEDS: Chlorhexidine Rinse 15 ML MOUTHWASH MM SCH ×2 (08:44→20:51)
[2018-03-25] MEDS: Insulin LISPRO 300 UNITS/3 ML VIAL SQ SCH ×4 (08:45→20:53)
[2018-03-25] MEDS: Insulin DETEMIR 100 UNIT/ML X5UNITS SQ SCH ×2 (08:53→20:53)
--- NOTE | 2018-03-25 09:10 | Nephrology Progress Note ---
Addendum entered and electronically signed by Nicolas Ruiz, 03/25/18 18:35: I examined this patient and my medical decision-making was reviewed with the Resident Physician. I agree with the documented findings, disposition and treatment plan as described except to the extent set forth below. Continue to follow a renal protective strategy as able. She likely overtime will see her SCr trend better, but will need outpt Nephrology follow for her CKD as well. See below for details. Thank you. 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 - Patient is also s/p [facility] (received IV contrast) and CABG operation - SANAZ is likely due to a combination of these factors - Patient has a known history of runny kidney disease stage III - Baseline creatinine per chart review appears to be between 1.2 and 1.8 - SCr today is 2.13, up from 2.11 - Potassium is lower today at 4.4 Plan: - Will obtain urinalysis, Urine sodium, Urine Creatinine, Urine eosinophils, Urine uric acid - Renally dose medications, avoid nephrotoxins for possible - Strict Is and Os, daily weights (2) NSTEMI (non-ST elevated myocardial infarction) Current Visit: Yes Status: Acute - Initially presented with the chief complint of chest pain - [facility] 03/21/18: Severe three-vessel disease - CT surgery consulted; underwent CABG - Denise and pressures discontinued, chest tubes removed - Management per CT surgery (3) Anemia Current Visit: Yes Status: Acute - Patient presented with Hb of 10.0 - Per chart review, patients baseline appears to be between 9 and 10 - After patients CABG, subsequent Hb dropped to 8.8 - Closely monitor Hb and transfuse as necessary Qualifiers: Qualified Code(s): N18.9 - Chronic kidney disease, unspecified; D63.1 - Anemia in chronic kidney disease (4) Type 2 diabetes mellitus Current Visit: No Status: Acute - Patient has a known history of T2DM - Elevated glucose on arrival at 672 - Was initially started on insulin drip Qualifiers: Qualified Code(s): E11.21 - Type 2 diabetes mellitus with diabetic nephropathy Subjective Principal diagnosis: NSTEMI Interval history: Patient was seen and examined at bedside this morning. Patient states that she is feeling well today. Denies having any respiratory issues overnight. She denies having any chest pain, fever, chills, nausea, vomiting, shortness of breath, lightheadedness, or weakness. She has no complaints at this time. Objective - Vital Signs Vital signs: Vital Signs Temp Pulse Resp BP Pulse Ox 03/25/18 08:06 16 90 03/25/18 07:47 98.7 F 81 16 110/61 93 03/25/18 04:11 15 94 03/25/18 03:29 99.2 F 76 20 107/76 95 03/25/18 00:17 99.3 F 83 20 110/67 96 03/24/18 23:59 18 96 03/24/18 20:40 17 95 03/24/18 19:31 98.8 F 71 18 104/51 96 03/24/18 17:00 16 94 03/24/18 16:55 98.7 F 86 18 105/58 96 03/24/18 13:49 99.1 F 84 18 118/86 96 03/24/18 12:00 86 18 109/55 95 03/24/18 11:42 99.1 F 03/24/18 11:32 16 97 03/24/18 11:00 82 20 98/55 95 03/24/18 10:00 89 18 88/53 96 Intake and Output 03/24/18 03/25/18 03/25/18 23:59 07:59 15:59 Output Total 500 / 500 Balance -500 / -500 Output: Urine 500 / 500 Other: Weight 96.6 kg Blood Glucose* 374 222 Patient Weight 03/25/18 23:59 Weight 96.6 kg - General Appearance Exam: General: No acute distress Head: atraumatic, normocephalic Eye: PERRL, EOMI, conjuntiva pink, sclera anicteric Neck: Supple, trachea midline; No lymphadenopathy Respiratory: Shortened inspiratory phase, no wheezes, rales, or rhonchi Cardiovascular: RRR, +S1, +S2; no murmurs, rubs, gallops. Bandage over sternal area is clean and dry Abdomen: Soft, non-tender Extremities: No clubbing or cyanosis Neurological: No focal deficits noted Psychiatric: Normal affect, normal mood Skin: Dry, intact - Lab 03/25/18 02:49 03/25/18 02:49 Most recent lab results ABG pH 7.31 pH Units (7.32-7.45) L 03/22/18 22:36 ABG pCO2 46 mmHg (35-45) H 03/22/18 22:36 ABG pO2 77 mmHg (85-104) L 03/22/18 22:36 ABG HCO3 23 mEq/L (21-27) 03/22/18 22:36 ABG O2 Saturation 94 % (95-98) L 03/22/18 22:36 Calcium 8.2 mg/dL (8.6-10.3) L 03/25/18 02:49 Phosphorus 4.5 mg/dL (2.7-4.5) 03/25/18 02:49 Magnesium 2.8 mg/dL (1.6-2.6) H 03/23/18 04:00 - VTE Documentation of Mechanical Device: Graduated compression elastic hosiery Consult Discharge Plan - Plan Referrals: Елена Engel CNP [Advanced Practice Nurse] - 04/11/18 11:15 am Goran Hollis MD [Partnered Physician] - 04/14/18 2:00 pm Elsa West [Partnered Physician] - (office will call patient at home with follow up appointment)
[2018-03-25 09:50] LABS: Sodium, Urine 25.7 mEq/L
--- NOTE | 2018-03-25 09:59 | Internal Med Progress Note ---
<Aj Torres - Last Filed: 03/25/18 13:17> Date of Encounter: 03/25/18 Time of Encounter: 13:18 - Assessment and plan (1) NSTEMI (non-ST elevated myocardial infarction) Current Visit: Yes Status: Acute Assessment and plan: Patient is a transfer from [facility] with chief complaint of chest pain. On arrival patient was hypertensive with a blood pressure 191/123 and was tachycardic. Patient had a troponin that was elevated at 0.06, with an EKG which showed nonspecific changes compared with previous. Patient was given loading dose aspirins ulcer on heparin and nitro drip. Patient was transferred and admitted with concern for NSTEMI. Troponin on arrival was 0.32, 0.47, 0.42, continuing to down trend Per cardiology, patient had left heart catheter on 03/21 showing 3 vessel disease. Echocardiogram was performed which showed ejection fraction of 60% Cardiothoracic surgery was consulted for CABG. 03/22/2018 patient had CABG 3, patient was extubated on 03/23/2018 03/23/18: patients swan kevin catheter removed without difficulty 03/24/18: patient was taken off of pressors, arterial line removed, garcia removed. 03/25/18: Patient moved from ICU to Patient is currently postop day 1, states that overall she feels significantly improved. Has no chest pain currently. States she has mild shortness of breath. Plan Patient currently on examination with arterial line, garcia and pressors removed, per CTS recommendation Complete cardiothoracic care and above-mentioned interventions are being managed by cardiothoracic surgery (2) CAD (coronary artery disease), [place] coronary artery Current Visit: Yes Status: Chronic Assessment and plan: Known CAD s/p PCI. Known CAD hx--[facility] 11/2017 with PTCA to prox and mid LAD. [facility] 12/2017 severe 2 vessel CAD s/p JULEE to [facility]us. S/P CABGx 3 on 03/22/18 Plan Continue ASA, Plavix, Statin, BB per CTS recommendations and management Qualifiers: [place] vs. transplanted heart: [place] heart Associated angina: without angina Qualified Code(s): I25.10 - Atherosclerotic heart disease of [place] coronary artery without angina pectoris (3) Type 2 diabetes mellitus Current Visit: No Status: Chronic Assessment and plan: On arrival, patient had glucose of 672, no ketone or acidosis was present Patient was started on insulin drip, patient glucose has been trending down at this point. Patient has remained nothing by mouth to this point following postop. Insulin drip was stopped on 03/22/2018 and started on sliding scale with Levemir 20 units Plan CTS currently managing insulin regimen, patient currently on Levemir 30 units BID and SSI Once patient is cleared per CTS standpoint, will continue insulin regimen management Qualifiers: Diabetes mellitus [facility] insulin use: with regional intermodal truck driver use Diabetes mellitus complication status: with kidney complications Diabetes mellitus complication detail: with nephropathy Qualified Code(s): E11.21 - Type 2 diabetes mellitus with diabetic nephropathy; Z79.4 - exterminator termite (current) use of insulin (4) CKD (chronic kidney disease) stage 3, GFR 30-59 ml/min Current Visit: Yes Status: Chronic Assessment and plan: Per CTS recommendation, nephrology was consulted given SCr of 2.11--> 2.13 today, change from 1.2- 1.8 baseline (5) CHF (congestive heart failure) Current Visit: No Status: Acute Assessment and plan: Appears to be stable, ejection fraction is currently preserved Plan Continue to monitor Qualifiers: Heart failure type: diastolic Heart failure chronicity: acute on chronic Qualified Code(s): I50.33 - Acute on chronic diastolic (congestive) heart failure (6) Leukocytosis, unspecified Current Visit: Yes Status: Acute Assessment and plan: On arrival, patient's WBC was within normal limits range Patient is currently postop day 1 status post CABG 3 WBC 12/12 was 20.7, most likely reactive following procedure, 100.2 F overnight WBC today continuing to trend down, today 11.6, Overnight no fevers Plan We will continue to monitor, repeat CBC in the morning If patient has another febrile episode, we will get urine and blood cultures, urinalysis and chest x-ray to assess for or further signs of infection (7) Anemia Current Visit: Yes Status: Acute Assessment and plan: Patient with Hgb of 10.0 on admission Follow procedure 10.5--> 8.8 --> 8.7--> 7.9 this am No obvious signs of bleeding, pleural tubes just removed. No hematochezia, hematuria, melena. Plan Will continue to monitor q6h Patient already has type and screen Discussed Hgb with Dr. Hollis this morning, with Hgb 7.9, was instructed that transfusion if Hgb< 7. Will continue to monitor Will investigate: order iron study, UA, stool guiac, will stop sq heparin now. Start SCDs Qualifiers: Chronic kidney disease stage: unspecified stage Qualified Code(s): N18.9 - Chronic kidney disease, unspecified; D63.1 - Anemia in chronic kidney disease - Time Spent With Patient less than 15 minutes - Subjective Interval history: Patient was seen and examined this morning. Patient currently sitting in her chair, states that she has been up and walking to the restroom and back without difficulty. States she does have some shortness of breath, but denies chest pain. Patient does not recall any fevers or chills overnight. She has been using her incentive spirometer. - Constitutional Vitals: Temp Pulse Resp BP Pulse Ox 98.7 F 81 16 110/61 90 03/25/18 07:47 03/25/18 07:47 03/25/18 08:06 03/25/18 07:47 03/25/18 08:06 Exam: CONSTITUTIONAL: patient appears as an age appropriate female in no acute distress. sitting in chair EYES Clear sclerae, bilateral pupils are equal, reactive to light. RESPIRATORY: No accessory muscle use, some crackles to the bases bilaterally, Slightly blunted due to pain CARDIOVASCULAR: Regular heart rate, normal S1 and S2, no murmurs, bandage applied to the sternal region, edges appeared clean, nonerythematous, nontender to palpation, bandage over the mid abdomen as bilateral tubes removed GASTROINTESTINAL: no tenderness. MUSCULOSKELETAL: no edema, no cyanosis. Bilateral peripheral pulses 2+. NEUROLOGIC: CN II to XII are grossly intact, no focal neurological deficit. Internal Medicine: Result - Labs CBC & Chem 7: 03/25/18 02:49 03/25/18 02:49 Labs: Short CBC 03/24/18 03/24/18 03/24/18 Range/Units 12:25 16:14 21:44 WBC (4.3-11.1) K/mcL Hgb 8.7 L 8.5 L 8.6 L (11.5-15.4) g/dL Hct 27.1 L 27.6 L 28.3 L (35.3-44.9) % Plt Count (140-400) K/mcL Neutrophils # (1.6-8.9) K/mcL 03/25/18 Range/Units 02:49 WBC 11.6 H (4.3-11.1) K/mcL Hgb 7.9 L (11.5-15.4) g/dL Hct 25.0 L (35.3-44.9) % Plt Count 199 (140-400) K/mcL Neutrophils # 8.0 (1.6-8.9) K/mcL BMP 03/25/18 02:49 Sodium 133 L Potassium 4.4 Chloride 107 Carbon Dioxide 20 L BUN 58 H Creatinine 2.13 H Glucose 225 H Calcium 8.2 L Liver Function 03/25/18 Range/Units 02:49 Albumin 3.1 L (3.5-5.7) g/dL - ABG Interpretation ABG results: ABG ABG pH 7.31 pH Units (7.32-7.45) L 03/22/18 22:36 ABG pCO2 46 mmHg (35-45) H 03/22/18 22:36 ABG pO2 77 mmHg (85-104) L 03/22/18 22:36 ABG O2 Saturation 94 % (95-98) L 03/22/18 22:36 PT/INR, D-dimer PT 10.5 Seconds (9.4-12.1) 03/23/18 04:00 - VTE Documentation of Mechanical Device: Graduated compression elastic hosiery Consult Discharge Plan - Plan Referrals: Елена Engel CNP [Advanced Practice Nurse] - 04/11/18 11:15 am Goran Hollis MD [Partnered Physician] - 04/14/18 2:00 pm Elsa West [Partnered Physician] - (office will call patient at home with follow up appointment) <Gertrudis Montiel - Last Filed: 03/25/18 15:45> Date of Encounter: 03/25/18 - Assessment and plan (1) Type 2 diabetes mellitus Current Visit: No Status: Acute Qualifiers: Diabetes mellitus regional intermodal truck driver insulin use: unspecified regional intermodal truck driver insulin use status Diabetes mellitus complication detail: with nephropathy (2) NSTEMI (non-ST elevated myocardial infarction) Current Visit: Yes Status: Acute (3) Acute kidney injury superimposed on chronic kidney disease Current Visit: Yes Status: Acute (4) Anemia Current Visit: Yes Status: Acute Qualifiers: Chronic kidney disease stage: unspecified stage Qualified Code(s): N18.9 - Chronic kidney disease, unspecified; D63.1 - Anemia in chronic kidney disease - Constitutional Vitals: Temp Pulse Resp BP Pulse Ox 98.7 F 81 16 110/61 90 03/25/18 07:47 03/25/18 07:47 03/25/18 08:06 03/25/18 07:47 03/25/18 08:06 Internal Medicine: Result - Labs CBC & Chem 7: 03/25/18 14:47 03/25/18 02:49 Labs: Short CBC 03/24/18 03/24/18 03/24/18 Range/Units 12:25 16:14 21:44 WBC (4.3-11.1) K/mcL Hgb 8.7 L 8.5 L 8.6 L (11.5-15.4) g/dL Hct 27.1 L 27.6 L 28.3 L (35.3-44.9) % Plt Count (140-400) K/mcL Neutrophils # (1.6-8.9) K/mcL 03/25/18 Range/Units 02:49 WBC 11.6 H (4.3-11.1) K/mcL Hgb 7.9 L (11.5-15.4) g/dL Hct 25.0 L (35.3-44.9) % Plt Count 199 (140-400) K/mcL Neutrophils # 8.0 (1.6-8.9) K/mcL BMP 03/25/18 02:49 Sodium 133 L Potassium 4.4 Chloride 107 Carbon Dioxide 20 L BUN 58 H Creatinine 2.13 H Glucose 225 H Calcium 8.2 L Liver Function 03/25/18 Range/Units 02:49 Albumin 3.1 L (3.5-5.7) g/dL - ABG Interpretation ABG results: ABG ABG pH 7.31 pH Units (7.32-7.45) L 03/22/18 22:36 ABG pCO2 46 mmHg (35-45) H 03/22/18 22:36 ABG pO2 77 mmHg (85-104) L 03/22/18 22:36 ABG O2 Saturation 94 % (95-98) L 03/22/18 22:36 PT/INR, D-dimer PT 10.5 Seconds (9.4-12.1) 03/23/18 04:00 - Attending Attestation I examined this patient and my medical decision-making was reviewed with the Resident Physician Dr Torres. I agree with the documented findings, disposition and treatment plan as described except to the extent set forth below. Ms Seaman is admitted to ICU s/p NSTEMI and CABG. awake, in chair, no cp, pressure or sob on o2 nc. states it was off for awhile yesterday and she felt fine without it. no wheezing. Notes she actually urinated fine yesterday but didn't urinate in the hat. She denies hesitancy, hematuria and feels she is emptying bladder completely with voids. aware of low blood count, denies any bleeding. denies sob, fatigue, presyncope. gen- alert, awake,appears stated age eyes- pupils equal round, no conjunctivla pallor cv- reg rate and rhythm, normal s1,s2, no murmurs appreciated, no le edema, no jvd, dressing c/d/i lungs- ctabl, no wheezing, rhonchi , + bibasilar crackles, normal resp effort on o2 nc neuro- AAOx3 I have disucssed with Dr Hollis today and given pt is post CABG he is managing all post op care with nephro managing SANAZ on CKD and the Hospitalist team will stay on board to manage Diabetes Mellitus NSTEMI Severe 3V Disease s/p CABG 03/22 -CT surg managing post op care SANAZ on CKD stage III- nephro following Acute on chronic anemia, post operative- expected as d/w Dr Hollis, ok to cont heparin, no need for occult stool check, defer management to CT surg DM with hyperglycemia on admit- increase levemir to 35 units bid, ssi and cont to adjust daily as needed further diagnoses and plan as noted by resident
[2018-03-25 11:41] LABS: % Iron Saturation 5 % (15-50); Iron 14 mcg/dL (50-170); Transferrin 204 mg/dL (203-362)
[2018-03-25] MEDS ORDERED: *HR* LORazepam 2 MG/ML VIAL IVP ONE (14:57)
[2018-03-25 15:13] LABS: Hematocrit 25.4 % (35.3-44.9)
[2018-03-25] MEDS: Menthol 9.1 MG LOZENGE PO PRN (16:00)
[2018-03-26] MEDS: *HR* OxyCODONE/APAP 5/325 TABLET PO PRN ×4 (00:02→21:56)
[2018-03-26 03:49] LABS: Basophils % 0.3 %; Eosinophils # 0.4 K/mcL (0.0-0.6); Eosinophils % 2.7 %; Hematocrit 25.8 % (35.3-44.9); Hemoglobin 8.3 g/dL (11.5-15.4); Immature Granulocytes % 1.8 % (0-4); Lymphocytes % 15.4 %; Mean Corpuscular HGB Conc 32.2 g/dL (31.6-35.5); Mean Corpuscular Hemoglobin 28.8 pg (28.0-33.3); Mean Corpuscular Volume 89.6 fL (83.0-100.0); Mean Platelet Volume 10.9 fL (9.4-12.4); Monocytes # 1.4 K/mcL (0.0-1.3); Monocytes % 10.8 %; Neutrophils # 9.1 K/mcL (1.6-8.9); Nucleated Red Blood Cells 0.2 /100 WBC (0); Platelet Count 241 K/mcL (140-400); Red Blood Count 2.88 M/mcL (3.82-4.97); Red Cell Distribution Width 14.5 % (11.5-14.5)
[2018-03-26 03:51] LABS: Calcium 8.3 mg/dL (8.6-10.3)
[2018-03-26] MEDS: Pantoprazole 40 MG VIAL IVP SCH (05:34)
[2018-03-26] MEDS: *HR* Heparin 5,000 UNIT/ML VIAL SQ SCH ×2 (05:34→17:35)
--- NOTE | 2018-03-26 07:45 | Internal Med Progress Note ---
<Gertrudis Montiel - Last Filed: 03/26/18 10:37> Hospitalist Progress Note - Encounter Date of Encounter: 03/26/18 - Exam Vitals: Temp Pulse Resp BP Pulse Ox 98.9 F 77 18 118/69 96 03/26/18 07:28 03/26/18 07:28 03/26/18 08:13 03/26/18 07:28 03/26/18 08:13 - Assessment and Plan (1) Type 2 diabetes mellitus Current Visit: No Status: Acute (2) NSTEMI (non-ST elevated myocardial infarction) Current Visit: Yes Status: Acute (3) Acute kidney injury superimposed on chronic kidney disease Current Visit: Yes Status: Acute (4) Anemia Current Visit: Yes Status: Acute - Time Spent with Patient Total time spent is greater than 50% in coordination of care (as documented) at patient's floor/unit and/or counseling patient: Internal Medicine: Result - Labs CBC & Chem 7: 03/26/18 03:16 03/26/18 03:16 Labs: Short CBC 03/25/18 03/26/18 Range/Units 14:47 03:16 WBC 13.1 H (4.3-11.1) K/mcL Hgb 8.0 L 8.3 L (11.5-15.4) g/dL Hct 25.4 L 25.8 L (35.3-44.9) % Plt Count 241 (140-400) K/mcL Neutrophils # 9.1 H (1.6-8.9) K/mcL BMP 03/26/18 03:16 Sodium 134 L Potassium 5.0 Chloride 106 Carbon Dioxide 20 L BUN 70 H Creatinine 2.17 H Glucose 186 H Calcium 8.3 L - ABG Interpretation ABG results: ABG ABG pH 7.31 pH Units (7.32-7.45) L 03/22/18 22:36 ABG pCO2 46 mmHg (35-45) H 03/22/18 22:36 ABG pO2 77 mmHg (85-104) L 03/22/18 22:36 ABG O2 Saturation 94 % (95-98) L 03/22/18 22:36 PT/INR, D-dimer PT 10.5 Seconds (9.4-12.1) 03/23/18 04:00 Consult Discharge Plan - Plan Referrals: Елена Engel, JACK [Advanced Practice Nurse] - 04/11/18 11:15 am Goran Hollis MD [Partnered Physician] - 04/14/18 2:00 pm Elsa West [Partnered Physician] - (office will call patient at home with follow up appointment) - Attending Attestation I examined this patient and my medical decision-making [facility]. I agree with the documented findings, disposition and treatment plan as described except to the extent set forth below. Ms Seaman was admitted under hospitalist service with NSTEM. She underwent CABG and is being managed by CT surg post operatively. She has SANAZ on CKD being managed by nephro and hospitalist team is now following for diabetes management awake, no cp, palpitations or sob. remains on o2 nc. denies cough. with her bs now closer to goal she feels as if bs is low with some shakiness given that her bs run very high (up to 600s routinely per pt) at home. gen- alert, awake,appears stated age cv- reg rate and rhythm, normal s1,s2, no murmurs appreciated, no le edema lungs- ctabl, no wheezing, rhonchi , diminished bl bases, normal resp effort on o2 nc neuro- AAOx3 NSTEMI Severe 3V Disease s/p CABG 03/22 -CT surg managing post op care SANAZ on CKD stage III- nephro following Acute on chronic anemia, post operative- expected as d/w Dr Hollis, defer management to CT surg DM with hyperglycemia on admit, poorly controlled bs at home - cont levemir 35 units bid, add mealtime insulin, cont ssi and cont to adjust daily as needed -home regimen is 70/30 insulin 70 units BID further diagnoses and plan as noted by resident <Sarthak Duran - Last Filed: 03/26/18 11:25> Hospitalist Progress Note - Encounter Date of Encounter: 03/26/18 Time of Encounter: 07:45 - Subjective Interval History: Patient doing well this morning. Hospitalist team managing diabetes. Glucose stable in morning labs, 196. She has been requiring significant sliding scale throughout the day. We will start Humalog 5mg TIDAC to hopefully get ahead of it. No events overnight. - Exam Vitals: Temp Pulse Resp BP Pulse Ox 98.9 F 77 18 118/69 96 03/26/18 07:28 03/26/18 07:28 03/26/18 07:28 03/26/18 07:28 03/26/18 07:28 Exam: CONSTITUTIONAL: patient appears as an age appropriate female in no acute distress. EYES Clear sclerae, bilateral pupils are equal, reactive to light. RESPIRATORY: No accessory muscle use, bilateral clear to auscultation, Slightly blunted due to pain CARDIOVASCULAR: Regular heart rate, normal S1 and S2, no murmurs, bandage applied to the sternal region, edges appeared clean, nonerythematous, nontender to palpation, bandage over the mid abdomen as bilateral tubes removed GASTROINTESTINAL: no tenderness. MUSCULOSKELETAL: no edema, no cyanosis. Bilateral peripheral pulses 2+. NEUROLOGIC: CN II to XII are grossly intact, no focal neurological deficit. - Assessment and Plan (1) Type 2 diabetes mellitus Current Visit: Yes Status: Chronic Assessment and Plan: Managing diabetes, rest of management per cardiothoracic and nephrology Patient chronic type 2 diabetic, uncontrolled, levemir 70/30 at home Currently receiving Levemir 35 units BID and sliding scale, accuchecks ACHS 40 units sliding scale yesterday and AM glucose 196 today Will start Humalog 5 units TIDAC Continue to monitor (2) NSTEMI (non-ST elevated myocardial infarction) Current Visit: Yes Status: Acute Assessment and Plan: STEMI transfer from [facility] CABG performed 03/22 Hemodynamically stable Management per cardiothoracic (3) Acute kidney injury superimposed on chronic kidney disease Current Visit: Yes Status: Acute Assessment and Plan: SANAZ on CKD 3 Nephro managing (4) Anemia Current Visit: Yes Status: Acute Assessment and Plan: Acute on chronic HgB stable today > 8 CTS managing DVT Prophylaxis: sq heparin - Time Spent with Patient Total time spent is greater than 50% in coordination of care (as documented) at patient's floor/unit and/or counseling patient: Internal Medicine: Result - Labs CBC & Chem 7: 03/26/18 03:16 03/26/18 03:16 Labs: Short CBC 03/25/18 03/26/18 Range/Units 14:47 03:16 WBC 13.1 H (4.3-11.1) K/mcL Hgb 8.0 L 8.3 L (11.5-15.4) g/dL Hct 25.4 L 25.8 L (35.3-44.9) % Plt Count 241 (140-400) K/mcL Neutrophils # 9.1 H (1.6-8.9) K/mcL BMP 03/26/18 03:16 Sodium 134 L Potassium 5.0 Chloride 106 Carbon Dioxide 20 L BUN 70 H Creatinine 2.17 H Glucose 186 H Calcium 8.3 L - ABG Interpretation ABG results: ABG ABG pH 7.31 pH Units (7.32-7.45) L 03/22/18 22:36 ABG pCO2 46 mmHg (35-45) H 03/22/18 22:36 ABG pO2 77 mmHg (85-104) L 03/22/18 22:36 ABG O2 Saturation 94 % (95-98) L 03/22/18 22:36 PT/INR, D-dimer PT 10.5 Seconds (9.4-12.1) 03/23/18 04:00 - VTE Documentation of Mechanical Device: Graduated compression elastic hosiery <Gertrudis Montiel - Last Filed: 03/26/18 10:37> (1) Type 2 diabetes mellitus Qualifiers: Diabetes mellitus retirement insulin use: unspecified terminal worker insulin use status Diabetes mellitus complication detail: with nephropathy (4) Anemia Qualifiers: Chronic kidney disease stage: unspecified stage Qualified Code(s): N18.9 - Chronic kidney disease, unspecified; D63.1 - Anemia in chronic kidney disease <Sarthak Duran - Last Filed: 03/26/18 11:25> (1) Type 2 diabetes mellitus Qualifiers: Diabetes mellitus terminal worker insulin use: unspecified retirement insulin use status Diabetes mellitus complication detail: with nephropathy (4) Anemia Qualifiers: Chronic kidney disease stage: unspecified stage Qualified Code(s): N18.9 - Chronic kidney disease, unspecified; D63.1 - Anemia in chronic kidney disease
[2018-03-26] MEDS: Budesonide/Formoterol 80/4.5 MDI IH SCH ×2 (08:11→20:07)
[2018-03-26] MEDS: Chlorhexidine Rinse 15 ML MOUTHWASH MM SCH ×2 (08:37→21:59)
[2018-03-26] MEDS: Aspirin Enteric Coated 81 MG Tablet PO SCH (08:38)
[2018-03-26] MEDS: Gabapentin 300 MG CAPSULE PO SCH ×2 (08:38→21:59)
[2018-03-26] MEDS: Insulin LISPRO 300 UNITS/3 ML VIAL SQ SCH ×6 (08:39→21:59)
[2018-03-26] MEDS: Insulin DETEMIR 100 UNIT/ML X5UNITS SQ SCH ×2 (08:47→21:59)
--- NOTE | 2018-03-26 08:50 | Nephrology Progress Note ---
Date of Encounter: 03/26/18 Time of Encounter: 10:49 - Assessment and Plan (1) Acute kidney injury superimposed on chronic kidney disease Current Visit: Yes Status: Acute Roughly stable. Continue to follow a conservative/renal protective strategy, and over time with lifestyle mods such as ideal glycemic control, weight loss, cardiac rehab s/p CABG, and avoidance of the NSAIDs she was taking prior to admission, I suspect her SCr may slowly stablize over time. My colleague Dr. Wise will be on-service for Wednesday, otherwise tomorrow (Wednesday) I would be happy to help if needed. She will need an outpt Nephrology appt in about 3-5 weeks with a BMP to be checked about 1 week after discharge. Thank you. (2) CKD (chronic kidney disease) stage 3, GFR 30-59 ml/min Current Visit: Yes Status: Chronic (3) Anemia Current Visit: Yes Status: Acute Qualifiers: Chronic kidney disease stage: unspecified stage Qualified Code(s): N18.9 - Chronic kidney disease, unspecified; D63.1 - Anemia in chronic kidney disease (4) Hypertensive renal disease with renal failure Current Visit: Yes Status: Chronic (5) CAD (coronary artery disease), apache coronary artery Current Visit: Yes Status: Chronic Qualifiers: [place] vs. transplanted heart: apache heart Associated angina: without angina Qualified Code(s): I25.10 - Atherosclerotic heart disease of apache coronary artery without angina pectoris Subjective Principal diagnosis: NSTEMI Interval history: Pt was s/e. She did not affirm N/V/D and said that she feels about the same. She did not affirm other major complaints. Objective - Vital Signs Vital signs: Vital Signs Temp Pulse Resp BP Pulse Ox 03/26/18 08:13 18 96 03/26/18 07:28 98.9 F 77 18 118/69 96 03/26/18 04:24 18 95 03/26/18 03:55 98.0 F 80 19 111/59 95 03/25/18 23:42 98.0 F 73 20 110/61 95 03/25/18 23:33 18 97 03/25/18 20:45 72 03/25/18 20:37 18 113/67 97 03/25/18 19:13 98.0 F 78 18 113/67 96 03/25/18 16:29 18 95 03/25/18 16:24 98.4 F 72 16 94/56 96 03/25/18 12:23 98.8 F 75 19 120/67 95 03/25/18 11:41 16 95 Intake and Output 03/25/18 03/26/18 03/26/18 23:59 07:59 15:59 Intake Total 240 / 240 Output Total 400 / 400 300 / 300 Balance -400 / -400 -300 / -300 240 / 240 Intake: Oral 240 / 240 Output: Urine 400 / 400 300 / 300 Other: Meal Breakfast Percent of Meal Consumed 100% Weight 98.1 kg Blood Glucose* 321 196 Patient Weight 03/26/18 23:59 Weight 98.1 kg - General Appearance Exam: General: No acute distress Head: atraumatic, normocephalic Eye: PERRL, EOMI Neck: Supple, trachea midline; No lymphadenopathy Respiratory: Shortened inspiratory phase, no wheezes, rales, or rhonchi Cardiovascular: RRR, +S1, +S2; no murmurs, rubs, gallops. Bandage over sternal area is clean and dry Abdomen: Soft, non-tender Extremities: No clubbing or cyanosis Neurological: No focal deficits noted Psychiatric: Normal affect, normal mood Skin: Dry, intact - Lab 03/26/18 03:16 03/29/18 04:06 Most recent lab results ABG pH 7.31 pH Units (7.32-7.45) L 03/22/18 22:36 ABG pCO2 46 mmHg (35-45) H 03/22/18 22:36 ABG pO2 77 mmHg (85-104) L 03/22/18 22:36 ABG HCO3 23 mEq/L (21-27) 03/22/18 22:36 ABG O2 Saturation 94 % (95-98) L 03/22/18 22:36 Calcium 8.3 mg/dL (8.6-10.3) L 03/26/18 03:16 Phosphorus 4.5 mg/dL (2.7-4.5) 03/25/18 02:49 Magnesium 2.8 mg/dL (1.6-2.6) H 03/23/18 04:00 Urine Creatinine 116 mg/dL 03/25/18 08:10 Urine Sodium 25.7 mEq/L 03/25/18 08:10 - VTE Documentation of Mechanical Device: Graduated compression elastic hosiery Consult Discharge Plan - Plan Referrals: Елена Engel CNP [Advanced Practice Nurse] - 04/11/18 11:15 am Goran Hollis MD [Partnered Physician] - 04/14/18 2:00 pm Elsa West [Partnered Physician] - (office will call patient at home with follow up appointment)
[2018-03-26] MEDS: Acetaminophen 325 MG TABLET PO PRN (12:42)
--- NOTE | 2018-03-26 13:15 | Cardiothoracic Progress Note ---
Date of Encounter: 03/26/18 Time of Encounter: 13:13 - Subjective Procedure(s) Performed: Patient seen and examined. In summary the patient is a 62-year-old obese white female with underlying renal insufficiency who is POD # 4 from a CABG 3. She reportedly had an uneventful intraoperative and postoperative course. She reportedly had an uneventful night. She currently is sitting up in a chair and eating lunch. She has not had a bowel movement as of yet. She has been somewhat reluctant to ambulate and relatively sedentary based on nursing. We discussed the importance of increased activity and I will provide her a Dulcolax suppository to facilitate her bowel function. The patient and nursing staff stated they understood and agreed with the plan. Vital Signs, Last 4 Hours Temp Pulse Resp BP Pulse Ox 03/26/18 11:33 98.1 F 67 22 127/68 96 Oxgyen Flow Rate Oxygen Flow Rate (LPM) 2 Clinical Data, last 8 Hours Output, Urine Amount 400 Weight 03/24/18 03/25/18 03/26/18 23:59 23:59 23:59 Weight 90.2 kg 96.6 kg 98.1 kg - Physical Examination General: Other (Obese white female, sitting up in chair, eating, no acute distress) Sternum: Other (Wound stable, clean, dry and intact with no evidence of instability) - Labs 03/26/18 03:16 03/26/18 03:16 Lab Results, Last 24 hours 03/25/18 03/26/18 03/26/18 14:47 03:16 03:16 WBC 13.1 H Hgb 8.0 L 8.3 L Hct 25.4 L 25.8 L Plt Count 241 Sodium 134 L Potassium 5.0 Chloride 106 Carbon Dioxide 20 L BUN 70 H Creatinine 2.17 H Glucose 186 H Calcium 8.3 L - VTE Documentation of Mechanical Device: Graduated compression elastic hosiery Consult Discharge Plan - Plan Referrals: Елена Engel CNP [Advanced Practice Nurse] - 04/11/18 11:15 am Goran Hollis MD [Partnered Physician] - 04/14/18 2:00 pm Elsa West [Partnered Physician] - (office will call patient at home with follow up appointment)
[2018-03-26] MEDS: Bisacodyl 10 MG RECTAL SUPPOSITORY RC SCH (15:15)
[2018-03-27] MEDS: Pantoprazole 40 MG VIAL IVP SCH (06:11)
[2018-03-27] MEDS: *HR* Heparin 5,000 UNIT/ML VIAL SQ SCH ×2 (06:11→18:26)
[2018-03-27] MEDS: *HR* OxyCODONE/APAP 5/325 TABLET PO PRN ×3 (06:24→18:17)
[2018-03-27] MEDS: Budesonide/Formoterol 80/4.5 MDI IH SCH ×2 (07:41→20:30)
[2018-03-27] MEDS: Chlorhexidine Rinse 15 ML MOUTHWASH MM SCH ×2 (07:54→21:09)
[2018-03-27] MEDS: Gabapentin 300 MG CAPSULE PO SCH ×2 (07:55→21:09)
[2018-03-27] MEDS: Aspirin Enteric Coated 81 MG Tablet PO SCH (07:55)
--- NOTE | 2018-03-27 08:01 | Internal Med Progress Note ---
<Gertrudis Montiel - Last Filed: 03/27/18 11:41> Hospitalist Progress Note - Encounter Date of Encounter: 03/27/18 - Exam Vitals: Temp Pulse Resp BP Pulse Ox 98.9 F 81 19 120/63 97 03/27/18 07:54 03/27/18 07:54 03/27/18 07:54 03/27/18 07:54 03/27/18 07:54 - Assessment and Plan (1) Type 2 diabetes mellitus Current Visit: Yes Status: Chronic (2) NSTEMI (non-ST elevated myocardial infarction) Current Visit: Yes Status: Acute (3) Acute kidney injury superimposed on chronic kidney disease Current Visit: Yes Status: Acute (4) Anemia Current Visit: Yes Status: Acute - Time Spent with Patient Total time spent is greater than 50% in coordination of care (as documented) at patient's floor/unit and/or counseling patient: Internal Medicine: Result - Labs CBC & Chem 7: 03/26/18 03:16 03/27/18 07:37 Labs: BMP 03/27/18 07:37 Sodium 138 Potassium 4.7 Chloride 109 H Carbon Dioxide 21 L BUN 68 H Creatinine 2.03 H Glucose 151 H Calcium 8.5 L - ABG Interpretation ABG results: ABG ABG pH 7.31 pH Units (7.32-7.45) L 03/22/18 22:36 ABG pCO2 46 mmHg (35-45) H 03/22/18 22:36 ABG pO2 77 mmHg (85-104) L 03/22/18 22:36 ABG O2 Saturation 94 % (95-98) L 03/22/18 22:36 PT/INR, D-dimer PT 10.5 Seconds (9.4-12.1) 03/23/18 04:00 Consult Discharge Plan - Plan Referrals: Елена Engel CNP [Advanced Practice Nurse] - 04/11/18 11:15 am Goran Hollis MD [Partnered Physician] - 04/14/18 2:00 pm Elsa West [Partnered Physician] - (office will call patient at home with follow up appointment) - Attending Attestation I examined this patient and my medical decision-making was reviewed with the Resident Physician Dr Duran. I agree with the documented findings, dispo sition and treatment plan as described except to the extent set forth below. Ms Seaman was admitted under hospitalist service with NSTEM. She underwent CABG and is being managed by CT surg post operatively. She has SANAZ on CKD being managed by nephro and hospitalist team is now following for diabetes management awake, no cp, palpitations or sob. eating and drinking without difficulty. gen- alert, awake,appears stated age cv- reg rate and rhythm, normal s1,s2, no murmurs appreciated, no le edema lungs- ctabl, no wheezing, rhonchi , diminished bl bases, normal resp effort on o2 nc neuro- AAOx3 NSTEMI Severe 3V Disease s/p CABG 03/22 -CT surg managing post op care SANAZ on CKD stage III- nephro following Acute on chronic anemia, post operative- expected as d/w Dr Hollis, defer management to CT surg DM with hyperglycemia on admit, poorly controlled bs at home - cont levemir 35 units bid, TID AC 5 units, cont ssi and cont to adjust daily as needed -home regimen is 70/30 insulin 70 units BID further diagnoses and plan as noted by resident <Sarthak Duran - Last Filed: 03/27/18 12:10> Hospitalist Progress Note - Encounter Date of Encounter: 03/27/18 Time of Encounter: 08:01 - Subjective Interval History: Patient doing well this morning. Hospitalist team managing diabetes. Glucose st able in morning labs, 151. No events overnight. - Exam Vitals: Temp Pulse Resp BP Pulse Ox 98.9 F 81 19 120/63 97 03/27/18 07:54 03/27/18 07:54 03/27/18 07:54 03/27/18 07:54 03/27/18 07:54 Exam: CONSTITUTIONAL: patient appears as an age appropriate female in no acute distress. EYES Clear sclerae, bilateral pupils are equal, reactive to light. RESPIRATORY: No accessory muscle use, bilateral clear to auscultation, Slightly blunted due to pain CARDIOVASCULAR: Regular heart rate, normal S1 and S2, no murmurs, bandage applied to the sternal region, edges appeared clean, nonerythematous, nontender to palpation, bandage over the mid abdomen as bilateral tubes removed GASTROINTESTINAL: no tenderness. MUSCULOSKELETAL: no edema, no cyanosis. Bilateral peripheral pulses 2+. NEUROLOGIC: CN II to XII are grossly intact, no focal neurological deficit. - Assessment and Plan (1) Type 2 diabetes mellitus Current Visit: Yes Status: Chronic Assessment and Plan: Managing diabetes, rest of management per cardiothoracic and nephrology Patient chronic type 2 diabetic, uncontrolled, levemir 70/30 at home Currently receiving Levemir 35 units BID, Humalog 5 units TIDAC, and sliding scale, accuchecks ACHS glucose stable today at 151 Continue to monitor (2) NSTEMI (non-ST elevated myocardial infarction) Current Visit: Yes Status: Acute Assessment and Plan: STEMI transfer from [facility] CABG performed 03/22 Hemodynamically stable Management per cardiothoracic (3) Acute kidney injury superimposed on chronic kidney disease Current Visit: Yes Status: Acute Assessment and Plan: SANAZ on CKD 3 Nephro managing (4) Anemia Current Visit: Yes Status: Acute Assessment and Plan: Acute on chronic HgB stable yesterday > 8 CTS managing DVT Prophylaxis: sq heparin - Time Spent with Patient Total time spent is greater than 50% in coordination of care (as documented) at patient's floor/unit and/or counseling patient: Internal Medicine: Result - Labs CBC & Chem 7: 03/26/18 03:16 03/27/18 07:37 - ABG Interpretation ABG results: ABG ABG pH 7.31 pH Units (7.32-7.45) L 03/22/18 22:36 ABG pCO2 46 mmHg (35-45) H 03/22/18 22:36 ABG pO2 77 mmHg (85-104) L 03/22/18 22:36 ABG O2 Saturation 94 % (95-98) L 03/22/18 22:36 PT/INR, D-dimer PT 10.5 Seconds (9.4-12.1) 03/23/18 04:00 - VTE Documentation of Mechanical Device: Graduated compression elastic hosiery <Gertrudis Montiel - Last Filed: 03/27/18 11:41> (1) Type 2 diabetes mellitus Qualifiers: Diabetes mellitus intermission coordinator insulin use: unspecified skilled nursing insulin use status Diabetes mellitus complication detail: with nephropathy (4) Anemia Qualifiers: Chronic kidney disease stage: unspecified stage Qualified Code(s): N18.9 - Chronic kidney disease, unspecified; D63.1 - Anemia in chronic kidney disease <Sarthak Duran - Last Filed: 03/27/18 12:10> (1) Type 2 diabetes mellitus Qualifiers: Diabetes mellitus intermission coordinator insulin use: unspecified skilled nursing insulin use sta tus Diabetes mellitus complication detail: with nephropathy (4) Anemia Qualifiers: Chronic kidney disease stage: unspecified stage Qualified Code(s): N18.9 - Chronic kidney disease, unspecified; D63.1 - Anemia in chronic kidney disease
[2018-03-27] MEDS: Insulin DETEMIR 100 UNIT/ML X5UNITS SQ SCH ×2 (08:02→21:09)
[2018-03-27] MEDS: Insulin LISPRO 300 UNITS/3 ML VIAL SQ SCH ×7 (08:05→21:10)
[2018-03-27] MEDS: Bisacodyl 10 MG RECTAL SUPPOSITORY RC SCH (08:07)
[2018-03-27 08:33] LABS: Calcium 8.5 mg/dL (8.6-10.3); Potassium 4.7 mEq/L (3.5-5.1)
[2018-03-27] MEDS: Acetaminophen 325 MG TABLET PO PRN (10:07)
--- NOTE | 2018-03-27 13:45 | Cardiothoracic Progress Note ---
Date of Encounter: 03/27/18 Time of Encounter: 13:43 - Subjective Procedure(s) Performed: Patient seen and examined. In summary the patient is a 62-year-old obese white female with underlying renal insufficiency who is POD # 5 from a CABG 3. She reportedly had an uneventful intraoperative and postoperative course. Yesterday the patient was doing relatively well but remained relatively sedentary unless ambitious than ideal for ambulation. According to nursing, she reportedly had an uneventful night. She continues to require oxygen. She currently is sitting up in a chair and her primary complaint is leg discomfort with ambulation which she reports is a chronic problem. We again discussed the importance of increased activity. I verified the patient has a walker to assist in her am bulation for balance purposes and requested nursing to involve physical therapy in her management. The patient and nursing staff stated they understood and agreed with the plan. Vital Signs, Last 4 Hours Temp Pulse Resp BP Pulse Ox 03/27/18 12:15 98.7 F 68 18 124/80 94 03/27/18 11:41 16 96 Oxgyen Flow Rate Oxygen Flow Rate (LPM) 3 Clinical Data, last 8 Hours Output, Urine Amount 300 Weight 03/25/18 03/26/18 03/27/18 23:59 23:59 23:59 Weight 96.6 kg 98.1 kg 98.8 kg - Physical Examination General: Other (Sitting up in chair, no acute distress) Incision: Other (Clean dry and intact) Sternum: Other (No evidence of sternal instability) - Labs 03/26/18 03:16 03/27/18 07:37 Lab Results, Last 24 hours 03/27/18 07:37 Sodium 138 Potassium 4.7 Chloride 109 H Carbon Dioxide 21 L BUN 68 H Creatinine 2.03 H Glucose 151 H Calcium 8.5 L - VTE Documentation of Mechanical Device: Graduated compression elastic hosiery Consult Discharge Plan - Plan Referrals: Елена Engel CNP [Advanced Practice Nurse] - 04/11/18 11:15 am Goran Hollis MD [Partnered Physician] - 04/14/18 2:00 pm Elsa West [Partnered Physician] - (office will call patient at home with follow up appointment)
[2018-03-27] MEDS: Menthol 9.1 MG LOZENGE PO PRN (14:54)
[2018-03-28] MEDS: *HR* OxyCODONE/APAP 5/325 TABLET PO PRN ×4 (00:17→20:12)
[2018-03-28] MEDS: *HR* Heparin 5,000 UNIT/ML VIAL SQ SCH ×2 (04:59→17:27)
[2018-03-28] MEDS: Pantoprazole 40 MG VIAL IVP SCH (05:00)
[2018-03-28 06:20] LABS: Calcium 8.7 mg/dL (8.6-10.3); Potassium 4.8 mEq/L (3.5-5.1)
[2018-03-28] MEDS: Aspirin Enteric Coated 81 MG Tablet PO SCH (07:38)
[2018-03-28] MEDS: Chlorhexidine Rinse 15 ML MOUTHWASH MM SCH ×2 (07:38→20:12)
[2018-03-28] MEDS: Gabapentin 300 MG CAPSULE PO SCH ×2 (07:38→20:12)
[2018-03-28] MEDS: Bisacodyl 10 MG RECTAL SUPPOSITORY RC SCH (07:39)
[2018-03-28] MEDS: Insulin DETEMIR 100 UNIT/ML X5UNITS SQ SCH ×2 (07:42→20:12)
[2018-03-28] MEDS: Insulin LISPRO 300 UNITS/3 ML VIAL SQ SCH ×7 (07:43→20:12)
--- NOTE | 2018-03-28 07:49 | Internal Med Progress Note ---
<Gertrudis Montiel - Last Filed: 03/28/18 09:51> Hospitalist Progress Note - Encounter Date of Encounter: 03/28/18 - Exam Vitals: Temp Pulse Resp BP Pulse Ox 98.4 F 78 16 137/86 96 03/28/18 07:38 03/28/18 07:38 03/28/18 07:50 03/28/18 07:38 03/28/18 07:50 - Assessment and Plan (1) Type 2 diabetes mellitus Current Visit: Yes Status: Chronic (2) NSTEMI (non-ST elevated myocardial infarction) Current Visit: Yes Status: Acute (3) Acute kidney injury superimposed on chronic kidney disease Current Visit: Yes Status: Acute (4) Anemia Current Visit: Yes Status: Acute - Time Spent with Patient Total time spent is greater than 50% in coordination of care (as documented) at patient's floor/unit and/or counseling patient: Internal Medicine: Result - Labs CBC & Chem 7: 03/26/18 03:16 03/28/18 04:35 Labs: BMP 03/28/18 04:35 Sodium 139 Potassium 4.8 Chloride 108 H Carbon Dioxide 21 L BUN 65 H Creatinine 1.72 H Glucose 105 Calcium 8.7 - ABG Interpretation ABG results: ABG ABG pH 7.31 pH Units (7.32-7.45) L 03/22/18 22:36 ABG pCO2 46 mmHg (35-45) H 03/22/18 22:36 ABG pO2 77 mmHg (85-104) L 03/22/18 22:36 ABG O2 Saturation 94 % (95-98) L 03/22/18 22:36 PT/INR, D-dimer PT 10.5 Seconds (9.4-12.1) 03/23/18 04:00 Consult Discharge Plan - Plan Referrals: Елена Engel CNP [Advanced Practice Nurse] - 04/11/18 11:15 am Goran Hollis MD [Partnered Physician] - 04/14/18 2:00 pm Elsa West [Partnered Physician] - (office will call patient at home with follow up appointment) - Attending Attestation I examined this patient and my medical decision-making was reviewed with the Resident Physician Dr Duran. I agree with the documented findings, dispositi on and treatment plan as described except to the extent set forth below. Ms Seaman was admitted under hospitalist service with NSTEM. She underwent CABG and is being managed by CT surg post operatively. She has SANAZ on CKD being managed by nephro and hospitalist team is now following for diabetes management awake, no cp, palpitations. no sob at rest on o2, no cough. feeling well with normal blood sugars, no sxs. gen- alert, awake,appears stated age cv- reg rate and rhythm, normal s1,s2, no murmurs appreciated, no le edema lungs- ctabl, no wheezing, rhonchi , improved aeration bases, normal resp effort on o2 nc neuro- AAOx3 NSTEMI Severe 3V Disease s/p CABG 03/22 -CT surg managing post op care -plan is to dc to [facility] SANAZ on CKD stage III- nephro following, improving post op, avoid nephro toxins Acute on chronic anemia, post operative,stable- expected as d/w Dr Hollis, defer management to CT surg DM with hyperglycemia on admit, poorly controlled bs at home - cont levemir 35 units bid, TID AC 5 units, cont ssi and will cont to adjust daily as needed -home regimen is 70/30 insulin 70 units BID and at time of dc we are happy to give rec as to discharge insulin regimen further diagnoses and plan as noted by resident <Sarthak Duran - Last Filed: 03/28/18 11:13> Hospitalist Progress Note - Encounter Date of Encounter: 03/28/18 Time of Encounter: 07:49 - Subjective Interval History: Patient doing well this morning. Hospitalist team managing diabetes. Glucose stable in morning labs, 105. No events overnight. - Exam Vitals: Temp Pulse Resp BP Pulse Ox 98.4 F 78 18 137/86 100 03/28/18 07:38 03/28/18 07:38 03/28/18 07:38 03/28/18 07:38 03/28/18 07:38 Exam: CONSTITUTIONAL: patient appears as an age appropriate female in no acute distress. EYES Clear sclerae, bilateral pupils are equal, reactive to light. RESPIRATORY: No accessory muscle use, bilateral clear to auscultation CARDIOVASCULAR: Regular heart rate, normal S1 and S2, no murmurs, bandage applied to the sternal region, edges appeared clean, nonerythematous, nontender to palpation GASTROINTESTINAL: no tenderness. normal bowel sounds MUSCULOSKELETAL: no edema, no cyanosis. Bilateral peripheral pulses 2+. NEUROLOGIC: CN II to XII are grossly intact, no focal neurological deficit. - Assessment and Plan (1) Type 2 diabetes mellitus Current Visit: Yes Status: Chronic Assessment and Plan: Managing diabetes, rest of management per cardiothoracic and nephrology Patient chronic type 2 diabetic, uncontrolled, levemir 70/30 at home Currently receiving Levemir 35 units BID, Humalog 5 units TIDAC, and sliding scale, accuchecks ACHS glucose stable today at 105 Plan is for patient to go to [facility] Wednesday, we will refine insulin regimen for discharge this week Continue to monitor (2) NSTEMI (non-ST elevated myocardial infarction) Current Visit: Yes Status: Acute Assessment and Plan: STEMI transfer from [facility] CABG performed 03/22 Hemodynamically stable Management per cardiothoracic (3) Acute kidney injury superimposed on chronic kidney disease Current Visit: Yes Status: Acute Assessment and Plan: SANAZ on CKD 3 Nephro managing (4) Anemia Current Visit: Yes Status: Acute Assessment and Plan: Acute on chronic HgB stable CTS managing DVT Prophylaxis: sq heparin - Time Spent with Patient Total time spent is greater than 50% in coordination of care (as documented) at patient's floor/unit and/or counseling patient: Internal Medicine: Result - Labs CBC & Chem 7: 03/26/18 03:16 03/28/18 04:35 Labs: BMP 03/27/18 03/28/18 07:37 04:35 Sodium 138 139 Potassium 4.7 4.8 Chloride 109 H 108 H Carbon Dioxide 21 L 21 L BUN 68 H 65 H Creatinine 2.03 H 1.72 H Glucose 151 H 105 Calcium 8.5 L 8.7 - ABG Interpretation ABG results: ABG ABG pH 7.31 pH Units (7.32-7.45) L 03/22/18 22:36 ABG pCO2 46 mmHg (35-45) H 03/22/18 22:36 ABG pO2 77 mmHg (85-104) L 03/22/18 22:36 ABG O2 Saturation 94 % (95-98) L 03/22/18 22:36 PT/INR, D-dimer PT 10.5 Seconds (9.4-12.1) 03/23/18 04:00 - VTE Documentation of Mechanical Device: Graduated compression elastic hosiery <Gertrudis Montiel - Last Filed: 03/28/18 09:51> (1) Type 2 diabetes mellitus Qualifiers: Diabetes mellitus regional intermodal truck driver insulin use: unspecified regional intermodal truck driver insulin use status Diabetes mellitus complication detail: with nephropathy (4) Anemia Qualifiers: Chronic kidney disease stage: unspecified stage Qualified Code(s): N18.9 - Chronic kidney disease, unspecified; D63.1 - Anemia in chronic kidney disease <Sarthak Duran - Last Filed: 03/28/18 11:13> (1) Type 2 diabetes mellitus Qualifiers: Diabetes mellitus regional intermodal truck driver insulin use: unspecified regional intermodal truck driver insulin use status Diabetes mellitus complication detail: with nephropathy (4) Anemia Qualifiers: Chronic kidney disease stage: unspecified stage Qualified Code(s): N18.9 - C hronic kidney disease, unspecified; D63.1 - Anemia in chronic kidney disease
[2018-03-28] MEDS: Budesonide/Formoterol 80/4.5 MDI IH SCH ×2 (07:50→21:50)
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
--- NOTE | 2018-03-28 11:23 | Nephrology Progress Note ---
Addendum entered and electronically signed by Kevin Wise MD 03/29/18 07:25: I examined this patient and discussed the medical decision-making with JACK Perez 03/28/2018. I agree with the documented findings, disposition and treatment plan as described except to the extent set forth below. Original Note: Date of Encounter: 03/28/18 Time of Encounter: 11:20 - Assessment and Plan (1) Acute kidney injury superimposed on chronic kidney disease Current Visit: Yes Status: Acute Scr and GFR continue to improve. She is established with Dr. Lawrence. ROLO 7 days after discharge and f/u with Dr. Lawrence in 4-6 weeks. Continue to avoid nephrotoxins and renal dose all medications. (2) CAD (coronary artery disease), [place] coronary artery Current Visit: Yes Status: Chronic S/P OHS. Qualifiers: [place] vs. transplanted heart: [place] heart Associated angina: without angina Qualified Code(s): I25.10 - Atherosclerotic heart disease of [place] coronary artery without angina pectoris (3) Hypertensive renal disease with renal failure Current Visit: Yes Status: Chronic BP stable 134/66. (4) CKD (chronic kidney disease) stage 3, GFR 30-59 ml/min Current Visit: Yes Status: Chronic Baseline, she is follow by Dr. Lawrence. (5) Anemia Current Visit: Yes Status: Acute Goal HGB Is 10-11. Hgb 8.3 on 03/26/18. Qualifiers: Chronic kidney disease stage: unspecified stage Qualified Code(s): N18.9 - Chronic kidney disease, unspecified; D63.1 - Anemia in chronic kidney disease Subjective Principal diagnosis: NSTEMI Interval history: Pt seen and examined, doing well. Denies any chest pain or shortness of breath. Denies nausea, vomiting,diarrhea. Objective - Vital Signs Vital signs: Vital Signs Temp Pulse Resp BP Pulse Ox 03/28/18 11:13 98.5 F 65 22 134/66 99 03/28/18 07:50 16 96 03/28/18 07:38 98.4 F 78 18 137/86 100 03/28/18 04:37 98.4 F 72 18 126/72 98 03/28/18 03:52 12 97 03/28/18 00:15 18 100 03/28/18 00:02 98.3 F 64 18 137/69 96 03/27/18 21:24 72 03/27/18 20:30 18 100 03/27/18 20:09 98.8 F 73 18 143/94 99 03/27/18 16:42 98.4 F 73 18 126/67 94 03/27/18 16:01 20 96 03/27/18 12:15 98.7 F 68 18 124/80 94 03/27/18 11:41 16 96 Intake and Output 03/27/18 03/28/18 03/28/18 23:59 07:59 15:59 Intake Total 360 / 360 240 / 240 Output Total 325 / 325 600 / 600 500 / 500 Balance 35 / 35 -600 / -600 -260 / -260 Intake: Oral 360 / 360 240 / 240 Output: Urine 325 / 325 600 / 600 500 / 500 Other: Meal Dinner Breakfast Percent of Meal Consumed 100% 100% Weight 98.7 kg Blood Glucose* 222 82 175 Patient Weight 03/28/18 23:59 Weight 98.7 kg - General Appearance General appearance: Present: well-developed, well-nourished EENT: Present: ATNC, hearing intact, vision intact Neck: Present: supple Respiratory: Present: clear Cardiology: Present: edema (Trace bilat lower extremity edema.), normal S1, normal S2 Gastrointestinal: Present: normoactive bowel sounds, no tenderness, no guarding Integumentary: Present: no rash, warm and dry Neurologic: Present: alert and oriented x3 Psychiatric: Present: mood/affect appropriate, cooperative - Lab 03/26/18 03:16 03/28/18 04:35 Most recent lab results ABG pH 7.31 pH Units (7.32-7.45) L 03/22/18 22:36 ABG pCO2 46 mmHg (35-45) H 03/22/18 22:36 ABG pO2 77 mmHg (85-104) L 03/22/18 22:36 ABG HCO3 23 mEq/L (21-27) 03/22/18 22:36 ABG O2 Saturation 94 % (95-98) L 03/22/18 22:36 Calcium 8.7 mg/dL (8.6-10.3) 03/28/18 04:35 Phosphorus 4.5 mg/dL (2.7-4.5) 03/25/18 02:49 Magnesium 2.8 mg/dL (1.6-2.6) H 03/23/18 04:00 Urine Creatinine 116 mg/dL 03/25/18 08:10 Urine Sodium 25.7 mEq/L 03/25/18 08:10 - VTE Documentation of Mechanical Device: Graduated compression elastic hosiery Consult Discharge Plan - Plan Referrals: Елена Engel CNP [Advanced Practice Nurse] - 04/11/18 11:15 am Goran Hollis MD [Partnered Physician] - 04/14/18 2:00 pm Elsa West [Partnered Physician] - (office will call patient at home with follow up appointment)
[2018-03-28] MEDS: Acetaminophen 325 MG TABLET PO PRN ×2 (11:30→18:37)
[2018-03-29 05:00] LABS: Calcium 8.6 mg/dL (8.6-10.3); Potassium 4.5 mEq/L (3.5-5.1)
[2018-03-29] MEDS: *HR* Heparin 5,000 UNIT/ML VIAL SQ SCH ×2 (05:42→17:34)
[2018-03-29] MEDS: Pantoprazole 40 MG VIAL IVP SCH (05:42)
[2018-03-29] MEDS: Budesonide/Formoterol 80/4.5 MDI IH SCH ×2 (07:41→19:40)
[2018-03-29] MEDS: Insulin LISPRO 300 UNITS/3 ML VIAL SQ SCH ×7 (07:50→21:09)
[2018-03-29] MEDS: Aspirin Enteric Coated 81 MG Tablet PO SCH (08:17)
[2018-03-29] MEDS: Gabapentin 300 MG CAPSULE PO SCH ×2 (08:17→20:01)
[2018-03-29] MEDS: Insulin DETEMIR 100 UNIT/ML X5UNITS SQ SCH (08:18)
[2018-03-29] MEDS: Chlorhexidine Rinse 15 ML MOUTHWASH MM SCH ×2 (08:18→20:01)
[2018-03-29] MEDS: Bisacodyl 10 MG RECTAL SUPPOSITORY RC SCH (08:18)
[2018-03-29] MEDS: Acetaminophen 325 MG TABLET PO PRN ×2 (08:30→21:43)
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
--- NOTE | 2018-03-29 09:26 | Internal Med Progress Note ---
<Sarthak Duran - Last Filed: 03/29/18 10:47> Hospitalist Progress Note - Encounter Date of Encounter: 03/29/18 Time of Encounter: 09:24 - Subjective Interval History: Patient states she ambulated this morning, and is feeling better about it. She states she hardly ate any lunch or dinner yesterday due to the poor quality of the food, but denies any hypoglycemic symptoms. She still complains of neuropathic type burning left thigh pain. - Exam Vitals: Temp Pulse Resp BP Pulse Ox 98.8 F 76 16 153/67 98 03/29/18 07:12 03/29/18 07:12 03/29/18 07:43 03/29/18 07:12 03/29/18 07:43 Exam: CONSTITUTIONAL: patient appears as an age appropriate female in no acute distress. EYES Clear sclerae, bilateral pupils are equal, reactive to light. RESPIRATORY: No accessory muscle use, bilateral clear to auscultation CARDIOVASCULAR: Regular heart rate, normal S1 and S2, no murmurs, bandage applied to the sternal region, edges appeared clean, nonerythematous, nontender to palpation GASTROINTESTINAL: no tenderness. normal bowel sounds MUSCULOSKELETAL: no edema, no cyanosis. Bilateral peripheral pulses 2+. NEUROLOGIC: CN II to XII are grossly intact, no focal neurological deficit. - Assessment and Plan (1) Type 2 diabetes mellitus Current Visit: Yes Status: Chronic Assessment and Plan: Managing diabetes, rest of management per cardiothoracic and nephrology Patient chronic type 2 diabetic, uncontrolled, levemir 70/30 at home Currently receiving Levemir 35 units BID, Humalog 5 units TIDAC, and sliding scale, accuchecks ACHS glucose low today at 73, will switch to Levemir 35 AM/20 HS Possibly because she did not eat much yesterday I have instructed the nurse to let me know if patient isnt eating so we can adjust insulin Plan is for patient to go to [facility] Wednesday, we will refine insulin regimen for discharge this week Continue to monitor (2) NSTEMI (non-ST elevated myocardial infarction) Current Visit: Yes Status: Acute Assessment and Plan: STEMI transfer from [facility] CABG performed 03/22 Hemodynamically stable Management per cardiothoracic (3) Acute kidney injury superimposed on chronic kidney disease Current Visit: Yes Status: Acute Assessment and Plan: SANAZ on CKD 3 Nephro managing (4) Anemia Current Visit: Yes Status: Acute Assessment and Plan: Acute on chronic HgB stable CTS managing DVT Prophylaxis: sq heparin - Time Spent with Patient Total time spent is greater than 50% in coordination of care (as documented) at patient's floor/unit and/or counseling patient: Internal Medicine: Result - Labs CBC & Chem 7: 03/26/18 03:16 03/29/18 04:06 Labs: BMP 03/29/18 04:06 Sodium 138 Potassium 4.5 Chloride 110 H Carbon Dioxide 19 L BUN 52 H Creatinine 1.51 H Glucose 73 Calcium 8.6 - ABG Interpretation ABG results: ABG ABG pH 7.31 pH Units (7.32-7.45) L 03/22/18 22:36 ABG pCO2 46 mmHg (35-45) H 03/22/18 22:36 ABG pO2 77 mmHg (85-104) L 03/22/18 22:36 ABG O2 Saturation 94 % (95-98) L 03/22/18 22:36 PT/INR, D-dimer PT 10.5 Seconds (9.4-12.1) 03/23/18 04:00 - VTE Documentation of Mechanical Device: Graduated compression elastic hosiery Consult Discharge Plan - Plan Referrals: Елена Engel CNP [Advanced Practice Nurse] - 04/11/18 11:15 am Goran Hollis MD [Partnered Physician] - 04/14/18 2:00 pm Elsa West [Partnered Physician] - (office will call patient at home with follow up appointment) <Marcello Juarez - Last Filed: 03/29/18 13:40> Hospitalist Progress Note - Encounter Date of Encounter: 03/29/18 - Exam Vitals: Temp Pulse Resp BP Pulse Ox 98.5 F 67 18 130/86 98 03/29/18 11:37 03/29/18 12:55 03/29/18 11:37 03/29/18 11:37 03/29/18 11:37 - Assessment and Plan (1) Hypoglycemia Current Visit: No Status: Acute (2) Type 2 diabetes mellitus Current Visit: Yes Status: Chronic (3) NSTEMI (non-ST elevated myocardial infarction) Current Visit: Yes Status: Acute (4) Acute kidney injury superimposed on chronic kidney disease Current Visit: Yes Status: Acute (5) Anemia Current Visit: Yes Status: Acute (6) CAD (coronary artery disease), [place] coronary artery Current Visit: Yes Status: Chronic (7) Hypertension Current Visit: No Status: Chronic - Time Spent with Patient Total time spent is greater than 50% in coordination of care (as documented) at patient's floor/unit and/or counseling patient: Internal Medicine: Result - Labs CBC & Chem 7: 03/26/18 03:16 03/29/18 04:06 Labs: BMP 03/29/18 04:06 Sodium 138 Potassium 4.5 Chloride 110 H Carbon Dioxide 19 L BUN 52 H Creatinine 1.51 H Glucose 73 Calcium 8.6 - ABG Interpretation ABG results: ABG ABG pH 7.31 pH Units (7.32-7.45) L 03/22/18 22:36 ABG pCO2 46 mmHg (35-45) H 03/22/18 22:36 ABG pO2 77 mmHg (85-104) L 03/22/18 22:36 ABG O2 Saturation 94 % (95-98) L 03/22/18 22:36 PT/INR, D-dimer PT 10.5 Seconds (9.4-12.1) 03/23/18 04:00 - Attending Attestation I examined this patient and my medical decision-making was reviewed with the Resident Physician on 03/29/18. I agree with the documented findings, disposition and treatment plan as described except to the extent set forth below. Ms Seaman is currently admitted post CABG. She remains moderate to high risk due to potential for worsening clinical status. Ms Seaman is resting at this time. No fever or chills. Blood sugar was low last night. Has not been eating well. Exam alert Comfortable Mucus membranes dry Heart not tachy. Regular No wheeze abd soft I/P 1. DM - hypoglycemic. Adjust insulin. 2. NSTEMI s/p CABG 3. SANAZ - per renal service 4. Anemia due to blood loss from surgery Further diagnoses and plan as above. <Sarthak Duran - Last Filed: 03/29/18 10:47> (1) Type 2 diabetes mellitus Qualifiers: Diabetes mellitus dedicated intermodal truck driver insulin use: unspecified dedicated intermodal truck driver insulin use status Diabetes mellitus complication detail: with nephropathy (4) Anemia Qualifiers: Chronic kidney disease stage: unspecified stage Qualified Code(s): N18.9 - Chronic kidney disease, unspecified <Marcello Juarez - Last Filed: 03/29/18 13:40> (2) Type 2 diabetes mellitus Qualifiers: Diabetes mellitus dedicated intermodal truck driver insulin use: with dedicated intermodal truck driver use Diabetes mellitus complication status: with kidney complications Diabetes mellitus complication detail: with chronic kidney disease Chronic kidney disease stage: stage 3 (moderate) Qualified Code(s): E11.22 - Type 2 diabetes mellitus with diabetic chronic kidney disease; N18.3 - Chronic kidney disease, stage 3 (moderate); Z79.4 - FPC (current) use of insulin (5) Anemia Qualifiers: Anemia type: other cause Other causes of anemia: acute posthemorrhagic Qual ified Code(s): D62 - Acute posthemorrhagic anemia (6) CAD (coronary artery disease), [place] coronary artery Qualifiers: [place] vs. transplanted heart: [place] heart Associated angina: without angina Qualified Code(s): I25.10 - Atherosclerotic heart disease of [place] coronary artery without angina pectoris (7) Hypertension Qualifiers: Hypertension type: essential hypertension Qualified Code(s): I10 - Essential (primary) hypertension
--- NOTE | 2018-03-29 11:25 | Nephrology Progress Note ---
Date of Encounter: 03/29/18 Time of Encounter: 11:23 - Assessment and Plan (1) CAD (coronary artery disease), [place] coronary artery Current Visit: Yes Status: Chronic S/P OHS. Qualifiers: [place] vs. transplanted heart: [place] heart Associated angina: without angina Qualified Code(s): I25.10 - Atherosclerotic heart disease of [place] coronary artery without angina pectoris (2) Hypertensive renal disease with renal failure Current Visit: Yes Status: Chronic BP stable 153/67. (3) CKD (chronic kidney disease) stage 3, GFR 30-59 ml/min Current Visit: Yes Status: Chronic Baseline, she is followed by Dr. Lawrence. (4) Acute kidney injury superimposed on chronic kidney disease Current Visit: Yes Status: Acute Scr and GFR continue to improve. She is established with Dr. Lawrence. BMP 7 days after discharge and f/u with Dr. Lawrence in 4-6 weeks. Continue to avoid nephrotoxins and renal dose all medications. (5) Anemia Current Visit: Yes Status: Acute Goal HGB Is 10-11. Hgb 8.3 on 03/26/18. Qualifiers: Chronic kidney disease stage: unspecified stage Qualified Code(s): N18.9 - Chronic kidney disease, unspecified; D63.1 - Anemia in chronic kidney disease Subjective Principal diagnosis: NSTEMI Interval history: Pt seen and examined, patient resting with eyes closed during exam. Objective - Vital Signs Vital signs: Vital Signs Temp Pulse Resp BP Pulse Ox 03/29/18 11:02 16 96 03/29/18 08:15 73 03/29/18 07:43 16 98 03/29/18 07:12 98.8 F 76 18 153/67 99 03/29/18 05:46 98.4 F 71 16 137/61 96 03/29/18 03:34 17 105/52 93 03/28/18 23:53 18 92 03/28/18 23:45 71 03/28/18 23:37 98.4 F 65 18 105/52 93 03/28/18 21:52 18 97 03/28/18 20:15 71 03/28/18 20:09 98.6 F 74 18 154/75 98 03/28/18 19:57 20 99 03/28/18 16:17 98.8 F 69 20 142/68 99 03/28/18 15:54 16 91 Intake and Output 03/28/18 03/29/18 03/29/18 23:59 07:59 15:59 Intake Total 240 / 240 240 / 240 Output Total 500 / 500 900 / 900 Balance -260 / -260 -900 / -900 240 / 240 Intake: Oral 240 / 240 240 / 240 Output: Urine 500 / 500 900 / 900 Other: Meal Dinner Breakfast Percent of Meal Consumed 25% 95% Weight 98.9 kg Blood Glucose* 146 77 Patient Weight 03/29/18 23:59 Weight 98.9 kg - General Appearance General appearance: Present: well-developed, well-nourished EENT: Present: ATNC, hearing intact, vision intact Neck: Present: supple Respiratory: Present: clear Cardiology: Present: no edema, normal S1, normal S2 Gastrointestinal: Present: normoactive bowel sounds, no tenderness, no guarding Integumentary: Present: no rash, warm and dry Neurologic: Present: alert and oriented x3 Psychiatric: Present: mood/affect appropriate, cooperative - Lab 03/26/18 03:16 03/29/18 04:06 Most recent lab results ABG pH 7.31 pH Units (7.32-7.45) L 03/22/18 22:36 ABG pCO2 46 mmHg (35-45) H 03/22/18 22:36 ABG pO2 77 mmHg (85-104) L 03/22/18 22:36 ABG HCO3 23 mEq/L (21-27) 03/22/18 22:36 ABG O2 Saturation 94 % (95-98) L 03/22/18 22:36 Calcium 8.6 mg/dL (8.6-10.3) 03/29/18 04:06 Phosphorus 4.5 mg/dL (2.7-4.5) 03/25/18 02:49 Magnesium 2.8 mg/dL (1.6-2.6) H 03/23/18 04:00 Urine Creatinine 116 mg/dL 03/25/18 08:10 Urine Sodium 25.7 mEq/L 03/25/18 08:10 - VTE Documentation of Mechanical Device: Graduated compression elastic hosiery Consult Discharge Plan - Plan Referrals: Елена Engel CNP [Advanced Practice Nurse] - 04/11/18 11:15 am Goran Hollis MD [Partnered Physician] - 04/14/18 2:00 pm Elsa West [Partnered Physician] - (office will call patient at home with follow up appointment)
[2018-03-29] MEDS: *HR* OxyCODONE/APAP 5/325 TABLET PO PRN ×2 (14:30→20:01)
[2018-03-29] MEDS: Menthol 9.1 MG LOZENGE PO PRN (16:09)
[2018-03-29] MEDS ORDERED: Insulin DETEMIR 100 UNIT/ML X5UNITS SQ SCH (21:00)
[2018-03-30] MEDS: *HR* Heparin 5,000 UNIT/ML VIAL SQ SCH ×2 (06:07→17:45)
[2018-03-30] MEDS: Pantoprazole 40 MG VIAL IVP SCH (06:07)
[2018-03-30] MEDS: *HR* OxyCODONE/APAP 5/325 TABLET PO PRN ×3 (06:11→18:40)
[2018-03-30] MEDS: Budesonide/Formoterol 80/4.5 MDI IH SCH ×2 (07:35→20:03)
[2018-03-30] MEDS: Insulin LISPRO 300 UNITS/3 ML VIAL SQ SCH ×7 (08:08→20:44)
--- NOTE | 2018-03-30 08:14 | Cardiothoracic Progress Note ---
Date of Encounter: 03/30/18 Time of Encounter: 08:13 - Assessment and plan (1) CAD (coronary artery disease), [place] coronary artery Current Visit: Yes Status: Chronic The pacing wires were removed. We will plan to discharge her to an extended care facility either today or tomorrow when a bed becomes available. Qualifiers: [place] vs. transplanted heart: [place] heart Associated angina: without an [place] Qualified Code(s): I25.10 - Atherosclerotic heart disease of [place] coronary artery without angina pectoris - Subjective Interval history: The patient has no complaints and is ready to be discharged when a bed becomes available. Vital Signs, Last 4 Hours Temp Pulse Resp BP Pulse Ox 03/30/18 07:35 18 94 03/30/18 07:02 98.5 F 66 18 127/65 94 Oxgyen Flow Rate Oxygen Flow Rate (LPM) 2 Clinical Data, last 8 Hours Output, Urine Amount 500 Weight 03/28/18 03/29/18 03/30/18 23:59 23:59 23:59 Weight 98.7 kg 98.9 kg 100.7 kg Lungs are clear to percussion and auscultation. Heart is in a regular rate and rhythm. All incisions are healing well without signs of infection and the sternum is stable. - Labs 03/26/18 03:16 03/30/18 05:30 Lab Results, Last 24 hours 03/30/18 05:30 Glucose 95 - VTE Documentation of Mechanical Device: Graduated compression elastic hosiery Consult Discharge Plan - Plan Referrals: Елена Engel CNP [Advanced Practice Nurse] - 04/11/18 11:15 am Goran Hollis MD [Partnered Physician] - 04/14/18 2:00 pm Elsa West [Partnered Physician] - (office will call patient at home with follow up appointment)
[2018-03-30] MEDS: Aspirin Enteric Coated 81 MG Tablet PO SCH (08:15)
[2018-03-30] MEDS: Insulin DETEMIR 100 UNIT/ML X5UNITS SQ SCH (08:16)
[2018-03-30] MEDS: Gabapentin 300 MG CAPSULE PO SCH ×2 (08:16→20:49)
[2018-03-30] MEDS: Chlorhexidine Rinse 15 ML MOUTHWASH MM SCH ×2 (08:16→20:49)
[2018-03-30] MEDS: Bisacodyl 10 MG RECTAL SUPPOSITORY RC SCH (08:18)
--- NOTE | 2018-03-30 09:43 | Internal Med Progress Note ---
<Marcello Juarez - Last Filed: 03/30/18 14:16> Hospitalist Progress Note - Encounter Date of Encounter: 03/30/18 - Exam Vitals: Temp Pulse Resp BP Pulse Ox 98.4 F 60 20 120/70 99 03/30/18 11:09 03/30/18 11:55 03/30/18 11:09 03/30/18 11:09 03/30/18 11:09 - Assessment and Plan (1) CAD (coronary artery disease), [place] coronary artery Current Visit: Yes Status: Chronic (2) Hypertension Current Visit: No Status: Chronic (3) Type 2 diabetes mellitus Current Visit: Yes Status: Chronic (4) NSTEMI (non-ST elevated myocardial infarction) Current Visit: Yes Status: Acute (5) Acute kidney injury superimposed on chronic kidney disease Current Visit: Yes Status: Acute (6) Anemia Current Visit: Yes Status: Acute - Time Spent with Patient Total time spent is greater than 50% in coordination of care (as documented) at patient's floor/unit and/or counseling patient: Internal Medicine: Result - Labs CBC & Chem 7: 03/26/18 03:16 03/30/18 05:30 Labs: BMP 03/30/18 05:30 Glucose 95 - ABG Interpretation ABG results: ABG ABG pH 7.31 pH Units (7.32-7.45) L 03/22/18 22:36 ABG pCO2 46 mmHg (35-45) H 03/22/18 22:36 ABG pO2 77 mmHg (85-104) L 03/22/18 22:36 ABG O2 Saturation 94 % (95-98) L 03/22/18 22:36 PT/INR, D-dimer PT 10.5 Seconds (9.4-12.1) 03/23/18 04:00 Consult Discharge Plan - Plan Referrals: Елена Engel CNP [Advanced Practice Nurse] - 04/11/18 11:15 am Goran Hollis MD [Partnered Physician] - 04/14/18 2:00 pm Elsa West [Partnered Physician] - (office will call patient at home with follow up appointment) - Attending Attestation I examined this patient and my medical decision-making was reviewed with the Resident Physician on 03/30/18. I agree with the documented findings, disposition and treatment plan as described except to the extent set forth below. Ms Seaman is currently admitted for NSTEMI s/p CABG. We are monitoring blood sugar. She remains moderate risk at this time. Ms Seaman is up in chair. She is not eating much and blood sugars have been OK. Insulin has been adjusted to a lower dose. Exam alert Comfortable Mucus membranes dry Heart not tachy at this time No wheeze Moves all extremities I/P 1. DM - blood sugars OK at this time 2. NSTEMI s/p CABG Pt awaiting precert for SNF. Further diagnoses and plan as above. <Sarthak Duran - Last Filed: 03/30/18 16:20> Hospitalist Progress Note - Encounter Date of Encounter: 03/30/18 Time of Encounter: 09:40 - Subjective Interval History: No acute events overnight, she is still complaining about the hospital food. She denies any symptoms of hypo/hyperglycemia, fatigue, abdominal pain, nausea/vomiting. - Exam Vitals: Temp Pulse Resp BP Pulse Ox 98.5 F 68 18 127/65 94 03/30/18 07:02 03/30/18 08:15 03/30/18 07:35 03/30/18 07:02 03/30/18 07:35 Exam: CONSTITUTIONAL: patient appears as an age appropriate female in no acute distress. EYES Clear sclerae, bilateral pupils are equal, reactive to light. RESPIRATORY: No accessory muscle use, bilateral clear to auscultation CARDIOVASCULAR: Regular heart rate, normal S1 and S2, no murmurs, bandage applied to the sternal region, edges appeared clean, nonerythematous, nontender to palpation GASTROINTESTINAL: no tenderness. normal bowel sounds MUSCULOSKELETAL: no edema, no cyanosis. Bilateral peripheral pulses 2+. NEUROLOGIC: CN II to XII are grossly intact, no focal neurological deficit. - Assessment and Plan (1) Type 2 diabetes mellitus Current Visit: Yes Status: Chronic Assessment and Plan: Managing diabetes, rest of management per cardiothoracic and nephrology Patient chronic type 2 diabetic, uncontrolled, levemir 70/30 at home Currently receiving Levemir 35 units BID, Humalog 5 units TIDAC, and sliding sc tonie, accuchecks ACHS glucose low yesterday at 73, switched to Levemir 35 AM/20 HS Glucose stable today at 95, will switch to Levemir 35 AM/10 HS to avoid hypoglycemia Plan is for patient to go to ECF Wednesday, we will refine insulin regimen for discharge this week Continue to monitor (2) CAD (coronary artery disease), [place] coronary artery Current Visit: Yes Status: Chronic Assessment and Plan: Chronic Recent STEMI Management per Cardiothoracic (3) Hypertension Current Visit: No Status: Chronic Assessment and Plan: Chronic Stable here Management per Cardiothoracic (4) NSTEMI (non-ST elevated myocardial infarction) Current Visit: Yes Status: Acute Assessment and Plan: STEMI transfer from [facility] CABG performed 03/22 Hemodynamically stable Management per cardiothoracic (5) Acute kidney injury superimposed on chronic kidney disease Current Visit: Yes Status: Acute Assessment and Plan: SANAZ on CKD 3 Nephro managing (6) Anemia Current Visit: Yes Status: Acute Assessment and Plan: Acute on chronic HgB stable CTS managing DVT Prophylaxis: sq heparin - Time Spent with Patient Total time spent is greater than 50% in coordination of care (as documented) at patient's floor/unit and/or counseling patient: Internal Medicine: Result - Labs CBC & Chem 7: 03/26/18 03:16 03/30/18 05:30 Labs: BMP 03/30/18 05:30 Glucose 95 - ABG Interpretation ABG results: ABG ABG pH 7.31 pH Units (7.32-7.45) L 03/22/18 22:36 ABG pCO2 46 mmHg (35-45) H 03/22/18 22:36 ABG pO2 77 mmHg (85-104) L 03/22/18 22:36 ABG O2 Saturation 94 % (95-98) L 03/22/18 22:36 PT/INR, D-dimer PT 10.5 Seconds (9.4-12.1) 03/23/18 04:00 - VTE Documentation of Mechanical Device: Graduated compression elastic hosiery <LarryMarcello Ryan - Last Filed: 03/30/18 14:16> (1) CAD (coronary artery disease), [place] coronary artery Qualifiers: [place] vs. transplanted heart: [place] heart Associated angina: without angina Qualified Code(s): I25.10 - Atherosclerotic heart disease of [place] coronary artery without angina pectoris (2) Hypertension Qualifiers: Hypertension type: essential hypertension Qualified Code(s): I10 - Essential (primary) hypertension (3) Type 2 diabetes mellitus Qualifiers: Diabetes mellitus longterm insulin use: with longterm use Diabetes mellitus complication status: with kidney complications Diabetes mellitus complication detail: with chronic kidney disease Chronic kidney disease stage: stage 3 (moderate) Qualified Code(s): E11.22 - Type 2 diabetes mellitus with diabetic chronic kidney disease; N18.3 - Chronic kidney disease, stage 3 (moderate); Z79.4 - residential (current) use of insulin (6) Anemia Qualifiers: Anemia type: other cause Other causes of anemia: acute posthemorrhagic Qualified Code(s): D62 - Acute posthemorrhagic anemia <Sarthak Duran - Last Filed: 03/30/18 16:20> (1) Type 2 diabetes mellitus Qualifiers: Diabetes mellitus longterm insulin use: with longterm use Diabetes mellitus complication status: with kidney complications Diabetes mellitus complication detail: with chronic kidney disease Chronic kidney disease stage: stage 3 (moderate) Qualified Code(s): E11.22 - Type 2 diabetes mellitus with diabetic chronic kidney disease; N18.3 - Chronic kidney disease, stage 3 (moderate); Z79.4 - middle or intermediate school principal (current) use of insulin (2) CAD (coronary artery disease), [place] coronary artery Qualifiers: [place] vs. transplanted heart: [place] heart Associated angina: without angina Qualified Code(s): I25.10 - Atherosclerotic heart disease of [place] coronary artery without angina pectoris (3) Hypertension Qualifiers: Hypertension type: essential hypertension Qualified Code(s): I10 - Essential (primary) hypertension (6) Anemia Qualifiers: Anemia type: other cause Other causes of anemia: acute posthemorrhagic Qualified Code(s): D62 - Acute posthemorrhagic anemia
[2018-03-30] MEDS ORDERED: Insulin DETEMIR 100 UNIT/ML X5UNITS SQ SCH (21:00)
[2018-03-31 05:23] LABS: Albumin 3.1 g/dL (3.5-5.7); Calcium 8.7 mg/dL (8.6-10.3); Potassium 5.5 mEq/L (3.5-5.1)
[2018-03-31] MEDS: *HR* Heparin 5,000 UNIT/ML VIAL SQ SCH (05:31)
[2018-03-31] MEDS: Pantoprazole 40 MG VIAL IVP SCH (05:31)
--- NOTE | 2018-03-31 07:07 | Internal Med Progress Note ---
<Sarthak Duran Jenny - Last Filed: 03/31/18 11:26> Hospitalist Progress Note - Encounter Date of Encounter: 03/31/18 Time of Encounter: 07:07 - Subjective Interval History: No acute events overnight, she is still complaining about the hospital food. She denies any symptoms of hypo/hyperglycemia, fatigue, abdominal pain, nausea/vo miting. She does complain of new onset shortness of breath and lower extremity swelling today, and states she wants her Lasix restarted. I discussed with her the plan for her diabetic management at discharge, and that the onus is on her to manage her diet. She stated she understood. - Exam Vitals: Temp Pulse Resp BP Pulse Ox 98.2 F 55 18 119/57 99 03/31/18 03:57 03/31/18 03:57 03/31/18 03:57 03/31/18 03:57 03/31/18 03:57 Exam: CONSTITUTIONAL: patient appears as an age appropriate female in no acute distress. EYES Clear sclerae, bilateral pupils are equal, reactive to light. RESPIRATORY: No accessory muscle use, diffuse inspiratory/expiratory crackles, no rales or rhonchi CARDIOVASCULAR: Regular heart rate, normal S1 and S2, no murmurs, bandage applied to the sternal region, edges appeared clean, nonerythematous, nontender to palpation GASTROINTESTINAL: no tenderness. normal bowel sounds MUSCULOSKELETAL: bilateral LE 1+ pitting edema, no cyanosis. Bilateral peripheral pulses 2+. NEUROLOGIC: CN II to XII are grossly intact, no focal neurological deficit. - Assessment and Plan (1) Type 2 diabetes mellitus Current Visit: Yes Status: Chronic Assessment and Plan: Managing diabetes, rest of management per cardiothoracic and nephrology Patient chronic type 2 diabetic, uncontrolled, levemir 70/30 at home Currently receiving Levemir 35AM/10PM, Humalog 5 units TIDAC, and sliding scale, accuchecks ACHS Glucose labile based on patient diet Discharge home on 70 units BID of 70/30, 5 units Humalog TIDWM, sliding scale Continue to monitor (2) CAD (coronary artery disease), [place] coronary artery Current Visit: Yes Status: Chronic Assessment and Plan: Chronic Recent STEMI Management per Cardiothoracic (3) Hypertension Current Visit: No Status: Chronic Assessment and Plan: Chronic Stable here Management per Cardiothoracic (4) NSTEMI (non-ST elevated myocardial infarction) Current Visit: Yes Status: Acute Assessment and Plan: STEMI transfer from [facility] CABG performed 03/22 Hemodynamically stable Management per cardiothoracic (5) Acute kidney injury superimposed on chronic kidney disease Current Visit: Yes Status: Acute Assessment and Plan: SANAZ on CKD 3 Nephro managing (6) Anemia Current Visit: Yes Status: Acute Assessment and Plan: Acute on chronic HgB stable CTS managing DVT Prophylaxis: sq heparin - Time Spent with Patient Total time spent is greater than 50% in coordination of care (as documented) at patient's floor/unit and/or counseling patient: Internal Medicine: Result - Labs CBC & Chem 7: 03/26/18 03:16 03/31/18 04:25 Labs: BMP 03/31/18 04:25 Sodium 136 Potassium 5.5 H Chloride 107 Carbon Dioxide 22 L BUN 61 H Creatinine 1.73 H Glucose 223 H Calcium 8.7 Liver Function 03/31/18 Range/Units 04:25 Albumin 3.1 L (3.5-5.7) g/dL - ABG Interpretation ABG results: ABG ABG pH 7.31 pH Units (7.32-7.45) L 03/22/18 22:36 ABG pCO2 46 mmHg (35-45) H 03/22/18 22:36 ABG pO2 77 mmHg (85-104) L 03/22/18 22:36 ABG O2 Saturation 94 % (95-98) L 03/22/18 22:36 PT/INR, D-dimer PT 10.5 Seconds (9.4-12.1) 03/23/18 04:00 - VTE Documentation of Mechanical Device: Graduated compression elastic hosiery Consult Discharge Plan - Plan Referrals: Елена Engel, JACK [Advanced Practice Nurse] - (Patient is going to rehab no PCP appointment needed) Goran Hollis MD [Partnered Physician] - 04/14/18 2:00 pm Elsa West [Partnered Physician] - (office will call patient at home with follow up appointment) Prescriptions: OxyCODONE/APAP 5/325 [Percocet 5/325 MG] 1 each PO Q6HR PRN 7 Days #20 tablet PRN Reason: Pain Metoprolol [Lopressor] 25 mg PO BID #60 tablet <Marcello Juarez - Last Filed: 03/31/18 13:56> Hospitalist Progress Note - Encounter Date of Encounter: 03/31/18 - Exam Vitals: Temp Pulse Resp BP Pulse Ox 99.1 F 56 20 128/49 100 03/31/18 11:50 03/31/18 11:50 03/31/18 11:50 03/31/18 11:50 03/31/18 11:50 - Assessment and Plan (1) CAD (coronary artery disease), [place] coronary artery Current Visit: Yes Status: Chronic (2) Hypertension Current Visit: No Status: Chronic (3) Type 2 diabetes mellitus Current Visit: Yes Status: Chronic (4) NSTEMI (non-ST elevated myocardial infarction) Current Visit: Yes Status: Acute (5) Acute kidney injury superimposed on chronic kidney disease Current Visit: Yes Status: Acute (6) Anemia Current Visit: Yes Status: Acute - Time Spent with Patient Total time spent is greater than 50% in coordination of care (as documented) at patient's floor/unit and/or counseling patient: Internal Medicine: Result - Labs CBC & Chem 7: 03/26/18 03:16 03/31/18 04:25 Labs: BMP 03/31/18 04:25 Sodium 136 Potassium 5.5 H Chloride 107 Carbon Dioxide 22 L BUN 61 H Creatinine 1.73 H Glucose 223 H Calcium 8.7 Liver Function 03/31/18 Range/Units 04:25 Albumin 3.1 L (3.5-5.7) g/dL Urine 03/31/18 Range/Units 07:28 Urine Color Yellow (Yellow) Urine Clarity Clear (Clear) Urine pH 5.5 (5.0-8.0) pH Units Ur Specific [place] 1.015 (1.010-1.025) Urine Protein 30 H (Neg-Trace) mg/dL Urine Glucose (UA) Normal (Normal) mg/dL - ABG Interpretation ABG results: ABG ABG pH 7.31 pH Units (7.32-7.45) L 03/22/18 22:36 ABG pCO2 46 mmHg (35-45) H 03/22/18 22:36 ABG pO2 77 mmHg (85-104) L 03/22/18 22:36 ABG O2 Saturation 94 % (95-98) L 03/22/18 22:36 PT/INR, D-dimer PT 10.5 Seconds (9.4-12.1) 03/23/18 04:00 - Impressions Impressions Chest X-Ray 03/31/18 08:12 IMPRESSION: 1. Questionable slightly increased interstitial lung markings predominately within the right lung which may reflect mild edema. 2. Small left pleural effusion with adjacent atelectasis. D/ / 03/31/2018 08:55:30 Donna Garber MD / Genevieve Perez Interpreting Provider: Donna Garber MD - Attending Attestation I examined this patient and my medical decision-making was reviewed with the Resident Physician on 03/31/18. I agree with the documented findings, disposition and treatment plan as described except to the extent set forth below. Ms Seaman is currently admitted for NSTEMI s/p CABG. We have been following blood sugars. She is ready to go and awaiting precert to SNF. Ms Seaman is feeling OK today. Her blood sugar is higher today but she had elian crackers at midnight. No fever or chills. Exam alert Comfortable Heart not tachy No wheeze Moves all extremities I/P 1. DM - continue home insulin at discharge as I expect diet will increase 2. CAD s/p CABG OK to discharge to SNF. Further diagnoses and plan as above. <Sarthak Duran - Last Filed: 03/31/18 11:26> (1) Type 2 diabetes mellitus Qualifiers: Diabetes mellitus terminal operator insulin use: with retirement use Diabetes mellitus complication status: with kidney complications Diabetes mellitus complication detail: with chronic kidney disease Chronic kidney disease stage: stage 3 (moderate) Qualified Code(s): E11.22 - Type 2 diabetes mellitus with diabetic chronic kidney disease; N18.3 - Chronic kidney disease, stage 3 (moderate); Z79. 4 - intermediate (current) use of insulin (2) CAD (coronary artery disease), [place] coronary artery Qualifiers: [place] vs. transplanted heart: [place] heart Associated angina: without angina Qualified Code(s): I25.10 - Atherosclerotic heart disease of [place] coronary artery without angina pectoris (3) Hypertension Qualifiers: Hypertension type: essential hypertension Qualified Code(s): I10 - Essential (primary) hypertension (6) Anemia Qualifiers: Anemia type: other cause Other causes of anemia: acute posthemorrhagic Qualified Code(s): D62 - Acute posthemorrhagic anemia <Marcello Juarez - Last Filed: 03/31/18 13:56> (1) CAD (coronary artery disease), [place] coronary artery Qualifiers: [place] vs. transplanted heart: [place] heart Associated angina: without angina Qualified Code(s): I25.10 - Atherosclerotic heart disease of [place] coronary artery without angina pectoris (2) Hypertension Qualifiers: Hypertension type: essential hypertension Qualified Code(s): I10 - Essential (primary) hypertension (3) Type 2 diabetes mellitus Qualifiers: Diabetes mellitus retirement insulin use: with terminal operator use Diabetes mellitus complication status: with kidney complications Diabetes mellitus complication detail: with chronic kidney disease Chronic kidney disease stage: stage 3 (moderate) Qualified Code(s): E11.22 - Type 2 diabetes mellitus with diabetic chronic kidney disease; N18.3 - Chronic kidney disease, stage 3 (moderate); Z79.4 - intermediate (current) use of insulin (6) Anemia Qualifiers: Anemia type: other cause Other causes of anemia: acute posthemorrhagic Qualified Code(s): D62 - Acute posthemorrhagic anemia
[2018-03-31] MEDS: Budesonide/Formoterol 80/4.5 MDI IH SCH (07:28)
[2018-03-31] MEDS: Chlorhexidine Rinse 15 ML MOUTHWASH MM SCH (08:03)
[2018-03-31] MEDS: Bisacodyl 10 MG RECTAL SUPPOSITORY RC SCH (08:03)
[2018-03-31] MEDS: Insulin DETEMIR 100 UNIT/ML X5UNITS SQ SCH (08:03)
[2018-03-31 08:04] LABS: Bilirubin,Urine Negative (Negative); Blood,Urine Negative (Negative); Clarity,Urine Clear (Clear); Color,Urine Yellow (Yellow); Glucose,Urine (UA) Normal (Normal); Ketones,Urine Negative (Negative); Leukocyte Esterase,Urine Negative (Negative); Nitrite,Urine Negative (Negative); PH,Urine 5.5 pH Units (5.0-8.0); Protein,Urine 30 mg/dL (Neg-Trace); Specific Gravity,Urine 1.015 (1.010-1.025); Urobilinogen,Urine Normal (Normal)
[2018-03-31] MEDS: Gabapentin 300 MG CAPSULE PO SCH (08:04)
[2018-03-31] MEDS: Aspirin Enteric Coated 81 MG Tablet PO SCH (08:04)
[2018-03-31] MEDS: Insulin LISPRO 300 UNITS/3 ML VIAL SQ SCH ×6 (08:04→16:52)
[2018-03-31 08:06] LABS: Bacteria,Urine Few per hpf (None-Few); Hyaline Casts,Urine None Seen per lpf (None-Few); Squamous Epithelial Cell,Urine Many per lpf (None-Few)
[2018-03-31] MEDS ORDERED: Furosemide 40 MG/4 ML VIAL IVP ONE (08:51)
--- NOTE | 2018-03-31 09:28 | Discharge Summary ---
Date of Encounter: 03/31/18 Time of Encounter: 09:21 - Discharge Diagnosis (1) CAD (coronary artery disease), [place] coronary artery Priority: Primary Status: Chronic Qualifiers: [place] vs. transplanted heart: [place] heart Associated angina: without angina Qualified Code(s): I25.10 - Atherosclerotic heart disease of [place] coronary artery without angina pectoris - Hospital Course Hospital course: Ms. Seaman is a 62 year old female The patient is a 62-year-old female with a history of diabetes, hypertension and chronic kidney disease. She presented with chest pain and a positive troponin with a NSTEMI. Cardiac catheterization revealed triple vessel disease and she was referred for surgery. She was on Plavix for previous stent and this was stopped prior to surgery. On 03/22/2018, Dr. Hollis took the patient to the operating room for coronary artery bypass grafting 3, utilizing the left internal mammary artery. On 03/24/2018, her chest tubes were removed and she was transferred to the floor. She did have a rise in her creatinine and was seen and followed by the nephrology service. On March 30 her pacing wires removed. She was prepared for discharge on March 31 depending availability of an extended care facility bed. At the time of discharge, she was afebrile. Lungs were clear to percussion and auscultation. Heart was in a normal sinus rhythm. All incisions are healing well without signs of infection and the sternum was stable. She was on oxygen at 3 L by nasal prong continuously. She was told that she should be on oxygen preoperatively, but was unable to obtain this. Discharge medications are on the med rec and include Percocet for pain. I did check the [place] automated Rx reporting system. She was postoperative and was given a one-week supply. Appropriate precautions were given. She was to return to her previous a regular diet. She was to avoid heavy lifting for a total of 3 months after surgery, but to walk as much as possible. She was to avoid driving for 1 month. She was to follow up and see Dr. Hollis in the office in 4 weeks as directed. She was to follow-up with her electrogalvanizing machine operator, renal doctor and primary care doctor as directed. She was to call sooner for any difficulties. - Time Spent with Patient Total time spent providing and/or coordinating discharge services: - Discharge Medications Prescriptions: OxyCODONE/APAP 5/325 [Percocet 5/325 MG] 1 each PO Q6HR PRN 7 Days #20 tablet PRN Reason: Pain Metoprolol [Lopressor] 25 mg PO BID #60 tablet Home Medications: Atorvastatin Calcium [Lipitor] 80 mg PO HS 11/10/17 [History] Escitalopram [Lexapro] 20 mg PO DAILY 11/10/17 [History] Furosemide [Lasix] 40 mg PO DAILY 11/10/17 [History] Levothyroxine [Synthroid] 75 mcg PO QAM 11/10/17 [History] Insulin Aspart Prot/Insuln Asp [Novolog Mix 70-30 Flexpen Syrn] 70 unit SQ BID 12/14/17 [History] Nitroglycerin [Nitrostat] 0.4 mg SL DAILY PRN 12/14/17 [History] Clopidogrel [Plavix] 75 mg PO DAILY 03/19/18 [History] Lisinopril/Hydrochlorothiazide [Zestoretic 10-12.5 mg Tablet] 1 tab PO DAILY 03/19/18 [History] Aspirin Enteric Coated [Aspirin EC] 81 mg PO DAILY tablet. 03/31/18 [Rx] Gabapentin [Neurontin] 300 mg PO BID capsule 03/31/18 [Rx] Insulin LISPRO [HumaLOG] 0 units SQ HS vial 03/31/18 [Rx] Insulin LISPRO [HumaLOG] 0 units SQ TIDAC vial 03/31/18 [Rx] Insulin LISPRO [HumaLOG] 5 units SQ TIDWM vial 03/31/18 [Rx] Metoprolol [Lopressor] 25 mg PO BID #60 tablet 03/31/18 [Rx] OxyCODONE/APAP 5/325 [Percocet 5/325 MG] 1 each PO Q6HR PRN 7 Days #20 tablet 03/31/18 [Rx] Allergies/Adverse Reactions: Allergy/AdvReac Type Severity Reaction Status Date / Time Penicillins Allergy Anaphylaxis Verified 03/19/18 14:04 Sulfa (Sulfonamide Allergy Anaphylaxis Verified 03/19/18 14:04 Antibiotics) Date of admission: 03/19/18 01:01 Primary care physician: PCP NONE Consults: 03/18/18 23:49 Consult to Bondactor Machine Operator [CONS] Routine Reason for SW Consult: Possible needs upon discharge 03/19/18 12:12 Consult to Cardiology [CONS] Routine Comment: Consulting Provider: Cardiology Danay Reason for Consult: CP/elevated troponin; has CAD.. Time Notified: 12:10 Call Completed: Yes 03/21/18 08:22 Consult to Cardiac Rehabilitation-Phase1 [CONS] Routine Comment: Reason for Consult: NSTEMI Call Completed: No 03/21/18 09:11 Consult to Cardiothoracic Surgery [CONS] Routine Consulting Provider: Cardiothoracic Surgery Danay Reason for Consult: CAD Call Completed: Yes 03/22/18 12:30 Consult to Cardiac Rehabilitation-Phase1 [CONS] Routine Comment: Reason for Consult: Post open heart Call Completed: Yes 03/24/18 14:30 Consult to Dialysis [CONS] ONCE 03/28/18 14:03 Consult to Physical Therapy [CONS] Routine Comment: Evaluate, develop and implement POC Reason for Consult: possible ecf placement Does patient have active BEDREST order?: No Is patient medically & hemodynamically stable?: Yes Patient assessed for mobility or mobilized this visit?: Yes 03/28/18 14:05 Consult to Occupational Therapy [CONS] Routine Comment: Evaluate, develop and implement POC Reason for Consult: possible ecf placement Does patient have active BEDREST order?: No Is patient medically & hemodynamically stable?: Yes Patient assessed for mobility or mobilized this visit?: Yes Procedure(s) Performed: 03/22/2018. Coronary artery bypass grafting 3, utilizing the left internal mammary artery. Discharging clinician: Lisandro Penaloza Anticipated date of discharge: 03/31/18 Physical Examination Vital Signs, Last 4 Hours Temp Pulse Resp BP Pulse Ox 03/31/18 07:30 18 100 03/31/18 07:09 98.6 F 58 18 133/68 100 - Patient Status Disposition: Transfer Inpatient Rehab Fac Functional capacity at discharge: independent ambulation Overall status at discharge: patient is progressing back to baseline - Discharge Instructions Follow Up With: Елена Engel CNP [Advanced Practice Nurse] - (Patient is going to rehab no PCP appointment needed) Goran Hollis MD [Partnered Physician] - 04/14/18 2:00 pm Elsa West [Partnered Physician] - (office will call patient at home with follow up appointment) Open Heart Registry Aspirin Cont/Prescribed at DC: Yes Beta Neha Cont/Prescribed at DC: Yes Statin Cont/Prescribed at DC: Yes LANEY/ARB Cont/Prescribed at DC: Yes - VTE Documentation of Mechanical Device: Graduated compression elastic hosiery
--- NOTE | 2018-03-31 09:38 | Physician Discharge Referral ---
ExtendedCare Referral Info Provider in Charge after Transfer: PCP Institutional Level of Care: Intermediate - Diagnosis (1) CAD (coronary artery disease), [place] coronary artery Priority: Primary Status: Chronic - Transfer Medications Prescriptions: OxyCODONE/APAP 5/325 [Percocet 5/325 MG] 1 each PO Q6HR PRN 7 Days #20 tablet PRN Reason: Pain Metoprolol [Lopressor] 25 mg PO BID #60 tablet Home Medications: Atorvastatin Calcium [Lipitor] 80 mg PO HS 11/10/17 [History] Escitalopram [Lexapro] 20 mg PO DAILY 11/10/17 [History] Furosemide [Lasix] 40 mg PO DAILY 11/10/17 [History] Levothyroxine [Synthroid] 75 mcg PO QAM 11/10/17 [History] Insulin Aspart Prot/Insuln Asp [Novolog Mix 70-30 Flexpen Syrn] 70 unit SQ BID 12/14/17 [History] Nitroglycerin [Nitrostat] 0.4 mg SL DAILY PRN 12/14/17 [History] Clopidogrel [Plavix] 75 mg PO DAILY 03/19/18 [History] Lisinopril/Hydrochlorothiazide [Zestoretic 10-12.5 mg Tablet] 1 tab PO DAILY 03/19/18 [History] Aspirin Enteric Coated [Aspirin EC] 81 mg PO DAILY tablet. 03/31/18 [Rx] Gabapentin [Neurontin] 300 mg PO BID capsule 03/31/18 [Rx] Insulin LISPRO [HumaLOG] 0 units SQ HS vial 03/31/18 [Rx] Insulin LISPRO [HumaLOG] 0 units SQ TIDAC vial 03/31/18 [Rx] Insulin LISPRO [HumaLOG] 5 units SQ TIDWM vial 03/31/18 [Rx] Metoprolol [Lopressor] 25 mg PO BID #60 tablet 03/31/18 [Rx] OxyCODONE/APAP 5/325 [Percocet 5/325 MG] 1 each PO Q6HR PRN 7 Days #20 tablet 03/31/18 [Rx] Allergies/Adverse Reactions: Allergy/AdvReac Type Severity Reaction Status Date / Time Penicillins Allergy Anaphylaxis Verified 03/19/18 14:04 Sulfa (Sulfonamide Allergy Anaphylaxis Verified 03/19/18 14:04 Antibiotics) - Respiratory Orders Oxygen / L per min Smoking Cessation: Smoking cessation has been advised. For more information, call the [place] Tobacco Quit Line at 2-684-ZHPU-NOW. - Ancillary Orders May use pressure relief devices daily prn, May go on ANITA w/family/respon democrat w/meds at nurse discretion PRN, May have alcoholic beverages, May consult with Dentist, Press Tender, Scrap Kettle Tender PRN - Advance Directives Code Status: Full Code - Mobility Orders Ambulate - Rehabiliation Orders Rehab Potential: Fair Rehab Orders: Sternal Precautions, ROM Exercises, Evaluation for Physical Therapy, Evaluation for Occupational Therapy - Treatments Skin tear care topically daily PRN per policy, Fleet enema rectally every other day PRN cleansing purposes - Diet Orders No Concentrated Sweets CERTIFICATION: I certify that the transfer of the above named patient to an Extended Care Facility is necessary for the continuing treatment of the diagnosis listed. The above information is true and accurate reflection of patient's current condition. Confidential - Redisclosure prohibited without a patient's written consent.
--- NOTE | 2018-03-31 09:47 | Nephrology Progress Note ---
Date of Encounter: 03/31/18 Time of Encounter: 09:47 - Assessment and Plan (1) Acute kidney injury superimposed on chronic kidney disease Current Visit: Yes Status: Acute Scr and GFR continue to improve. She is established with Dr. Lawrence. ROLO 7 days after discharge and f/u with Dr. Lawrence in 4-6 weeks. Continue to avoid nephrotoxins and renal dose all medications. Patient with mild hyperkalemia that can be managed medically with Kayexalate. She also has mild metabolic acidosis and I will add sodium bicarbonate to her regimen. She is complaining of feeling volume overloaded I agree with adding back her furosemide. Her renal function will need to be monitored on an inpatient or outpatient basis. (2) CAD (coronary artery disease), [place] coronary artery Current Visit: Yes Status: Chronic S/P OHS. Qualifiers: [place] vs. transplanted heart: [place] heart Associated angina: without angina Qualified Code(s): I25.10 - Atherosclerotic heart disease of [place] coronary artery without angina pectoris (3) Hypertensive renal disease with renal failure Current Visit: Yes Status: Chronic BP stable 153/67. Titrate antihypertensive medication as needed. (4) CKD (chronic kidney disease) stage 3, GFR 30-59 ml/min Current Visit: Yes Status: Chronic Baseline, she is followed by Dr. Lawrence. Avoid nephrotoxic agents and adjust medications for renal function. (5) Anemia Current Visit: Yes Status: Acute Goal HGB Is 10-11. Qualifiers: Anemia type: other cause Other causes of anemia: acute posthemorrhagic Q ualified Code(s): D62 - Acute posthemorrhagic anemia Subjective Principal diagnosis: NSTEMI Interval history: Patient seen. She has no new complaint. She is requesting that her Lasix be restarted as she is starting to feel puffy and a little dyspneic. Objective - Vital Signs Vital signs: Vital Signs Temp Pulse Resp BP Pulse Ox 03/31/18 08:05 98.6 F 58 18 133/68 100 03/31/18 07:30 18 100 03/31/18 07:09 98.6 F 58 18 133/68 100 03/31/18 03:57 98.2 F 55 18 119/57 99 03/31/18 03:44 12 94 03/30/18 23:47 14 100 03/30/18 23:30 98.3 F 69 18 121/75 98 03/30/18 20:06 98.2 F 70 18 124/67 99 03/30/18 20:05 14 98 03/30/18 16:08 98.5 F 68 19 122/99 93 03/30/18 15:38 20 99 03/30/18 11:55 60 03/30/18 11:09 98.4 F 64 20 120/70 99 03/30/18 10:56 20 99 Intake and Output 03/30/18 03/31/18 03/31/18 23:59 07:59 15:59 Intake Total 240 / 240 360 / 360 Output Total 400 / 400 600 / 600 0 / 0 Balance -160 / -160 -600 / -600 360 / 360 Intake: Oral 240 / 240 360 / 360 Output: Urine 400 / 400 600 / 600 0 / 0 Other: Meal Breakfast Percent of Meal Consumed 50% Weight 130.1 kg Blood Glucose* 121 221 220 Patient Weight 03/31/18 23:59 Weight 130.1 kg - General Appearance General appearance: Present: well-developed, well-nourished EENT: Present: ATNC Neck: Present: supple Respiratory: Present: course breath sounds Cardiology: Present: edema, regular rate Gastrointestinal: Present: obese Integumentary: Present: warm and dry Neurologic: Present: alert and oriented x3 Musculoskeletal: Present: no cyanosis Psychiatric: Present: mood/affect appropriate - Lab 03/26/18 03:16 03/31/18 04:25 Most recent lab results ABG pH 7.31 pH Units (7.32-7.45) L 03/22/18 22:36 ABG pCO2 46 mmHg (35-45) H 03/22/18 22:36 ABG pO2 77 mmHg (85-104) L 03/22/18 22:36 ABG HCO3 23 mEq/L (21-27) 03/22/18 22:36 ABG O2 Saturation 94 % (95-98) L 03/22/18 22:36 Calcium 8.7 mg/dL (8.6-10.3) 03/31/18 04:25 Phosphorus 4.0 mg/dL (2.7-4.5) 03/31/18 04:25 Magnesium 2.8 mg/dL (1.6-2.6) H 03/23/18 04:00 Urine Creatinine 116 mg/dL 03/25/18 08:10 Urine Sodium 25.7 mEq/L 03/25/18 08:10 - VTE Documentation of Mechanical Device: Graduated compression elastic hosiery Consult Discharge Plan - Plan Referrals: Елена Engel, JACK [Advanced Practice Nurse] - (Patient is going to rehab no PCP appointment needed) Goran Hollis MD [Partnered Physician] - 04/14/18 2:00 pm Elsa West [Partnered Physician] - (office will call patient at home with follow up appointment) Prescriptions: OxyCODONE/APAP 5/325 [Percocet 5/325 MG] 1 each PO Q6HR PRN 7 Days #20 tablet PRN Reason: Pain Metoprolol [Lopressor] 25 mg PO BID #60 tablet
[2018-03-31] MEDS ORDERED: Furosemide 20 MG TABLET PO STA (11:37)
[2018-03-31 16:18] VITALS: BP 146/70
[2018-04-01] MEDS ORDERED: Furosemide 40 MG TABLET PO SCH (09:00)
== END 2018-03-31 18:02 | DRG 233 ==
LOC: 2NNU → SUATTDRO 03-19 01:01 → ICNU 03-22 08:05 → 2NNU 03-24 13:39
PROVIDERS: ADMIT Pediatrics; ATTEND Internal Medicine

== ENCOUNTER 2018-04-29 03:13 | Observation (INO) ==
[2018-04-29 10:00] LABS: Basophils % 0.3 %; Eosinophils # 0.2 K/mcL (0.0-0.6); Eosinophils % 1.6 %; Hematocrit 34.3 % (35.3-44.9); Immature Granulocytes % 0.4 % (0-4); Lymphocytes # 2.1 K/mcL (0.6-4.6); Mean Corpuscular HGB Conc 32.1 g/dL (31.6-35.5); Mean Corpuscular Hemoglobin 27.4 pg (28.0-33.3); Mean Corpuscular Volume 85.5 fL (83.0-100.0); Monocytes # 1.2 K/mcL (0.0-1.3); Monocytes % 12.6 %; Neutrophils # 6.1 K/mcL (1.6-8.9); Platelet Count 538 K/mcL (140-400); Red Blood Count 4.01 M/mcL (3.82-4.97); Red Cell Distribution Width 13.7 % (11.5-14.5); Segmented Neutrophils % 63.1 %
[2018-04-29] MEDS ORDERED: Aspirin 81 MG TAB.CHEW PO SCH (10:00)
[2018-04-29] MEDS ORDERED: Furosemide 40 MG TABLET PO SCH (10:00)
[2018-04-29 10:20] LABS: Calcium 9.6 mg/dL (8.6-10.3)
[2018-04-29] MEDS ORDERED: Naloxone 0.4 MG/ML INJ IVP PRN (11:29)
[2018-04-29] MEDS ORDERED: Insulin LISPRO 300 UNITS/3 ML VIAL SQ SCH (11:30)
[2018-04-29] MEDS ORDERED: NON-FORMULARY MEDICATION 1 EACH EACH (Insulin Detemir [Levemir Flextouch] 40 UNIT) SQ SCH (11:30)
[2018-04-29 11:45] VITALS: BP 98/66
[2018-04-29] MEDS ORDERED: DAPTOmycin 500 MG in 0.9 % Sodium Chloride 100 ML IVPB SCH (13:00)
[2018-04-29] MEDS ORDERED: *HR* Heparin 5,000 UNIT/ML VIAL SQ SCH (14:00)
--- NOTE | 2018-04-29 17:22 | Internal Med History&Physical ---
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 On patients arrival at [facility] she was no longer in DKA without any symptoms of nausea and vomiting. Patient was educated on the importance of adherence to diabetic diet and compliance with medications due to her beta A1c 12.6. She was started on diabetic diet and resumed on her home insulin and will be discharged later this afternoon. Past Med Surg Social Fam HX - Past Medical History Medical history: coronary artery disease, dementia, diabetes, hyperlipidemia, h ypertension, myocardial infarction, renal disease, thyroid disease, other Additional medical history: MS fibromyalgia,. Numerous heart caths, total of 6 stents by 12/13/2017. neuropathy Psychiatric history: anxiety, depression - Past Surgical History Surgical History: angioplasty/stent, cholecystectomy, orthopedic, other, other Additional surgical history: L ankle ORIF. coronary stents x6. tubial. jaw surgery - Social History Smoking Status: Never smoker Smokeless Tobacco Status: No Alcohol use: none Drug use: none - Additional Family History Additional family history: Mom-diabetes Internal Medicine - H&P: Meds Levothyroxine [Synthroid] 75 mcg PO DAILY 11/10/17 [History] Clopidogrel [Plavix] 75 mg PO DAILY 03/19/18 [History] Lisinopril/Hydrochlorothiazide [Zestoretic 10-12.5 mg Tablet] 1 tab PO DAILY 03/19/18 [History] Aspirin Enteric Coated [Aspirin EC] 81 mg PO DAILY tablet. 03/31/18 [Rx] Atorvastatin Calcium 80 mg PO DAILY 04/21/18 [History] Citalopram [CeleXA] 20 mg PO DAILY 04/21/18 [History] Furosemide [Lasix] 40 mg PO DAILY 04/21/18 [History] DAPTOmycin [Cubicin] 500 mg IV DAILY #42 vial 04/25/18 [Rx] Insulin LISPRO [Humalog Kwikpen U-100] 0 unit SQ TIDWM #1 pack 04/27/18 [Rx] OxyCODONE/APAP 5/325 [Percocet 5/325 MG] 1 each PO Q4HR PRN 7 Days #20 tablet [Rx] Dextrose [Glucose] 1 tab PO PRN PRN 04/29/18 [History] Gabapentin [Neurontin] 300 mg PO TID 04/29/18 [History] Insulin DETEMIR [Levemir Flextouch] 30 unit SQ HS 04/29/18 [History] Insulin DETEMIR [Levemir Flextouch] 40 unit SQ DAILY 04/29/18 [History] Metoprolol [Lopressor] 25 mg PO DAILY 04/29/18 [History] Allergy/AdvReac Type Severity Reaction Status Date / Time Penicillins Allergy Anaphylaxis Verified 04/29/18 12:42 Sulfa (Sulfonamide Allergy Anaphylaxis Verified 04/29/18 12:42 Antibiotics) All Systems PM: A 10-system review of systems was performed and is negative for pertinent findings except as documented above in the HPI. - Constitutional Vitals: Temp Pulse Resp BP Pulse Ox 98.4 F 72 16 98/66 94 04/29/18 11:40 04/29/18 11:40 04/29/18 11:40 04/29/18 11:40 04/29/18 11:40 General appearance: Present: A&O X 3, no acute distress Exam: As above - Eye Eye exam: Present: normal appearance - ENT ENT exam: Present: mucous membranes moist - Respiratory Respiratory exam: Present: CTAB. Absent: accessory muscle use, rales, rhonchi, wheezes - Cardiovascular Cardiovascular exam: Present: RRR, +S1, +S2. Absent: diastolic murmur, gallop, rubs, systolic murmur - GI/Abdominal GI/Abdominal exam: Present: normal bowel sounds, soft, no peritoneal signs. Absent: distended, tenderness - Extremities Exam Extremities exam: Absent: pedal edema - Neurological Exam Neurological exam: Present: oriented X3 - Psychiatric Psychiatric exam: Present: normal mood - Skin Skin exam: Present: normal color Internal Med - H&P Results - Labs CBC & Chem 7: 04/29/18 09:34 04/29/18 09:34 Labs: Short CBC 04/29/18 Range/Units 09:34 WBC 9.7 (4.3-11.1) K/mcL Hgb 11.0 L (11.5-15.4) g/dL Hct 34.3 L (35.3-44.9) % Plt Count 538 H (140-400) K/mcL Neutrophils # 6.1 (1.6-8.9) K/mcL [facility] 04/29/18 09:34 Sodium 137 Potassium 4.0 Chloride 103 Carbon Dioxide 27 BUN 27 H Creatinine 1.21 H Glucose 136 H Calcium 9.6 - Assessment and plan (1) DKA (diabetic ketoacidoses) Status: Acute Assessment and plan: Resolved; will start patient on home insulin and diabetic diet and discharged this afternoon Qualifiers: Diabetes mellitus type: type 2 Qualified Code(s): E11.10 - Type 2 diabetes mellitus with ketoacidosis without coma (2) CAD (coronary artery disease) Status: Acute Assessment and plan: Stable; continue home medications Qualifiers: Coronary Disease-Associated Artery/Lesion type: bypass graft [place] vs. transplanted heart: [place] heart Associated angina: without angina Qualified Code(s): I25.810 - Atherosclerosis of coronary artery bypass graft(s) without angina pectoris (3) CKD (chronic kidney disease) stage 3, GFR 30-59 ml/min Status: Chronic Assessment and plan: Stable (4) Hypertension Status: Chronic Assessment and plan: Continue home medications Qualifiers: Hypertension type: essential hypertension Qualified Code(s): I10 - Essential (primary) hypertension (5) DVT prophylaxis Status: Acute Assessment and plan: Subcutaneous heparin - Time Spent With Patient Total time spent is greater than 50% in coordination of care (as documented) at patient's floor/unit and/or counseling patient:
--- NOTE | 2018-04-29 17:24 | Discharge Summary ---
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 On patients arrival at [facility] she was no longer in DKA without any symptoms of nausea and vomiting. Patient was educated on the importance of adherence to diabetic diet and compliance with medications due to her beta A1c 12.6. She was started on diabetic diet and resumed on her home insulin and will be discharged later this afternoon. Patient had no complications during her brief hospital stay and was discharged home to follow-up with primary care provider - Time Spent with Patient Total time spent providing and/or coordinating discharge services: - Discharge Medications Home Medications: Levothyroxine [Synthroid] 75 mcg PO DAILY 11/10/17 [History] Clopidogrel [Plavix] 75 mg PO DAILY 03/19/18 [History] Lisinopril/Hydrochlorothiazide [Zestoretic 10-12.5 mg Tablet] 1 tab PO DAILY 03/19/18 [History] Aspirin Enteric Coated [Aspirin EC] 81 mg PO DAILY tablet. 03/31/18 [Rx] Atorvastatin Calcium 80 mg PO DAILY 04/21/18 [History] Citalopram [CeleXA] 20 mg PO DAILY 04/21/18 [History] Furosemide [Lasix] 40 mg PO DAILY 04/21/18 [History] DAPTOmycin [Cubicin] 500 mg IV DAILY #42 vial 04/25/18 [Rx] Insulin LISPRO [Humalog Kwikpen U-100] 0 unit SQ TIDWM #1 pack 04/27/18 [Rx] OxyCODONE/APAP 5/325 [Percocet 5/325 MG] 1 each PO Q4HR PRN 7 Days #20 tablet 04/27/18 [Rx] Dextrose [Glucose] 1 tab PO PRN PRN 04/29/18 [History] Gabapentin [Neurontin] 300 mg PO TID 04/29/18 [History] Insulin DETEMIR [Levemir Flextouch] 30 unit SQ HS 04/29/18 [History] Insulin DETEMIR [Levemir Flextouch] 40 unit SQ DAILY 04/29/18 [History] Metoprolol [Lopressor] 25 mg PO DAILY 04/29/18 [History] Allergies/Adverse Reactions: Allergy/AdvReac Type Severity Reaction Status Date / Time Penicillins Allergy Anaphylaxis Verified 04/29/18 12:42 Sulfa (Sulfonamide Allergy Anaphylaxis Verified 04/29/18 12:42 Antibiotics) Date of admission: 04/29/18 08:37 Primary care physician: Saw Flores DO Consults: 04/29/18 12:21 Consult to Soft Sugar Cutter [CONS] Stat Reason for SW Consult: infusion therapy - Constitutional Vitals: Temp Pulse Resp BP Pulse Ox 98.4 F 72 16 98/66 94 04/29/18 11:40 04/29/18 11:40 04/29/18 11:40 04/29/18 11:40 04/29/18 11:40 Exam: Gen.: Nonacute distress, alert and oriented 3 ENT: Mucosal membranes moist Respiratory: Lungs are clear to auscultation bilaterally without any wheezing rhonchi or rales Cardiovascular: Normal S1 and S2 regular rate rhythm no murmurs rubs or gallops Abdomen: Soft, nontender and nondistended with positive bowel sounds Extremities: No lower extremity edema Skin: Normal color - Patient Status Disposition: Home Health Service - Discharge Instructions Instructions: Acute Nausea and Vomiting (GEN), Diabetic Hyperglycemia (GEN) Follow Up With: Saw Flores DO [Primary Care Provider] -
[2018-04-29] MEDS ORDERED: Gabapentin 300 MG CAPSULE PO SCH (21:00)
[2018-04-29] MEDS ORDERED: Insulin DETEMIR 100 UNIT/ML X5UNITS SQ SCH (21:00)
[2018-04-30] MEDS ORDERED: Insulin DETEMIR 100 UNIT/ML X5UNITS SQ SCH (09:00)
[2018-04-30] MEDS ORDERED: Aspirin Enteric Coated 81 MG Tablet PO SCH (09:00)
[2018-04-30] MEDS ORDERED: DAPTOmycin 500 MG VIAL IVP SCH (09:00)
[2018-04-30] MEDS ORDERED: Furosemide 40 MG TABLET PO SCH (09:00)
[2018-04-30] MEDS ORDERED: NON-FORMULARY MEDICATION 1 EACH EACH (Atorvastatin Calcium [Atorvastatin Calcium] 80 MG) PO SCH (09:00)
== END 2018-04-29 17:58 | disposition home health service (06) ==
LOC: 2NENU
PROVIDERS: ADMIT Internal Medicine; ATTEND Internal Medicine

== ENCOUNTER 2019-01-03 00:58 | Observation (INO) ==
[2019-01-03 04:02] LABS: Hemoglobin 11.7 g/dL (11.5-15.4); Mean Corpuscular HGB Conc 32.5 g/dL (31.6-35.5); Mean Corpuscular Hemoglobin 28.1 pg (28.0-33.3); Mean Corpuscular Volume 86.3 fL (83.0-100.0); Mean Platelet Volume 10.5 fL (9.4-12.4); Platelet Count 352 K/mcL (140-400); Red Blood Count 4.17 M/mcL (3.82-4.97); Red Cell Distribution Width 13.1 % (11.5-14.5); White Blood Count 7.9 K/mcL (4.3-11.1)
[2019-01-03 04:06] LABS: VBG HCO3 20 mEq/L (21-27); VBG PCO2 38 mmHg (41-51); VBG PH 7.34 pH Units (7.32-7.42); VBG PO2 204 mmHg (25-50)
[2019-01-03 04:19] LABS: Albumin 3.7 g/dL (3.5-5.7); Albumin/Globulin Ratio 1.4 (1.1-2.2); Bilirubin,Total 0.2 mg/dL (0.3-1.0); Calcium 9.6 mg/dL (8.6-10.3); Globulin 2.7 g/dL (2.4-3.5); Potassium 5.3 mEq/L (3.5-5.1); Total Protein 6.4 g/dL (6.4-8.9)
--- NOTE | 2019-01-03 04:34 | Internal Med History&Physical ---
Date of Encounter: 01/03/19 Time of Encounter: 04:44 Internal Medicine - H&P: HPI Chief complaint: Chest pain Admitted From: Emergency Dept Plans for Post Hospital Care: Home History of present illness: Ms. Seaman is a 63 year old female Patient presented to [facility] with intermittent chest pain for one month. She states that the pain radiates from the front of her chest through her back. The pain began while she was at rest, and she does have significant history of open heart surgery requiring revision due to an allergy to the metal components in the sternotomy repair. She states she had previously been doing well however over the last couple of weeks her symptoms have progressed, chest pain is becoming more frequent, primarily located on the left upper part of her chest and radiating across down into her lower chest. She has had some shortness of breath with this as well, but denies nausea and vomiting. She has had a dry cough and sometimes feels that she cannot swallow. She came to the hospital after attempting to make arrangements with a clinic to be seen outpatient. This appointment would not have occurred until January 19. [facility] vital signs: Blood pressure 166/63, pulse 68, respiratory rate 16, temperature 98.2, oxygen saturation 96% on room air CBC: White count 9.7, hemoglobin 12.7, hematocrit 39, platelets 390 BMP: Sodium 122, potassium 6.5, chloride 94, bicarbonate 17, glucose 538, BUN 75, creatinine 2.94 Liver function tests within normal limits D-dimer 1041 Initial troponin undetectable, repeat troponin also undetectable. BNP 49 ABG: PH 7.338, PCO2 27, PO2 97.7. Urinalysis: Large glucose, negative ketones, specific gravity 1.015, small protein, small leukocyte esterase, negative nitrite. EKG: Sinus rhythm, rate 62, QTC [address] No ischemic changes CT scan chest abdomen and pelvis: No acute process in the chest, abdomen or pelvis to explain the patient's symptoms At [facility]. Patient was considered to be in DKA, and was started on insulin drip. She was transferred to [facility] for further management. Upon arrival to [facility], the nurse to nurse signout in dicated that the patient was no longer in DKA. The patient was transferred to the ICU initially due to her prior presentation. Upon arrival stat repeat labs, with marked improvement. Patient's blood sugar was 219, potassium was 5.3. VBG indicated a pH of 7.34, mildly elevated osmolality of 304 however anion gap was 9. Patient had been off the insulin drip and IV fluids during the transfer from [place]. Patient states that she is still experiencing some left upper chest pain. She denies diarrhea, constipation and abdominal pain. She also currently denies shortness of breath. She is a full code. Past Med Surg Social Fam HX - Past Medical History Medical history: coronary artery disease, dementia, diabetes, hyperlipidemia, hypertension, myocardial infarction, renal disease, thyroid disease, other Additional medical history: MS fibromyalgia,. Numerous heart caths, total of 6 stents by 12/13/2017. neuropathy Psychiatric history: anxiety, depression - Past Surgical History Surgical History: angioplasty/stent, cholecystectomy, orthopedic, other, other Additional surgical history: L ankle ORIF. coronary stents x6. tubial. jaw surgery - Social History Smoking Status: Never smoker Smokeless Tobacco Status: No Alcohol use: none Drug use: none Internal Medicine - H&P: Meds Levothyroxine [Synthroid] 75 mcg PO DAILY 11/10/17 [History] Clopidogrel [Plavix] 75 mg PO DAILY 03/19/18 [History] Lisinopril/Hydrochlorothiazide [Zestoretic 10-12.5 mg Tablet] 1 tab PO DAILY 03/19/18 [History] Aspirin Enteric Coated [Aspirin EC] 81 mg PO DAILY tablet. 03/31/18 [Rx] Citalopram [CeleXA] 20 mg PO DAILY 04/21/18 [History] Furosemide [Lasix] 40 mg PO DAILY 04/21/18 [History] Insulin LISPRO [Humalog Kwikpen U-100] 0 unit SQ TIDWM #1 pack 04/27/18 [Rx] Gabapentin [Neurontin] 300 mg PO BID 04/29/18 [History] Insulin DETEMIR [Levemir Flextouch] 30 unit SQ HS 04/29/18 [History] Insulin DETEMIR [Levemir Flextouch] 40 unit SQ DAILY 04/29/18 [History] Metoprolol [Lopressor] 25 mg PO BID 04/29/18 [History] Allergy/AdvReac Type Severity Reaction Status Date / Time Penicillins Allergy Anaphylaxis Verified 07/20/18 11:21 Sulfa (Sulfonamide Allergy Anaphylaxis Verified 07/20/18 11:21 Antibiotics) All Systems PM: A 10-system review of systems was performed and is negative for pertinent findings except as documented above in the HPI. - Constitutional Vitals: Temp Pulse Resp BP Pulse Ox 97.7 F 71 17 149/64 97 01/03/19 03:00 01/03/19 03:00 01/03/19 03:00 01/03/19 03:00 01/03/19 03:00 General appearance: Present: cooperative, A&O X 3, pleasant, no acute distress, answers questions appropriately Exam: - - Head Head exam: Present: normal inspection - Eye Eye exam: Present: EOMI, normal appearance - Respiratory Respiratory exam: Present: CTAB. Absent: rales, respiratory distress, rhonchi, wheezes - Cardiovascular Cardiovascular exam: Present: RRR. Absent: diastolic murmur, systolic murmur Additional comments: Reproducible chest pain with palpation over the left chest. - GI/Abdominal GI/Abdominal exam: Present: normal bowel sounds, soft. Absent: tenderness - Extremities Exam Extremities exam: Present: tenderness, warm, radial pulses palpable and symmetrical. Absent: calf tenderness, pedal edema Additional comments: Mild tenderness in the left lower extremity with palpation - Neurological Exam Neurological exam: Present: no focal deficits, strengths equal and symetr throughout. Absent: motor sensory deficit, facial droop, speech deficit - Skin Skin exam: Present: dry, normal color, warm Internal Med - H&P Results - Labs CBC & Chem 7: 01/03/19 03:26 01/03/19 03:26 Labs: Short CBC 01/03/19 Range/Units 03:26 WBC 7.9 (4.3-11.1) K/mcL Hgb 11.7 (11.5-15.4) g/dL Hct 36.0 (35.3-44.9) % Plt Count 352 (140-400) K/mcL BMP 01/03/19 03:26 Sodium 133 L Potassium 5.3 H Chloride 103 Carbon Dioxide 21 L BUN 72 H Creatinine 2.18 H Glucose 219 H Calcium 9.6 Cardiac Enzymes 01/03/19 Range/Units 03:26 Troponin I < 0.03 (< 0.04) ng/mL Liver Function 09/24/19 Range/Units 03:26 Total Bilirubin 0.2 L (0.3-1.0) mg/dL AST 12 L (13-39) Units/L ALT 12 (7-52) Units/L Alkaline Phosphatase 91 (34-104) Units/L Albumin 3.7 (3.5-5.7) g/dL - ABG Interpretation ABG results: 01/03/19 04:04 VBG pH 7.34 VBG pCO2 38 L VBG pO2 204 H VBG HCO3 20 L - Assessment and Plan (1) Chest pain Current Visit: No Status: Resolved Assessment and plan: EKG and troponins at [place] unremarkable. Repeat troponin upon arrival remains undetectable. Patient did have elevated d-dimer at [place]. Patient also has a history of recent chest surgery requiring revision. No abnormalities however on chest CT. Continue cardiac monitoring Continue to trend troponins VQ scan in the morning Start heparin drip Lower extremity Doppler ultrasound to rule out DVT Qualifiers: Chest pain type: unspecified Qualified Code(s): R07.9 - Chest pain, unspecified (2) DKA (diabetic ketoacidoses) Current Visit: No Status: Acute Assessment and plan: Now resolved. We will continue to monitor blood sugars, provide patient with 10 units of long-acting insulin. Restart home meds Diabetic diet Qualifiers: Diabetes mellitus type: type 2 Qualified Code(s): E11.10 - Type 2 diabetes mellitus with ketoacidosis without coma (3) Hyperkalemia Current Visit: No Status: Resolved Assessment and plan: Potassium was 5.3 upon repeat here. Repeat BMP later in the morning Give albuterol nebulizer Patient will also be receiving insulin this morning (4) Chronic kidney disease (CKD) Current Visit: No Status: Acute Assessment and plan: Patient has history of chronic kidney disease. Creatinine improved from previous values last July. Continue to monitor Avoid nephrotoxic medicines Really dose meds Qualifiers: Chronic kidney disease stage: stage 4 (severe) Qualified Code(s): N18.4 - Chronic kidney disease, stage 4 (severe) (5) DVT prophylaxis Current Visit: No Status: Acute Assessment and plan: Starting heparin drip for possible PE - Time Spent With Patient Total time spent is greater than 50% in coordination of care (as documented) at patient's floor/unit and/or counseling patient:
[2019-01-03] MEDS ORDERED: Naloxone 0.4 MG/ML INJ IVP PRN ×2 (05:02→12:57)
[2019-01-03] MEDS ORDERED: *HR* Heparin 5,000 UNIT/ML VIAL IVP PRN ×4 (05:07→12:57)
[2019-01-03] MEDS ORDERED: *HR* Heparin 5,000 UNIT/ML VIAL IVP ONE ×2 (05:07→12:57)
[2019-01-03] MEDS ORDERED: Heparin 25,000 UNIT/250 ML D5W 25,000 UNIT/250 ML IV.SOLN IVC SCH ×2 (05:15→12:57)
[2019-01-03] MEDS ORDERED: D5% in Water 1,000 ML IVC PRN ×2 (05:17→12:57)
[2019-01-03] MEDS ORDERED: Dextrose Gel 15 GM/37.5 ML TUBE PO PRN ×4 (05:17→12:57)
[2019-01-03] MEDS ORDERED: *HR* Dextrose 50 % in Water (Syg) 50 ML SYRINGE IVP PRN ×2 (05:17→12:57)
[2019-01-03] MEDS ORDERED: Insulin DETEMIR 100 UNIT/ML X5UNITS SQ ONE (05:42)
[2019-01-03] MEDS ORDERED: Albuterol 2.5 MG/3 ML NEBULIZER IH ONE (05:49)
[2019-01-03 06:31] LABS: Hematocrit 36.3 % (35.3-44.9); Hemoglobin 11.8 g/dL (11.5-15.4); Mean Corpuscular HGB Conc 32.5 g/dL (31.6-35.5); Mean Platelet Volume 10.1 fL (9.4-12.4); Platelet Count 341 K/mcL (140-400); Red Blood Count 4.22 M/mcL (3.82-4.97); Red Cell Distribution Width 13.2 % (11.5-14.5); White Blood Count 7.2 K/mcL (4.3-11.1)
[2019-01-03 06:39] LABS: Heparin anti-factor XA UFH 0.05 IU/mL (0.30-0.70)
[2019-01-03 06:40] LABS: INR 0.8
[2019-01-03] MEDS: Insulin LISPRO 300 UNITS/3 ML VIAL SQ SCH ×3 (07:41→18:00)
[2019-01-03] MEDS ORDERED: 0.9 % Sodium Chloride 500 ML IV ONE (09:47)
[2019-01-03] MEDS ORDERED: 0.9 % Sodium Chloride 500 ML ONE (09:49)
[2019-01-03 11:11] LABS: Calcium 8.9 mg/dL (8.6-10.3); Potassium 4.7 mEq/L (3.5-5.1)
[2019-01-03] MEDS: Gabapentin 300 MG CAPSULE PO SCH ×2 (14:08→21:17)
[2019-01-03] MEDS: Aspirin Enteric Coated 81 MG Tablet PO SCH (14:08)
[2019-01-03] MEDS: *HR* Heparin 5,000 UNIT/ML VIAL SQ SCH (18:00)
[2019-01-03] MEDS ORDERED: Insulin LISPRO 300 UNITS/3 ML VIAL SQ SCH ×2 (21:00)
[2019-01-03] MEDS ORDERED: *HR* OxyCODONE Immed Rel 5 MG TABLET PO ONE (22:06)
[2019-01-04] MEDS ORDERED: traMADol 50 MG TABLET PO ONE (04:27)
[2019-01-04] MEDS: *HR* Heparin 5,000 UNIT/ML VIAL SQ SCH (04:54)
[2019-01-04 08:47] LABS: Hemoglobin 12.3 g/dL (11.5-15.4); Mean Corpuscular HGB Conc 32.4 g/dL (31.6-35.5); Mean Corpuscular Hemoglobin 28.7 pg (28.0-33.3); Mean Corpuscular Volume 88.6 fL (83.0-100.0); Mean Platelet Volume 10.1 fL (9.4-12.4); Platelet Count 352 K/mcL (140-400); Red Blood Count 4.29 M/mcL (3.82-4.97); Red Cell Distribution Width 13.3 % (11.5-14.5); White Blood Count 6.9 K/mcL (4.3-11.1)
[2019-01-04 09:05] LABS: Potassium 5.3 mEq/L (3.5-5.1)
--- NOTE | 2019-01-04 09:44 | Discharge Summary ---
- NOTES TO OUTPATIENT PROVIDER Notes to Outpatient Provider: PCP will need to establish patient with rehabilitation psychologist as she does not currently have Date of Encounter: 01/04/19 Time of Encounter: 09:41 - Discharge Diagnosis (1) Chest pain Priority: Primary Status: Resolved Qualifiers: Chest pain type: unspecified Qualified Code(s): R07.9 - Chest pain, unspecified (2) DKA (diabetic ketoacidoses) Priority: Secondary Status: Resolved Qualifiers: Diabetes mellitus type: type 2 Qualified Code(s): E11.10 - Type 2 diabetes mellitus with ketoacidosis without coma (3) Hyperkalemia Priority: Secondary Status: Resolved (4) Chronic kidney disease (CKD) Priority: Secondary Status: Acute Qualifiers: Chronic kidney disease stage: stage 4 (severe) Qualified Code(s): N18.4 - Chronic kidney disease, stage 4 (severe) (5) DVT prophylaxis Priority: Secondary Status: Acute Hospital course: Ms. Seaman is a 63 year old female with PMH of CAD, DM, HLD, HTN, NE, hypothyroidism, fibromyalgia presenting from [facility] for one month history of intermittent chest pain. EKG from outside facility showed sinus rhythm. Troponins were negative x3. Patient's chest pain was reproducible with palpation as well as deep inspiration and cough. Patient's pain improved during admission but was still present and reproducible on day of discharge. Workup for cardiac etiology was unremarkable. Pain likely musculoskeletal in nature. Patient advised to avoid NSAIDs due to history of CAD; she was advised to use OTC tylenol as needed. Patient does not currently have a rehabilitation psychologist and will need to be established with one. Of note, patient was also noted to be in DKA prior to admission to this facility and was placed on an IV insulin drop. On arrival to [facility], blood sugar was 219, patient was no longer acidotic and anion gap was normal. Patient noted that at home, her blood sugars usually run in the high 200s to low 300s. Patient's blood sugars stabilized during admission. PCP to evaluated insulin regimen for possible adjustments. Patient was clinically stable on day of discharge. Discharge discussed with: patient - Time Spent with Patient Total time spent providing and/or coordinating discharge services: 35 minutes - Discharge Medications Prescriptions: Continued Levothyroxine [Synthroid] 75 mcg PO DAILY Clopidogrel [Plavix] 75 mg PO DAILY Lisinopril/Hydrochlorothiazide [Zestoretic 10-12.5 mg Tablet] 1 tab PO DAILY Aspirin Enteric Coated [Aspirin EC] 81 mg PO DAILY tablet. Citalopram [CeleXA] 20 mg PO DAILY Furosemide [Lasix] 40 mg PO DAILY Insulin LISPRO [Humalog Kwikpen U-100] 0 unit SQ TIDWM #1 pack Insulin DETEMIR [Levemir Flextouch] 40 unit SQ DAILY Gabapentin [Neurontin] 300 mg PO BID Insulin DETEMIR [Levemir Flextouch] 30 unit SQ HS Metoprolol [Lopressor] 25 mg PO BID Home Medications: Levothyroxine [Synthroid] 75 mcg PO DAILY 11/10/17 [History] Clopidogrel [Plavix] 75 mg PO DAILY 03/19/18 [History] Lisinopril/Hydrochlorothiazide [Zestoretic 10-12.5 mg Tablet] 1 tab PO DAILY 03/19/18 [History] Aspirin Enteric Coated [Aspirin EC] 81 mg PO DAILY tablet. 03/31/18 [Rx] Citalopram [CeleXA] 20 mg PO DAILY 04/21/18 [History] Furosemide [Lasix] 40 mg PO DAILY 04/21/18 [History] Insulin LISPRO [Humalog Kwikpen U-100] 0 unit SQ TIDWM #1 pack 04/27/18 [Rx] Gabapentin [Neurontin] 300 mg PO BID 04/29/18 [History] Insulin DETEMIR [Levemir Flextouch] 30 unit SQ HS 04/29/18 [History] Insulin DETEMIR [Levemir Flextouch] 40 unit SQ DAILY 04/29/18 [History] Metoprolol [Lopressor] 25 mg PO BID 04/29/18 [History] Allergies/Adverse Reactions: Allergy/AdvReac Type Severity Reaction Status Date / Time Penicillins Allergy Anaphylaxis Verified 07/20/18 11:21 Sulfa (Sulfonamide Allergy Anaphylaxis Verified 07/20/18 11:21 Antibiotics) Date of admission: 01/03/19 02:52 Primary care physician: PCP NONE Discharging clinician: Mary Grace Hyatt Anticipated date of discharge: 01/04/19 - Constitutional Vitals: Temp Pulse Resp BP Pulse Ox 98.1 F 65 18 116/69 92 09/25/19 08:05 01/04/19 08:05 01/04/19 08:05 01/04/19 08:05 01/04/19 08:05 General appearance: Present: cooperative, A&O X 3, pleasant, no acute distress, answers questions appropriately Exam: GENERAL APPEARANCE: Well developed, well nourished, alert and cooperative, and appears to be in no acute distress. HEENT: Normocephalic/atraumatic, PERRLA. NECK: Supple, nontender without lymphadenopathy. CARDIOVASCULAR: Normal S1, S2; regular rate and rhythm; no murmurs. RESPIRATORY: Clear to auscultation bilaterally; no rales, rhonchi or wheezing. ABDOMEN: Soft, nondistended, nontender; bowel sounds present. MUSKULOSKELETAL: Pain with palpation of left anterior chest wall as well as pain with palpation of left shoulder EXTREMITIES: No edema, clubbing. NEUROLOGICAL: No focal neurological deficits. SKIN: Skin normal color, texture and turgor with no lesions or eruptions. PSYCHIATRIC: Judgment and reasoning; no hallucinations; normal affect. - Patient Status Disposition: Home, Self-Care Condition: Good Functional capacity at discharge: independent ambulation Overall status at discharge: patient is back to baseline - Discharge Instructions Instructions: Heart Failure (DC), Chest Pain (DC), Acute Kidney Injury (DC), Diabetes Mellitus Type 2 in Adults (DC), Chronic Hypertension (DC), Anemia (GEN) Follow Up With: NONE,PCP [Primary Care Provider] - - Diet and Activity Activity: resume usual activities as tolerated Diet: advance to your usual diet
[2019-01-04] MEDS ORDERED: Insulin DETEMIR 100 UNIT/ML X5UNITS SQ SCH (10:00)
[2019-01-04] MEDS: Insulin LISPRO 300 UNITS/3 ML VIAL SQ SCH ×2 (10:10→13:31)
[2019-01-04] MEDS: Aspirin Enteric Coated 81 MG Tablet PO SCH (10:10)
[2019-01-04] MEDS: Gabapentin 300 MG CAPSULE PO SCH (10:10)
[2019-01-04 11:52] VITALS: BP 107/59
== END 2019-01-04 15:23 | disposition home or self-care (01) ==
LOC: ICNU → SUATTDRO 02:52 → 2NENU 09:06
PROVIDERS: ADMIT Internal Medicine; ATTEND Family Medicine

== ENCOUNTER 2019-01-11 02:43 | Inpatient (IN) ==
[2019-01-11] MEDS ORDERED: Dextrose Gel 15 GM/37.5 ML TUBE PO PRN ×2 (07:35)
[2019-01-11] MEDS ORDERED: D5% in Water 1,000 ML IVC PRN (07:35)
[2019-01-11] MEDS ORDERED: *HR* Dextrose 50 % in Water (Syg) 50 ML SYRINGE IVP PRN (07:35)
[2019-01-11] MEDS ORDERED: MetroNIDAZOLE 500 MG/100 ML 500 MG/100 ML BAG IVPB SCH (08:00)
[2019-01-11 08:39] LABS: Hematocrit 33.5 % (35.3-44.9); Mean Corpuscular HGB Conc 31.9 g/dL (31.6-35.5); Mean Corpuscular Hemoglobin 28.3 pg (28.0-33.3); Mean Corpuscular Volume 88.6 fL (83.0-100.0); Mean Platelet Volume 10.3 fL (9.4-12.4); Platelet Count 308 K/mcL (140-400); Red Blood Count 3.78 M/mcL (3.82-4.97); Red Cell Distribution Width 13.4 % (11.5-14.5); White Blood Count 9.2 K/mcL (4.3-11.1)
[2019-01-11 08:46] LABS: Hemoglobin 10.7 g/dL (11.5-15.4); Prothrombin Time 10.9 Seconds (9.4-12.1)
[2019-01-11 08:58] LABS: Albumin 3.2 g/dL (3.5-5.7); Albumin/Globulin Ratio 1.1 (1.1-2.2); Bilirubin,Total 0.2 mg/dL (0.3-1.0); Calcium 8.1 mg/dL (8.6-10.3); Globulin 2.8 g/dL (2.4-3.5); Magnesium 1.7 mg/dL (1.6-2.6); Phosphorous 4.4 mg/dL (2.7-4.5); Potassium 4.8 mEq/L (3.5-5.1)
[2019-01-11] MEDS: Ringers Solution, Lactated 1,000 ML IVC SCH ×2 (09:36→16:45)
[2019-01-11] MEDS: MetroNIDAZOLE 500 MG/100 ML 500 MG/100 ML BAG IVPB SCH ×2 (09:36→18:20)
[2019-01-11] MEDS: Insulin LISPRO 300 UNITS/3 ML VIAL SQ SCH ×4 (09:37→21:28)
[2019-01-11 09:45] LABS: Estimated Average Glucose 344 mg/dl
[2019-01-11] MEDS ORDERED: *HR* Promethazine 25 MG/ML VIAL IVP PRN (10:13)
[2019-01-11] MEDS ORDERED: Naloxone 0.4 MG/ML INJ IVP PRN (10:13)
[2019-01-11] MEDS ORDERED: Ringers Solution, Lactated 500 ML IVC ONE (13:01)
[2019-01-11] MEDS ORDERED: 0.9 % Sodium Chloride 1,000 ML ONE (17:04)
[2019-01-11] MEDS ORDERED: 0.9 % Sodium Chloride 500 ML IVC PRN (17:19)
[2019-01-11 18:54] LABS: Basophils % 0.3 %; Eosinophils # 0.2 K/mcL (0.0-0.6); Eosinophils % 1.7 %; Hematocrit 34.8 % (35.3-44.9); Hemoglobin 10.9 g/dL (11.5-15.4); Immature Granulocytes % 0.3 % (0-4); Lymphocytes # 1.5 K/mcL (0.6-4.6); Mean Corpuscular HGB Conc 31.3 g/dL (31.6-35.5); Mean Corpuscular Hemoglobin 27.9 pg (28.0-33.3); Mean Corpuscular Volume 89.2 fL (83.0-100.0); Mean Platelet Volume 10.2 fL (9.4-12.4); Monocytes # 0.8 K/mcL (0.0-1.3); Neutrophils # 6.6 K/mcL (1.6-8.9); Platelet Count 302 K/mcL (140-400); Red Cell Distribution Width 13.4 % (11.5-14.5); Segmented Neutrophils % 72.7 %; White Blood Count 9.1 K/mcL (4.3-11.1)
[2019-01-11 19:12] LABS: Calcium 8.2 mg/dL (8.6-10.3); Potassium 4.3 mEq/L (3.5-5.1)
[2019-01-11] MEDS: Gabapentin 300 MG CAPSULE PO SCH ×2 (22:39→22:43)
[2019-01-11 23:52] LABS: VBG HCO3 12 mEq/L (21-27); VBG PCO2 23 mmHg (41-51); VBG PO2 125 mmHg (25-50)
[2019-01-12] MEDS: Insulin LISPRO 300 UNITS/3 ML VIAL SQ SCH ×6 (00:06→19:41)
[2019-01-12] MEDS ORDERED: 0.9 % Sodium Chloride 1,000 ML IV ONE ×2 (00:22→02:42)
[2019-01-12 00:37] LABS: Basophils % 0.3 %; Eosinophils # 0.2 K/mcL (0.0-0.6); Eosinophils % 1.8 %; Hemoglobin 10.4 g/dL (11.5-15.4); Immature Granulocytes % 0.6 % (0-4); Lymphocytes # 1.8 K/mcL (0.6-4.6); Lymphocytes % 19.7 %; Mean Corpuscular HGB Conc 31.5 g/dL (31.6-35.5); Mean Corpuscular Volume 88.7 fL (83.0-100.0); Mean Platelet Volume 9.8 fL (9.4-12.4); Monocytes # 0.9 K/mcL (0.0-1.3); Monocytes % 9.6 %; Neutrophils # 6.1 K/mcL (1.6-8.9); Platelet Count 303 K/mcL (140-400); Red Blood Count 3.72 M/mcL (3.82-4.97); Red Cell Distribution Width 13.6 % (11.5-14.5); White Blood Count 8.9 K/mcL (4.3-11.1)
[2019-01-12 00:56] LABS: Calcium 8.1 mg/dL (8.6-10.3); Potassium 4.5 mEq/L (3.5-5.1)
[2019-01-12] MEDS: MetroNIDAZOLE 500 MG/100 ML 500 MG/100 ML BAG IVPB SCH ×3 (02:02→17:37)
[2019-01-12] MEDS: Ringers Solution, Lactated 1,000 ML IVC SCH ×2 (02:02→09:28)
[2019-01-12 04:33] LABS: Potassium,Urine 28.6 mEq/L; Sodium, Urine 61.5 mEq/L
[2019-01-12] MEDS: Aspirin Enteric Coated 81 MG Tablet PO SCH ×2 (07:49→09:25)
[2019-01-12] MEDS: Gabapentin 300 MG CAPSULE PO SCH ×3 (07:49→19:41)
[2019-01-12] MEDS ORDERED: Ringers Solution, Lactated 1,000 ML IVC SCH (09:27)
[2019-01-13 01:22] LABS: Calcium 8.2 mg/dL (8.6-10.3); Potassium 4.3 mEq/L (3.5-5.1)
[2019-01-13] MEDS: Insulin LISPRO 300 UNITS/3 ML VIAL SQ SCH ×6 (02:46→20:45)
[2019-01-13] MEDS: MetroNIDAZOLE 500 MG/100 ML 500 MG/100 ML BAG IVPB SCH ×3 (02:48→16:59)
[2019-01-13] MEDS: Gabapentin 300 MG CAPSULE PO SCH ×2 (08:00→20:44)
[2019-01-13] MEDS: Aspirin Enteric Coated 81 MG Tablet PO SCH (08:00)
[2019-01-13] MEDS ORDERED: Ringers Solution, Lactated 1,000 ML IVC SCH (13:00)
[2019-01-14] MEDS: MetroNIDAZOLE 500 MG/100 ML 500 MG/100 ML BAG IVPB SCH ×3 (02:02→17:21)
[2019-01-14 02:33] LABS: Basophils % 0.5 %; Eosinophils # 0.2 K/mcL (0.0-0.6); Hematocrit 30.1 % (35.3-44.9); Hemoglobin 9.6 g/dL (11.5-15.4); Immature Granulocytes % 0.6 % (0-4); Lymphocytes # 1.3 K/mcL (0.6-4.6); Lymphocytes % 19.9 %; Mean Corpuscular HGB Conc 31.9 g/dL (31.6-35.5); Mean Corpuscular Hemoglobin 28.4 pg (28.0-33.3); Mean Corpuscular Volume 89.1 fL (83.0-100.0); Mean Platelet Volume 10.1 fL (9.4-12.4); Monocytes # 0.6 K/mcL (0.0-1.3); Monocytes % 9.8 %; Neutrophils # 4.2 K/mcL (1.6-8.9); Platelet Count 306 K/mcL (140-400); Red Blood Count 3.38 M/mcL (3.82-4.97); Red Cell Distribution Width 13.6 % (11.5-14.5); Segmented Neutrophils % 66.2 %; White Blood Count 6.3 K/mcL (4.3-11.1)
[2019-01-14 02:51] LABS: Calcium 8.4 mg/dL (8.6-10.3); Potassium 4.4 mEq/L (3.5-5.1)
[2019-01-14] MEDS: Gabapentin 300 MG CAPSULE PO SCH ×2 (07:36→20:49)
[2019-01-14] MEDS: Insulin LISPRO 300 UNITS/3 ML VIAL SQ SCH ×4 (07:36→20:46)
[2019-01-14] MEDS: Aspirin Enteric Coated 81 MG Tablet PO SCH (07:36)
[2019-01-15] MEDS: MetroNIDAZOLE 500 MG/100 ML 500 MG/100 ML BAG IVPB SCH (01:41)
[2019-01-15] MEDS: Gabapentin 300 MG CAPSULE PO SCH (07:30)
[2019-01-15] MEDS: Aspirin Enteric Coated 81 MG Tablet PO SCH (07:30)
[2019-01-15 07:31] VITALS: BP 139/85
[2019-01-15] MEDS: Insulin LISPRO 300 UNITS/3 ML VIAL SQ SCH (07:31)
[2019-01-15] MEDS ORDERED: FLU Vac QV 19-20 (6Month+)/PF 0.5 ML SYRINGE IM ONE (08:48)
== END 2019-01-15 13:06 | disposition home or self-care (01) | DRG 392 ==
LOC: 2NNU → SUATTDRO 04:28
PROVIDERS: ADMIT Internal Medicine; ATTEND Internal Medicine

== ENCOUNTER 2019-12-15 15:20 | Observation (INO) ==
[2019-12-15] MEDS ORDERED: Naloxone 0.4 MG/ML INJ IVP PRN (18:32)
[2019-12-15 19:08] LABS: Basophils % 0.3 %; Eosinophils # 0.1 K/mcL (0.0-0.6); Hematocrit 35.7 % (35.3-44.9); Hemoglobin 11.4 g/dL (11.5-15.4); Immature Granulocytes % 0.5 % (0-4); Lymphocytes # 2.4 K/mcL (0.6-4.6); Lymphocytes % 26.4 %; Mean Corpuscular HGB Conc 31.9 g/dL (31.6-35.5); Mean Corpuscular Hemoglobin 27.9 pg (28.0-33.3); Mean Corpuscular Volume 87.5 fL (83.0-100.0); Mean Platelet Volume 10.4 fL (9.4-12.4); Monocytes # 0.8 K/mcL (0.0-1.3); Neutrophils # 5.8 K/mcL (1.6-8.9); Platelet Count 368 K/mcL (140-400); Red Blood Count 4.08 M/mcL (3.82-4.97); Red Cell Distribution Width 12.6 % (11.5-14.5); Segmented Neutrophils % 62.8 %; White Blood Count 9.2 K/mcL (4.3-11.1)
[2019-12-15 19:27] LABS: Troponin I < 0.03 ng/mL (< 0.04)
[2019-12-15] MEDS ORDERED: Dextrose Gel 15 GM/37.5 ML TUBE PO PRN ×2 (20:14)
[2019-12-15] MEDS ORDERED: *HR* Dextrose 50 % in Water (Vial) 50 ML VIAL IVP PRN (20:14)
[2019-12-15] MEDS ORDERED: D5% in Water 1,000 ML IVC PRN (20:14)
[2019-12-15] MEDS ORDERED: Isovue-370 500 ML BOTTLE IVP ONE (22:01)
[2019-12-15 22:18] LABS: BUN/Creatinine Ratio 27 (6-26); Blood Urea Nitrogen 42 mg/dL (8-23); Calcium 8.9 mg/dL (8.6-10.3); Carbon Dioxide 18 mEq/L (23-29); Chloride 107 mEq/L (98-107); Glucose 80 mg/dL (70-105); Osmolality,Calculated 293 (280-300); Potassium 4.8 mEq/L (3.5-5.1); Sodium 137 mEq/L (136-145); eGFR For African Americans 41 (> 60); eGFR For Non-African Americans 34 (> 60)
[2019-12-15] MEDS ORDERED: 0.9 % Sodium Chloride 500 ML IVC ONE (22:35)
[2019-12-15] MEDS ORDERED: 0.9 % Sodium Chloride 1,000 ML IVC SCH (22:45)
[2019-12-15] MEDS: Insulin DETEMIR 100 UNIT/ML X5UNITS SQ SCH (23:23)
[2019-12-15] MEDS: Gabapentin 300 MG CAPSULE PO SCH (23:23)
[2019-12-16] MEDS: Insulin LISPRO 300 UNITS/3 ML VIAL SQ SCH ×4 (01:26→17:59)
[2019-12-16 02:39] LABS: Calcium 8.4 mg/dL (8.6-10.3); Potassium 4.9 mEq/L (3.5-5.1)
[2019-12-16] MEDS ORDERED: cloNIDine HCL 0.1 MG TABLET PO ONE ×2 (03:39→17:00)
[2019-12-16] MEDS: *HR* Heparin 5,000 UNIT/ML VIAL SQ SCH ×3 (05:08→21:18)
[2019-12-16] MEDS: MetroNIDAZOLE 500 MG/100 ML 500 MG/100 ML BAG IVPB SCH ×4 (05:10→23:36)
[2019-12-16] MEDS: Insulin DETEMIR 100 UNIT/ML X5UNITS SQ SCH ×2 (08:26→21:17)
[2019-12-16] MEDS ORDERED: Regadenoson 0.4 MG/5 ML SYRINGE IVP ONE (08:36)
[2019-12-16] MEDS ORDERED: Sodium Bicarbonate 150 MEQ in D5% in Water 1,000 ML IVC SCH (08:45)
[2019-12-16] MEDS ORDERED: Furosemide 40 MG TABLET PO SCH (09:00)
[2019-12-16] MEDS: Aspirin Enteric Coated 81 MG Tablet PO SCH (10:18)
[2019-12-16] MEDS: Gabapentin 300 MG CAPSULE PO SCH ×3 (10:18→21:15)
[2019-12-16] MEDS ORDERED: carvediloL 6.25 MG TABLET PO SCH (17:00)
[2019-12-17 01:50] LABS: Calcium 8.4 mg/dL (8.6-10.3); Potassium 4.8 mEq/L (3.5-5.1)
[2019-12-17] MEDS: MetroNIDAZOLE 500 MG/100 ML 500 MG/100 ML BAG IVPB SCH (05:34)
[2019-12-17] MEDS: *HR* Heparin 5,000 UNIT/ML VIAL SQ SCH (05:35)
[2019-12-17 07:09] VITALS: BP 99/52
[2019-12-17] MEDS ORDERED: Metoprolol XL (24 HR) Succ 25 MG TAB.ER.24H PO SCH (09:00)
[2019-12-17] MEDS: Gabapentin 300 MG CAPSULE PO SCH (09:27)
[2019-12-17] MEDS: Aspirin Enteric Coated 81 MG Tablet PO SCH (09:27)
[2019-12-17] MEDS: Insulin DETEMIR 100 UNIT/ML X5UNITS SQ SCH (09:27)
[2019-12-17] MEDS: Insulin LISPRO 300 UNITS/3 ML VIAL SQ SCH (09:32)
== END 2019-12-17 10:32 | disposition home or self-care (01) ==
LOC: 3BNU
PROVIDERS: ADMIT Internal Medicine; ATTEND Internal Medicine

== ENCOUNTER 2020-04-09 06:21 | Observation (INO) ==
[2020-04-09] MEDS ORDERED: Clindamycin 900 MG/50 ML 900 MG/50 ML IV.SOLN IVPB ONE (06:54)
[2020-04-09] MEDS ORDERED: Famotidine 20 MG/2 ML VIAL IVP ONE (07:00)
[2020-04-09] MEDS ORDERED: Pregabalin 75 MG CAPSULE PO ONE (07:00)
[2020-04-09] MEDS ORDERED: *HR* Labetalol 20 MG/4 ML SYRINGE IVP PRN (07:00)
[2020-04-09] MEDS ORDERED: *HR* HYDROmorphone 2 MG TABLET PO PRN (07:00)
[2020-04-09] MEDS ORDERED: Acetaminophen IV 1,000 MG/100 ML BAG IVPB ONE (07:00)
[2020-04-09] MEDS ORDERED: *HR* OxyCODONE Immed Rel 5 MG TABLET PO PRN (07:00)
[2020-04-09] MEDS ORDERED: *HR* HYDROmorphone (PF) 1 MG/ML SYRINGE IVP PRN (07:00)
[2020-04-09] MEDS ORDERED: Scopolamine Patch 1.5 MG PATCH.TD72 TD ONE (07:00)
[2020-04-09] MEDS ORDERED: Ringers Solution, Lactated 1,000 ML IVC SCH ×2 (07:00→13:56)
[2020-04-09] MEDS ORDERED: Ondansetron 4 MG/2 ML VIAL ONE ×2 (07:21→10:15)
[2020-04-09] MEDS ORDERED: *HR* Rocuronium Bromide 50 MG/5 ML VIAL ONE (07:21)
[2020-04-09] MEDS ORDERED: *HR* FentaNYL (PF) 100 MCG/2 ML VIAL ONE (07:21)
[2020-04-09] MEDS ORDERED: *HR* Succinylcholine 200 MG/10 ML VIAL IVP ONE (07:21)
[2020-04-09] MEDS ORDERED: Lidocaine -MPF 2% 2 ML VIAL ONE (07:21)
[2020-04-09] MEDS ORDERED: *HR* Midazolam HCl 2 MG/2 ML VIAL ONE (07:21)
[2020-04-09] MEDS ORDERED: *HR* Propofol 200 MG/20 ML VIAL IVP ONE (07:22)
[2020-04-09] MEDS ORDERED: Lidocaine HCL 4 ML Topical Solution (Laryng-O-Jet Kit Sterile Pak) TP ONE (07:24)
[2020-04-09] MEDS ORDERED: *HR* Remifentanil 1 MG VIAL IVP ONE (07:26)
[2020-04-09] MEDS ORDERED: Bacitracin 50,000 UNIT, Polymyxin B Sulfate 500,000 UNIT, Sodium Chloride IRRigation 1,... IR ONE (07:45)
[2020-04-09] MEDS ORDERED: EPHEDrine 50 MG/ML VIAL ONE (08:59)
[2020-04-09] MEDS ORDERED: Sugammadex Sodium 200 MG/2 ML VIAL IV ONE (10:12)
[2020-04-09] MEDS ORDERED: *HR* HYDROMORPHONE 2 MG/ML VIAL ONE (11:03)
[2020-04-09] MEDS: Insulin Regular, Human 100 UNIT/ML IV ONE ×2 (11:32→12:39)
[2020-04-09] MEDS ORDERED: Ipratropium/Albuterol Neb 3 ML IH ONE (12:01)
[2020-04-09] MEDS ORDERED: Ipratropium/Albuterol Neb 3 ML ONE (12:04)
[2020-04-09] MEDS ORDERED: Insulin Human Regular 6 UNIT in 0.9 % Sodium Chloride 10 ML IV ONE (12:34)
[2020-04-09] MEDS ORDERED: Naloxone 0.4 MG/ML INJ IVP PRN (13:56)
[2020-04-09] MEDS ORDERED: Acetaminophen 325 MG TABLET PO PRN (13:56)
[2020-04-09] MEDS ORDERED: Ondansetron 4 MG/2 ML VIAL IVP PRN (13:56)
[2020-04-09] MEDS ORDERED: *HR* HYDROcodone/Acet 5/325 mg TABLET PO PRN (13:56)
[2020-04-09] MEDS ORDERED: NON-FORMULARY MEDICATION 1 EACH EACH (Nitroglycerin [Nitrostat] 0.4 MG) PO PRN (13:56)
[2020-04-09] MEDS ORDERED: Nitroglycerin 0.4 MG TAB.SUBL SL PRN (14:24)
[2020-04-09] MEDS ORDERED: *HR* Dextrose 50 % in Water (Vial) 50 ML VIAL IVP PRN ×2 (14:25→19:37)
[2020-04-09] MEDS ORDERED: Dextrose Gel 15 GM/37.5 ML TUBE PO PRN ×4 (14:25→19:37)
[2020-04-09] MEDS ORDERED: D5% in Water 1,000 ML IVC PRN ×2 (14:25→19:37)
[2020-04-09] MEDS: Clindamycin 900 MG/50 ML 900 MG/50 ML IV.SOLN IVPB SCH ×2 (16:46→23:18)
[2020-04-09] MEDS: carvediloL 6.25 MG TABLET PO SCH (16:46)
[2020-04-09] MEDS: Insulin DETEMIR 100 UNIT/ML X5UNITS SUBQ SCH (20:17)
[2020-04-09] MEDS: Insulin LISPRO 300 UNITS/3 ML VIAL SUBQ SCH (20:17)
[2020-04-10] MEDS: carvediloL 6.25 MG TABLET PO SCH ×2 (09:30→17:49)
[2020-04-10] MEDS: Aspirin Enteric Coated 81 MG Tablet PO SCH (09:30)
[2020-04-10] MEDS: Furosemide 40 MG TABLET PO SCH (09:30)
[2020-04-10] MEDS: Isosorbide MONOnitrate (24 HR) 30 MG TAB.ER.24H PO SCH (09:30)
[2020-04-10] MEDS: Insulin LISPRO 300 UNITS/3 ML VIAL SUBQ SCH ×4 (09:50→20:33)
[2020-04-10] MEDS: Insulin DETEMIR 100 UNIT/ML X5UNITS SUBQ SCH ×2 (09:51→20:42)
[2020-04-10] MEDS ORDERED: tiZANidine 4 MG TABLET PO PRN (14:35)
[2020-04-10 15:45] LABS: Calcium 8.6 mg/dL (8.6-10.3); Potassium 4.8 mEq/L (3.5-5.1)
[2020-04-10] MEDS: *HR* OxyCODONE Immed Rel 5 MG TABLET PO PRN (17:50)
[2020-04-11] MEDS: *HR* OxyCODONE Immed Rel 5 MG TABLET PO PRN (05:36)
[2020-04-11] MEDS: Insulin LISPRO 300 UNITS/3 ML VIAL SUBQ SCH ×2 (08:02→12:33)
[2020-04-11] MEDS: Aspirin Enteric Coated 81 MG Tablet PO SCH (08:02)
[2020-04-11] MEDS: Isosorbide MONOnitrate (24 HR) 30 MG TAB.ER.24H PO SCH (08:02)
[2020-04-11] MEDS: Furosemide 40 MG TABLET PO SCH (08:02)
[2020-04-11] MEDS: carvediloL 6.25 MG TABLET PO SCH (08:02)
[2020-04-11] MEDS: Insulin DETEMIR 100 UNIT/ML X5UNITS SUBQ SCH (08:04)
[2020-04-11 11:25] VITALS: BP 109/54
== END 2020-04-11 17:01 | disposition home or self-care (01) ==
LOC: SAMDAY 06:21 → 3NENU 06:21
PROVIDERS: ADMIT Orthopaedic Surgery Orthopaedic Surgery of the Spine; ATTEND Orthopaedic Surgery Orthopaedic Surgery of the Spine

== ENCOUNTER 2021-01-15 03:15 | Observation (INO) ==
[2021-01-15] MEDS ORDERED: Ondansetron 4 MG/2 ML VIAL IVP PRN (05:53)
[2021-01-15] MEDS ORDERED: Naloxone 0.4 MG/ML INJ IVP PRN (05:53)
[2021-01-15] MEDS ORDERED: 0.9 % Sodium Chloride 500 ML IVC PRN (06:03)
[2021-01-15] MEDS ORDERED: *HR* Dextrose 50 % in Water (Syg) 50 ML SYRINGE IVP PRN (06:04)
[2021-01-15] MEDS ORDERED: D5% in Water 1,000 ML IVC PRN (06:04)
[2021-01-15] MEDS ORDERED: Dextrose Gel 15 GM/37.5 ML TUBE PO PRN ×2 (06:04)
[2021-01-15 06:51] LABS: Basophils % 0.1 %; Segmented Neutrophils % 89.7 %
[2021-01-15 06:53] LABS: Hematocrit 29.7 % (35.3-44.9); Hemoglobin 9.5 g/dL (11.5-15.4); Immature Granulocytes % 0.9 % (0-4); Lymphocytes # 0.6 K/mcL (0.6-4.6); Lymphocytes % 2.3 %; Mean Corpuscular Hemoglobin 29.1 pg (28.0-33.3); Mean Corpuscular Volume 91.1 fL (83.0-100.0); Mean Platelet Volume 10.3 fL (9.4-12.4); Monocytes # 1.7 K/mcL (0.0-1.3); Platelet Count 338 K/mcL (140-400); Red Blood Count 3.26 M/mcL (3.82-4.97); Red Cell Distribution Width 12.3 % (11.5-14.5); White Blood Count 24.6 K/mcL (4.3-11.1)
[2021-01-15 06:56] LABS: Neutrophils # 22.1 K/mcL (1.6-8.9)
[2021-01-15 07:00] LABS: INR 1.3; Prothrombin Time 14.5 Seconds (9.4-12.1)
[2021-01-15] MEDS ORDERED: levoFLOXacin 750 MG/150 ML 750 MG/150 ML BAG IVPB SCH (07:00)
[2021-01-15 07:15] LABS: Albumin 3.3 g/dL (3.5-5.7); Albumin/Globulin Ratio 1.1 (1.1-2.2); Bilirubin,Total 0.4 mg/dL (0.3-1.0); Calcium 8.6 mg/dL (8.6-10.3); Potassium 5.4 mEq/L (3.5-5.1); Total Protein 6.3 g/dL (6.4-8.9)
[2021-01-15] MEDS: Acetaminophen 325 MG TABLET PO PRN ×2 (07:55→15:03)
[2021-01-15] MEDS: Insulin LISPRO 300 UNITS/3 ML VIAL SUBQ SCH ×3 (07:56→16:40)
[2021-01-15] MEDS ORDERED: 0.9 % Sodium Chloride 1,000 ML IVC SCH (09:00)
[2021-01-15 09:56] LABS: Magnesium 1.6 mg/dL (1.6-2.6)
[2021-01-15] MEDS: GuaiFENesin/Dextromethorphan TABLET PO SCH ×2 (12:04→20:00)
[2021-01-15] MEDS: Loratadine 10 MG TABLET PO SCH (12:04)
[2021-01-15] MEDS: *HR* Heparin 5,000 UNIT/ML VIAL SQ SCH ×2 (15:02→19:59)
[2021-01-15] MEDS ORDERED: *HR* HYDROcodone/Acet 5/325 mg TABLET PO PRN (17:24)
[2021-01-15] MEDS: carvediloL 6.25 MG TABLET PO SCH (20:00)
[2021-01-16 02:28] LABS: Bacteria,Urine Few per hpf (None-Few); Bilirubin,Urine Negative (Negative); Blood,Urine Large (Negative); Clarity,Urine Turbid (Clear); Color,Urine Light-Yellow (Yellow); Glucose,Urine (UA) Normal (Normal); Ketones,Urine Negative (Negative); Leukocyte Esterase,Urine Large (Negative); Nitrite,Urine Negative (Negative); Protein,Urine 100 mg/dL (Neg-Trace); RBC,Urine TNTC per hpf (0-3); Specific Gravity,Urine 1.015 (1.010-1.025); Squamous Epithelial Cell,Urine Few per hpf (None-Few); Urobilinogen,Urine Normal (Normal); WBC,Urine TNTC per hpf (0-3)
[2021-01-16] MEDS: *HR* Heparin 5,000 UNIT/ML VIAL SQ SCH (05:43)
[2021-01-16 06:39] VITALS: BP 168/94; PULSE 66; TEMP 98.1; O2SAT 98
[2021-01-16 06:42] LABS: Hematocrit 29.9 % (35.3-44.9); Hemoglobin 9.4 g/dL (11.5-15.4); Mean Corpuscular HGB Conc 31.4 g/dL (31.6-35.5); Mean Corpuscular Hemoglobin 28.8 pg (28.0-33.3); Mean Corpuscular Volume 91.7 fL (83.0-100.0); Mean Platelet Volume 10.3 fL (9.4-12.4); Platelet Count 336 K/mcL (140-400); Red Blood Count 3.26 M/mcL (3.82-4.97); Red Cell Distribution Width 12.9 % (11.5-14.5); White Blood Count 14.9 K/mcL (4.3-11.1)
[2021-01-16 07:02] LABS: Calcium 8.9 mg/dL (8.6-10.3); Potassium 4.9 mEq/L (3.5-5.1)
[2021-01-16 07:07] LABS: Albumin 3.2 g/dL (3.5-5.7); Bilirubin,Indirect 0.3 mg/dL (0.0-1.0); Bilirubin,Total 0.3 mg/dL (0.3-1.0); Globulin 3.1 g/dL (2.4-3.5); Total Protein 6.3 g/dL (6.4-8.9)
[2021-01-16] MEDS: GuaiFENesin/Dextromethorphan TABLET PO SCH (08:00)
[2021-01-16] MEDS: Loratadine 10 MG TABLET PO SCH (08:00)
[2021-01-16] MEDS: carvediloL 6.25 MG TABLET PO SCH (08:00)
[2021-01-16 08:01] LABS: Estimated Average Glucose 174 mg/dl; Hemoglobin A1C 7.7 %
[2021-01-16] MEDS: Insulin LISPRO 300 UNITS/3 ML VIAL SUBQ SCH ×2 (08:01→11:58)
[2021-01-16] MEDS ORDERED: Aspirin Enteric Coated 81 MG Tablet PO SCH (09:00)
[2021-01-16] MEDS ORDERED: Isosorbide MONOnitrate (24 HR) 30 MG TAB.ER.24H PO SCH (09:00)
[2021-01-16] MEDS ORDERED: Cyanocobalamin (B-12) 1,000 MCG/ML VIAL SQ ONE (09:29)
== END 2021-01-16 12:17 | disposition home or self-care (01) ==
LOC: 3ANU → SUATTDRO 05:05
PROVIDERS: ADMIT Internal Medicine; ATTEND Pharmacist

== ENCOUNTER 2021-12-30 16:20 | Inpatient (IN) ==
[2021-12-30] MEDS ORDERED: Acetaminophen 325 MG TABLET PO PRN (17:52)
[2021-12-30] MEDS ORDERED: Ondansetron 4 MG/2 ML VIAL IVP PRN (17:52)
[2021-12-30] MEDS ORDERED: Naloxone 0.4 MG/ML INJ IVP PRN (17:52)
[2021-12-30] MEDS ORDERED: Dextrose Gel 15 GM/37.5 ML TUBE PO PRN ×2 (18:36)
[2021-12-30] MEDS ORDERED: *HR* Dextrose 50 % in Water (Syg) 50 ML SYRINGE IVP PRN (18:36)
[2021-12-30] MEDS ORDERED: D5% in Water 1,000 ML IVC PRN (18:36)
[2021-12-30] MEDS ORDERED: hydrALAZINE 10 MG TABLET PO PRN (18:50)
[2021-12-30] MEDS: 0.9 % Sodium Chloride 1,000 ML IVC SCH (21:22)
[2021-12-30] MEDS: *HR* HYDROcodone/Acet 5/325 mg TABLET PO PRN (21:23)
[2021-12-30] MEDS: Nystatin POWDER 30 GM BOTTLE TP SCH (21:23)
[2021-12-31 02:45] LABS: Hemoglobin 8.1 g/dL (11.5-15.4); Mean Corpuscular HGB Conc 32.4 g/dL (31.6-35.5); Mean Corpuscular Hemoglobin 28.5 pg (28.0-33.3); Platelet Count 351 K/mcL (140-400); Red Blood Count 2.84 M/mcL (3.82-4.97); White Blood Count 10.3 K/mcL (4.3-11.1)
[2021-12-31 02:55] LABS: Prothrombin Time 11.2 Seconds (9.4-12.1)
[2021-12-31 02:56] LABS: Estimated Average Glucose 186 mg/dl; Hemoglobin A1C 8.1 %
[2021-12-31 02:57] LABS: Activated Partial Thrombo Time 32.2 Seconds (26.0-36.0)
[2021-12-31 03:10] LABS: Uric Acid 8.2 mg/dL (2.3-7.6)
[2021-12-31 03:21] LABS: Calcium 7.5 mg/dL (8.6-10.3); Chol/HDL Ratio 6.3 (0-4.9); Magnesium 2.2 mg/dL (1.6-2.6); Phosphorous 10.2 mg/dL (2.7-4.5); Potassium 4.4 mEq/L (3.5-5.1)
[2021-12-31 03:42] LABS: Folate > 22.3 ng/mL (3.0-16.0); Vitamin B12 544 pg/mL (250-1100)
[2021-12-31] MEDS: *HR* OxyCODONE Immed Rel 5 MG TABLET PO PRN ×2 (08:28→23:54)
[2021-12-31] MEDS: Insulin LISPRO 300 UNITS/3 ML VIAL SUBQ SCH ×3 (08:56→16:43)
[2021-12-31] MEDS: carvediloL 6.25 MG TABLET PO SCH ×2 (08:57→16:42)
[2021-12-31] MEDS: 0.9 % Sodium Chloride 1,000 ML IVC SCH (08:58)
[2021-12-31] MEDS ORDERED: NIFEdipine XL (24 HR) 60 MG TAB.ER.24 PO SCH (09:00)
[2021-12-31] MEDS: Nystatin POWDER 30 GM BOTTLE TP SCH ×3 (09:03→20:47)
[2021-12-31] MEDS ORDERED: SODIUM BICARBONATE IVC SCH (09:15)
[2021-12-31] MEDS ORDERED: SODIUM CHLORIDE 0.9% IVC SCH (09:15)
[2021-12-31 10:48] LABS: Protein/Creatinine Ratio,Urine 2.92 mg/mg (0.00-0.20)
[2021-12-31 11:02] LABS: Bacteria,Urine Few per hpf (None-Few); Bilirubin,Urine Negative (Negative); Blood,Urine Small (Negative); Clarity,Urine Ex.Turbid (Clear); Color,Urine Yellow (Yellow); Glucose,Urine (UA) 70 mg/dL (Normal); Ketones,Urine Negative (Negative); Leukocyte Esterase,Urine Large (Negative); Mucus,Urine Few per lpf (None-Few); Nitrite,Urine Negative (Negative); Protein,Urine 100 mg/dL (Neg-Trace); Specific Gravity,Urine 1.012 (1.010-1.025); Squamous Epithelial Cell,Urine Few per hpf (None-Few); Urobilinogen,Urine Normal (Normal); WBC,Urine TNTC per hpf (0-3)
[2021-12-31] MEDS: Sodium Bicarbonate 75 MEQ in 0.45 % Sodium Chloride 1,000 ML IVC SCH ×2 (11:18→23:54)
[2021-12-31] MEDS: *HR* HYDROcodone/Acet 5/325 mg TABLET PO PRN (20:47)
[2021-12-31] MEDS: traZODone 50 MG TABLET PO SCH (20:47)
[2021-12-31] MEDS: Melatonin 3 MG TABLET PO PRN (20:47)
[2022-01-01 02:27] LABS: Basophils % 0.4 %; Eosinophils # 0.2 K/mcL (0.0-0.6); Eosinophils % 1.5 %; Hematocrit 24.6 % (35.3-44.9); Hemoglobin 7.8 g/dL (11.5-15.4); Immature Granulocytes % 1.1 % (0-4); Lymphocytes # 1.4 K/mcL (0.6-4.6); Lymphocytes % 12.3 %; Mean Corpuscular HGB Conc 31.7 g/dL (31.6-35.5); Mean Corpuscular Hemoglobin 27.9 pg (28.0-33.3); Mean Corpuscular Volume 87.9 fL (83.0-100.0); Mean Platelet Volume 10.1 fL (9.4-12.4); Monocytes # 1.1 K/mcL (0.0-1.3); Monocytes % 9.9 %; Neutrophils # 8.5 K/mcL (1.6-8.9); Platelet Count 345 K/mcL (140-400); Red Cell Distribution Width 13.9 % (11.5-14.5); Segmented Neutrophils % 74.8 %; White Blood Count 11.4 K/mcL (4.3-11.1)
[2022-01-01 03:12] LABS: Calcium 7.7 mg/dL (8.6-10.3); Phosphorous 8.2 mg/dL (2.7-4.5); Potassium 3.8 mEq/L (3.5-5.1)
[2022-01-01] MEDS: Isosorbide MONOnitrate (24 HR) 30 MG TAB.ER.24H PO SCH (07:52)
[2022-01-01] MEDS: Insulin LISPRO 300 UNITS/3 ML VIAL SUBQ SCH ×3 (07:53→17:00)
[2022-01-01] MEDS: Nystatin POWDER 30 GM BOTTLE TP SCH ×3 (07:53→20:14)
[2022-01-01] MEDS: carvediloL 6.25 MG TABLET PO SCH ×2 (07:53→17:00)
[2022-01-01] MEDS: *HR* OxyCODONE Immed Rel 5 MG TABLET PO PRN ×2 (07:57→18:32)
[2022-01-01] MEDS: *HR* HYDROcodone/Acet 5/325 mg TABLET PO PRN (11:59)
[2022-01-01] MEDS: Ipratropium/Albuterol Neb 3 ML IH PRN (16:04)
[2022-01-01 16:05] LABS: Sodium, Urine 69.4 mEq/L
[2022-01-01] MEDS: traZODone 50 MG TABLET PO SCH (20:14)
[2022-01-01] MEDS: Melatonin 3 MG TABLET PO PRN (20:14)
[2022-01-02] MEDS: *HR* HYDROcodone/Acet 5/325 mg TABLET PO PRN (06:04)
[2022-01-02] MEDS: Insulin LISPRO 300 UNITS/3 ML VIAL SUBQ SCH ×3 (08:07→16:57)
[2022-01-02] MEDS: Isosorbide MONOnitrate (24 HR) 30 MG TAB.ER.24H PO SCH (08:07)
[2022-01-02] MEDS: carvediloL 6.25 MG TABLET PO SCH ×2 (08:07→16:56)
[2022-01-02] MEDS: Nystatin POWDER 30 GM BOTTLE TP SCH ×3 (08:08→22:00)
[2022-01-02] MEDS: Ipratropium/Albuterol Neb 3 ML IH PRN (08:15)
[2022-01-02 08:42] LABS: Basophils # 0.1 K/mcL (0.0-0.2); Basophils % 0.5 %; Eosinophils # 0.2 K/mcL (0.0-0.6); Eosinophils % 2.2 %; Hematocrit 23.8 % (35.3-44.9); Hemoglobin 7.7 g/dL (11.5-15.4); Immature Granulocytes % 1.3 % (0-4); Lymphocytes # 1.8 K/mcL (0.6-4.6); Lymphocytes % 16.4 %; Mean Corpuscular HGB Conc 32.4 g/dL (31.6-35.5); Mean Corpuscular Hemoglobin 27.8 pg (28.0-33.3); Mean Corpuscular Volume 85.9 fL (83.0-100.0); Mean Platelet Volume 9.9 fL (9.4-12.4); Monocytes % 9.5 %; Neutrophils # 7.7 K/mcL (1.6-8.9); Platelet Count 362 K/mcL (140-400); Red Blood Count 2.77 M/mcL (3.82-4.97); Red Cell Distribution Width 13.9 % (11.5-14.5); Segmented Neutrophils % 70.1 %; White Blood Count 10.9 K/mcL (4.3-11.1)
[2022-01-02] MEDS ORDERED: calcitrioL 0.25 MCG CAPSULE PO SCH (09:00)
[2022-01-02 10:06] LABS: Calcium 8.6 mg/dL (8.6-10.3); Phosphorous 7.3 mg/dL (2.7-4.5); Potassium 3.7 mEq/L (3.5-5.1)
[2022-01-02] MEDS: *HR* OxyCODONE Immed Rel 5 MG TABLET PO PRN (10:31)
[2022-01-02] MEDS: traZODone 50 MG TABLET PO SCH (20:55)
[2022-01-03 02:47] LABS: Basophils % 0.3 %; Eosinophils # 0.3 K/mcL (0.0-0.6); Eosinophils % 2.1 %; Hematocrit 23.8 % (35.3-44.9); Hemoglobin 7.8 g/dL (11.5-15.4); Immature Granulocytes % 0.8 % (0-4); Lymphocytes # 2.3 K/mcL (0.6-4.6); Lymphocytes % 19.6 %; Mean Corpuscular HGB Conc 32.8 g/dL (31.6-35.5); Mean Corpuscular Hemoglobin 28.3 pg (28.0-33.3); Mean Corpuscular Volume 86.2 fL (83.0-100.0); Mean Platelet Volume 9.8 fL (9.4-12.4); Monocytes % 8.8 %; Platelet Count 393 K/mcL (140-400); Red Blood Count 2.76 M/mcL (3.82-4.97); Red Cell Distribution Width 13.8 % (11.5-14.5); Segmented Neutrophils % 68.4 %; White Blood Count 11.7 K/mcL (4.3-11.1)
[2022-01-03 03:07] LABS: Calcium 8.9 mg/dL (8.6-10.3); Potassium 3.7 mEq/L (3.5-5.1)
[2022-01-03] MEDS: *HR* HYDROcodone/Acet 5/325 mg TABLET PO PRN (05:24)
[2022-01-03] MEDS: Isosorbide MONOnitrate (24 HR) 30 MG TAB.ER.24H PO SCH (08:59)
[2022-01-03] MEDS: carvediloL 6.25 MG TABLET PO SCH (09:00)
[2022-01-03] MEDS: Nystatin POWDER 30 GM BOTTLE TP SCH (09:00)
[2022-01-03] MEDS: Insulin LISPRO 300 UNITS/3 ML VIAL SUBQ SCH ×2 (09:00→12:16)
[2022-01-03 10:55] VITALS: BP 126/48; PULSE 69; TEMP 98.2; O2SAT 93
[2022-01-03] MEDS ORDERED: amLODIPine 5 MG TABLET PO SCH (11:45)
== END 2022-01-03 15:47 | disposition home health service (06) | DRG 683 ==
LOC: 2ANU → SUATTDRO 17:37
PROVIDERS: ADMIT Internal Medicine; ATTEND Pharmacist